=== PATIENT | female | born 1930 ===

== ENCOUNTER 2017-03-13 11:07 | Inpatient (IN) | payer MEDICARE, BC ==
[2017-03-13] MEDS ORDERED: Albuterol-Ipratrop 3 mg / 0.5 (3 ml) UD ONE (13:21)
[2017-03-13] MEDS ORDERED: Albuterol-Ipratrop 3 mg / 0.5 (3 ml) UD INH STA ×2 (13:24→21:50)
--- NOTE | 2017-03-13 13:26 | ED PDOC ---
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 Pt had previous admissions for COPD Asthma. Pt denied: dizziness, CP, v/n/d, abdominal pain, recent travel, sick contact. PMHx: HTN, High Cholesterol, Osteoporosis (NatiEmani Radha) Past Medical History - Medical History PMH: Asthma, COPD, HTN, Hypercholesterolemia, Osteoporosis Denies: Chronic Kidney Disease - Family History Family History: States: Unknown Family Hx - Immunization History Hx Tetanus Toxoid Vaccination: No Hx Influenza Vaccination: No Hx Pneumococcal Vaccination: No <Emani Damian - Last Filed: 03/13/17 16:53> <Sara Overton - Last Filed: 03/13/17 17:26> Vital Signs: Last Vital Signs Temp 98 F 03/13/17 11:31 Pulse 83 03/13/17 11:31 Resp 20 03/13/17 11:31 BP 128/65 03/13/17 11:31 Pulse Ox 98 03/13/17 16:58 - Home Medications Home Medications: Ambulatory Orders Medication Instructions Recorded Albuterol/Ipratropium [Duoneb 3 3 ml INH Q6H 09/28/16 mg/0.5 mg (3 ml) UD] Multivit-Min/FA/Lutein/Zeaxant 1 tab PO DAILY 09/28/16 [Icaps Mv Tablet] Simvastatin [Zocor] 20 mg PO HS 09/28/16 Vitamin E [Vitamin E 400 Units Cap] 1 cap PO DAILY 09/28/16 amLODIPine [Norvasc] 10 mg PO DAILY 09/28/16 Albuterol HFA [Ventolin HFA 90 2 puff IH Q4H PRN 03/13/17 mcg/actuation (8 g)] Calcium Carbonate [Calcium 1 tab PO DAILY 03/13/17 Carbonate] Cetirizine HCl [All Day Allergy 10 mg PO DAILY 03/13/17 Relief] Diclofenac Sodium/Misoprostol 1 tab PO DAILY PRN 03/13/17 [Arthrotec 50 mg-200 Mcg Tab] Fluticasone Nasal [Flonase] 1 spray YANCY BID PRN 03/13/17 Fluticasone/Vilanterol [Breo 1 puff IH DAILY 03/13/17 Ellipta 200-25 Mcg INH] Hydrocortisone [Proctosol-Hc] 1 appl MI HS 03/13/17 Montelukast [Singulair] 10 mg PO HS 03/13/17 predniSONE [predniSONE Tab] 15 mg PO Q12H 03/13/17 - Allergies Allergies/Adverse Reactions: Allergies Allergy/AdvReac Type Severity Reaction Status Date / Time No Known Allergies Allergy Verified 03/13/17 11:30 - Laboratory Results Result Diagrams: 03/13/17 13:35 03/13/17 13:35 - ECG O2 Sat by Pulse Oximetry: 98 <Emani Damian - Last Filed: 03/13/17 16:53> - Laboratory Results Result Diagrams: 03/13/17 13:35 03/13/17 13:35 <Sara Overton - Last Filed: 03/13/17 17:26> Medical Decision Making <Emani Damian - Last Filed: 03/13/17 16:53> <Sara Overton - Last Filed: 03/13/17 17:26> Medical Decision Making: IV access established and treatment initiated with Duo neb and Zithromax and Rocephin after CXR revealed B/L LL pneumonia's as read by PATuC EKG= Sinus rhythm with frequent premature ventricular complexes, L axis deviation, R bundle branch block., as read by ED MD Remains unchanged from previous admission CBC resulted with WBC 11.3 COMP with BUN mildly elevated at 19. Coags WNL Case discussed with Pt's PMD, Dr. Olsen., who agreed with admission at this time. (Emani Damian) Disposition - Patient ED Disposition Is Patient to be Admitted: Yes - Disposition Disposition Time: 16:53 - POA Present On Arrival: None <Emani Damian - Last Filed: 03/13/17 16:53> <Sara Overton - Last Filed: 03/13/17 17:26> - Clinical Impression Clinical Impression: Pneumonia - Disposition Condition: STABLE
[2017-03-13 13:46] LABS: BASO # 0.1 K/uL (0.0-0.2); BASO % 0.8 % (0.0-2.0); EOS # 0.2 K/uL (0.0-0.7); EOS % 1.6 % (0.0-4.0); HEMATOCRIT 40.9 % (34.0-47.0); LYMPH # 1.4 K/uL (1.0-4.3); LYMPH % 12.4 % (20.0-40.0); MEAN CELL VOLUME 97.6 fl (81.0-99.0); MEAN CORPUSCULAR HEMOGLOBIN 32.3 pg (27.0-31.0); MEAN CORPUSCULAR HGB CONC 33.1 g/dL (33.0-37.0); MEAN PLATELET VOLUME 8.7 fl (7.2-11.7); MONO # 0.8 K/uL (0.0-0.8); MONO % 7.4 % (0.0-10.0); NEUT # 8.8 K/uL (1.8-7.0); NEUT % 77.8 % (50.0-75.0); WHITE BLOOD COUNT 11.3 K/uL (4.8-10.8)
[2017-03-13 13:55] LABS: ALB/GLOB RATIO 1.2 (1.0-2.1); ALKALINE PHOSPHATASE 163 U/L (38-126); ALT/SGPT 46 U/L (9-52); AST/SGOT 31 U/L (14-36); BILIRUBIN,TOTAL 0.8 mg/dl (0.2-1.3); BLOOD UREA NITROGEN 19 mg/dl (7-17); CALCIUM 9.2 mg/dL (8.4-10.2); CARBON DIOXIDE 26 mmol/L (22-30); CHLORIDE 108 mmol/L (98-107); GFR AFRICAN-AMERICAN > 60; GLUCOSE,RANDOM 96 mg/dL (65-105); POTASSIUM 4.4 MMOL/L (3.6-5.0); SODIUM 143 mmol/l (132-148); TOTAL PROTEIN 7.3 G/DL (6.3-8.2)
[2017-03-13 14:02] LABS: PARTIAL THROMBOPLASTIN TIME 26.4 SECONDS (23.3-32.5)
--- NOTE | 2017-03-13 14:56 | RAD ---
PROCEDURE: CHEST RADIOGRAPH, 1 VIEW. Portable study 14:00. HISTORY: SOB COMPARISON: 10/03/2016. FINDINGS: LUNGS: Right lower lobe infiltrate, of questionable left lower lobe infiltrate. PLEURA: No pneumothorax or pleural fluid seen. CARDIOVASCULAR: No radiographic findings to suggest acute or significant cardiovascular disease. OSSEOUS STRUCTURES: Severe degenerative changes both shoulders. VISUALIZED UPPER ABDOMEN: Normal. OTHER FINDINGS: None. IMPRESSION: New right lower lobe infiltrate suspicious for pneumonia. Questionable left lower lobe infiltrate/atelectasis.
[2017-03-13] MEDS ORDERED: Azithromycin 500 MG in Sodium Chloride 0.9% 250 ML IVPB STA (16:25)
[2017-03-13] MEDS ORDERED: cefTRIAXone (Rocephin) 1 gm Inj ONE (16:40)
[2017-03-13] MEDS ORDERED: DiphenhydrAMINE 50 mg/ml Inj ONE (18:18)
[2017-03-13] MEDS ORDERED: DiphenhydrAMINE 50 mg/ml Inj IVP STA (18:20)
[2017-03-13] MEDS ORDERED: Anusol Suppository PR PRN (22:43)
[2017-03-13] MEDS: Promethazine/Cod 6.25mg-10mg/5ml Syr UD PO PRN (23:05)
[2017-03-13] MEDS: Albuterol-Ipratrop 3 mg / 0.5 (3 ml) UD INH SCH (23:34)
--- NOTE | 2017-03-14 02:02 | CARD ---
APPROVED REPORT EKG Measurement Heart [id number] <Conclusion> Sinus rhythm with occasional premature ventricular complexes Right bundle branch block Left anterior fascicular block Bifascicular block Cannot rule out Inferior infarct (masked by fascicular block?), age undetermined Abnormal ECG
[2017-03-14] MEDS: Albuterol-Ipratrop 3 mg / 0.5 (3 ml) UD INH SCH ×6 (04:35→23:04)
[2017-03-14] MEDS: Promethazine/Cod 6.25mg-10mg/5ml Syr UD PO PRN (07:58)
[2017-03-14] MEDS: methylPREDNISolone 30 MG in Sodium Chloride 0.9% 50 ML IVPB SCH ×2 (09:10→21:27)
[2017-03-14] MEDS: Pantoprazole 40 mg EC Tab PO SCH (09:10)
[2017-03-14] MEDS ORDERED: Chlorhexidine Gluconate 1 APPL/PKT TP ONE ×2 (09:11→16:54)
--- NOTE | 2017-03-14 10:45 | CT ---
PROCEDURE: CT Chest without contrast HISTORY: pneumonia COMPARISON: 08/16/2013 CT thorax. March 13, 2017. Single-view chest. TECHNIQUE: Contiguous axial images were obtained through the chest without intravenous contrast enhancement. Sagittal and coronal reconstructions were performed. Radiation dose (DLP): 405.07 mGy-cm. This CT exam was performed using one or more of the following dose reduction techniques: Automated exposure control, adjustment of the mA and/or kV according to patient size, and/or use of iterative reconstruction technique. FINDINGS: LUNGS: Improved aeration of the lungs compared to the prior chest radiograph. Hyperinflation, manifestations of COPD. No active pulmonary disease. MEDIASTINUM: Unremarkable thoracic aorta. No aneurysm. Normal sized heart. Main pulmonary artery unremarkable. No vascular congestion. No lymphadenopathy. PLEURA: No pleural fluid. No pneumothorax. BONES: No fracture. No destructive lesion. UPPER ABDOMEN: Cholelithiasis without CT evidence of acute cholecystitis. OTHER FINDINGS: None. IMPRESSION: Improved aeration of the lungs, decrease in infiltrates apparent on recent chest radiograph. Underlying manifestations of COPD primarily hyperinflation. Mild interstitial lung disease, parabronchial thickening and trace apical scarring remain unchanged.
[2017-03-14] MEDS: Enoxaparin 40 mg Syringe SC SCH (13:54)
[2017-03-14] MEDS: Azithromycin 500 MG in Sodium Chloride 0.9% 250 ML IVPB SCH (14:04)
--- NOTE | 2017-03-14 14:55 | CP.PCM.HP ---
History of Present Illness - History of Present Illness History of Present Illness: CC: Chest congestion. 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 Worsening symptom of productive cough with tick scanty yellowish phlegms, nasal congestion. Aggravated factor: Chest tightness with coughing, unable to sleep well. Pt denied: Bloody sputum, fever, chills, n/v/d, abdominal pain, urinary symptoms, CP, numbness, dizziness, syncope, LOC, sick contact, recent travel. PMHx: Several admissions for PNA, COPD, Asthma, HTN, High Cholesterol, Hx of falls, Chronic Shoulders pain, Osteoporosis, Hemorrhoids. EKG showed: Sinus rhythm with occasional PVC, RBB block, L anterior fascisular block, Bifascicular block. CXR: New RLL infiltrate, suspicious for PNA. Questionable LLL infiltrate/ atelectasis. Present on Admission - Present on Admission Any Indicators Present on Admission: No Review of Systems - Constitutional Constitutional: Other (negative) - EENT Eyes: Change in Vision, Other (negative) Ears: Decreased Hearing Nose/Mouth/Throat: Nasal Congestion - Cardiovascular Cardiovascular: Other (negative) - Respiratory Respiratory: Cough, Dyspnea, Dyspnea on Exertion, Chest Congestion, Excessive Mucous Production, Change in Mucous Color - Gastrointestinal Gastrointestinal: Other (negative) - Genitourinary Genitourinary: Other (negative) - Musculoskeletal Musculoskeletal: Other (chronic shoulders pain) - Integumentary Integumentary: Other (negative) - Neurological Neurological: Other (negative) - Psychiatric Psychiatric: Other (negative) - Endocrine Endocrine: Other (negative) - Hematologic/Lymphatic Hematologic: Other (negative) Past Patient History - Past Medical History & Family History Past Medical History?: Yes Pertinent Family History: Unknown - Past Social History Smoking Status: Never Smoked Alcohol: None Drugs: Denies Home Situation {Lives}: With Family - CARDIAC Hx Cardiac Disorders: Yes Hx Hypercholesterolemia: Yes Hx Hypertension: Yes - PULMONARY Hx Respiratory Disorders: Yes Hx Asthma: Yes Hx Chronic Obstructive Pulmonary Disease (COPD): Yes Hx Pneumonia: Yes - NEUROLOGICAL Hx Neurological Disorder: No - HEENT Hx HEENT Problems: No - RENAL Hx Chronic Kidney Disease: No - ENDOCRINE/METABOLIC Hx Endocrine Disorders: No - HEMATOLOGICAL/ONCOLOGICAL Hx Blood Disorders: No - INTEGUMENTARY Hx Dermatological Problems: No - MUSCULOSKELETAL/RHEUMATOLOGICAL Hx Musculoskeletal Disorders: Yes (B/L Shoulders pain) Hx Falls: Yes Hx Osteoporosis: Yes - GASTROINTESTINAL Hx Gastrointestinal Disorders: No - GENITOURINARY/GYNECOLOGICAL Hx Genitourinary Disorders: No - PSYCHIATRIC Hx Psychophysiologic Disorder: No Hx Substance Use: No - SURGICAL HISTORY Hx Surgeries: Yes Hx Herniorrhaphy: Yes Other/Comment: vaginal prolapse repair - ANESTHESIA Hx Anesthesia: Yes Hx Anesthesia Reactions: No Meds Allergies/Adverse Reactions: Allergies Allergy/AdvReac Type Severity Reaction Status Date / Time No Known Allergies Allergy Verified 03/13/17 11:30 Physical Exam - Constitutional Appears: No Acute Distress - Head Exam Head Exam: NORMAL INSPECTION - Eye Exam Eye Exam: PERRL - ENT Exam ENT Exam: Normal Oropharynx Additional comments: Hard of hearing - Neck Exam Neck exam: Positive for: Normal Inspection - Respiratory Exam Respiratory Exam: Decreased Breath Sounds (at bases), Rhonchi (b/l) - Cardiovascular Exam Cardiovascular Exam: REGULAR RHYTHM - GI/Abdominal Exam GI & Abdominal Exam: Normal Bowel Sounds, Soft - Extremities Exam Extremities exam: Positive for: normal inspection - Back Exam Back exam: NORMAL INSPECTION - Neurological Exam Neurological exam: Alert, Oriented x3 Additional comments: No motor sensory deficit - Psychiatric Exam Psychiatric exam: Normal Mood - Skin Skin Exam: Warm Results - Vital Signs Recent Vital Signs: Last Vital Signs Temp 98 F 03/14/17 08:39 Pulse 76 03/14/17 09:10 Resp 20 03/14/17 08:39 BP 106/56 L 03/14/17 09:10 Pulse Ox 96 03/14/17 08:39 reviewed J.P. - Labs Result Diagrams: 03/13/17 13:35 03/13/17 13:35 Labs: reviewed J.P. - EKG Data EKG comments: reviewed J.P. - Imaging and Cardiology Chest x-ray Status: Report reviewed by me (Elaina) Assessment & Plan (1) COPD exacerbation Status: Acute (2) Rhinitis Status: Acute Priority: High (3) HTN (hypertension) Status: Chronic Priority: Medium (4) Hemorrhoids Status: Acute - Assessment and Plan (Free Text) Plan: Zithromax, Ceftriaxone, Lovenox, Claritin, Phenergan with Co, PT eval, Surgery consult, f/u CT Chest. - Date & Time Date: 03/14/17 Time: 09:45
[2017-03-14] MEDS: Anusol Suppository PR SCH (17:02)
--- NOTE | 2017-03-14 18:50 | CP.PCM.CON ---
History of Present Illness - History of Present Illness History of Present Illness: 87 y.o. female comes to the hospital for congestion and cough. Patient states that occasionally she has being having some blood on the tissue when she wipes after defecation. Denies any pain to the jose-anal area, no fever or chills, no diarrhea or constipation, tolerating diet, passing flatus and having normal bowel movements. As per patient she never had a colonoscopy. Review of Systems - Constitutional Constitutional: As Per HPI - EENT Eyes: Other (unremarkable) Ears: Other (unremarkable) Nose/Mouth/Throat: Other (unremarkable) - Cardiovascular Cardiovascular: Other (unremarkable) - Respiratory Respiratory: As Per HPI - Gastrointestinal Gastrointestinal: As Per HPI - Genitourinary Genitourinary: Other (unremarkable) - Musculoskeletal Musculoskeletal: Other (unremarkable) - Integumentary Integumentary: Other (unremarkable) - Neurological Neurological: Other (unremarkable) - Psychiatric Psychiatric: Other (unremarkable) - Endocrine Endocrine: Other (unremarkable) - Hematologic/Lymphatic Hematologic: Other (unremarkable) Past Patient History - Past Medical History & Family History Past Medical History?: Yes - Past Social History Smoking Status: Never Smoked Alcohol: None Drugs: Denies Home Situation {Lives}: With Family - CARDIAC Hx Cardiac Disorders: Yes Hx Hypercholesterolemia: Yes Hx Hypertension: Yes - PULMONARY Hx Respiratory Disorders: Yes Hx Asthma: Yes Hx Chronic Obstructive Pulmonary Disease (COPD): Yes Hx Pneumonia: Yes - NEUROLOGICAL Hx Neurological Disorder: No - HEENT Hx HEENT Problems: No - RENAL Hx Chronic Kidney Disease: No - ENDOCRINE/METABOLIC Hx Endocrine Disorders: No - HEMATOLOGICAL/ONCOLOGICAL Hx Blood Disorders: No - INTEGUMENTARY Hx Dermatological Problems: No - MUSCULOSKELETAL/RHEUMATOLOGICAL Hx Musculoskeletal Disorders: Yes (B/L Shoulders pain) Hx Falls: Yes Hx Osteoporosis: Yes - GASTROINTESTINAL Hx Gastrointestinal Disorders: No - GENITOURINARY/GYNECOLOGICAL Hx Genitourinary Disorders: No - PSYCHIATRIC Hx Psychophysiologic Disorder: No Hx Substance Use: No - SURGICAL HISTORY Hx Surgeries: Yes Hx Herniorrhaphy: Yes Other/Comment: vaginal prolapse repair - ANESTHESIA Hx Anesthesia: Yes Hx Anesthesia Reactions: No Meds Allergies/Adverse Reactions: Allergies Allergy/AdvReac Type Severity Reaction Status Date / Time No Known Allergies Allergy Verified 03/13/17 11:30 - Medications Medications: Current Medications Albuterol/Ipratropium (Duoneb 3 Mg/0.5 Mg (3 Ml) Ud) 3 ml INH RQ4 [facility] Last Admin: 03/14/17 16:18 Dose: 3 ml Amlodipine Besylate (Norvasc) 10 mg PO DAILY [facility] Last Admin: 03/14/17 09:10 Dose: 10 mg Enoxaparin Sodium (Lovenox) 40 mg SC DAILY [facility] PRN Reason: Protocol Last Admin: 03/14/17 13:54 Dose: 40 mg Fluticasone Propionate (Flonase) 1 spr YANCY BID PRN PRN Reason: Allergy symptoms Home Med (Cetirizine Hcl [All Day Allergy Relief]) 10 mg PO DAILY [facility] Methylprednisolone 30 mg/ (Sodium Chloride) 50 mls @ 100 mls/hr IVPB Q12 [facility] Last Admin: 03/14/17 09:10 Dose: 100 mls/hr Ceftriaxone Sodium 1 gm/ (Sodium Chloride) 100 mls @ 100 mls/hr IVPB DAILY [facility] Last Admin: 03/14/17 14:04 Dose: 100 mls/hr Azithromycin 500 mg/ Sodium (Chloride) 250 mls @ 250 mls/hr IVPB DAILY [facility] Last Admin: 03/14/17 14:04 Dose: 250 mls/hr Loratadine (Claritin) 10 mg PO DAILY [facility] Last Admin: 03/14/17 09:09 Dose: 10 mg Montelukast Sodium (Singulair) 10 mg PO HS [facility] Last Admin: 03/14/17 00:36 Dose: 10 mg Pantoprazole Sodium (Protonix Ec Tab) 40 mg PO DAILY [facility] Last Admin: 03/14/17 09:10 Dose: 40 mg Promethazine HCl/Codeine (Phenergan/Codeine Oral Syrup) 5 ml PO Q4 PRN PRN Reason: Cough Last Admin: 03/14/17 07:58 Dose: 5 ml Physical Exam - Constitutional Appears: No Acute Distress - Head Exam Head Exam: ATRAUMATIC, NORMAL INSPECTION, NORMOCEPHALIC - Eye Exam Eye Exam: EOMI, Normal appearance, PERRL Pupil Exam: NORMAL ACCOMODATION, PERRL - ENT Exam ENT Exam: Mucous Membranes Moist, Normal Exam - Neck Exam Neck exam: Positive for: Full Rom, Normal Inspection - Respiratory Exam Respiratory Exam: NORMAL BREATHING PATTERN - Cardiovascular Exam Cardiovascular Exam: REGULAR RHYTHM, +S1, +S2 - GI/Abdominal Exam GI & Abdominal Exam: Normal Bowel Sounds, Soft Additional comments: NT, ND, no rebound, no guarding - Rectal Exam Additional comments: No external hemorrhoids, good sphincter tone, no palpable masses, no gross blood - Extremities Exam Extremities exam: Positive for: full ROM, normal inspection - Neurological Exam Neurological exam: Alert, Oriented x3 - Psychiatric Exam Psychiatric exam: Normal Affect, Normal Mood - Skin Skin Exam: Dry, Intact, Normal Color, Warm Results - Vital Signs Recent Vital Signs: Last Vital Signs Temp 98 F 03/14/17 16:23 Pulse 76 03/14/17 16:23 Resp 20 03/14/17 16:23 BP 147/67 03/14/17 16:23 Pulse Ox 97 03/14/17 16:23 - Labs Result Diagrams: 03/13/17 13:35 03/13/17 13:35 - Imaging and Cardiology CT scan - chest Status: Image reviewed by me, Report reviewed by me Assessment & Plan - Assessment and Plan (Free Text) Assessment: 87 y.o. female with some occasional blood on the tissue after defecation Plan: - No general surgery intervention at present time - Continue care as per medical team - I have explained to the patient that once her lung issue is resolved she can follow up with me in the office - Patient was d/w Dr. Olsen - General surgery will sign off - Please re-consult as needed
[2017-03-15] MEDS: Albuterol-Ipratrop 3 mg / 0.5 (3 ml) UD INH SCH ×6 (04:39→23:46)
[2017-03-15 07:10] LABS: HEMATOCRIT 38.2 % (34.0-47.0); MEAN CELL VOLUME 97.7 fl (81.0-99.0); MEAN CORPUSCULAR HEMOGLOBIN 32.1 pg (27.0-31.0); MEAN CORPUSCULAR HGB CONC 32.9 g/dL (33.0-37.0); RED CELL DISTRIBUTION WIDTH 13.8 % (11.5-14.5); WHITE BLOOD COUNT 5.9 K/uL (4.8-10.8)
[2017-03-15 07:32] LABS: BLOOD UREA NITROGEN 26 mg/dl (7-17); CALCIUM 9.1 mg/dL (8.4-10.2); CARBON DIOXIDE 23 mmol/L (22-30); CHLORIDE 108 mmol/L (98-107); GFR AFRICAN-AMERICAN > 60; GLUCOSE,RANDOM 175 mg/dL (65-105); POTASSIUM 4.1 MMOL/L (3.6-5.0); SODIUM 140 mmol/l (132-148)
--- NOTE | 2017-03-15 07:53 | PQF GENQUE ---
This form is a permanent part of the medical record 03/15/17 Dr. Olsen, ER has documented the following information with no mention of this diagnosis in your documentation. Please indicate in your next progress note and/or discharge summary your agreement with the ER or provide clarification that this diagnosis is not a current condition. Diagnosis: PNEUMONIA Documented by: ER MD Admitted with chest congestion, REARDON and productive cough. Afebrile, WBC 11.3 with a L shift. Rhonchi noted. CXR: New RLL infiltrate suspicious for pneumonia and questionable LLL infiltrate/atelectasis. CT Chest: Improved aeration and decrease in the infiltrates apparent on CXR. + COPD. Treatment includes: Rocephin, Zithromax, nebulizers and Solumedrol. Clarification of your documentation is requested to better reflect the severity of illness and intensity of treatment of your patient. PHYSICIAN'S RESPONSE [ ] Pneumonia ruled in and the type [ ] Pneumonia ruled out [ ] Unable to determine [ ] Other explanation: Based on your medical judgment of the clinical indicators outlined above please clarify the following: [] Practitioner response [] If unable to determine, please check the box, sign and date. Present On Admission (POA) Indicator: [] Present at the time of admission [] Not present at the time of admission [] Clinically Undetermined In responding to this query, please exercise your independent professional judgment. The fact that a question is asked does not imply that any particular answer is desired or expected. Thank you for your clarification on this documentation. If you have any questions please call:extension [phone] Medical Records * Thank you, Hyacinth Olivares RN CDMP MTDD
--- NOTE | 2017-03-15 08:01 | PQF GENQUE ---
This form is a permanent part of the medical record 03/15/17 Dr. Olsen, Please clarify the type of asthma if known. Patient with a history of COPD and Asthma presents with chest congestion, REARDON and productive cough. CXR with new RLL infiltrate and questionable left atelectasis/infiltrate. CT Chest: Improved aeration of lungs with decrease in infiltrates apparent on CXR. Treated with IVAB, Solumedrol, Flonase, Singulair . Clarification of your documentation is requested to better reflect the severity of illness and intensity of treatment of your patient. PHYSICIAN'S RESPONSE 1. Please clarify type of asthma: [] Childhood [] Cough variant [] Exercise induced [] Late onset [] Mild intermittent [] Mild persistent [] Moderate persistent [] Severe persistent [] With bronchitis(please clarify acuity of bronchitis) [] With chronic lung disease (please document specific chronic lung disease ) [] Other (please specify) [] Unable to determine [] Unknown 2. Please clarify acuity of asthma: [] Uncomplicated [] With exacerbation(acute) [] With status asthmaticus [] Other (please specify) [] Unable to determine [] Unknown Based on your medical judgment of the clinical indicators outlined above please clarify the following: [] Practitioner response [] If unable to determine, please check the box, sign and date. Present On Admission (POA) Indicator: [] Present at the time of admission [] Not present at the time of admission [] Clinically Undetermined In responding to this query, please exercise your independent professional judgment. The fact that a question is asked does not imply that any particular answer is desired or expected. Thank you for your clarification on this documentation. If you have any questions please call:extension [phone] Medical Records Dept * Thank you, Hyacinth Olivares RN CDMP MTDD
[2017-03-15] MEDS: Enoxaparin 40 mg Syringe SC SCH (08:26)
[2017-03-15] MEDS: Pantoprazole 40 mg EC Tab PO SCH (08:27)
[2017-03-15] MEDS: Anusol Suppository PR SCH ×2 (08:30→16:56)
[2017-03-15] MEDS: methylPREDNISolone 30 MG in Sodium Chloride 0.9% 50 ML IVPB SCH ×2 (08:32→21:07)
[2017-03-15] MEDS: Azithromycin 500 MG in Sodium Chloride 0.9% 250 ML IVPB SCH (08:33)
[2017-03-15 16:28] VITALS: BP 113/51; PULSE 78; RESP 18; TEMP 97.8; O2SAT 97
--- NOTE | 2017-03-15 16:52 | CP.PCM.PN ---
Subjective - Date & Time of Evaluation Date of Evaluation: 03/15/17 Time of Evaluation: 11:30 - Subjective Subjective: F/U COPD Exacerbation. Pt breathing better, having dry cough, attempting to bring up phlegms, chest congestion. Objective - Vital Signs/Intake and Output Vital Signs (last 24 hours): Temp Pulse Resp BP Pulse Ox 97.8 F 78 18 113/51 L 97 03/15/17 16:28 03/15/17 16:28 03/15/17 16:28 03/15/17 16:28 03/15/17 16:28 - Medications Medications: Current Medications Albuterol/Ipratropium (Duoneb 3 Mg/0.5 Mg (3 Ml) Ud) 3 ml INH RQ4 [facility] Last Admin: 03/15/17 15:23 Dose: 3 ml Amlodipine Besylate (Norvasc) 10 mg PO DAILY [facility] Last Admin: 03/15/17 08:26 Dose: 10 mg Enoxaparin Sodium (Lovenox) 40 mg SC DAILY [facility] PRN Reason: Protocol Last Admin: 03/15/17 08:26 Dose: 40 mg Fluticasone Propionate (Flonase) 1 spr YANCY BID PRN PRN Reason: Allergy symptoms Home Med (Cetirizine Hcl [All Day Allergy Relief]) 10 mg PO DAILY [facility] Methylprednisolone 30 mg/ (Sodium Chloride) 50 mls @ 100 mls/hr IVPB Q12 [facility] Last Admin: 03/15/17 08:32 Dose: 100 mls/hr Ceftriaxone Sodium 1 gm/ (Sodium Chloride) 100 mls @ 100 mls/hr IVPB DAILY [facility] Last Admin: 03/15/17 08:28 Dose: 100 mls/hr Azithromycin 500 mg/ Sodium (Chloride) 250 mls @ 250 mls/hr IVPB DAILY [facility] Last Admin: 03/15/17 08:33 Dose: 250 mls/hr Loratadine (Claritin) 10 mg PO DAILY [facility] Last Admin: 03/15/17 08:25 Dose: 10 mg Montelukast Sodium (Singulair) 10 mg PO HS [facility] Last Admin: 03/14/17 21:27 Dose: 10 mg Pantoprazole Sodium (Protonix Ec Tab) 40 mg PO DAILY [facility] Last Admin: 03/15/17 08:27 Dose: 40 mg Promethazine HCl/Codeine (Phenergan/Codeine Oral Syrup) 5 ml PO Q4 PRN PRN Reason: Cough Last Admin: 03/14/17 07:58 Dose: 5 ml - Labs Labs: 03/15/17 05:50 03/15/17 05:50 PT 10.8 SECONDS (9.6-11.2) 03/13/17 13:35 INR 1.04 (0.92-1.08) 03/13/17 13:35 APTT 26.4 SECONDS (23.3-32.5) 03/13/17 13:35 - Constitutional Appears: No Acute Distress - Head Exam Head Exam: NORMAL INSPECTION - Eye Exam Eye Exam: PERRL - ENT Exam Additional comments: Hard of hearing - Neck Exam Neck Exam: Normal Inspection - Respiratory Exam Respiratory Exam: Decreased Breath Sounds (at bases), Rhonchi (scattered), Wheezes (scattered) - Cardiovascular Exam Cardiovascular Exam: REGULAR RHYTHM - GI/Abdominal Exam GI & Abdominal Exam: Soft, Normal Bowel Sounds - Extremities Exam Extremities Exam: Normal Inspection - Back Exam Back Exam: NORMAL INSPECTION - Neurological Exam Neurological Exam: Alert, Oriented x3. absent: Motor Sensory Deficit - Psychiatric Exam Psychiatric exam: Normal Mood - Skin Skin Exam: Warm Assessment and Plan (1) COPD exacerbation Status: Acute (2) Rhinitis Status: Acute (3) HTN (hypertension) Status: Chronic (4) Hemorrhoids Status: Acute - Assessment and Plan (Free Text) Plan: Continue with Zithromax, Ceftriaxone, Duoneb, Solumedrol and rest of Tx.
--- NOTE | 2017-03-16 20:10 | CP.PCM.PN ---
Subjective - Date & Time of Evaluation Date of Evaluation: 03/16/17 Time of Evaluation: 09:00 - Subjective Subjective: F/U COPD Exacerbation. Occasional dry cough, no SOB, minimal chest congestion. Objective - Vital Signs/Intake and Output Vital Signs (last 24 hours): Temp Pulse Resp BP Pulse Ox 97.8 F 78 18 113/51 L 97 03/15/17 16:28 03/15/17 16:28 03/15/17 16:28 03/15/17 16:28 03/15/17 16:28 - Labs Labs: 03/15/17 05:50 03/15/17 05:50 PT 10.8 SECONDS (9.6-11.2) 03/13/17 13:35 INR 1.04 (0.92-1.08) 03/13/17 13:35 APTT 26.4 SECONDS (23.3-32.5) 03/13/17 13:35 - Constitutional Appears: No Acute Distress - Head Exam Head Exam: NORMAL INSPECTION - Eye Exam Eye Exam: PERRL - ENT Exam Additional comments: Hard of hearing - Neck Exam Neck Exam: Normal Inspection - Respiratory Exam Respiratory Exam: Decreased Breath Sounds (at bases), Rhonchi (few at bases) - Cardiovascular Exam Cardiovascular Exam: REGULAR RHYTHM - GI/Abdominal Exam GI & Abdominal Exam: Soft, Normal Bowel Sounds - Extremities Exam Extremities Exam: Normal Inspection - Back Exam Back Exam: NORMAL INSPECTION - Neurological Exam Neurological Exam: Alert, Oriented x3. absent: Motor Sensory Deficit - Psychiatric Exam Psychiatric exam: Normal Mood - Skin Skin Exam: Warm Assessment and Plan (1) COPD exacerbation Status: Acute (2) Rhinitis Status: Acute (3) HTN (hypertension) Status: Chronic (4) Hemorrhoids Status: Acute - Assessment and Plan (Free Text) Plan: Zithromax po, Prednisone tapered doses, Duoneb. Improved and stable to be discharged see instruction medication sheet f/u PMD, call my office for f/u in one week.
== END 2017-03-16 19:22 | disposition home or self-care (01) | DRG 190 ==
LOC: H.ER 11:07 → H.ERHOLD 16:52 → H.MEDSURG1 20:30
PROVIDERS: ADMIT Internal Medicine Pulmonary Disease; ATTEND Internal Medicine Pulmonary Disease
DX: J44.1 Chronic obstructive pulmonary disease with (acute) exacerbation (principal); J18.9 Pneumonia, unspecified organism; J44.0 Chronic obstructive pulmonary disease with (acute) lower respiratory infection; I10 Essential (primary) hypertension; J45.909 Unspecified asthma, uncomplicated; E78.00 Pure hypercholesterolemia, unspecified; K64.9 Unspecified hemorrhoids; J31.0 Chronic rhinitis; M81.0 Age-related osteoporosis without current pathological fracture; G89.29 Other chronic pain

== ENCOUNTER 2017-04-25 18:30 | Emergency (ER) | payer MEDICARE, BC ==
--- NOTE | 2017-04-25 19:11 | ED PDOC ---
HPI: General Adult Time Seen by Provider: 04/25/17 18:56 Chief Complaint (Nursing): Trauma Chief Complaint (Provider): FALL History Per: Patient (87 Y/O FEMALE H/O ASTHMA HERE FOR EVALUATION OF FALL AND WRIST INJURY/HIP INJURY. PATIENT UNCLEAR WHY SHE FELL. HAS FELT UNWELL X FEW DAYS WITH "SHOT" GIVEN IN PMD DR. ZAIDI'S OFFICE. NOTES RIGHT WRIST PAIN/ RIGHT BUTTOCK PAIN. UNSURE IF SHE STRUCK HEAD. FALL WAS UNWITNESSED.) Past Medical History Reviewed: Historical Data, Nursing Documentation, Vital Signs Vital Signs: Last Vital Signs Temp 98.0 F 04/25/17 18:33 Pulse 67 04/25/17 18:33 Resp 16 04/25/17 18:33 BP 131/44 L 04/25/17 18:33 Pulse Ox 100 04/25/17 21:00 - Medical History PMH: Asthma, COPD, HTN, Hypercholesterolemia, Osteoporosis, Pneumonia Denies: Chronic Kidney Disease - Family History Family History: States: Unknown Family Hx - Immunization History Hx Tetanus Toxoid Vaccination: No Hx Influenza Vaccination: No Hx Pneumococcal Vaccination: No - Home Medications Home Medications: Ambulatory Orders Medication Instructions Recorded Albuterol/Ipratropium [Duoneb 3 3 ml INH Q6H 09/28/16 mg/0.5 mg (3 ml) UD] Multivit-Min/FA/Lutein/Zeaxant 1 tab PO DAILY 09/28/16 [Icaps Mv Tablet] Simvastatin [Zocor] 20 mg PO HS 09/28/16 Vitamin E [Vitamin E 400 Units Cap] 1 cap PO DAILY 09/28/16 amLODIPine [Norvasc] 10 mg PO DAILY 09/28/16 Albuterol HFA [Ventolin HFA 90 2 puff IH Q4H PRN 03/13/17 mcg/actuation (8 g)] Calcium Carbonate [Calcium 1 tab PO DAILY 03/13/17 Carbonate] Cetirizine HCl [All Day Allergy 10 mg PO DAILY 03/13/17 Relief] Diclofenac Sodium/Misoprostol 1 tab PO DAILY PRN 03/13/17 [Arthrotec 50 mg-200 Mcg Tab] Fluticasone Nasal [Flonase] 1 spray YANCY BID PRN 03/13/17 Fluticasone/Vilanterol [Breo 1 puff IH DAILY 03/13/17 Ellipta 200-25 Mcg INH] Hydrocortisone [Proctosol-Hc] 1 appl [place] HS 03/13/17 Montelukast [Singulair] 10 mg PO HS 03/13/17 predniSONE [predniSONE Tab] 15 mg PO Q12H 03/13/17 Naproxen 500 mg PO BID #30 tab 04/25/17 - Allergies Allergies/Adverse Reactions: Allergies Allergy/AdvReac Type Severity Reaction Status Date / Time No Known Allergies Allergy Verified 04/25/17 18:33 Review of Systems ROS Statement: Except As Marked, All Systems Reviewed And Found Negative Musculoskeletal: Positive for: Leg Pain (HIP PAIN), Other (WRIST PAIN) Physical Exam - Reviewed Nursing Documentation Reviewed: Yes Vital Signs Reviewed: Yes - Physical Exam Appears: Positive for: Well, Non-toxic, No Acute Distress Head Exam: Positive for: ATRAUMATIC, NORMAL INSPECTION, NORMOCEPHALIC Skin: Positive for: Normal Color, Warm, DRY Eye Exam: Positive for: EOMI, Normal appearance, PERRL ENT: Positive for: Normal ENT Inspection Neck: Positive for: Normal, Painless ROM Cardiovascular/Chest: Positive for: Regular Rate, Rhythm Respiratory: Positive for: CNT, Normal Breath Sounds Gastrointestinal/Abdominal: Positive for: Normal Exam, Bowel Sounds, Soft Back: Positive for: Normal Inspection Extremity: Positive for: Normal ROM, Tenderness, Swelling (WRIST SWELLING NOTED / ECCHYMOSIS NOTED DISTAL FOREARM.), Other (RIGHT GLUTEAL REGION TENDERNESS; NO ECCHYMOSIS NOTED.) Neurologic/Psych: Positive for: Alert, Oriented - Laboratory Results Result Diagrams: 04/25/17 19:50 04/25/17 19:50 - ECG O2 Sat by Pulse Oximetry: 100 - Progress ED Course And Treament: EKG: nsr 65bpm; no ectopy; no acute changes cxr: pleural effusion left side xry of wrist: fx of distal radius noted. xry of hip: no acute fx d/w Dr. Johnson. Will f/u outpatient. d/w Dr. Lewis. Will send xry to [facility]. Pending bloodwork results/ cxr findings patient may be discharged for f/u with Dr. zaidi Disposition - Clinical Impression Clinical Impression: Wrist fracture - Patient ED Disposition Is Patient to be Admitted: Transfer of Care - Disposition Referrals: Estevan Johnson MD [Medical Doctor] - Disposition: Transfer of Care Disposition Time: 20:00 Condition: STABLE Prescriptions: Naproxen 500 mg PO BID #30 tab Instructions: Wrist Fracture in Adults (ED) Print Language: HUNGARIAN Patient Signed Over To: Lima Grigsby Handoff Comments: pending bloodwork/ct head/xry
[2017-04-25 19:35] LABS: URINE BILIRUBIN NEGATIVE (NEGATIVE); URINE BLOOD NEGATIVE (NEGATIVE); URINE CLARITY CLEAR (Clear); URINE COLOR YELLOW (YELLOW); URINE GLUCOSE (UA) NEG (Normal); URINE LEUKOCYTE ESTERASE NEG Leu/uL (Negative); URINE NITRATE NEGATIVE (NEGATIVE); URINE PROTEIN NEGATIVE (NEGATIVE); URINE UROBILINOGEN 0.2-1.0 mg/dL (0.2-1.0)
[2017-04-25 20:00] VITALS: BP 131/44; PULSE 67; RESP 16; TEMP 98; O2SAT 100
[2017-04-25 20:09] LABS: BASO # 0.1 K/uL (0.0-0.2); BASO % 0.6 % (0.0-2.0); EOS % 0.4 % (0.0-4.0); HEMOGLOBIN 13.3 g/dL (12.0-16.0); LYMPH # 1.7 K/uL (1.0-4.3); LYMPH % 15.1 % (20.0-40.0); MEAN CORPUSCULAR HEMOGLOBIN 32.3 pg (27.0-31.0); MEAN CORPUSCULAR HGB CONC 32.6 g/dL (33.0-37.0); MEAN PLATELET VOLUME 9.4 fl (7.2-11.7); MONO # 0.9 K/uL (0.0-0.8); MONO % 8.1 % (0.0-10.0); NEUT # 8.5 K/uL (1.8-7.0); NEUT % 75.8 % (50.0-75.0); RBC 4.11 Mil/uL (3.80-5.20); RED CELL DISTRIBUTION WIDTH 14.6 % (11.5-14.5); WHITE BLOOD COUNT 11.2 K/uL (4.8-10.8)
[2017-04-25 20:11] LABS: ALB/GLOB RATIO 1.3 (1.0-2.1); ALBUMIN 4.1 g/dL (3.5-5.0); ALT/SGPT 39 U/L (9-52); AST/SGOT 25 U/L (14-36); BLOOD UREA NITROGEN 27 mg/dl (7-17); CALCIUM 9.1 mg/dL (8.4-10.2); GFR AFRICAN-AMERICAN > 60; GFR NON-AFRICAN AMERICAN 59; MAGNESIUM 2.3 MG/DL (1.6-2.3)
--- NOTE | 2017-04-25 20:22 | CT ---
EXAM: CT Head Without Intravenous Contrast CLINICAL HISTORY: 87 years old, female; Injury or trauma; Fall; Initial encounter; Concussion / head injury; Consciousness not specified TECHNIQUE: Axial computed tomography images of the head/brain without intravenous contrast. This CT exam was performed using one or more of the following dose reduction techniques: automated exposure control, adjustment of the mA and/or kV according to patient size, and/or use of iterative reconstruction technique. Coronal and sagittal reformatted images were created and reviewed. EXAM DATE/TIME: 04/25/2017 6:56 PM COMPARISON: CT - HEAD W/O CONTRAST 12/28/2016 2:33:36 PM FINDINGS: Brain: There is prominence of sulci gyri and ventricles. There is no midline shift. There are no focal masses. There are no focal hemorrhages. Kang-white differentiation is visualized. Ventricles: See above. Bones: Cranial vault is intact. Soft tissues: unremarkable Sinuses: There is no acute sinusitis. Ears and mastoids: Middle ears and mastoids are unremarkable. Orbits: Orbital contents are unremarkable. IMPRESSION: Atrophy, no acute intracranial abnormality
--- NOTE | 2017-04-25 20:27 | RAD ---
EXAM: XR Chest, 1 View CLINICAL HISTORY: 87 years old, female; Injury or trauma; Fall; Initial encounter; Blunt trauma (contusions or hematomas) TECHNIQUE: Frontal view of the chest. EXAM DATE/TIME: 04/25/2017 6:56 PM COMPARISON: CR - CHEST ONE VIEW 03/13/2017 1:51:16 PM FINDINGS: Heart and mediastinum: Heart size is at the upper limits of normal. There are calcifications in the aortic wall. Mediastinal and hilar contours are unremarkable. Vascularity: Pulmonary vascularity is normal. Lungs: Upper lung zones are clear. There are linear opacities at both lung bases Pleural spaces: There may be small bilateral effusions. Bony structures: Bony structures are osteopenic. There are severe degenerative changes of both shoulders. IMPRESSION: Subsegmental atelectasis at the lung bases; osteopenia degenerative change
--- NOTE | 2017-04-25 20:58 | ED PDOC ---
- Laboratory Results Result Diagrams: 04/25/17 19:50 04/25/17 19:50 - ECG O2 Sat by Pulse Oximetry: 100 - Progress Re-evaluation Time: 20:56 Condition: Re-examined (well appearing) <Lima Grigsby - Last Filed: 04/25/17 20:55> - Laboratory Results Result Diagrams: 04/25/17 19:50 04/25/17 19:50 <Latonya Lewis Y - Last Filed: 04/26/17 06:28> - Progress ED Course And Treament: case signed out to brief writer pt with wrist fx, volar splint applied MD Alex consulted and pt will f/u as outpt. [place] [facility] to fever, [facility] PT pending labs and chest xray. , (Lima Grigsby) Disposition Discussed With Dr.: Estevan Johnson Doctor Will See Patient In The: Office Counseled Patient/Family Regarding: Studies Performed, Diagnosis, Need For Followup, Rx Given - POA Present On Arrival: None - Disposition Disposition: Routine/Home Disposition Time: 20:59 <Lima Grigsby - Last Filed: 04/25/17 20:55> <DebbieLatonya Y - Last Filed: 04/26/17 06:28> - Clinical Impression Clinical Impression: Wrist fracture - Disposition Referrals: Estevan Johnson MD [Medical Doctor] - Condition: STABLE Prescriptions: Naproxen 500 mg PO BID #30 tab Instructions: Wrist Fracture in Adults (ED) Print Language: TURKISH Progress Note - Review of Symptoms General: No: Chills, Night Sweats, Fatigue, Malaise, Appetite, Other HEENT: No: Head Aches, Visual Changes, Eye Pain, Ear Pain, Dysphasia, Sinus Congestion, Post Nasal Drip, Sore Throat, Other Pulmonary: No: Dyspnea, Cough, Pleuritic Chest Pain, Other Cardiovascular: No: Chest Pain, Palpitations, Orthopnea, Paroxysmal Noc. Dyspnea , Edema, Light Headedness, Other Gastrointestinal: No: Nausea, Vomiting, Abdominal Pain, Diarrhea, Constipation, Melena, Hematochezia, Other Genitourinary: No: Dysuria, Frequency, Incontinence, Hematuria, Retention, Other Musculoskeletal: No: Muscle Pain, Joint Pain, Other Neurological: No: Weakness, Numbness, Incoordination, Change in speech, Confusion, Seizures, Other <Lima Grigsby - Last Filed: 04/25/17 20:55>
--- NOTE | 2017-04-26 12:47 | RAD ---
PROCEDURE: Right hand radiographs Right wrist radiographs HISTORY: hand injury, wrist injury COMPARISON: None available. FINDINGS: BONES: Diffuse osseous demineralization limits evaluation for acute fracture lines. Comminuted impacted fracture deformity of the distal radius. Nondisplaced fracture of the ulna styloid. Faint lucency within the trapezium of unclear significance favored to reflect vascular groove rather than nondisplaced fracture. Correlate clinically. Remainder of the visualized osseous structures appear intact. JOINTS: No dislocation. SOFT TISSUES: Soft tissue swelling. No evidence of radiopaque foreign body. OTHER FINDINGS: None. IMPRESSION: Soft tissue swelling. Diffuse osseous demineralization limits evaluation for acute fracture lines. Acute comminuted and impacted fracture deformity of the distal radius. Nondisplaced fracture of the ulna styloid. Faint lucency within the trapezium of unclear significance favored to reflect vascular groove rather than nondisplaced fracture. Correlate with physical exam. Study has been marked for PA review.
--- NOTE | 2017-04-26 14:24 | RAD ---
PROCEDURE: Right Hip Radiographs. HISTORY: hip injury COMPARISON: None. FINDINGS: BONES: No acute fracture. Osteopenia identified. JOINTS: Symmetrical, mild degenerative change. SOFT TISSUES: Normal. OTHER FINDINGS: None. IMPRESSION: No acute findings related to/accounting for the clinical presentation.
--- NOTE | 2017-04-27 11:47 | CARD ---
APPROVED REPORT EKG Measurement Heart [id number] <Conclusion> Normal sinus rhythm Possible Left atrial enlargement Left axis deviation Incomplete right bundle branch block Left ventricular hypertrophy Inferior infarct, age undetermined Abnormal ECG
== END 2017-04-25 21:35 | disposition home or self-care (01) ==
LOC: H.ER 18:30
DX: S52.502A Unspecified fracture of the lower end of left radius, initial encounter for closed fracture (principal); S09.90XA Unspecified injury of head, initial encounter; M25.551 Pain in right hip; W19.XXXA Unspecified fall, initial encounter; Y92.89 Other specified places as the place of occurrence of the external cause; E78.00 Pure hypercholesterolemia, unspecified; I10 Essential (primary) hypertension; J44.9 Chronic obstructive pulmonary disease, unspecified; M81.0 Age-related osteoporosis without current pathological fracture

== ENCOUNTER 2017-05-12 14:46 | Emergency (ER) | payer MEDICARE, BC ==
[2017-05-12 14:54] VITALS: BP 138/59; PULSE 73; RESP 18; TEMP 97.1; O2SAT 100
--- NOTE | 2017-05-12 15:49 | RAD ---
PROCEDURE: Right Wrist Radiographs. HISTORY: r/o fx COMPARISON: 04/25/2017 FINDINGS: BONES: Cast obscures bony details. There is redemonstration of. Acute transverse mildly displaced fracture in the distal radius with 5 mm radial displacement without significant angulation. There is diffuse bone demineralization. JOINTS: Bone alignment is normal. SOFT TISSUES: There is mild periarticular soft tissue swelling. OTHER FINDINGS: None. IMPRESSION: Redemonstration of acute transverse mildly displaced fracture in the distal radius.
--- NOTE | 2017-05-12 16:06 | ED PDOC ---
Upper Extremity Pain/Injury Time Seen by Provider: 05/12/17 15:14 Chief Complaint (Nursing): Upper Extremity Problem/Injury Chief Complaint (Provider): Upper Extremity Problem/Injury History Per: Patient History/Exam Limitations: no limitations Onset/Duration Of Symptoms: Mins (prior to arrival) Additional Complaint(s): Kia Massey is a 87 year old female who presents to the emergency department for an evaluation of an existing right arm fracture associated with right thumb pain and swelling. Denies any fever or chills. She was told by her orthopedic, Dr. Estevan Johnson, to get an Xray of the arm. Of note, Patient currently has her right arm in a sling/soft cast. Past Medical History Reviewed: Historical Data, Nursing Documentation, Vital Signs Vital Signs: Last Vital Signs Temp 97.1 F L 05/12/17 14:49 Pulse 73 05/12/17 14:49 Resp 18 05/12/17 14:49 BP 138/59 L 05/12/17 14:49 Pulse Ox 100 05/12/17 14:49 - Medical History PMH: Asthma, COPD, HTN, Hypercholesterolemia, Osteoporosis, Pneumonia Denies: Chronic Kidney Disease - Family History Family History: States: Unknown Family Hx - Social History Current smoker - smoking cessation education provided: No Alcohol: None Drugs: Denies - Immunization History Hx Tetanus Toxoid Vaccination: No Hx Influenza Vaccination: No Hx Pneumococcal Vaccination: No - Home Medications Home Medications: Ambulatory Orders Medication Instructions Recorded Albuterol/Ipratropium [Duoneb 3 3 ml INH Q6H 09/28/16 mg/0.5 mg (3 ml) UD] Multivit-Min/FA/Lutein/Zeaxant 1 tab PO DAILY 09/28/16 [Icaps Mv Tablet] Simvastatin [Zocor] 20 mg PO HS 09/28/16 Vitamin E [Vitamin E 400 Units Cap] 1 cap PO DAILY 09/28/16 amLODIPine [Norvasc] 10 mg PO DAILY 09/28/16 Albuterol HFA [Ventolin HFA 90 2 puff IH Q4H PRN 03/13/17 mcg/actuation (8 g)] Calcium Carbonate [Calcium 1 tab PO DAILY 03/13/17 Carbonate] Cetirizine HCl [All Day Allergy 10 mg PO DAILY 03/13/17 Relief] Diclofenac Sodium/Misoprostol 1 tab PO DAILY PRN 03/13/17 [Arthrotec 50 mg-200 Mcg Tab] Fluticasone Nasal [Flonase] 1 spray YANCY BID PRN 03/13/17 Fluticasone/Vilanterol [Breo 1 puff IH DAILY 03/13/17 Ellipta 200-25 Mcg INH] Hydrocortisone [Proctosol-Hc] 1 appl [place] HS 03/13/17 Montelukast [Singulair] 10 mg PO HS 03/13/17 predniSONE [predniSONE Tab] 15 mg PO Q12H 03/13/17 Naproxen 500 mg PO BID #30 tab 04/25/17 - Allergies Allergies/Adverse Reactions: Allergies Allergy/AdvReac Type Severity Reaction Status Date / Time No Known Allergies Allergy Verified 04/25/17 18:33 Review of Systems ROS Statement: Except As Marked, All Systems Reviewed And Found Negative Constitutional: Negative for: Fever, Chills Musculoskeletal: Positive for: Arm Pain (right), Other (right thumb pain and swelling) Physical Exam - Reviewed Nursing Documentation Reviewed: Yes Vital Signs Reviewed: Yes - Physical Exam Appears: Positive for: Well, Non-toxic, No Acute Distress Head Exam: Positive for: ATRAUMATIC, NORMAL INSPECTION, NORMOCEPHALIC Extremity: Positive for: Capillary Refill (good), Other (right thumb tenderness and edema) Neurologic/Psych: 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 Did not understand her orthopedic's instruction of getting an Xray done in outpatient facility. Xray was performed and film was given to patient to follow up with Dr. Estevan Johnson in office. Scribe Attestation: Documented by Malathi Hansen, acting as a scribe for Lima Grigsby PA-C. Provider Scribe Attestation: All medical record entries made by the Scribe were at my direction and personally dictated by me. I have reviewed the chart and agree that the record accurately reflects my personal performance of the history, physical exam, medical decision making, and the department course for this patient. I have also personally directed, reviewed, and agree with the discharge instructions and disposition. Disposition - Clinical Impression Clinical Impression: Wrist fracture - Patient ED Disposition Is Patient to be Admitted: No - Disposition Referrals: Estevan Johnson MD [Medical Doctor] - Disposition: Routine/Home Disposition Time: 19:23 Condition: STABLE Instructions: Wrist Fracture in Adults (ED) Print Language: POLISH
== END 2017-05-12 15:56 | disposition home or self-care (01) ==
LOC: H.ER 14:46
DX: Z47.89 Encounter for other orthopedic aftercare (principal); E78.00 Pure hypercholesterolemia, unspecified; I10 Essential (primary) hypertension; J44.9 Chronic obstructive pulmonary disease, unspecified; M81.0 Age-related osteoporosis without current pathological fracture

== ENCOUNTER 2017-10-26 17:11 | Emergency (ER) | payer MEDICARE, BC ==
[2017-10-26 17:31] VITALS: BP 132/62; PULSE 95; RESP 16; TEMP 97.9; O2SAT 100
[2017-10-26] MEDS ORDERED: Albuterol-Ipratrop 3 mg / 0.5 (3 ml) UD IH STA (17:44)
--- NOTE | 2017-10-26 17:49 | ED PDOC ---
HPI: General Adult Time Seen by Provider: 10/26/17 17:32 Chief Complaint (Nursing): Cough, Cold, Congestion Chief Complaint (Provider): Productive Cough History Per: Patient History/Exam Limitations: no limitations Onset/Duration Of Symptoms: Days (3 days) Current Symptoms Are (Timing): Still Present Additional Complaint(s): 87 y/o female with a past medical history of asthma presents to the ED complaining of cough and cold, onset of 7 days. Patient states she is coughing up yellow sputum with mild shortness of breath, chest pain, and back pain when coughing, but denies any fever. Of note, patient exhibited no approvement with home inhalers or nebulizers. PCP: Richard Olsen Past Medical History Reviewed: Historical Data, Nursing Documentation, Vital Signs Vital Signs: Last Vital Signs Temp 97.9 F 10/26/17 17:29 Pulse 95 H 10/26/17 17:29 Resp 16 10/26/17 17:29 BP 132/62 10/26/17 17:29 Pulse Ox 100 10/26/17 17:56 - Medical History PMH: Asthma, COPD, HTN, Hypercholesterolemia, Osteoporosis, Pneumonia Denies: Chronic Kidney Disease - Family History Family History: States: Unknown Family Hx - Immunization History Hx Tetanus Toxoid Vaccination: No Hx Influenza Vaccination: No Hx Pneumococcal Vaccination: No - Home Medications Home Medications: Ambulatory Orders Medication Instructions Recorded Albuterol/Ipratropium [Duoneb 3 3 ml INH Q6H 09/28/16 mg/0.5 mg (3 ml) UD] Simvastatin [Zocor] 20 mg PO HS 09/28/16 amLODIPine [Norvasc] 10 mg PO DAILY 09/28/16 Albuterol HFA [Ventolin HFA 90 2 puff IH Q4H PRN 03/13/17 mcg/actuation (8 g)] Fluticasone/Vilanterol [Breo 1 puff IH DAILY 03/13/17 Ellipta 200-25 Mcg INH] Montelukast [Singulair] 10 mg PO HS 03/13/17 Albuterol HFA [Ventolin HFA 90 2 puff IH Q4H #1 puff 10/26/17 mcg/actuation (8 g)] Ascorbic Acid [Vitamin C 500 mg 1 tab PO DAILY 10/26/17 Tab] Azithromycin [Zithromax] 250 mg PO DAILY #6 tab 10/26/17 Cyclobenzaprine HCl 5 mg PO BID PRN 10/26/17 [Cyclobenzaprine HCl] Meloxicam [Mobic] 15 mg PO DAILY PRN 10/26/17 Pantoprazole Sodium [Protonix] 40 mg PO DAILY 10/26/17 Prednisone 50 mg PO DAILY #5 tab 10/26/17 - Allergies Allergies/Adverse Reactions: Allergies Allergy/AdvReac Type Severity Reaction Status Date / Time No Known Allergies Allergy Verified 04/25/17 18:33 Review of Systems ROS Statement: Except As Marked, All Systems Reviewed And Found Negative Constitutional: Negative for: Fever Cardiovascular: Positive for: Chest Pain Respiratory: Positive for: Cough (productive with yellow sputum), Shortness of Breath (mild) Musculoskeletal: Positive for: Back Pain Physical Exam - Reviewed Nursing Documentation Reviewed: Yes Vital Signs Reviewed: Yes - Physical Exam Appears: Positive for: Non-toxic, No Acute Distress Head Exam: Positive for: ATRAUMATIC Skin: Positive for: Normal Color, Warm Cardiovascular/Chest: Positive for: Regular Rate, Rhythm. Negative for: Murmur Respiratory: Positive for: Normal Breath Sounds, Rhonchi (scattered). Negative for: Wheezing, Respiratory Distress Gastrointestinal/Abdominal: Positive for: Normal Exam, Soft. Negative for: Tenderness Back: Positive for: Normal Inspection Extremity: Positive for: Normal ROM, Pedal Edema. Negative for: Deformity Neurologic/Psych: Positive for: Alert, Oriented. Negative for: Motor/Sensory Deficits - ECG O2 Sat by Pulse Oximetry: 100 (RA) Pulse Ox Interpretation: Normal Medical Decision Making Medical Decision Making: Time: --17:44 Impression: --87 y/o female with bronchitis Plan: --chest x-ray --Albuterol 3ml IH --Prednisone 20mg PO --Peak Flow Pre/Post TX Reassess -- Scribe Attestation: Documented by Frantz Pham acting as a scribe for Fabrizio Hunter MD. Disposition - Clinical Impression Clinical Impression: Bronchitis - Patient ED Disposition Is Patient to be Admitted: No Counseled Patient/Family Regarding: Studies Performed, Diagnosis, Need For Followup, Rx Given - Disposition Referrals: Richard Olsen MD [Family Provider] - Disposition: Routine/Home Disposition Time: 18:26 Condition: FAIR Prescriptions: Albuterol HFA [Ventolin HFA 90 mcg/actuation (8 g)] 2 puff IH Q4H #1 puff Azithromycin [Zithromax] 250 mg PO DAILY #6 tab Prednisone 50 mg PO DAILY #5 tab Instructions: Acute Bronchitis (ED) Forms: [facility] (Frisian) Print Language: [place] CITIZEN
[2017-10-26] MEDS ORDERED: Albuterol-Ipratrop 3 mg / 0.5 (3 ml) UD ONE (17:52)
--- NOTE | 2017-10-27 08:57 | RAD ---
HISTORY: cough COMPARISON: Frontal chest radiograph 04/25/2017. TECHNIQUE: Chest PA and lateral FINDINGS: LUNGS: No active pulmonary disease. Improved inspiratory volume is appreciated. PLEURA: No significant pleural effusion identified. No pneumothorax apparent. CARDIOVASCULAR: Normal. OSSEOUS STRUCTURES: No significant abnormalities. VISUALIZED UPPER ABDOMEN: Normal. OTHER FINDINGS: None. IMPRESSION: No interval acute cardiopulmonary disease appreciated. Improved inspiratory volume is appreciated.
--- NOTE | 2017-10-27 09:25 | CARD ---
APPROVED REPORT EKG Measurement Heart [id number] AR [id number] <Conclusion> Sinus rhythm with premature atrial complexes and premature ventricular complexes or fusion complexes Left axis deviation Incomplete right bundle branch block Inferior infarct, age undetermined Abnormal ECG
== END 2017-10-26 18:54 | disposition home or self-care (01) ==
LOC: H.ER 17:11
DX: J40 Bronchitis, not specified as acute or chronic (principal); E78.00 Pure hypercholesterolemia, unspecified; I10 Essential (primary) hypertension; I49.1 Atrial premature depolarization; I49.3 Ventricular premature depolarization; J44.9 Chronic obstructive pulmonary disease, unspecified

== ENCOUNTER 2018-01-25 13:48 | Inpatient (IN) | payer MEDICARE, BC ==
[2018-01-25] MEDS ORDERED: Sodium Chloride 0.9% 1,000 ML IV STA (14:07)
--- NOTE | 2018-01-25 14:17 | ED PDOC ---
HPI: Trauma/Fall - HPI Time Seen by Provider: 01/25/18 14:05 Chief Complaint (Nursing): Hip Pain Chief Complaint (Provider): Left hip, left elbow, left sided head and b/l wrist injuries History Per: Patient History/Exam Limitations: no limitations Onset/Duration Of Symptoms: Hrs (today) Location Of Injury: Right: Wrist, Left: Elbow, Head, Hip, Wrist Associated Symptoms: denies: Dizziness, LOC Additional Complaint(s): Kia Massey is an 88 year old female, with a past medical history of HTN, asthma, COPD and osteoporosis, who was brought to the emergency department via EMS for left hip, left elbow, left sided head and b/l wrist pain s/p fall onset today. Patient states she fell at home and landed on her left side. She reports an unsteady gait prior to falling. She denies any LOC, dizziness, chest pain, back pain or neck pain. No further medical complaints. PMD: Lu Carrillo E - Fall Fall:Prior To Injury: Other (unsteady gait) Past Medical History Reviewed: Historical Data, Nursing Documentation, Vital Signs Vital Signs: Last Vital Signs Temp 98.4 F 01/25/18 13:51 Pulse 79 01/25/18 13:51 Resp 16 01/25/18 13:51 BP 153/74 H 01/25/18 13:51 Pulse Ox 100 01/25/18 14:38 - Medical History PMH: Asthma, COPD, HTN, Hypercholesterolemia, Osteoporosis, Pneumonia Denies: Chronic Kidney Disease - Family History Family History: States: Unknown Family Hx - Immunization History Hx Tetanus Toxoid Vaccination: No Hx Influenza Vaccination: No Hx Pneumococcal Vaccination: No - Home Medications Home Medications: Ambulatory Orders Medication Instructions Recorded Albuterol/Ipratropium [Duoneb 3 3 ml INH Q6H 09/28/16 mg/0.5 mg (3 ml) UD] Simvastatin [Zocor] 20 mg PO HS 09/28/16 amLODIPine [Norvasc] 10 mg PO DAILY 09/28/16 Albuterol HFA [Ventolin HFA 90 2 puff IH Q4H PRN 03/13/17 mcg/actuation (8 g)] Fluticasone/Vilanterol [Breo 1 puff IH DAILY 03/13/17 Ellipta 200-25 Mcg INH] Montelukast [Singulair] 10 mg PO HS 03/13/17 Albuterol HFA [Ventolin HFA 90 2 puff IH Q4H #1 puff 10/26/17 mcg/actuation (8 g)] Ascorbic Acid [Vitamin C 500 mg 1 tab PO DAILY 10/26/17 Tab] Azithromycin [Zithromax] 250 mg PO DAILY #6 tab 10/26/17 Cyclobenzaprine HCl 5 mg PO BID PRN 10/26/17 [Cyclobenzaprine HCl] Meloxicam [Mobic] 15 mg PO DAILY PRN 10/26/17 Pantoprazole Sodium [Protonix] 40 mg PO DAILY 10/26/17 Prednisone 50 mg PO DAILY #5 tab 10/26/17 - Allergies Allergies/Adverse Reactions: Allergies Allergy/AdvReac Type Severity Reaction Status Date / Time No Known Allergies Allergy Verified 01/25/18 13:51 Review of Systems ROS Statement: Except As Marked, All Systems Reviewed And Found Negative Cardiovascular: Negative for: Chest Pain Musculoskeletal: Positive for: Arm Pain (left elbow. B/l wrist pain), Other ( left hip pain, left sided head injury). Negative for: Neck Pain, Back Pain Neurological: Negative for: Dizziness Physical Exam - Reviewed Nursing Documentation Reviewed: Yes Vital Signs Reviewed: Yes - Physical Exam Appears: Positive for: Non-toxic Head Exam: Positive for: NORMOCEPHALIC. Negative for: ATRAUMATIC (head soft tissue swelling to left denominational area. No palpable fracture.) Skin: Positive for: Normal Color, Warm, Dry Eye Exam: Positive for: Normal appearance, EOMI, PERRL Neck: Positive for: Painless ROM, Supple Cardiovascular/Chest: Positive for: Regular Rate, Rhythm. Negative for: Murmur Respiratory: Positive for: Normal Breath Sounds (clear bilaterally). Negative for: Respiratory Distress Gastrointestinal/Abdominal: Positive for: Normal Exam, Soft. Negative for: Tenderness Back: Negative for: Vertebral Tenderness (no deformity) Extremity: Positive for: Tenderness (left hip tenderness and deformity, shortened and external rotation, 2/4 distal pulses.), Deformity (Right wrist deformity possibly old in ulnar aspect. Left wrist also with old deformity. No palpable deformity to left elbow. ), Other (left elbow with abrasion, and superficial avulsion laceration.). Negative for: Normal ROM (Left elbow limited ROM secondary to pain. Full ROM to b/l wrist. ) Neurologic/Psych: Positive for: Alert, Oriented (x3). Negative for: Motor/ Sensory Deficits (no focal deficits.) - Laboratory Results Result Diagrams: 01/25/18 14:30 - ECG O2 Sat by Pulse Oximetry: 100 (RA) Pulse Ox Interpretation: Normal Medical Decision Making Medical Decision Making: Initial Plan: --Cervical spine w/o contrast [CT] --Head w/o contrast [CT] --EKG --CMP --Urine dipstick --CBC w/ differential --PT --Chest portable [RAD] --Wrist 3 views BI [RAD] --Toradol 30 mg IVP --Sodium Chloride 1,000 ml IV 100 mls/hr --Elbow left 3 views routine [RAD] --Hip Min 2V w/ Pelvis LT [RAD] --Reevaluation Scribe Attestation: Documented by Inder Gaston, acting as a scribe for Fabrizio Hunter MD Provider Scribe Attestation: All medical record entries made by the Scribe were at my direction and personally dictated by me. I have reviewed the chart and agree that the record accurately reflects my personal performance of the history, physical exam, medical decision making, and the department course for this patient. I have also personally directed, reviewed, and agree with the discharge instructions and disposition. Disposition - Clinical Impression Clinical Impression: Hip pain - Patient ED Disposition Is Patient to be Admitted: Transfer of Care - Disposition Disposition: Transfer of Care Disposition Time: 15:00 Condition: FAIR Forms: [facility] ([place]) Patient Signed Over To: Shekhar Villegas
[2018-01-25 14:43] LABS: BASO % 0.1 % (0.0-2.0); EOS % 0.1 % (0.0-4.0); HEMOGLOBIN 13.1 g/dL (12.0-16.0); LYMPH # 0.6 K/uL (1.0-4.3); LYMPH % 5.2 % (20.0-40.0); MEAN CELL VOLUME 100.6 fl (81.0-99.0); MEAN CORPUSCULAR HEMOGLOBIN 33.7 pg (27.0-31.0); MEAN CORPUSCULAR HGB CONC 33.4 g/dL (33.0-37.0); MEAN PLATELET VOLUME 8.6 fl (7.2-11.7); MONO # 0.4 K/uL (0.0-0.8); MONO % 3.3 % (0.0-10.0); NEUT # 10.7 K/uL (1.8-7.0); NEUT % 91.3 % (50.0-75.0); PLATELET COUNT 237 K/uL (130-400); RED CELL DISTRIBUTION WIDTH 14.1 % (11.5-14.5); WHITE BLOOD COUNT 11.8 K/uL (4.8-10.8)
[2018-01-25 14:46] LABS: INR 1.1 (0.9-1.2); PROTHROMBIN TIME 12.4 Seconds (9.8-13.1)
[2018-01-25 14:56] LABS: ALB/GLOB RATIO 1.2 (1.0-2.1); ALBUMIN 3.5 g/dL (3.5-5.0); ALT/SGPT 28 U/L (9-52); AST/SGOT 22 U/L (14-36); BLOOD UREA NITROGEN 21 mg/dl (7-17); CALCIUM 8.7 mg/dL (8.4-10.2); GFR AFRICAN-AMERICAN > 60; GFR NON-AFRICAN AMERICAN > 60
[2018-01-25] MEDS ORDERED: Morphine 4 MG/ML VIAL ONE (15:11)
--- NOTE | 2018-01-25 15:38 | ED PDOC ---
- Laboratory Results Result Diagrams: 01/25/18 14:30 01/25/18 14:30 Interpretation Of Abn Labs: 11.8 wbc - ECG O2 Sat by Pulse Oximetry: 100 (RA) Pulse Ox Interpretation: Normal - Progress ED Course And Treament: 1500: Took over care from Dr. Hunter. Pt. here with fall. Injuries to extremities and head. He spoke with Dr. Lewis who will admit. Dr. Mark Anthony Harrison aware and will consult. Wants ct of left hip and right wrist. X-rays: hip left b/l wrist ct hip left fx ct wrist right no acute ct head no acute ct neck no acute 1707: Dr. Mark Anthony Harrison aware of ct and findings of imaging. Pt. stable. AAOx3. Continue admission. Disposition - Clinical Impression Clinical Impression: Hip fracture, Head injury - POA Present On Arrival: Falls Or Trauma - Disposition Disposition: Admitted as In-Patient Disposition Time: 17:08 Condition: FAIR
[2018-01-25 15:53] LABS: LYMPHOCYTE 6 % (20-50); MONOCYTE 4 % (0-10); NEUTROPHIL 90 % (42-75); PLATELET ESTIMATE NORMAL (NORMAL); TOTAL CELLS COUNTED 100
--- NOTE | 2018-01-25 15:59 | RAD ---
HISTORY: Cough COMPARISON: 10/26/2017. FINDINGS: LUNGS: The lungs are clear. PLEURA: No significant pleural effusion identified, no pneumothorax apparent. CARDIOVASCULAR: Normal. 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 VISUALIZED UPPER ABDOMEN: Normal. OTHER FINDINGS: None. IMPRESSION: No active pulmonary disease.
--- NOTE | 2018-01-25 16:00 | RAD ---
PROCEDURE: Radiographs of the left elbow. HISTORY: Trauma COMPARISON: No prior. FINDINGS: BONES: There is diffuse bone demineralization. There is no acute displaced fracture or bone destruction. Bone alignment is normal. JOINTS: Normal. No osteoarthritis. SOFT TISSUES: Normal. JOINT EFFUSION: None. OTHER FINDINGS: None IMPRESSION: No acute fracture or dislocation.
--- NOTE | 2018-01-25 16:02 | RAD ---
PROCEDURE: Left Hip X-ray Radiographs. HISTORY: Trauma COMPARISON: None. FINDINGS: BONES: There is an acute comminuted impacted intertrochanteric fracture with superior lateral angulation in the left femur. Bone alignment is normal. JOINTS: Mild degenerative osteoarthrosis in the hip joints. SOFT TISSUES: Normal. OTHER FINDINGS: None. IMPRESSION: Acute comminuted impacted left intertrochanteric fracture with superolateral angulation.
--- NOTE | 2018-01-25 16:06 | RAD ---
PROCEDURE: Bilateral Wrists Radiographs. HISTORY: Trauma COMPARISON: None. FINDINGS: BONES: There is diffuse bone demineralization. Bone alignment is normal. Right Carpal Bones: Normal. No fracture or degenerative changes. Left Carpal Bones: Normal. No fracture or degenerative changes. Right Distal Radius and Ulna: There is an acute transverse impacted fracture in the distal radius. Left Distal Radius and Ulna: No fracture or degenerative changes. JOINT SPACES: Right Wrist: Normal. No degenerative changes. Left Wrist: Normal. No degenerative changes. SOFT TISSUES: Right Wrist: There is irregularity in the dorsal soft tissues likely related to laceration. Left Wrist: Normal. OTHER FINDINGS: None. IMPRESSION: 1. Acute transverse impacted fracture in the distal right radius. 2. No acute fracture or dislocation in the right wrist.
--- NOTE | 2018-01-25 16:10 | CT ---
PROCEDURE: CT HEAD WITHOUT CONTRAST. HISTORY: r/o bleed COMPARISON: 04/25/2017 TECHNIQUE: Axial computed tomography images were obtained through the head/brain without intravenous contrast. Radiation dose: Total exam DLP = 795.40 mGy-cm. This CT exam was performed using one or more of the following dose reduction techniques: Automated exposure control, adjustment of the mA and/or kV according to patient size, and/or use of iterative reconstruction technique. FINDINGS: HEMORRHAGE: No intracranial hemorrhage. BRAIN: No mass effect or edema. Mild to moderate diffuse age-appropriate cerebral atrophy. Mild periventricular white matter lucency consistent with chronic microvascular ischemic change. No evidence of acute infarct. VENTRICLES: Unremarkable. No hydrocephalus. CALVARIUM: No calvarial fracture. There is a left frontal scalp contusion noted without dianna hematoma. PARANASAL SINUSES: Unremarkable as visualized. No significant inflammatory changes. MASTOID AIR CELLS: Unremarkable as visualized. No inflammatory changes. OTHER FINDINGS: None. IMPRESSION: No intracranial hemorrhage. Age related atrophy and chronic microvascular ischemic change. Small left frontal scalp contusion.
--- NOTE | 2018-01-25 16:30 | CT ---
PROCEDURE: CT Cervical Spine without contrast HISTORY: <trauma> COMPARISON: None available. TECHNIQUE: Axial computed tomography images were obtained of the cervical spine without the use of intravenous contrast. Coronal and sagittal reformatted images were created and reviewed. Radiation dose: Total exam DLP = 344.72 mGy-cm. This CT exam was performed using one or more of the following dose reduction techniques: Automated exposure control, adjustment of the mA and/or kV according to patient size, and/or use of iterative reconstruction technique. FINDINGS: VERTEBRAE: The vertebral bodies are maintained in height. There is grade 1 anterolisthesis at C4-5. There is grade 1 retrolisthesis at C5-6. Normal alignment Is maintained elsewhere. There is severe degenerative disc disease at C5-6 and C6-7. The remaining intervertebral disc spaces are maintained in height except for the C2-3 disc space which appears developmentally narrowed in conjunction with probable partial ankylosis of the C2 and C3 vertebral bodies. The atlantoaxial articulation and odontoid process are intact. DISCS/SPINAL CANAL/NEURAL FORAMINA: Degenerative disc disease at C5-6 and C6-7 as noted above. No central spinal stenosis. Moderate bilateral neural foraminal stenosis at C6-7. Moderate right neural foraminal stenosis at C4-5. PARASPINAL SOFT TISSUES: Unremarkable. OTHER FINDINGS: There is a stellate opacity in the left lung apex which may represent postinflammatory scar of although possibility of neoplasm cannot be excluded. Followup is advised. There is right apical pleural thickening with some associated calcification, possibly granulomatous. IMPRESSION: No acute fracture. Severe degenerative disc disease C5-6 and C6-7. Grade 1 anterolisthesis at C four-5 and grade 1 retrolisthesis C5-6. 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 Stellate opacity in left lung apex, possibly postinflammatory scar. However, followup advised to exclude neoplasm.
--- NOTE | 2018-01-25 16:33 | CT ---
PROCEDURE: CT left hip HISTORY: left hip fracture COMPARISON: Not available TECHNIQUE: 2.5 mm contiguous axial sections were acquired through the left hip. Sagittal and coronal images were reformatted from the axial scan. FINDINGS: There is a severely comminuted fracture of the intertrochanteric portion of the left hip. This is a displaced fracture. There is impaction and varus angulation of the fracture. The femoral head is intact and there is no dislocation. The remainder of the visualized left hemipelvis is unremarkable. There is hemorrhage into the lateral/ abductor muscles of the proximal left thigh. Followup is advised to exclude developing hematoma. IMPRESSION: Comminuted displaced impacted intertrochanteric fracture of the left hip with varus angulation. Hemorrhage into the abductor muscles although proximal left thigh. Followup advised to exclude developing hematoma.
--- NOTE | 2018-01-25 16:53 | CT ---
PROCEDURE: CT right wrist HISTORY: trauam COMPARISON: Not available TECHNIQUE: 1.25 mm contiguous axial sections were acquired through the right wrist. Sagittal and coronal images were reformatted from the axial scan. Total exam DLP: 187.10 mGy-cm. This CT exam was performed using 1 or more of the following dose reduction techniques: Automated exposure control, adjustment of the mA and/or kV according to patient size, and/or use of iterative reconstruction technique. FINDINGS: This examination is technically limited due to image noise. There is a fracture of the distal radius of indeterminate age. This may represent a healing or healed old fracture as there is evidence of callus about this fracture. No other fracture clearly evident. Please note that given the limitation of this examination subtle nondisplaced fractures may not be detected. Normal carpal alignment is maintained. The scapholunate interval is normal. The radiocarpal relationship is maintained. There is some high attenuation material seen within the subcutaneous soft tissues of the ventral aspect of the wrist at the level of the distal radius. Please correlate with examination. Possible foreign bodies. IMPRESSION: Limited examination. No acute fracture. Healing/healed fracture of distal radius. Question of possible foreign bodies in subcutaneous soft tissues of the ventral aspect of the wrist as above.
--- NOTE | 2018-01-25 20:17 | CP.PCM.CON ---
History of Present Illness - History of Present Illness History of Present Illness: 88 yo Female w/ PMH= HTN, COPD, presented to the ER 01/25/18 at [facility] via EMS with L hip pain and inability to WB, B/L wrist pain since fall at home on same day. The patient is French speaking, states that she fell while at home, no LOC or dizziness, just lost her step, fell from standing onto L side/wrist/hip/head and R wrist. + head trauma. She was unable to get up from the floor or tolerate any L lower extremity ROM or WB LLE. She admits to history of R wrist trauma & known fracture of distal radius that was treated with conservative tx/casting, she did not want surgery then. R wrist trauma was about 2 years ago and she has returned to baseline R wrist use without pain since then, she does admit to limited R wrist ROM since the injury and pain with increased activity. After review of imaging and evaluation by ER staff, she was diagnosed with L hip displaced IT fracture and admitted to the medical service under Dr Lewis. Orthopedic consultation was placed and I evaluated the pt as an inpt at [facility] tele unit on 01/25/18. Review of Imaging: R wrist: + healed/chronic displaced fx of distal radius with resulting malunion and significant loss of radial tilt and height, questionable new fx, diffcult to asses in this setting of old injury and deformity on x-ray. L wrist: no fx / dx, normal xrays L hip: +++ displaced IT hip fracture with extension beyond level of lesser troch , femoral head is located in joint, + mild DJD. CT head: Left frontal scalp hematoma. No calvarial fracture or acute intracranial pathology/hemorrhage. She denies CP, SOB, N&V, fevers, chills, numbness or tingling, other MSK trauma besides B/L wrist and L hip, admits to head trauma, no LOC. Past Patient History - Past Medical History & Family History Past Medical History?: Yes - Past Social History Smoking Status: Never Smoked - CARDIAC Hx Cardiac Disorders: Yes Hx Angina: No Hx Atrial Fibrillation: No Hx Cardia Arrhythmia: No Hx Circulatory Problems: No Hx Congestive Heart Failure: No Hx Heart Attack: No Hx Heart Murmur: No Hx Heart Transplant: No Hx Hypercholesterolemia: Yes Hx Hypertension: Yes Hx Hypotension: No Hx Internal Defibrillator: No Hx Pacemaker: No Hx Peripheral Edema: No Hx Peripheral Vascular Disease: No - PULMONARY Hx Respiratory Disorders: Yes Hx Asthma: Yes Hx Bronchitis: No Hx Chronic Obstructive Pulmonary Disease (COPD): Yes Hx Emphysema: No Hx Lung Cancer: No Hx Pneumonia: Yes Hx Pulmonary Edema: No Hx Pulmonary Embolism: No Hx Respiratory Aspiration: No Hx Respiratory Tract Infection: No Hx Sleep Apnea: No Hx Tuberculosis: No - NEUROLOGICAL Hx Neurological Disorder: No Hx Alzheimer's Disease: No HX Cerebrovascular Accident: No Hx Dementia: No Hx Dizziness: No Hx Meningitis: No Hx Migraine: No Hx Multiple Sclerosis: No Hx Paralysis: No Hx Parkinson's Disease: No Hx Seizures: No Hx Syncope: No Hx Transient Ischemic Attacks (TIA): No Hx Vertigo: No - HEENT Hx HEENT Problems: No Hx Blind: No Hx Cataracts: Yes Hx Deafness: No Hx Difficulty Chewing: No Hx Epistaxis: No Hx Glaucoma: No Hx Macular Degeneration: No Hx Sinusitis: No - RENAL Hx Chronic Kidney Disease: No Hx Dialysis: No Hx Kidney Stones: No Hx Neurogenic Bladder: No Hx Pyelonephritis: No Hx Renal (Kidney) Cancer: No Hx Renal Failure: No - ENDOCRINE/METABOLIC Hx Endocrine Disorders: No Hx Adrenal Cancer: No Hx Diabetes Insipidus: No Hx Diabetes Mellitus Type 1: No Hx Diabetes Mellitus Type 2: No Hx Hyperthyroidism: No Hx Hypothyroidism: No Hx Systemic Lupus Erythematosus: No - HEMATOLOGICAL/ONCOLOGICAL Hx Blood Disorders: Yes Hx AIDS: No Hx Anemia: No Hx Blood Transfusions: No Hx Blood Transfusion Reaction: No Hx Bruising: Yes Hx Cancer: No Hx Chemotherapy: No Hx Cirrhosis: No Hx Gum Bleeding: No Hx Hemophilia: No Hx Hepatitis A: No Hx Hepatitis B: No Hx Hepatitis C: No Hx Human Immunodeficiency Virus (HIV): No Hx Leukemia: No Hx Metastesis: No Hx Shingles: No Hx Sickle Cell Disease: No Hx Unexplained Bleeding: No Hx von Willebrand's Disease: No - INTEGUMENTARY Hx Dermatological Problems: No Hx Basil Cell: No Hx Bentley: No Hx Cellulitis: No Hx Eczema: No Hx Melanoma: No Hx Psoriasis: No Hx Squamous Cell: No - MUSCULOSKELETAL/RHEUMATOLOGICAL Hx Musculoskeletal Disorders: Yes Hx Arthritis: No Hx Back Pain: Yes Hx Degenerative Joint Disease: No Hx Falls: Yes Hx Fractures: No Hx Gout: No Hx Herniated Disk: No Hx Myasthenia Gravis: No Hx Osteoarthritis: No Hx Osteomyelitis: No Hx Osteoporosis: No Hx Rhabdomyolysis: No Hx Rheumatoid Arthritis: No Hx Spinal Stenosis: No Hx Unsteady Gait: Yes - GASTROINTESTINAL Hx Gastrointestinal Disorders: No Hx Bowel Surgery: No Hx Clostridium Difficile: No Hx Colitis: No Hx Colostomy: No Hx Constipation: Yes Hx Crohn's Disease: No Hx Diarrhea: No Hx Diverticulitis: No Hx Esophageal Varices: No Hx Fatty Liver Disease: No Hx Gall Bladder Disease: No Hx Gastritis: No Hx Gastroesophageal Reflux: No Hx Hemorrhoids: No Hx Ileostomy: No Hx Irritable Bowel: No Hx Liver Failure: No Hx Nausea: No Hx Pancreatitis: No HX Swallowing Problems: No Hx Ulcer: No Hx Vomiting: No - GENITOURINARY/GYNECOLOGICAL Hx Genitourinary Disorders: No Hx Bladder Cancer: No Hx Bladder Stone: No Hx Cervical Cancer: No Hx Hematuria: No Hx Incontinence: Yes Hx Ovarian Cancer: No Hx Postmenopausal Bleeding: No Hx Reproductive Disorders: No Hx Sexually Transmitted Disorders: No Hx Uterine Cancer: No Hx Urinary Tract Infection: No - PSYCHIATRIC Hx Psychophysiologic Disorder: No Hx Anxiety: No Hx Bipolar Disorder: No Hx Depression: No Hx Emotional Abuse: No Hx Hallucinations: No Hx Panic Symptoms: No Hx Paranoia: No Hx Post Traumatic Stress Disorder: No Hx Psychosis: No Hx Physical Abuse: No Hx Schizophrenia: No Hx Sexual Abuse: No Hx Substance Use: No - SURGICAL HISTORY Hx Surgeries: Yes Hx Abdominal Aortic Aneurysm Repair: No Hx Amputation: No Hx Angiogram: No Hx Angioplasty: No Hx Appendectomy: No Hx Arteriovenous Shunt: No Hx Arthroscopy: No Hx Bile Duct Stent: No Hx Breast Biopsy: Yes Hx Cataract Extraction: No Hx Cardiac Catheterization: No Hx Carotid Endarterectomy: No Hx Section: No Hx Cholecystectomy: No Hx Coronary Artery Bypass Graft: No Hx Coronary Stent: No Hx Dilation and Curettage: No Hx Eye Surgery: Yes Hx Femoral-Popliteal Bypass Graft: No Hx Herniorrhaphy: Yes Hx Hysterectomy: No Hx Joint Replacement: No Hx Kidney Transplant: No Hx Liver Transplant: No Hx Mastectomy: No Hx Musculoskeletal Surgery: No Hx Open Heart Surgery: No Hx Open Reduction Internal Fixation: No Hx Orthopedic Surgery: No Hx Parathyroidectomy: No Hx Penile Implant: No Hx Pulmonary Surgery: No Hx Splenectomy: No Hx Thyroidectomy: No Hx Tubal Ligation: No Hx Valve Replacement: No Hx Vascular Surgery: No Hx Vascular Access Device: No Other/Comment: vaginal prolapse repair - ANESTHESIA Hx Anesthesia: Yes Hx Anesthesia Reactions: No Hx Malignant Hyperthermia: No Has any member of the family had a problem w/ anesthesia?: No Meds Home Medications: Home Medication List Medication Instructions Recorded Confirmed Type Acetaminophen [Tylenol 325mg tab] 650 mg PO Q6 PRN tab 02/01/18 Rx Docusate [Colace] 100 mg PO BID cap 02/01/18 Rx Enoxaparin [Lovenox] 40 mg SC DAILY syr 02/01/18 Rx ceFAZolin IV 2 gm in Dextrose 2 gm IVPB Q12 #14 bag 02/01/18 Rx [Ancef IV 2 gm DUPLEX] Allergies/Adverse Reactions: Allergies Allergy/AdvReac Type Severity Reaction Status Date / Time No Known Allergies Allergy Verified 01/25/18 13:51 - Medications Medications: Current Medications Dextrose/Lactated Ringer's (Dextrose 5%/Lactated Ringer's) 1,000 mls @ 80 mls/ hr IV .[id number] [facility] Stop: 01/26/18 19:57 Morphine Sulfate (Morphine) 2 mg IVP Q4 PRN PRN Reason: Pain, severe (8-10) Pantoprazole Sodium (Protonix Inj) 40 mg IVP DAILY REGINALD Physical Exam - Extremities Exam Additional comments: Right Upper Ext: ++ mild ttp at dorsal aspect of distal radius, otherwise no swelling/ecchymosis/ttp, ROM limited slightly with pronounced distal ulna and overall deformity from previous trauma that is not painful, - swelling/warmth/ redness limited ROM at wrist: 40/40 sup/pron, flex 90, ext 30, all other joints Full ROM w/o pain + 5/5 motor strength shoulder FF/Abd/ER/IR, elbow flex/ext, wrist flex/ext/sup/ pron, finger disability aide/ext/abd/add sensory intact UN/MN/RN/MscN/Axn, C5-T2 bcr all fingers, 2+ RA pulse Left Upper Ext: - ttp/swelling/warmth/redness all joints Full ROM w/o pain + 5/5 motor strength shoulder FF/Abd/ER/IR, elbow flex/ext, wrist flex/ext/sup/ pron, finger disability aide/ext/abd/add sensory intact UN/MN/RN/MscN/Axn, C5-T2 bcr all fingers, 2+ RA pulse Right Lower Extremity: - ttp/swelling/warmth/redness all joints Full ROM w/o pain +5/5 motor strength Hip flex/ext/abd, knee flex/ext, ankle df/pf, toes up & down sensory intact L2-S1, DPN/TN/SPN 2+ DP, BCR all toes Left Lower Extremity: +++ log roll, +++ ttp at groin and GT, +++ pain with any ROM at hip all other joint full ROM w/o pain +5/5 motor strength knee flex/ext, ankle df/pf, toes up & down sensory intact L2-S1, DPN/TN/SPN 2+ DP, BCR all toes Results - Vital Signs Recent Vital Signs: Last Vital Signs Temp 98 F 01/25/18 18:48 Pulse 76 01/25/18 18:48 Resp 18 01/25/18 18:48 BP 132/55 L 01/25/18 18:48 Pulse Ox 98 01/25/18 18:48 - Labs Result Diagrams: 02/01/18 05:30 02/01/18 05:30 Labs: Laboratory Results - last 24 hr 01/25/18 01/25/18 01/25/18 14:30 14:30 14:30 WBC 11.8 H RBC 3.90 Hgb 13.1 Hct 39.3 MCV 100.6 H MCH 33.7 H MCHC 33.4 RDW 14.1 Plt Count 237 MPV 8.6 Neut % (Auto) 91.3 H Lymph % (Auto) 5.2 L Banks % (Auto) 3.3 Eos % (Auto) 0.1 Baso % (Auto) 0.1 Neut # (Auto) 10.7 H Lymph # (Auto) 0.6 L Banks # (Auto) 0.4 Eos # (Auto) 0.0 Baso # (Auto) 0.0 Neutrophils % (Manual) 90 H Lymphocytes % (Manual) 6 L Monocytes % (Manual) 4 Platelet Estimate Normal RBC Morphology Normal PT 12.4 INR 1.1 Sodium 139 Potassium 4.3 Chloride 104 Carbon Dioxide 26 Anion Gap 13 BUN 21 H Creatinine 0.7 Est GFR ( Amer) > 60 Est GFR (Non-Af Amer) > 60 Random Glucose 143 H Calcium 8.7 Total Bilirubin 0.8 AST 22 ALT 28 Alkaline Phosphatase 107 Troponin I Total Protein 6.5 Albumin 3.5 Globulin 3.0 Albumin/Globulin Ratio 1.2 01/25/18 15:50 WBC RBC Hgb Hct MCV MCH MCHC RDW Plt Count MPV Neut % (Auto) Lymph % (Auto) Banks % (Auto) Eos % (Auto) Baso % (Auto) Neut # (Auto) Lymph # (Auto) Banks # (Auto) Eos # (Auto) Baso # (Auto) Neutrophils % (Manual) Lymphocytes % (Manual) Monocytes % (Manual) Platelet Estimate RBC Morphology PT INR Sodium Potassium Chloride Carbon Dioxide Anion Gap BUN Creatinine Est GFR ( Amer) Est GFR (Non-Af Amer) Random Glucose Calcium Total Bilirubin AST ALT Alkaline Phosphatase Troponin I < 0.0120 Total Protein Albumin Globulin Albumin/Globulin Ratio Assessment & Plan (1) Hip fracture Assessment and Plan: 88 yo female with multiple PMH s/p fall landing on Left hip/lower extremity, B/ L wrists, head Dx= L hip displaced / comminuted IT fracture R wrist #1 healed displaced distal radius fracture/ malunion #2 possible acute non-displaced/ occult fracture distal radius L wrist resolved sprain Scalp hematoma/contusion PLAN: L hip: -clinically, displaced IT hip fracture, confirmed on imaging, no evidence of pathologic fracture -indicated for closed vs open reduction and internal fixation tomorrow with intra-medullary hip nail -will d/w pt the risks, benefits, and alternatives at length -placed on OR schedule for noon tomorrow -NPO after Midnight -HOLD DVT PROPH till post-op day #1 -medical clearance needed, communicated with Dr Lewis -preop labs, EKG, chest x-ray -IVFH -strict NWB LLE -overhead trapeze -bucks traction, 5lbs -de la paz cath for urination -pain control, minimize narcotic usage, consider standing 1000mg Tylenol Q8hr R wrist: -x-rays and CT show that this is an old displaced distal radius fracture that healed with possible acute occult/non displaced fx as well -possible acute component to the injury in the form of sprain or stress fracture -will re-evaluate in the AM, if truly symptomatic, will splint and recommend MRI to better evaluate for acute injury L wrist: -x-rays (-) -no pain -if pain returns then consider MRI f/o stress fx/sprain ligaments -in the interim, NWB RUE/ elevation above level of heart -please contact me with any questions, updates, concerns at [phone] thank you for allowing me to contribute to the care of your patient. Tsering Fuentes MD Orthopedic Surgery Status: Acute (2) Wrist fracture Status: Acute
[2018-01-25] MEDS: Morphine 4 MG/ML VIAL IVP PRN (22:02)
[2018-01-25] MEDS: Dextrose 5%/Lactated Ringer's 1,000 ML IV SCH (22:10)
[2018-01-26] MEDS: Dextrose 5%/Lactated Ringer's 1,000 ML IV SCH (08:29)
--- NOTE | 2018-01-26 10:51 | CARD ---
APPROVED REPORT EXAM: Two-dimensional and M-mode echocardiogram with Doppler and color Doppler. Other Information Quality : AverageRhythm : NSR INDICATION Pre-Op 2D DIMENSIONS IVSd0.95 (0.7-1.1cm)LVDd4.09 (3.9-5.9cm) LVOT Diameter2.29 (1.8-2.4cm)PWd0.86 (0.7-1.1cm) IVSs1.07 (0.8-1.2cm)LVDs2.37 (2.5-4.0cm) FS (%) 42.0 %PWs1.08 (0.8-1.2cm) LVEF (%)55.0 (>50%) M-Mode DIMENSIONS Left Atrium (MM)3.25 (2.5-4.0cm)Aortic Root2.78 (2.2-3.7cm) Aortic Cusp Exc.1.34 (1.5-2.0cm) Mitral Valve MV E Gfvjcjkt43.7cm/sMV DECEL [id number] A Qkdwftun02.6cm/s MV SUM357syB/A ratio0.7MVA (PHT)1.48cm2 TDI E/Lateral E'0.0E/Medial E'0.0 Pulmonary Valve PV Peak Tmjelzqi400.9cm/s Tricuspid Valve TR Peak Sdankfyw147mn/sRAP [id number] Peak Gr.22mmHg [id number] LEFT VENTRICLE The left ventricle is normal size. There is normal left ventricular wall thickness. The left ventricular function is normal. The left ventricular ejection fraction is within the normal range. There is normal LV segmental wall motion. Transmitral Doppler flow pattern is Grade I-abnormal relaxation pattern. RIGHT VENTRICLE The right ventricle is mildly dilated. There is normal right ventricular wall thickness. The right ventricular systolic function is normal. ATRIA The left atrium size is normal. The right atrium size is normal. AORTIC VALVE The aortic valve is not well visualized. No aortic regurgitation is present. There is no aortic valvular stenosis. MITRAL VALVE The mitral valve is normal in structure. There is no mitral valve stenosis. There is no mitral valve regurgitation noted. TRICUSPID VALVE The tricuspid valve is normal in structure. There is no tricuspid valve regurgitation noted. PULMONIC VALVE The pulmonary valve is normal in structure. There is no pulmonic valvular regurgitation. GREAT VESSELS The aortic root is normal in size. The IVC is normal in size and collapses >50% with inspiration. PERICARDIAL EFFUSION There is a small loculated anterior pericardial effusion. <Conclusion> The left ventricle is normal size. There is normal left ventricular wall thickness. The left ventricular function is normal. The left ventricular ejection fraction is within the normal range. There is normal LV segmental wall motion. Transmitral Doppler flow pattern is Grade I-abnormal relaxation pattern.
[2018-01-26 11:55] LABS: SQUAMOUS EPITHIAL 2 /hpf (0-5); URINE BACTERIA MANY (<OCC); URINE BILIRUBIN NEGATIVE (NEGATIVE); URINE BLOOD SMALL (NEGATIVE); URINE CLARITY CLOUDY (Clear); URINE COLOR YELLOW (YELLOW); URINE GLUCOSE (UA) NEG (Normal); URINE HYALINE CAST >20 /hpf (0-2); URINE LEUKOCYTE ESTERASE NEG Leu/uL (Negative); URINE PROTEIN NEGATIVE (NEGATIVE); URINE UROBILINOGEN 0.2-1.0 mg/dL (0.2-1.0)
[2018-01-26] MEDS ORDERED: METHYLPREDNISOLONE IV ONE (12:08)
[2018-01-26] MEDS ORDERED: SODIUM CHLORIDE 0.9% IV ONE (12:08)
--- NOTE | 2018-01-26 12:12 | CP.PCM.HP ---
<Teto Aguirre - Last Filed: 01/26/18 12:13> History of Present Illness - History of Present Illness History of Present Illness: 88 year old female, with a past medical history of HTN, COPD and osteoporosis, who was brought to the emergency department via EMS for left hip, left elbow, left sided head and b/l wrist pain s/p fall onset today. Patient states she fell at home and landed on her left side. She reports an unsteady gait prior to falling. She denies any LOC, dizziness, chest pain, back pain or neck pain. No further medical complaints. Patient was admitted to floor and Ortho was consulted. Present on Admission - Present on Admission Any Indicators Present on Admission: No Past Patient History - Past Medical History & Family History Past Medical History?: Yes - Past Social History Smoking Status: Never Smoked - CARDIAC Hx Cardiac Disorders: Yes Hx Angina: No Hx Atrial Fibrillation: No Hx Cardia Arrhythmia: No Hx Circulatory Problems: No Hx Congestive Heart Failure: No Hx Heart Attack: No Hx Heart Murmur: No Hx Heart Transplant: No Hx Hypercholesterolemia: Yes Hx Hypertension: Yes Hx Hypotension: No Hx Internal Defibrillator: No Hx Pacemaker: No Hx Peripheral Edema: No Hx Peripheral Vascular Disease: No - PULMONARY Hx Respiratory Disorders: Yes Hx Asthma: Yes Hx Bronchitis: No Hx Chronic Obstructive Pulmonary Disease (COPD): Yes Hx Emphysema: No Hx Lung Cancer: No Hx Pneumonia: Yes Hx Pulmonary Edema: No Hx Pulmonary Embolism: No Hx Respiratory Aspiration: No Hx Respiratory Tract Infection: No Hx Sleep Apnea: No Hx Tuberculosis: No - NEUROLOGICAL Hx Neurological Disorder: No Hx Alzheimer's Disease: No HX Cerebrovascular Accident: No Hx Dementia: No Hx Dizziness: No Hx Meningitis: No Hx Migraine: No Hx Multiple Sclerosis: No Hx Paralysis: No Hx Parkinson's Disease: No Hx Seizures: No Hx Syncope: No Hx Transient Ischemic Attacks (TIA): No Hx Vertigo: No - HEENT Hx HEENT Problems: No Hx Blind: No Hx Cataracts: Yes Hx Deafness: No Hx Difficulty Chewing: No Hx Epistaxis: No Hx Glaucoma: No Hx Macular Degeneration: No Hx Sinusitis: No - RENAL Hx Chronic Kidney Disease: No Hx Dialysis: No Hx Kidney Stones: No Hx Neurogenic Bladder: No Hx Pyelonephritis: No Hx Renal (Kidney) Cancer: No Hx Renal Failure: No - ENDOCRINE/METABOLIC Hx Endocrine Disorders: No Hx Adrenal Cancer: No Hx Diabetes Insipidus: No Hx Diabetes Mellitus Type 1: No Hx Diabetes Mellitus Type 2: No Hx Hyperthyroidism: No Hx Hypothyroidism: No Hx Systemic Lupus Erythematosus: No - HEMATOLOGICAL/ONCOLOGICAL Hx Blood Disorders: Yes Hx AIDS: No Hx Anemia: No Hx Blood Transfusions: No Hx Blood Transfusion Reaction: No Hx Bruising: Yes Hx Cancer: No Hx Chemotherapy: No Hx Cirrhosis: No Hx Gum Bleeding: No Hx Hemophilia: No Hx Hepatitis A: No Hx Hepatitis B: No Hx Hepatitis C: No Hx Human Immunodeficiency Virus (HIV): No Hx Leukemia: No Hx Metastesis: No Hx Shingles: No Hx Sickle Cell Disease: No Hx Unexplained Bleeding: No Hx von Willebrand's Disease: No - INTEGUMENTARY Hx Dermatological Problems: No Hx Basil Cell: No Hx Bentley: No Hx Cellulitis: No Hx Eczema: No Hx Melanoma: No Hx Psoriasis: No Hx Squamous Cell: No - MUSCULOSKELETAL/RHEUMATOLOGICAL Hx Musculoskeletal Disorders: Yes Hx Arthritis: No Hx Back Pain: Yes Hx Degenerative Joint Disease: No Hx Falls: Yes Hx Fractures: No Hx Gout: No Hx Herniated Disk: No Hx Myasthenia Gravis: No Hx Osteoarthritis: No Hx Osteomyelitis: No Hx Osteoporosis: No Hx Rhabdomyolysis: No Hx Rheumatoid Arthritis: No Hx Spinal Stenosis: No Hx Unsteady Gait: Yes - GASTROINTESTINAL Hx Gastrointestinal Disorders: No Hx Bowel Surgery: No Hx Clostridium Difficile: No Hx Colitis: No Hx Colostomy: No Hx Constipation: Yes Hx Crohn's Disease: No Hx Diarrhea: No Hx Diverticulitis: No Hx Esophageal Varices: No Hx Fatty Liver Disease: No Hx Gall Bladder Disease: No Hx Gastritis: No Hx Gastroesophageal Reflux: No Hx Hemorrhoids: No Hx Ileostomy: No Hx Irritable Bowel: No Hx Liver Failure: No Hx Nausea: No Hx Pancreatitis: No HX Swallowing Problems: No Hx Ulcer: No Hx Vomiting: No - GENITOURINARY/GYNECOLOGICAL Hx Genitourinary Disorders: No Hx Bladder Cancer: No Hx Bladder Stone: No Hx Cervical Cancer: No Hx Hematuria: No Hx Incontinence: Yes Hx Ovarian Cancer: No Hx Postmenopausal Bleeding: No Hx Reproductive Disorders: No Hx Sexually Transmitted Disorders: No Hx Uterine Cancer: No Hx Urinary Tract Infection: No - PSYCHIATRIC Hx Psychophysiologic Disorder: No Hx Anxiety: No Hx Bipolar Disorder: No Hx Depression: No Hx Emotional Abuse: No Hx Hallucinations: No Hx Panic Symptoms: No Hx Paranoia: No Hx Post Traumatic Stress Disorder: No Hx Psychosis: No Hx Physical Abuse: No Hx Schizophrenia: No Hx Sexual Abuse: No Hx Substance Use: No - SURGICAL HISTORY Hx Surgeries: Yes Hx Abdominal Aortic Aneurysm Repair: No Hx Amputation: No Hx Angiogram: No Hx Angioplasty: No Hx Appendectomy: No Hx Arteriovenous Shunt: No Hx Arthroscopy: No Hx Bile Duct Stent: No Hx Breast Biopsy: Yes Hx Cataract Extraction: No Hx Cardiac Catheterization: No Hx Carotid Endarterectomy: No Hx Section: No Hx Cholecystectomy: No Hx Coronary Artery Bypass Graft: No Hx Coronary Stent: No Hx Dilation and Curettage: No Hx Eye Surgery: Yes Hx Femoral-Popliteal Bypass Graft: No Hx Herniorrhaphy: Yes Hx Hysterectomy: No Hx Joint Replacement: No Hx Kidney Transplant: No Hx Liver Transplant: No Hx Mastectomy: No Hx Musculoskeletal Surgery: No Hx Open Heart Surgery: No Hx Open Reduction Internal Fixation: No Hx Orthopedic Surgery: No Hx Parathyroidectomy: No Hx Penile Implant: No Hx Pulmonary Surgery: No Hx Splenectomy: No Hx Thyroidectomy: No Hx Tubal Ligation: No Hx Valve Replacement: No Hx Vascular Surgery: No Hx Vascular Access Device: No Other/Comment: vaginal prolapse repair - ANESTHESIA Hx Anesthesia: Yes Hx Anesthesia Reactions: No Hx Malignant Hyperthermia: No Has any member of the family had a problem w/ anesthesia?: No Meds Allergies/Adverse Reactions: Allergies Allergy/AdvReac Type Severity Reaction Status Date / Time No Known Allergies Allergy Verified 01/25/18 13:51 Physical Exam - Constitutional Appears: Non-toxic - Head Exam Head Exam: absent: ATRAUMATIC (Ecchymosis) - Eye Exam Eye Exam: EOMI, Periorbital swelling, PERRL - ENT Exam ENT Exam: Mucous Membranes Moist - Respiratory Exam Respiratory Exam: Clear to Auscultation Bilateral, NORMAL BREATHING PATTERN. absent: Decreased Breath Sounds, Rales, Rhonchi, Wheezes - Cardiovascular Exam Cardiovascular Exam: REGULAR RHYTHM, +S1, +S2. absent: Gallop - GI/Abdominal Exam GI & Abdominal Exam: Normal Bowel Sounds, Soft. absent: Distended, Firm, Guarding, Rebound, Rigid, Tenderness - Extremities Exam Extremities exam: Positive for: tenderness (LLE). Negative for: pedal edema - Neurological Exam Neurological exam: Alert, Oriented x3 - Psychiatric Exam Psychiatric exam: Normal Affect, Normal Mood - Skin Skin Exam: Abrasion (Ecchymosis, facial abrasion small), Warm Results - Vital Signs Recent Vital Signs: Last Vital Signs Temp 98.3 F 01/26/18 08:00 Pulse 71 01/26/18 08:00 Resp 20 01/26/18 08:00 BP 106/42 L 01/26/18 08:00 Pulse Ox 100 01/26/18 08:00 - Labs Result Diagrams: 01/25/18 14:30 01/25/18 14:30 Labs: Laboratory Results - last 24 hr 01/25/18 01/25/18 01/25/18 14:30 14:30 14:30 WBC 11.8 H RBC 3.90 Hgb 13.1 Hct 39.3 MCV 100.6 H MCH 33.7 H MCHC 33.4 RDW 14.1 Plt Count 237 MPV 8.6 Neut % (Auto) 91.3 H Lymph % (Auto) 5.2 L [place] % (Auto) 3.3 Eos % (Auto) 0.1 Baso % (Auto) 0.1 Neut # (Auto) 10.7 H Lymph # (Auto) 0.6 L [place] # (Auto) 0.4 Eos # (Auto) 0.0 Baso # (Auto) 0.0 Neutrophils % (Manual) 90 H Lymphocytes % (Manual) 6 L Monocytes % (Manual) 4 Platelet Estimate Normal RBC Morphology Normal PT 12.4 INR 1.1 Sodium 139 Potassium 4.3 Chloride 104 Carbon Dioxide 26 Anion Gap 13 BUN 21 H Creatinine 0.7 Est GFR ( Amer) > 60 Est GFR (Non-Af Amer) > 60 Random Glucose 143 H Calcium 8.7 Total Bilirubin 0.8 AST 22 ALT 28 Alkaline Phosphatase 107 Troponin I Total Protein 6.5 Albumin 3.5 Globulin 3.0 Albumin/Globulin Ratio 1.2 Urine Color Urine Clarity Urine pH Ur Specific [place] Urine Protein Urine Glucose (UA) Urine Ketones Urine Blood Urine Nitrate Urine Bilirubin Urine Urobilinogen Ur Leukocyte Esterase Urine RBC (Auto) Urine Microscopic WBC Ur Squamous Epith Cells Urine Bacteria Hyaline Casts Blood Type Antibody Screen Crossmatch BBK History Checked 01/25/18 01/25/18 01/26/18 15:50 21:30 11:39 WBC RBC Hgb Hct MCV MCH MCHC RDW Plt Count MPV Neut % (Auto) Lymph % (Auto) [place] % (Auto) Eos % (Auto) Baso % (Auto) Neut # (Auto) Lymph # (Auto) [place] # (Auto) Eos # (Auto) Baso # (Auto) Neutrophils % (Manual) Lymphocytes % (Manual) Monocytes % (Manual) Platelet Estimate RBC Morphology PT INR Sodium Potassium Chloride Carbon Dioxide Anion Gap BUN Creatinine Est GFR ( Amer) Est GFR (Non-Af Amer) Random Glucose Calcium Total Bilirubin AST ALT Alkaline Phosphatase Troponin I < 0.0120 Total Protein Albumin Globulin Albumin/Globulin Ratio Urine Color Yellow Urine Clarity Cloudy Urine pH 5.0 Ur Specific [place] 1.020 Urine Protein Negative Urine Glucose (UA) Neg Urine Ketones Negative Urine Blood Small Urine Nitrate Negative Urine Bilirubin Negative Urine Urobilinogen 0.2-1.0 Ur Leukocyte Esterase Neg Urine RBC (Auto) 1 Urine Microscopic WBC 4 Ur Squamous Epith Cells 2 Urine Bacteria Many H Hyaline Casts >20 H Blood Type O NEGATIVE Antibody Screen Negative Crossmatch See Detail BBK History Checked Patient has bt Assessment & Plan - Assessment and Plan (Free Text) Assessment: L/hip fracture COPD HTN EKG: RBBB and anterior fascicular block VS stable Alert and oriented Restart home meds monitor VS Ortho consult Cardio consult for op clearance F/U Echo <Elvis Lewis L - Last Filed: 01/26/18 13:51> Results - Vital Signs Recent Vital Signs: Last Vital Signs Temp 98.3 F 01/26/18 08:00 Pulse 69 01/26/18 09:00 Resp 20 01/26/18 08:00 BP 106/42 L 01/26/18 08:00 Pulse Ox 100 01/26/18 08:00 - Labs Result Diagrams: 01/25/18 14:30 01/25/18 14:30 Labs: Laboratory Results - last 24 hr 01/25/18 01/25/18 01/25/18 14:30 14:30 14:30 WBC 11.8 H RBC 3.90 Hgb 13.1 Hct 39.3 MCV 100.6 H MCH 33.7 H MCHC 33.4 RDW 14.1 Plt Count 237 MPV 8.6 Neut % (Auto) 91.3 H Lymph % (Auto) 5.2 L [place] % (Auto) 3.3 Eos % (Auto) 0.1 Baso % (Auto) 0.1 Neut # (Auto) 10.7 H Lymph # (Auto) 0.6 L [place] # (Auto) 0.4 Eos # (Auto) 0.0 Baso # (Auto) 0.0 Neutrophils % (Manual) 90 H Lymphocytes % (Manual) 6 L Monocytes % (Manual) 4 Platelet Estimate Normal RBC Morphology Normal PT 12.4 INR 1.1 Sodium 139 Potassium 4.3 Chloride 104 Carbon Dioxide 26 Anion Gap 13 BUN 21 H Creatinine 0.7 Est GFR ( Amer) > 60 Est GFR (Non-Af Amer) > 60 Random Glucose 143 H Calcium 8.7 Total Bilirubin 0.8 AST 22 ALT 28 Alkaline Phosphatase 107 Troponin I Total Protein 6.5 Albumin 3.5 Globulin 3.0 Albumin/Globulin Ratio 1.2 Urine Color Urine Clarity Urine pH Ur Specific [place] Urine Protein Urine Glucose (UA) Urine Ketones Urine Blood Urine Nitrate Urine Bilirubin Urine Urobilinogen Ur Leukocyte Esterase Urine RBC (Auto) Urine Microscopic WBC Ur Squamous Epith Cells Urine Bacteria Hyaline Casts Blood Type Antibody Screen Crossmatch BBK History Checked 01/25/18 01/25/18 01/26/18 15:50 21:30 11:39 WBC RBC Hgb Hct MCV MCH MCHC RDW Plt Count MPV Neut % (Auto) Lymph % (Auto) [place] % (Auto) Eos % (Auto) Baso % (Auto) Neut # (Auto) Lymph # (Auto) [place] # (Auto) Eos # (Auto) Baso # (Auto) Neutrophils % (Manual) Lymphocytes % (Manual) Monocytes % (Manual) Platelet Estimate RBC Morphology PT INR Sodium Potassium Chloride Carbon Dioxide Anion Gap BUN Creatinine Est GFR ( Amer) Est GFR (Non-Af Amer) Random Glucose Calcium Total Bilirubin AST ALT Alkaline Phosphatase Troponin I < 0.0120 Total Protein Albumin Globulin Albumin/Globulin Ratio Urine Color Yellow Urine Clarity Cloudy Urine pH 5.0 Ur Specific [place] 1.020 Urine Protein Negative Urine Glucose (UA) Neg Urine Ketones Negative Urine Blood Small Urine Nitrate Negative Urine Bilirubin Negative Urine Urobilinogen 0.2-1.0 Ur Leukocyte Esterase Neg Urine RBC (Auto) 1 Urine Microscopic WBC 4 Ur Squamous Epith Cells 2 Urine Bacteria Many H Hyaline Casts >20 H Blood Type O NEGATIVE Antibody Screen Negative Crossmatch See Detail BBK History Checked Patient has bt Assessment & Plan - Assessment and Plan (Free Text) Plan: I was present during evaluation and discusssed with Dr Aguirre re plans of care and mgt. patient is fairly stable for surgery pending cardiac clearance Discussed with Dr rodgers re cardiac clearance he will follow up with Dr Mark Anthony rosario.
[2018-01-26] MEDS ORDERED: Albuterol HFA 90 mcg/actuation (8 g) IH PRN (12:18)
[2018-01-26] MEDS ORDERED: Albuterol-Ipratrop 3 mg / 0.5 (3 ml) UD INH SCH (12:30)
[2018-01-26] MEDS ORDERED: Lidocaine 2% Inj (20ml) ONE (12:40)
[2018-01-26] MEDS ORDERED: EPINEPHrine 1 mg/ml (1:1000) Inj ONE (12:40)
[2018-01-26] MEDS ORDERED: Bupivacaine 0.5% Inj(30mL) ONE (12:41)
[2018-01-26] MEDS ORDERED: Bacitracin Ointment 30 GM TUBE ONE (12:41)
[2018-01-26] MEDS ORDERED: ceFAZolin IV 1 gm in Dextrose 2 GM/100 ML BAG IVPB ONE (12:41)
--- NOTE | 2018-01-26 13:07 | CON ---
DATE: CARDIOLOGY CONSULTATION REASON FOR CONSULTATION: Preoperative evaluation. HISTORY OF PRESENT ILLNESS: The patient is an 88-year-old female who has a history of chronic obstructive lung disease who sustained a fall yesterday and was admitted with diagnosis of acute comminuted impacted left intertrochanteric fracture with superolateral angulation. The patient did sustain left frontal and eyebrow bruising and the patient attributed her fall to standing up from the chair and then collapsing immediately after probably she tripped. The patient denies any dizziness or syncope. Denies loss of consciousness after her fall. The patient denies any chest pain and is unaware of any prior cardiac history. SOCIAL HISTORY: The patient is a nonsmoker. MEDICATIONS: Lactated Ringers at 80 mL an hour, morphine sulfate 2 mg intravenously every 4 hours, and Protonix 40 mg intravenously daily. REVIEW OF SYSTEMS: No chest pain. No shortness of breath. No reported . No reported ventricular arrhythmia. PHYSICAL EXAMINATION: GENERAL: The patient is an elderly female, who does not appear to be in any acute distress. VITAL SIGNS: Blood pressure 119/52, heart rate 74, temperature 97.9, and respirations 18. HEENT: Left frontal and left periorbital ecchymosis. NECK: No JVD. CHEST: Clear. HEART: S1 and S2 regular and distant. ABDOMEN: Soft. EXTREMITIES: No edema. EKG revealed sinus rhythm, incomplete right bundle-branch block, left anterior fascicular block. LABORATORY DATA: Hemoglobin and hematocrit are 13.1 and 39.3, white count 11.8, and platelet count . PT and INR are within normal limits. SMA-7 is within normal limits except for glucose of 143 and BUN of 21. One set of troponin is negative. Head CT scan without contrast. No intracranial hemorrhage, age-related atrophy, and chronic microvascular ischemic changes, small left frontal scalp contusion. Cervical spine x-ray, no acute fracture. Severe degenerative disc disease C5-6 and C6-7. Grade 1 anterolisthesis at C4-5. Elbow x-ray, no acute fracture or dislocation. Bilateral wrist x-ray, acute transverse impacted fracture in the distal right radius. No acute fracture or dislocation in the right wrist. ASSESSMENT: 1. Left intertrochanteric fracture and acute transverse impacted fracture in distal radius. 2. Chronic obstructive lung disease. 3. 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 RECOMMENDATIONS: I did review the echo, which revealed normal left ventricular systolic function and unremarkable valvular structured and functions. The patient can undergo open reduction internal fixation of left intertrochanteric fracture, from the cardiac point of view, was postoperative ICU monitoring. Richard Edwards MD
[2018-01-26] MEDS ORDERED: Succinylcholine 200 mg/10 ml Inj IV ONE (13:40)
[2018-01-26] MEDS ORDERED: ePHEDrine 50 mg/ml Inj ONE (13:40)
[2018-01-26] MEDS ORDERED: Propofol 10 mg/ml Inj (20 ML) ONE (13:40)
[2018-01-26] MEDS ORDERED: Rocuronium 10 mg/ml (5 ml) ONE (13:40)
[2018-01-26] MEDS ORDERED: Etomidate 20 mg/10ml Inj IV ONE (13:41)
--- NOTE | 2018-01-26 13:46 | CP.PCM.CON ---
History of Present Illness - History of Present Illness History of Present Illness: Pulmonary consult/ clearance for OR. 88 y/o F, Hx of COPD, Hx of Falls, brought by EMS to [facility] on 01/25/18 for evaluation of fall/trauma, Pt trip and fall while at home in her L side, c/ o of multiple sites pain, no LOC, no dizziness. In ED, Pt was c/o of intense pain in L hip/ R wrist, constant, severe intensity 10:10 with no relief. Pt sustained hematoma/bruising to forehead, No c/o of headache, no SOB/CP. Worsening symptoms: CT L hip showing: Acute commuted displaced impacted intertrochanteric x L Hip. Wrist R Ray: Acute trabsverse impacted Fx in the distal R radius, no Fx/dislocation L wrist. Aggravated factor: Movements. Pt denied: Headache, LOC, dizziness, SOB, cough, CP, palpitations, fever, chills, n/v/d, abdominal pain, sick contact, recent travel out of [facility]. PMHx: COPD, HTN, High-Cholesterol, Osteoporosis, Hx falls, Hx. PNA. CXR: No active pulmonary disease. EKG: Sinus rhythm, incomplete R BBB, left. (Seen by safety and health consultant) Review of Systems - Constitutional Constitutional: Frequent Falls - EENT Eyes: Other (negative) Ears: Decreased Hearing Nose/Mouth/Throat: Other (negative) - Cardiovascular Cardiovascular: Other (negative) - Respiratory Respiratory: Other (negative) - Gastrointestinal Gastrointestinal: Other (negative) - Genitourinary Genitourinary: Urinary Incontinence - Musculoskeletal Musculoskeletal: Arthralgias, Other (L hip, wrist b/l, head L side, L elbow.) - Integumentary Integumentary: Other (Hematoma/bruising to forehead. Skin tear L arm.) - Neurological Neurological: Other (negative) - Psychiatric Psychiatric: Other (negative) - Endocrine Endocrine: Other (negative) - Hematologic/Lymphatic Hematologic: Other (negative) Past Patient History - Past Medical History & Family History Past Medical History?: Yes - Past Social History Smoking Status: Never Smoked Alcohol: None Drugs: Denies Home Situation {Lives}: With Family - CARDIAC Hx Cardiac Disorders: Yes Hx Angina: No Hx Atrial Fibrillation: No Hx Cardia Arrhythmia: No Hx Circulatory Problems: No Hx Congestive Heart Failure: No Hx Heart Attack: No Hx Heart Murmur: No Hx Heart Transplant: No Hx Hypercholesterolemia: Yes Hx Hypertension: Yes Hx Hypotension: No Hx Internal Defibrillator: No Hx Pacemaker: No Hx Peripheral Edema: No Hx Peripheral Vascular Disease: No - PULMONARY Hx Respiratory Disorders: Yes Hx Asthma: Yes Hx Bronchitis: No Hx Chronic Obstructive Pulmonary Disease (COPD): Yes Hx Emphysema: No Hx Lung Cancer: No Hx Pneumonia: Yes Hx Pulmonary Edema: No Hx Pulmonary Embolism: No Hx Respiratory Aspiration: No Hx Respiratory Tract Infection: No Hx Sleep Apnea: No Hx Tuberculosis: No - NEUROLOGICAL Hx Neurological Disorder: No Hx Alzheimer's Disease: No HX Cerebrovascular Accident: No Hx Dementia: No Hx Dizziness: No Hx Meningitis: No Hx Migraine: No Hx Multiple Sclerosis: No Hx Paralysis: No Hx Parkinson's Disease: No Hx Seizures: No Hx Syncope: No Hx Transient Ischemic Attacks (TIA): No Hx Vertigo: No - HEENT Hx HEENT Problems: Yes Hx Blind: No Hx Cataracts: Yes Hx Deafness: No Hx Difficulty Chewing: No Hx Epistaxis: No Hx Glaucoma: No Hx Macular Degeneration: No Hx Sinusitis: No - RENAL Hx Chronic Kidney Disease: No Hx Dialysis: No Hx Kidney Stones: No Hx Neurogenic Bladder: No Hx Pyelonephritis: No Hx Renal (Kidney) Cancer: No Hx Renal Failure: No - ENDOCRINE/METABOLIC Hx Endocrine Disorders: No Hx Adrenal Cancer: No Hx Diabetes Insipidus: No Hx Diabetes Mellitus Type 1: No Hx Diabetes Mellitus Type 2: No Hx Hyperthyroidism: No Hx Hypothyroidism: No Hx Systemic Lupus Erythematosus: No - HEMATOLOGICAL/ONCOLOGICAL Hx Blood Disorders: Yes Hx AIDS: No Hx Anemia: No Hx Blood Transfusions: No Hx Blood Transfusion Reaction: No Hx Bruising: Yes Hx Cancer: No Hx Chemotherapy: No Hx Cirrhosis: No Hx Gum Bleeding: No Hx Hemophilia: No Hx Hepatitis A: No Hx Hepatitis B: No Hx Hepatitis C: No Hx Human Immunodeficiency Virus (HIV): No Hx Leukemia: No Hx Metastesis: No Hx Shingles: No Hx Sickle Cell Disease: No Hx Unexplained Bleeding: No Hx von Willebrand's Disease: No - INTEGUMENTARY Hx Dermatological Problems: No Hx Basil Cell: No Hx Bentley: No Hx Cellulitis: No Hx Eczema: No Hx Melanoma: No Hx Psoriasis: No Hx Squamous Cell: No - MUSCULOSKELETAL/RHEUMATOLOGICAL Hx Musculoskeletal Disorders: Yes Hx Arthritis: No Hx Back Pain: Yes Hx Degenerative Joint Disease: No Hx Falls: Yes Hx Fractures: No Hx Gout: No Hx Herniated Disk: No Hx Myasthenia Gravis: No Hx Osteoarthritis: No Hx Osteomyelitis: No Hx Osteoporosis: No Hx Rhabdomyolysis: No Hx Rheumatoid Arthritis: No Hx Spinal Stenosis: No Hx Unsteady Gait: Yes - GASTROINTESTINAL Hx Gastrointestinal Disorders: No Hx Bowel Surgery: No Hx Clostridium Difficile: No Hx Colitis: No Hx Colostomy: No Hx Constipation: Yes Hx Crohn's Disease: No Hx Diarrhea: No Hx Diverticulitis: No Hx Esophageal Varices: No Hx Fatty Liver Disease: No Hx Gall Bladder Disease: No Hx Gastritis: No Hx Gastroesophageal Reflux: No Hx Hemorrhoids: No Hx Ileostomy: No Hx Irritable Bowel: No Hx Liver Failure: No Hx Nausea: No Hx Pancreatitis: No HX Swallowing Problems: No Hx Ulcer: No Hx Vomiting: No - GENITOURINARY/GYNECOLOGICAL Hx Genitourinary Disorders: Yes Hx Bladder Cancer: No Hx Bladder Stone: No Hx Cervical Cancer: No Hx Hematuria: No Hx Incontinence: Yes Hx Ovarian Cancer: No Hx Postmenopausal Bleeding: No Hx Reproductive Disorders: No Hx Sexually Transmitted Disorders: No Hx Uterine Cancer: No Hx Urinary Tract Infection: No - PSYCHIATRIC Hx Psychophysiologic Disorder: No Hx Anxiety: No Hx Bipolar Disorder: No Hx Depression: No Hx Emotional Abuse: No Hx Hallucinations: No Hx Panic Symptoms: No Hx Paranoia: No Hx Post Traumatic Stress Disorder: No Hx Psychosis: No Hx Physical Abuse: No Hx Schizophrenia: No Hx Sexual Abuse: No Hx Substance Use: No - SURGICAL HISTORY Hx Surgeries: Yes Hx Abdominal Aortic Aneurysm Repair: No Hx Amputation: No Hx Angiogram: No Hx Angioplasty: No Hx Appendectomy: No Hx Arteriovenous Shunt: No Hx Arthroscopy: No Hx Bile Duct Stent: No Hx Breast Biopsy: Yes Hx Cataract Extraction: No Hx Cardiac Catheterization: No Hx Carotid Endarterectomy: No Hx Section: No Hx Cholecystectomy: No Hx Coronary Artery Bypass Graft: No Hx Coronary Stent: No Hx Dilation and Curettage: No Hx Eye Surgery: Yes Hx Femoral-Popliteal Bypass Graft: No Hx Herniorrhaphy: Yes Hx Hysterectomy: No Hx Joint Replacement: No Hx Kidney Transplant: No Hx Liver Transplant: No Hx Mastectomy: No Hx Musculoskeletal Surgery: No Hx Open Heart Surgery: No Hx Open Reduction Internal Fixation: No Hx Orthopedic Surgery: No Hx Parathyroidectomy: No Hx Penile Implant: No Hx Pulmonary Surgery: No Hx Splenectomy: No Hx Thyroidectomy: No Hx Tubal Ligation: No Hx Valve Replacement: No Hx Vascular Surgery: No Hx Vascular Access Device: No Other/Comment: vaginal prolapse repair - ANESTHESIA Hx Anesthesia: Yes Hx Anesthesia Reactions: No Hx Malignant Hyperthermia: No Has any member of the family had a problem w/ anesthesia?: No Meds Allergies/Adverse Reactions: Allergies Allergy/AdvReac Type Severity Reaction Status Date / Time No Known Allergies Allergy Verified 01/25/18 13:51 - Medications Medications: Current Medications Albuterol (Ventolin Hfa 90 Mcg/Actuation (8 G)) 2 puff IH Q4H PRN PRN Reason: Shortness of Breath Albuterol/Ipratropium (Duoneb 3 Mg/0.5 Mg (3 Ml) Ud) 3 ml INH RQ6 [facility] Albuterol/Ipratropium (Duoneb 3 Mg/0.5 Mg (3 Ml) Ud) 3 ml INH RQ6 [facility] Amlodipine Besylate (Norvasc) 10 mg PO DAILY [facility] Dextrose/Lactated Ringer's (Dextrose 5%/Lactated Ringer's) 1,000 mls @ 80 mls/ hr IV .[id number] [facility] Stop: 01/26/18 19:57 Last Admin: 01/26/18 08:29 Dose: 80 mls/hr Methylprednisolone (Solu-Medrol) 50 mg IV ONCE ONE Stop: 01/26/18 13:46 Montelukast Sodium (Singulair) 10 mg PO HS [facility] Morphine Sulfate (Morphine) 2 mg IVP Q4 PRN PRN Reason: Pain, severe (8-10) Last Admin: 01/25/18 22:02 Dose: 2 mg Pantoprazole Sodium (Protonix Inj) 40 mg IVP DAILY [facility] Last Admin: 01/26/18 08:30 Dose: 40 mg Physical Exam - Head Exam Additional comments: Ecchymosis - Eye Exam Eye Exam: PERRL - ENT Exam ENT Exam: Mucous Membranes Moist Additional comments: Hard of hearing - Neck Exam Neck exam: Positive for: Normal Inspection - Respiratory Exam Respiratory Exam: Clear to Auscultation Bilateral, NORMAL BREATHING PATTERN - Cardiovascular Exam Cardiovascular Exam: REGULAR RHYTHM - GI/Abdominal Exam GI & Abdominal Exam: Normal Bowel Sounds, Soft - Extremities Exam Extremities exam: Positive for: tenderness (LLE) - Neurological Exam Neurological exam: Alert, Oriented x3 - Psychiatric Exam Psychiatric exam: Normal Mood - Skin Skin Exam: Abrasion (ecchymosis, small facial abrasion ), Warm Results - Vital Signs Recent Vital Signs: Last Vital Signs Temp 98.3 F 01/26/18 08:00 Pulse 69 01/26/18 09:00 Resp 20 01/26/18 08:00 BP 106/42 L 01/26/18 08:00 Pulse Ox 100 01/26/18 08:00 reviewed Elaina - Labs Result Diagrams: 01/26/18 17:15 01/27/18 06:41 Labs: Laboratory Results - last 24 hr 01/25/18 01/25/18 01/25/18 14:30 14:30 14:30 WBC 11.8 H RBC 3.90 Hgb 13.1 Hct 39.3 MCV 100.6 H MCH 33.7 H MCHC 33.4 RDW 14.1 Plt Count 237 MPV 8.6 Neut % (Auto) 91.3 H Lymph % (Auto) 5.2 L [place] % (Auto) 3.3 Eos % (Auto) 0.1 Baso % (Auto) 0.1 Neut # (Auto) 10.7 H Lymph # (Auto) 0.6 L [place] # (Auto) 0.4 Eos # (Auto) 0.0 Baso # (Auto) 0.0 Neutrophils % (Manual) 90 H Lymphocytes % (Manual) 6 L Monocytes % (Manual) 4 Platelet Estimate Normal RBC Morphology Normal PT 12.4 INR 1.1 Sodium 139 Potassium 4.3 Chloride 104 Carbon Dioxide 26 Anion Gap 13 BUN 21 H Creatinine 0.7 Est GFR ( Amer) > 60 Est GFR (Non-Af Amer) > 60 Random Glucose 143 H Calcium 8.7 Total Bilirubin 0.8 AST 22 ALT 28 Alkaline Phosphatase 107 Troponin I Total Protein 6.5 Albumin 3.5 Globulin 3.0 Albumin/Globulin Ratio 1.2 Urine Color Urine Clarity Urine pH Ur Specific [place] Urine Protein Urine Glucose (UA) Urine Ketones Urine Blood Urine Nitrate Urine Bilirubin Urine Urobilinogen Ur Leukocyte Esterase Urine RBC (Auto) Urine Microscopic WBC Ur Squamous Epith Cells Urine Bacteria Hyaline Casts Blood Type Antibody Screen Crossmatch BBK History Checked 01/25/18 01/25/18 01/26/18 15:50 21:30 11:39 WBC RBC Hgb Hct MCV MCH MCHC RDW Plt Count MPV Neut % (Auto) Lymph % (Auto) [place] % (Auto) Eos % (Auto) Baso % (Auto) Neut # (Auto) Lymph # (Auto) [place] # (Auto) Eos # (Auto) Baso # (Auto) Neutrophils % (Manual) Lymphocytes % (Manual) Monocytes % (Manual) Platelet Estimate RBC Morphology PT INR Sodium Potassium Chloride Carbon Dioxide Anion Gap BUN Creatinine Est GFR ( Amer) Est GFR (Non-Af Amer) Random Glucose Calcium Total Bilirubin AST ALT Alkaline Phosphatase Troponin I < 0.0120 Total Protein Albumin Globulin Albumin/Globulin Ratio Urine Color Yellow Urine Clarity Cloudy Urine pH 5.0 Ur Specific [place] 1.020 Urine Protein Negative Urine Glucose (UA) Neg Urine Ketones Negative Urine Blood Small Urine Nitrate Negative Urine Bilirubin Negative Urine Urobilinogen 0.2-1.0 Ur Leukocyte Esterase Neg Urine RBC (Auto) 1 Urine Microscopic WBC 4 Ur Squamous Epith Cells 2 Urine Bacteria Many H Hyaline Casts >20 H Blood Type O NEGATIVE Antibody Screen Negative Crossmatch See Detail BBK History Checked Patient has bt reviewed J.P. - EKG Data EKG comments: reviewed J.P. - Imaging and Cardiology Chest x-ray Status: Report reviewed by me (Elaina) CT scan - head Status: Report reviewed by me (Elaina) Additional comment: Echo, CT upper extremities, Hip CT, L Elbow X-Ray, Hip/pelv X-Ray, Wrist X Ray: All reviewed J.P. Assessment & Plan (1) COPD (chronic obstructive pulmonary disease) Status: Chronic Priority: Medium - Assessment and Plan (Free Text) Plan: Pulmonary clear for OR. - Date & Time Date: 01/26/18 Time: 12:30
[2018-01-26] MEDS ORDERED: Lactated Ringer's 1,000 ML IV ONE (14:00)
[2018-01-26] MEDS ORDERED: Sodium Chloride 0.9% 500 ML IV ONE (14:05)
[2018-01-26] MEDS ORDERED: Sodium Chloride 0.9% 1,000 ML IV ONE (16:00)
[2018-01-26] MEDS ORDERED: Neostigmine 1:1000 (1 mg/ml) Inj ONE (16:15)
--- NOTE | 2018-01-26 17:07 | PCM.SURG1 ---
Surgeon's Initial Post Op Note - Surgeon's Notes Surgeon: Nadir Fuentes MD Senior Design Engineering Specialist: Stan Dumont PA-C Type of Anesthesia: General Endo Anesthesia Administered By: Dr Otto Pre-Operative Diagnosis: Left intertrochanteric femur fracture Operative Findings: same Post-Operative Diagnosis: same Operation Performed: closed reduction and cephalomedullary nailing left femur ( long nail) Specimen/Specimens Removed: none Estimated Blood Loss: EBL {In ML}: 150 Blood Products Given: N/A Drains Used: No Drains Post-Op Condition: Fair Date of Surgery/Procedure: 01/26/18 Time of Surgery/Procedure: 17:06
[2018-01-26] MEDS ORDERED: Morphine 4 MG/ML VIAL IVP PRN (17:08)
[2018-01-26] MEDS ORDERED: Sodium Chloride 0.9% 1,000 ML IV SCH (17:15)
[2018-01-26 17:31] LABS: MEAN CORPUSCULAR HEMOGLOBIN 33.7 pg (27.0-31.0); MEAN CORPUSCULAR HGB CONC 32.5 g/dL (33.0-37.0); RBC 2.7 Mil/uL (3.80-5.20); RED CELL DISTRIBUTION WIDTH 14.4 % (11.5-14.5)
[2018-01-26 17:54] LABS: HEMOGLOBIN 9.1 g/dL (12.0-16.0); MEAN CELL VOLUME 103.8 fl (81.0-99.0); WHITE BLOOD COUNT 21.2 K/uL (4.8-10.8)
[2018-01-26] MEDS ORDERED: Sodium Chloride 0.9% 250 ML IV ONE (18:00)
[2018-01-26] MEDS ORDERED: Morphine 4 MG/ML VIAL IV ONE (18:15)
[2018-01-26] MEDS ORDERED: Morphine 4 MG/ML VIAL ONE (18:24)
[2018-01-26] MEDS: Albuterol-Ipratrop 3 mg / 0.5 (3 ml) UD INH SCH (19:12)
[2018-01-26] MEDS: Morphine 4 MG/ML VIAL IVP PRN (20:03)
--- NOTE | 2018-01-26 20:41 | CARD ---
APPROVED REPORT EKG Measurement Heart [id number] <Conclusion> Sinus rhythm with fusion complexes Incomplete right bundle branch block Left anterior fascicular block Abnormal ECG
[2018-01-26] MEDS: ceFAZolin 2 GM in Sodium Chloride 0.9% 100 ML IVPB SCH (23:19)
[2018-01-27 00:04] LABS: ABG ALLEN TEST YES; ARTERIAL BLOOD GAS HEMOGLOBIN 11.1 g/dL (11.7-17.4); ARTERIAL BLOOD GAS O2 CAPACITY 15.3 mL/dL (16-24); ARTERIAL BLOOD GAS O2 CONTENT 15.2 ML/dL (15-23); ARTERIAL BLOOD GAS O2 SAT 99.6 % (95-98); ARTERIAL BLOOD GAS PCO2 29 mm/Hg (35-45); ARTERIAL BLOOD GAS PO2 86 mm/Hg (80-100); ARTERIAL BLOOD GAS TCO2 23.5 mmol/L (22-28)
[2018-01-27] MEDS: Albuterol-Ipratrop 3 mg / 0.5 (3 ml) UD INH SCH ×4 (01:00→20:01)
[2018-01-27] MEDS: Morphine 4 MG/ML VIAL IVP PRN ×2 (02:08→15:18)
[2018-01-27] MEDS: ceFAZolin 2 GM in Sodium Chloride 0.9% 100 ML IVPB SCH ×3 (06:36→20:39)
[2018-01-27 08:16] LABS: CALCIUM 7.9 mg/dL (8.4-10.2)
[2018-01-27] MEDS ORDERED: ceFAZolin 2 GM in Sodium Chloride 0.9% 100 ML IVPB ONE (09:16)
[2018-01-27] MEDS: Lactated Ringer's 1,000 ML IV SCH (10:23)
[2018-01-27 11:12] LABS: MEAN CORPUSCULAR HEMOGLOBIN 31.6 pg (27.0-31.0); MEAN CORPUSCULAR HGB CONC 32.4 g/dL (33.0-37.0); RBC 3.49 Mil/uL (3.80-5.20); RED CELL DISTRIBUTION WIDTH 19.4 % (11.5-14.5); WHITE BLOOD COUNT 18.8 K/uL (4.8-10.8)
[2018-01-27 11:16] LABS: MEAN CELL VOLUME 97.4 fl (81.0-99.0)
[2018-01-27] MEDS ORDERED: methylPREDNISolone 50 MG in Sodium Chloride 0.9% 50 ML IVPB ONE (13:24)
--- NOTE | 2018-01-27 14:38 | CP.PCM.PN ---
Subjective - Date & Time of Evaluation Date of Evaluation: 01/27/18 Time of Evaluation: 12:20 - Subjective Subjective: F/U COPD. Pt with post surgical pain in L hip, no SOB. Objective - Vital Signs/Intake and Output Vital Signs (last 24 hours): Temp Pulse Resp BP Pulse Ox 97.6 F 66 20 99/55 L 100 01/27/18 12:00 01/27/18 12:00 01/27/18 12:00 01/27/18 12:00 01/27/18 12:00 - Medications Medications: Current Medications Acetaminophen (Tylenol 325mg Tab) 325 mg PO Q6 PRN PRN Reason: Pain, moderate (4-7) Last Admin: 01/27/18 11:05 Dose: 325 mg Albuterol (Ventolin Hfa 90 Mcg/Actuation (8 G)) 2 puff IH Q4H PRN PRN Reason: Shortness of Breath Albuterol/Ipratropium (Duoneb 3 Mg/0.5 Mg (3 Ml) Ud) 3 ml INH RQ6 [facility] Last Admin: 01/27/18 14:18 Dose: 3 ml Albuterol/Ipratropium (Duoneb 3 Mg/0.5 Mg (3 Ml) Ud) 3 ml INH RQ6 [facility] Docusate Sodium (Colace) 100 mg PO BID [facility] Last Admin: 01/27/18 10:01 Dose: 100 mg Enoxaparin Sodium (Lovenox) 40 mg SC Q24H [facility] PRN Reason: Protocol Lactated Ringer's (Lactated Ringer's) 1,000 mls @ 70 mls/hr IV .[id number] [facility] Sodium Chloride (Sodium Chloride 0.9%) 1,000 mls @ 50 mls/hr IV .Q20H [facility] Stop: 01/28/18 09:14 Cefazolin Sodium 2 gm/ Sodium (Chloride) 100 mls @ 100 mls/hr IVPB Q12 [facility] PRN Reason: Protocol Stop: 01/29/18 23:59 Last Admin: 01/27/18 10:00 Dose: 100 mls/hr Montelukast Sodium (Singulair) 10 mg PO HS [facility] Last Admin: 01/26/18 23:19 Dose: 10 mg Morphine Sulfate (Morphine) 2 mg IVP Q4 PRN PRN Reason: Pain, severe (8-10) Last Admin: 01/27/18 02:08 Dose: 2 mg Morphine Sulfate (Morphine) 2 mg IVP Q4 PRN PRN Reason: Pain, severe (8-10) Ondansetron HCl (Zofran Inj) 4 mg IVP Q6 PRN PRN Reason: Nausea/Vomiting Last Admin: 01/27/18 11:01 Dose: 4 mg Pantoprazole Sodium (Protonix Ec Tab) 40 mg PO DAILY [facility] - Labs Labs: 01/27/18 06:41 01/27/18 06:41 PT 12.4 Seconds (9.8-13.1) 01/25/18 14:30 INR 1.1 (0.9-1.2) 01/25/18 14:30 - Constitutional Appears: No Acute Distress - Head Exam Additional comments: L face ecchymosis. - Eye Exam Eye Exam: PERRL - ENT Exam Additional comments: Hard of hearing - Respiratory Exam Respiratory Exam: Decreased Breath Sounds (at bases) - Cardiovascular Exam Cardiovascular Exam: REGULAR RHYTHM - GI/Abdominal Exam GI & Abdominal Exam: Soft, Normal Bowel Sounds - Extremities Exam Additional comments: Lsurgical incision mid tenderness, neuromuscular distal good. - Neurological Exam Neurological Exam: Alert, Oriented x3 - Psychiatric Exam Psychiatric exam: Normal Mood - Skin Skin Exam: Warm Assessment and Plan (1) COPD (chronic obstructive pulmonary disease) Status: Chronic (2) Trochanteric fracture of femur Assessment & Plan: Left , s/p nailing Status: Acute - Assessment and Plan (Free Text) Plan: Continue Duoneb, Singulair and rest of treatment
[2018-01-27] MEDS: Enoxaparin 40 mg Syringe SC SCH (15:19)
--- NOTE | 2018-01-27 15:22 | PN ---
DATE: SUBJECTIVE: The patient underwent trochanteric femoral nailing for her left hip fracture. The patient was noted to be in sinus tachycardia yesterday. She denies any chest pain or dizziness at this time. PHYSICAL EXAMINATION VITAL SIGNS: Blood pressure of 99/65, heart rate of 66, temperature of 97.6, and respirations of 20. HEENT: Left frontal and periorbital ecchymosis. NECK: No JVD. CHEST: Minimal rhonchi. HEART: S1 and S2 regular. EXTREMITIES: No edema. LABORATORY DATA: Today's BUN and creatinine are 27 and 1.5, carbon dioxide is 19, and glucose is 134. The patient today's SMA-7 is within normal limits. Today's hemoglobin and hematocrit after packed RBCs infusion last night is 11 and 34 respectively, white count 18.8, and platelet count 125,000. DIAGNOSTIC DATA: EKG was done yesterday and was reported to be sinus tachycardia, however, it is not available either on the paper chart or [employer] database. ASSESSMENT: 1. Status post left trochanteric femoral nailing. 2. Dehydration, prerenal azotemia. 3. Sinus tachycardia. 4. Mild thrombocytopenia. 5. Mild hypocalcemia. RECOMMENDATIONS: Continue current IV cefazolin and continue Lactated Ringer's 70 cc an hour, and subcutaneous Lovenox is 40 mg daily. Discontinue Norvasc. I will obtain 12-lead EKG. Case was discussed with the patient's family at the bedside including the patient's and the daughter. Richard Edwards MD
[2018-01-28] MEDS: Albuterol-Ipratrop 3 mg / 0.5 (3 ml) UD INH SCH ×4 (01:00→19:33)
[2018-01-28] MEDS: Morphine 4 MG/ML VIAL IVP PRN (05:53)
[2018-01-28] MEDS: ceFAZolin 2 GM in Sodium Chloride 0.9% 100 ML IVPB SCH (09:31)
[2018-01-28] MEDS: Pantoprazole 40 mg EC Tab PO SCH (10:23)
--- NOTE | 2018-01-28 11:23 | CT ---
PROCEDURE: CT HEAD WITHOUT CONTRAST. HISTORY: Fall COMPARISON: CT head dated 01/25/2018. TECHNIQUE: Axial computed tomography images were obtained through the head/brain without intravenous contrast. Radiation dose: Total exam DLP = 632.2 mGy-cm. This CT exam was performed using one or more of the following dose reduction techniques: Automated exposure control, adjustment of the mA and/or kV according to patient size, and/or use of iterative reconstruction technique. FINDINGS: HEMORRHAGE: No intracranial hemorrhage. BRAIN: No mass effect or edema. Atrophy. Mild chronic microvascular ischemic changes. VENTRICLES: Unremarkable. No hydrocephalus. CALVARIUM: Unremarkable. PARANASAL SINUSES: Unremarkable as visualized. No significant inflammatory changes. MASTOID AIR CELLS: Unremarkable as visualized. No inflammatory changes. OTHER FINDINGS: Large left frontal scalp hematoma. IMPRESSION: Left frontal scalp hematoma. No calvarial fracture or acute intracranial pathology/hemorrhage.
[2018-01-28] MEDS ORDERED: ceFAZolin 2 GM in Sodium Chloride 0.9% 100 ML IM SCH (14:10)
--- NOTE | 2018-01-28 14:28 | CP.PCM.PN ---
Subjective - Date & Time of Evaluation Date of Evaluation: 01/28/18 Time of Evaluation: 10:30 - Subjective Subjective: F/U COPD no SOB , no Cough , no chest congestion , post-op pain L hip Objective - Vital Signs/Intake and Output Vital Signs (last 24 hours): Temp Pulse Resp BP Pulse Ox 98.2 F 94 H 18 130/74 99 01/28/18 12:00 01/28/18 12:00 01/28/18 12:00 01/28/18 12:00 01/28/18 12:00 Intake and Output: 01/28/18 01/28/18 06:59 18:59 Intake Total 1100 Output Total 350 Balance 750 - Medications Medications: Current Medications Acetaminophen (Tylenol 325mg Tab) 650 mg PO Q6 PRN PRN Reason: Pain, Mild (1-3) Last Admin: 01/28/18 10:28 Dose: 650 mg Albuterol (Ventolin Hfa 90 Mcg/Actuation (8 G)) 2 puff IH Q4H PRN PRN Reason: Shortness of Breath Albuterol/Ipratropium (Duoneb 3 Mg/0.5 Mg (3 Ml) Ud) 3 ml INH RQ6 [facility] Last Admin: 01/28/18 13:30 Dose: 3 ml Albuterol/Ipratropium (Duoneb 3 Mg/0.5 Mg (3 Ml) Ud) 3 ml INH RQ6 [facility] Cefazolin Sodium (Ancef) 2 gm IM Q12 [facility] Docusate Sodium (Colace) 100 mg PO BID [facility] Last Admin: 01/28/18 10:23 Dose: 100 mg Enoxaparin Sodium (Lovenox) 40 mg SC Q24H [facility] PRN Reason: Protocol Last Admin: 01/27/18 15:19 Dose: 40 mg Lactated Ringer's (Lactated Ringer's) 1,000 mls @ 70 mls/hr IV .[id number] [facility] Last Admin: 01/27/18 10:23 Dose: 70 mls/hr Montelukast Sodium (Singulair) 10 mg PO HS [facility] Last Admin: 01/27/18 21:39 Dose: 10 mg Morphine Sulfate (Morphine) 2 mg IVP Q4 PRN PRN Reason: Pain, severe (8-10) Last Admin: 01/28/18 05:53 Dose: 2 mg Morphine Sulfate (Morphine) 2 mg IVP Q4 PRN PRN Reason: Pain, severe (8-10) Ondansetron HCl (Zofran Inj) 4 mg IVP Q6 PRN PRN Reason: Nausea/Vomiting Last Admin: 01/27/18 11:01 Dose: 4 mg Pantoprazole Sodium (Protonix Ec Tab) 40 mg PO DAILY [facility] Last Admin: 01/28/18 10:23 Dose: 40 mg Tramadol HCl (Ultram) 50 mg PO Q6 PRN PRN Reason: Pain, moderate (4-7) - Labs Labs: 01/27/18 06:41 01/27/18 06:41 PT 12.4 Seconds (9.8-13.1) 01/25/18 14:30 INR 1.1 (0.9-1.2) 01/25/18 14:30 - Constitutional Appears: Chronically Ill - Head Exam Additional comments: Ecchymosis L face - Eye Exam Eye Exam: PERRL - ENT Exam Additional comments: Hard of hearing - Neck Exam Neck Exam: Normal Inspection - Respiratory Exam Respiratory Exam: Decreased Breath Sounds (at bases) - Cardiovascular Exam Cardiovascular Exam: REGULAR RHYTHM - GI/Abdominal Exam GI & Abdominal Exam: Soft, Normal Bowel Sounds - Extremities Exam Extremities Exam: Tenderness (LLE, Hip incision mild tenderness, dressing in place , neuromuscular status distal good.) - Back Exam Back Exam: NORMAL INSPECTION - Neurological Exam Neurological Exam: Alert, Oriented x3 Additional comments: no focal motor/sensory deficit - Psychiatric Exam Psychiatric exam: Normal Mood - Skin Skin Exam: Abrasion (ecchymosis, small facial abrasion.), Warm Assessment and Plan (1) COPD (chronic obstructive pulmonary disease) Status: Chronic (2) Trochanteric fracture of femur Assessment & Plan: s/p nailing Status: Acute - Assessment and Plan (Free Text) Plan: continue Duoneb , Singulair , and rest of meds
[2018-01-28] MEDS: Lactated Ringer's 1,000 ML IV SCH (15:30)
[2018-01-28] MEDS: Enoxaparin 40 mg Syringe SC SCH (15:32)
--- NOTE | 2018-01-28 15:47 | PN ---
DATE: SUBJECTIVE: The patient denies any chest pain or shortness of breath. She is oriented to place. She has poor appetite and she is awaiting food from home to eat. PHYSICAL EXAMINATION: VITAL SIGNS: Blood pressure of 103/74, heart rate of 94, temperature of 98.2, and respirations of 18. HEENT: Left frontal and periorbital bruising. CHEST: Diminished breath sounds on the bases. HEART: S1 and S2 regular. EXTREMITIES: No edema. DIAGNOSTIC DATA: Head CT scan without contrast performed today and revealed left frontal scalp hematoma. No clavicle fracture or acute intracranial pathology. ASSESSMENT: 1. Status post fall with left intertrochanteric fracture, underwent left trochanteric femoral nailing. 2. Dehydration, prerenal azotemia. 3. Mild thrombocytopenia. 4. Mild hypocalcemia. RECOMMENDATIONS: Continue current albuterol inhaler. Continue subcutaneous Lovenox 40 mg daily. Continue Lactated Ringer's. Obtain BMP and CBC in a.m. Richard Edwards MD
--- NOTE | 2018-01-28 23:27 | CP.PCM.PN ---
Subjective - Date & Time of Evaluation Date of Evaluation: 01/27/18 Time of Evaluation: 12:40 - Subjective Subjective: Patient remains stable Still with elevated WBC Noted hematoma on the left frontal area. Denies any headaches No chest pain or SOB. Objective - Vital Signs/Intake and Output Vital Signs (last 24 hours): Temp Pulse Resp BP Pulse Ox 98.4 F 96 H 16 119/56 L 100 01/28/18 20:02 01/28/18 20:02 01/28/18 20:02 01/28/18 20:02 01/28/18 20:02 Intake and Output: 01/28/18 01/29/18 18:59 06:59 Intake Total 450 Output Total 350 Balance 100 - Medications Medications: Current Medications Acetaminophen (Tylenol 325mg Tab) 650 mg PO Q6 PRN PRN Reason: Pain, Mild (1-3) Last Admin: 01/28/18 10:28 Dose: 650 mg Albuterol (Ventolin Hfa 90 Mcg/Actuation (8 G)) 2 puff IH Q4H PRN PRN Reason: Shortness of Breath Albuterol/Ipratropium (Duoneb 3 Mg/0.5 Mg (3 Ml) Ud) 3 ml INH RQ6 [facility] Last Admin: 01/28/18 19:33 Dose: 3 ml Cefazolin Sodium (Ancef) 2 gm IM Q12 [facility] Last Admin: 01/28/18 21:33 Dose: 2 gm Docusate Sodium (Colace) 100 mg PO BID [facility] Last Admin: 01/28/18 19:06 Dose: 100 mg Enoxaparin Sodium (Lovenox) 40 mg SC Q24H [facility] PRN Reason: Protocol Last Admin: 01/28/18 15:32 Dose: 40 mg Lactated Ringer's (Lactated Ringer's) 1,000 mls @ 70 mls/hr IV .[id number] [facility] Last Admin: 01/28/18 15:30 Dose: Not Given Montelukast Sodium (Singulair) 10 mg PO HS [facility] Last Admin: 01/28/18 21:35 Dose: 10 mg Morphine Sulfate (Morphine) 2 mg IVP Q4 PRN PRN Reason: Pain, severe (8-10) Last Admin: 01/28/18 05:53 Dose: 2 mg Morphine Sulfate (Morphine) 2 mg IVP Q4 PRN PRN Reason: Pain, severe (8-10) Mupirocin (Bactroban Ointment) 1 applic TOP DAILY [facility] Ondansetron HCl (Zofran Inj) 4 mg IVP Q6 PRN PRN Reason: Nausea/Vomiting Last Admin: 01/27/18 11:01 Dose: 4 mg Pantoprazole Sodium (Protonix Ec Tab) 40 mg PO DAILY [facility] Last Admin: 01/28/18 10:23 Dose: 40 mg Tramadol HCl (Ultram) 50 mg PO Q6 PRN PRN Reason: Pain, moderate (4-7) Last Admin: 01/28/18 15:29 Dose: 50 mg - Labs Labs: 01/27/18 06:41 01/27/18 06:41 PT 12.4 Seconds (9.8-13.1) 01/25/18 14:30 INR 1.1 (0.9-1.2) 01/25/18 14:30 - Head Exam Additional comments: resolving hematoma left frontal - ENT Exam ENT Exam: Mucous Membranes Moist - Respiratory Exam Respiratory Exam: Clear to Ausculation Bilateral - Cardiovascular Exam Cardiovascular Exam: REGULAR RHYTHM - Neurological Exam Neurological Exam: Awake, Oriented x3 Assessment and Plan (1) Anemia Status: Acute (2) Closed intertrochanteric fracture of left hip Status: Acute (3) Head injury Status: Acute (4) COPD (chronic obstructive pulmonary disease) Status: Chronic - Assessment and Plan (Free Text) Plan: Cont meds Cont tx check labs pain meds start Phys therapy
--- NOTE | 2018-01-28 23:29 | CP.PCM.PN ---
Subjective - Date & Time of Evaluation Date of Evaluation: 01/28/18 Time of Evaluation: 13:00 - Subjective Subjective: Patient is doing a lot better. Has no headaches Has minimal pain on op site Has good urine output. Noted some pallor. CT scan of the head showed scalp hematoma and no SDH. Objective - Vital Signs/Intake and Output Vital Signs (last 24 hours): Temp Pulse Resp BP Pulse Ox 98.4 F 96 H 16 119/56 L 100 01/28/18 20:02 01/28/18 20:02 01/28/18 20:02 01/28/18 20:02 01/28/18 20:02 Intake and Output: 01/28/18 01/29/18 18:59 06:59 Intake Total 450 Output Total 350 Balance 100 - Medications Medications: Current Medications Acetaminophen (Tylenol 325mg Tab) 650 mg PO Q6 PRN PRN Reason: Pain, Mild (1-3) Last Admin: 01/28/18 10:28 Dose: 650 mg Albuterol (Ventolin Hfa 90 Mcg/Actuation (8 G)) 2 puff IH Q4H PRN PRN Reason: Shortness of Breath Albuterol/Ipratropium (Duoneb 3 Mg/0.5 Mg (3 Ml) Ud) 3 ml INH RQ6 [facility] Last Admin: 01/28/18 19:33 Dose: 3 ml Cefazolin Sodium (Ancef) 2 gm IM Q12 [facility] Last Admin: 01/28/18 21:33 Dose: 2 gm Docusate Sodium (Colace) 100 mg PO BID [facility] Last Admin: 01/28/18 19:06 Dose: 100 mg Enoxaparin Sodium (Lovenox) 40 mg SC Q24H [facility] PRN Reason: Protocol Last Admin: 01/28/18 15:32 Dose: 40 mg Lactated Ringer's (Lactated Ringer's) 1,000 mls @ 70 mls/hr IV .[id number] [facility] Last Admin: 01/28/18 15:30 Dose: Not Given Montelukast Sodium (Singulair) 10 mg PO HS [facility] Last Admin: 01/28/18 21:35 Dose: 10 mg Morphine Sulfate (Morphine) 2 mg IVP Q4 PRN PRN Reason: Pain, severe (8-10) Last Admin: 01/28/18 05:53 Dose: 2 mg Morphine Sulfate (Morphine) 2 mg IVP Q4 PRN PRN Reason: Pain, severe (8-10) Mupirocin (Bactroban Ointment) 1 applic TOP DAILY [facility] Ondansetron HCl (Zofran Inj) 4 mg IVP Q6 PRN PRN Reason: Nausea/Vomiting Last Admin: 01/27/18 11:01 Dose: 4 mg Pantoprazole Sodium (Protonix Ec Tab) 40 mg PO DAILY [facility] Last Admin: 01/28/18 10:23 Dose: 40 mg Tramadol HCl (Ultram) 50 mg PO Q6 PRN PRN Reason: Pain, moderate (4-7) Last Admin: 01/28/18 15:29 Dose: 50 mg - Labs Labs: 01/27/18 06:41 01/27/18 06:41 PT 12.4 Seconds (9.8-13.1) 01/25/18 14:30 INR 1.1 (0.9-1.2) 01/25/18 14:30 - Head Exam Head Exam: NORMAL INSPECTION - Eye Exam Eye Exam: Normal appearance - ENT Exam ENT Exam: Mucous Membranes Moist - Respiratory Exam Respiratory Exam: Clear to Ausculation Bilateral - Cardiovascular Exam Cardiovascular Exam: REGULAR RHYTHM - GI/Abdominal Exam GI & Abdominal Exam: Normal Bowel Sounds - Neurological Exam Neurological Exam: Awake, Oriented x3 Assessment and Plan (1) Anemia Status: Acute (2) Closed intertrochanteric fracture of left hip Status: Acute (3) Head injury Status: Acute (4) COPD (chronic obstructive pulmonary disease) Status: Chronic (5) HTN (hypertension) Status: Chronic - Assessment and Plan (Free Text) Plan: Con tmeds check cbc cont pt pain meds.discussed results of Ct scan
[2018-01-29] MEDS: Albuterol-Ipratrop 3 mg / 0.5 (3 ml) UD INH SCH ×4 (01:15→19:09)
[2018-01-29] MEDS: Lactated Ringer's 1,000 ML IV SCH ×2 (03:00→17:59)
[2018-01-29 05:59] LABS: HEMOGLOBIN 8.4 g/dL (12.0-16.0); MEAN CELL VOLUME 95.7 fl (81.0-99.0); MEAN CORPUSCULAR HEMOGLOBIN 31.8 pg (27.0-31.0); MEAN CORPUSCULAR HGB CONC 33.3 g/dL (33.0-37.0); RBC 2.65 Mil/uL (3.80-5.20); RED CELL DISTRIBUTION WIDTH 17.6 % (11.5-14.5); WHITE BLOOD COUNT 15.6 K/uL (4.8-10.8)
[2018-01-29 06:21] LABS: BLOOD UREA NITROGEN 22 mg/dl (7-17); CALCIUM 8.1 mg/dL (8.4-10.2); GFR AFRICAN-AMERICAN > 60; GFR NON-AFRICAN AMERICAN > 60
--- NOTE | 2018-01-29 09:05 | RAD ---
HISTORY: Hypoxia COMPARISON: Chest radiograph dated 01/25/2018 FINDINGS: LUNGS: Bibasilar atelectasis. PLEURA: Small bilateral pleural effusions. No pneumothorax apparent. CARDIOVASCULAR: Atherosclerotic aortic calcifications. Cardiomediastinal silhouette within normal limits. OSSEOUS STRUCTURES: Unchanged. VISUALIZED UPPER ABDOMEN: Normal. OTHER FINDINGS: None. IMPRESSION: Small bilateral pleural effusions, grossly unchanged.
--- NOTE | 2018-01-29 09:37 | CP.PCM.PN ---
Subjective - Date & Time of Evaluation Date of Evaluation: 01/29/18 Time of Evaluation: 09:34 - Subjective Subjective: Patient says the pain in her left leg is improving. Denies CP/SOB/dizziness. Denies headache/CP/SOB. Denies pain in right wrist. Objective - Vital Signs/Intake and Output Vital Signs (last 24 hours): Temp Pulse Resp BP Pulse Ox 98.0 F 78 16 138/63 100 01/29/18 08:56 01/29/18 08:56 01/29/18 08:56 01/29/18 08:56 01/29/18 08:56 Intake and Output: 01/29/18 01/29/18 06:59 18:59 Intake Total 850 Output Total 1125 Balance -275 - Medications Medications: Current Medications Acetaminophen (Tylenol 325mg Tab) 650 mg PO Q6 PRN PRN Reason: Pain, Mild (1-3) Last Admin: 01/28/18 10:28 Dose: 650 mg Albuterol (Ventolin Hfa 90 Mcg/Actuation (8 G)) 2 puff IH Q4H PRN PRN Reason: Shortness of Breath Albuterol/Ipratropium (Duoneb 3 Mg/0.5 Mg (3 Ml) Ud) 3 ml INH RQ6 [facility] Last Admin: 01/29/18 07:12 Dose: 3 ml Cefazolin Sodium (Ancef) 2 gm IM Q12 [facility] Last Admin: 01/28/18 21:33 Dose: 2 gm Docusate Sodium (Colace) 100 mg PO BID [facility] Last Admin: 01/28/18 19:06 Dose: 100 mg Enoxaparin Sodium (Lovenox) 40 mg SC Q24H [facility] PRN Reason: Protocol Last Admin: 01/28/18 15:32 Dose: 40 mg Lactated Ringer's (Lactated Ringer's) 1,000 mls @ 70 mls/hr IV .[id number] [facility] Last Admin: 01/29/18 03:00 Dose: Not Given Montelukast Sodium (Singulair) 10 mg PO HS [facility] Last Admin: 01/28/18 21:35 Dose: 10 mg Morphine Sulfate (Morphine) 2 mg IVP Q4 PRN PRN Reason: Pain, severe (8-10) Last Admin: 01/28/18 05:53 Dose: 2 mg Morphine Sulfate (Morphine) 2 mg IVP Q4 PRN PRN Reason: Pain, severe (8-10) Mupirocin (Bactroban Ointment) 1 applic TOP DAILY [facility] Ondansetron HCl (Zofran Inj) 4 mg IVP Q6 PRN PRN Reason: Nausea/Vomiting Last Admin: 01/27/18 11:01 Dose: 4 mg Pantoprazole Sodium (Protonix Ec Tab) 40 mg PO DAILY [facility] Last Admin: 01/28/18 10:23 Dose: 40 mg Tramadol HCl (Ultram) 50 mg PO Q6 PRN PRN Reason: Pain, moderate (4-7) Last Admin: 01/29/18 02:41 Dose: 50 mg - Labs Labs: 01/29/18 04:50 01/29/18 04:50 PT 12.4 Seconds (9.8-13.1) 01/25/18 14:30 INR 1.1 (0.9-1.2) 01/25/18 14:30 - Extremities Exam Additional comments: Left hip dressing change: moderate amount serosang drainage. noted skin abrasions from tension blisters to lateral thigh. Significant ecchymosis. Swelling as expected. +ROM ankle/toes, sensation intact calves soft NT neg homans Right wrist: non tender, no swelling/discoloration. +ROM fingers, sensation intact Assessment and Plan (1) Closed intertrochanteric fracture of left hip Assessment & Plan: POD#3 s/p left hip CR/IM nailing PT/OT, ok for platform walker laci Dr Fuentes, TTWB only LLE imaging of wrist reviewed by Dr. Fuentes, fracture is old/chronic. will continue splint during PT. No intervention indicated. Clinically consistent with old fracture d/c planning bactroban to tape abrasions for PICC line d/w Dr. Fuentes, agrees with above Status: Acute
[2018-01-29] MEDS ORDERED: Lidocaine Hydrochloride 1% 10 ML ONE (09:40)
--- NOTE | 2018-01-29 10:07 | PQF GENQUE ---
Dr. Lewis, Please specify type of COPD: i.e. >Stable >With acute exacerbation OR Other COPD (please specify) OR Clinically unable to determine OR Unknown 01/26 and 01/27 Solumedrol IV once, Duoneb INH RQ6, Ventolin Q4H PRN This form is a permanent part of the medical record Clarification of your documentation is requested to better reflect the severity of illness and intensity of treatment of your patient. Indicators present [] Specify: [] [] Specify: [] [] Specify: [] [] Specify: [] Location in the medical record that reflects the above clinical findings: [] Treatment Provided: [] PHYSICIAN'S RESPONSE Based on your medical judgment of the clinical indicators outlined above please clarify the following: [] Practitioner response [] If unable to determine, please check the box, sign and date. Present On Admission (POA) Indicator: [] Present at the time of admission [] Not present at the time of admission [] Clinically Undetermined In responding to this query, please exercise your independent professional judgment. The fact that a question is asked does not imply that any particular answer is desired or expected. Thank you for your clarification on this documentation. If you have any questions please call. * Thank you, Michela Arellano RN ext. #[phone] MTDD
--- NOTE | 2018-01-29 10:45 | PCM.SURG1 ---
Surgeon's Initial Post Op Note - Surgeon's Notes Surgeon: Serge Bear MD Team Manager: None Type of Anesthesia: Local Pre-Operative Diagnosis: infection Operative Findings: patent right basilic vein. catheter length: 32 cm. catheter tip: cavoatrial junction Post-Operative Diagnosis: same Operation Performed: RUE PICC Insertion Specimen/Specimens Removed: n/a Estimated Blood Loss: EBL {In ML}: 0 Date of Surgery/Procedure: 01/29/18 Time of Surgery/Procedure: 10:30
--- NOTE | 2018-01-29 11:54 | RAD ---
PROCEDURE: Intraoperative Fluoroscopy. HISTORY: FLUORO FINDINGS: Fluoroscopic assistance was provided for open reduction internal fixation.. Please refer to the operative report from CM Guardado DR, MD. Total fluoroscopic time (continuous mode) utilized during the procedure: 667.0 seconds
[2018-01-29] MEDS: Pantoprazole 40 mg EC Tab PO SCH (11:59)
--- NOTE | 2018-01-29 12:06 | PN ---
DATE: SUBJECTIVE: The patient denies chest pain. Her appetite improved. No reported ventricular arrhythmia. PHYSICAL EXAMINATION: VITAL SIGNS: Blood pressure of 129/53, heart rate of 81, temperature of 98.9 and respirations of 18. HEENT: Left frontal and periorbital ecchymosis. CHEST: Clear. HEART: S1 and S2 regular. EXTREMITIES: No edema. LABORATORY DATA: Today's hemoglobin and hematocrit are 8.4 and 25.4. White count 15.6, platelet count 98,000. Today's SMA-7 is within normal limits except for glucose of 129 and BUN of 22. ASSESSMENT: 1. Status post fall and left trochanteric fracture, underwent left trochanteric femoral nailing. 2. Thrombocytopenia and anemia. 3. Small bilateral pleural effusion. RECOMMENDATIONS: Continue current albuterol, Singulair, oral Protonix and IV Ancef. If thrombocytopenia worsens, then Lovenox may have to be discontinued and workup for heparin-induced platelet antibodies should be considered. Richard Edwards MD
--- NOTE | 2018-01-29 14:03 | VASCULAR ---
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 COMPARISON: None. PROCEDURE: 1. Focused ultrasound of the right upper extremity vasculature. 2. Ultrasound-guided access. 3. Insertion of peripherally inserted central venous catheter. 4. Fluoroscopic localization of catheter tip. PRE-PROCEDURE FINDINGS: 1. Patent right basilic vein. POST-PROCEDURE FINDINGS: 1. Placement of 4 Macedonian single-lumen PICC. 2. Catheter length: 32 cm. 3. Catheter tip at cavoatrial junction. INTERVENTIONAL RADIOLOGIST: Serge Bear M.D. (the attending was present for the entire procedure) ANESTHESIA: None. MEDICATION: Lidocaine 1% for local subcutaneous analgesia. COMPLICATIONS: None. RADIATION DOSE: Fluoroscopy Time: 17.6 seconds Cumulative Dose: 1.75 mGy PROCEDURE DESCRIPTION AND FINDINGS: The risks, benefits, alternatives and possible complications of the procedure were fully discussed; all questions were answered and informed consent was obtained. The patient was brought into the interventional suite and a pre-procedure 'time-out' was performed. The patient was placed on the fluoroscopy table in the supine position. The right upper extremity was prepped and draped in the usual sterile fashion. Maximum sterile barrier precautions were maintained throughout the entire procedure. Preliminary ultrasound images of the right upper extremity vasculature demonstrate patency of the right basilic vein. Following subcutaneous infiltration of 1% lidocaine for local analgesia, under ultrasound guidance, a 21-gauge needle was advanced into the right basilic vein with real-time visualization of needle entry. The ultrasound images were permanently recorded and submitted to the PACS. A 0.018 guidewire was advanced centrally to the cavoatrial junction. A 4.5 Macedonian peel-away sheath was advanced over the guidewire. After obtaining length measurement, a 4 Macedonian single-lumen PICC was placed with the tip of the catheter at the cavoatrial junction. The total length of the catheter is 32 cm. The hub of the PICC was secured to the skin using a sterile adhesive bandage. The patient tolerated the procedure well without immediate post-procedure complications and was transferred back to the floor in stable condition. IMPRESSION: SUCCESSFUL INSERTION OF RIGHT UPPER EXTREMITY PICC. PICC OK TO USE.
--- NOTE | 2018-01-29 14:28 | CP.PCM.PN ---
Subjective - Date & Time of Evaluation Date of Evaluation: 01/29/18 Time of Evaluation: 14:26 - Subjective Subjective: patient is doing well Noted drop in Hgb to 8 and also noted decrease in platelet. Has no sx of bleed Doing well with PT Has minimal pain on the op site. Objective - Vital Signs/Intake and Output Vital Signs (last 24 hours): Temp Pulse Resp BP Pulse Ox 98.8 F 86 17 137/61 94 L 01/29/18 12:19 01/29/18 12:19 01/29/18 12:19 01/29/18 12:19 01/29/18 12:19 Intake and Output: 01/29/18 01/29/18 06:59 18:59 Intake Total 850 Output Total 1125 Balance -275 - Medications Medications: Current Medications Acetaminophen (Tylenol 325mg Tab) 650 mg PO Q6 PRN PRN Reason: Pain, Mild (1-3) Last Admin: 01/29/18 12:26 Dose: 650 mg Albuterol (Ventolin Hfa 90 Mcg/Actuation (8 G)) 2 puff IH Q4H PRN PRN Reason: Shortness of Breath Albuterol/Ipratropium (Duoneb 3 Mg/0.5 Mg (3 Ml) Ud) 3 ml INH RQ6 [facility] Last Admin: 01/29/18 13:38 Dose: 3 ml Cefazolin Sodium (Ancef) 2 gm IM Q12 [facility] Last Admin: 01/29/18 11:01 Dose: 2 gm Docusate Sodium (Colace) 100 mg PO BID [facility] Last Admin: 01/29/18 09:59 Dose: 100 mg Enoxaparin Sodium (Lovenox) 40 mg SC Q24H [facility] PRN Reason: Protocol Last Admin: 01/28/18 15:32 Dose: 40 mg Lactated Ringer's (Lactated Ringer's) 1,000 mls @ 70 mls/hr IV .[id number] [facility] Last Admin: 01/29/18 03:00 Dose: Not Given Montelukast Sodium (Singulair) 10 mg PO HS [facility] Last Admin: 01/28/18 21:35 Dose: 10 mg Morphine Sulfate (Morphine) 2 mg IVP Q4 PRN PRN Reason: Pain, severe (8-10) Mupirocin (Bactroban Ointment) 1 applic TOP DAILY [facility] Last Admin: 01/29/18 11:58 Dose: 1 applic Ondansetron HCl (Zofran Inj) 4 mg IVP Q6 PRN PRN Reason: Nausea/Vomiting Last Admin: 01/27/18 11:01 Dose: 4 mg Pantoprazole Sodium (Protonix Ec Tab) 40 mg PO DAILY [facility] Last Admin: 01/29/18 11:59 Dose: 40 mg Tramadol HCl (Ultram) 50 mg PO Q6 PRN PRN Reason: Pain, moderate (4-7) Last Admin: 01/29/18 02:41 Dose: 50 mg - Labs Labs: 01/29/18 04:50 01/29/18 04:50 PT 12.4 Seconds (9.8-13.1) 01/25/18 14:30 INR 1.1 (0.9-1.2) 01/25/18 14:30 - Head Exam Head Exam: NORMAL INSPECTION - Eye Exam Eye Exam: Normal appearance - ENT Exam ENT Exam: Mucous Membranes Moist - Respiratory Exam Respiratory Exam: Clear to Ausculation Bilateral - Cardiovascular Exam Cardiovascular Exam: REGULAR RHYTHM - GI/Abdominal Exam GI & Abdominal Exam: Normal Bowel Sounds - Neurological Exam Neurological Exam: Awake, Oriented x3 Assessment and Plan (1) Anemia Status: Acute (2) Closed intertrochanteric fracture of left hip Status: Acute (3) Head injury Status: Acute (4) COPD (chronic obstructive pulmonary disease) Status: Chronic (5) HTN (hypertension) Status: Chronic - Assessment and Plan (Free Text) Plan: Cont PT Pain meds Transfusion cbc cmp in am.
[2018-01-29] MEDS: Enoxaparin 40 mg Syringe SC SCH (16:00)
--- NOTE | 2018-01-29 16:49 | CP.PCM.PN ---
Subjective - Date & Time of Evaluation Date of Evaluation: 01/29/18 Time of Evaluation: 10:20 - Subjective Subjective: F/U COPD no cough , no SOB , pain L hip Objective - Vital Signs/Intake and Output Vital Signs (last 24 hours): Temp Pulse Resp BP Pulse Ox 98.3 F 88 18 129/61 98 01/29/18 16:17 01/29/18 16:17 01/29/18 16:17 01/29/18 16:17 01/29/18 16:17 Intake and Output: 01/29/18 01/29/18 06:59 18:59 Intake Total 850 Output Total 1125 Balance -275 - Medications Medications: Current Medications Acetaminophen (Tylenol 325mg Tab) 650 mg PO Q6 PRN PRN Reason: Pain, Mild (1-3) Last Admin: 01/29/18 12:26 Dose: 650 mg Albuterol (Ventolin Hfa 90 Mcg/Actuation (8 G)) 2 puff IH Q4H PRN PRN Reason: Shortness of Breath Albuterol/Ipratropium (Duoneb 3 Mg/0.5 Mg (3 Ml) Ud) 3 ml INH RQ6 [facility] Last Admin: 01/29/18 13:38 Dose: 3 ml Cefazolin Sodium (Ancef) 2 gm IM Q12 [facility] Last Admin: 01/29/18 11:01 Dose: 2 gm Docusate Sodium (Colace) 100 mg PO BID [facility] Last Admin: 01/29/18 09:59 Dose: 100 mg Enoxaparin Sodium (Lovenox) 40 mg SC Q24H [facility] PRN Reason: Protocol Last Admin: 01/28/18 15:32 Dose: 40 mg Lactated Ringer's (Lactated Ringer's) 1,000 mls @ 70 mls/hr IV .[id number] [facility] Last Admin: 01/29/18 03:00 Dose: Not Given Montelukast Sodium (Singulair) 10 mg PO HS [facility] Last Admin: 01/28/18 21:35 Dose: 10 mg Morphine Sulfate (Morphine) 2 mg IVP Q4 PRN PRN Reason: Pain, severe (8-10) Mupirocin (Bactroban Ointment) 1 applic TOP DAILY [facility] Last Admin: 01/29/18 11:58 Dose: 1 applic Ondansetron HCl (Zofran Inj) 4 mg IVP Q6 PRN PRN Reason: Nausea/Vomiting Last Admin: 01/27/18 11:01 Dose: 4 mg Pantoprazole Sodium (Protonix Ec Tab) 40 mg PO DAILY [facility] Last Admin: 01/29/18 11:59 Dose: 40 mg Tramadol HCl (Ultram) 50 mg PO Q6 PRN PRN Reason: Pain, moderate (4-7) Last Admin: 01/29/18 02:41 Dose: 50 mg - Labs Labs: 01/29/18 04:50 01/29/18 04:50 PT 12.4 Seconds (9.8-13.1) 01/25/18 14:30 INR 1.1 (0.9-1.2) 01/25/18 14:30 - Constitutional Appears: No Acute Distress - Head Exam Additional comments: L face ecchymosis - Eye Exam Eye Exam: PERRL - ENT Exam Additional comments: Hard of hearing - Neck Exam Neck Exam: Normal Inspection - Respiratory Exam Respiratory Exam: Decreased Breath Sounds (at bases) - Cardiovascular Exam Cardiovascular Exam: REGULAR RHYTHM - GI/Abdominal Exam GI & Abdominal Exam: Soft, Normal Bowel Sounds - Extremities Exam Extremities Exam: Tenderness (L Hip, dressing in place , neuromuscular distal good.) - Neurological Exam Neurological Exam: Alert, Oriented x3 - Psychiatric Exam Psychiatric exam: Normal Mood - Skin Skin Exam: Abrasion (ecchymosis.), Warm Assessment and Plan (1) COPD (chronic obstructive pulmonary disease) Status: Chronic (2) Trochanteric fracture of femur Assessment & Plan: s/p nailing Status: Acute - Assessment and Plan (Free Text) Plan: continue Incentive Spirometry , Duoneb , Singulair, anemia post -op , Patient to have blood transfusion
[2018-01-29] MEDS ORDERED: Simethicone 40 mg/0.6 ml Liquid (30 ml) PO ONE (19:00)
[2018-01-30] MEDS: Albuterol-Ipratrop 3 mg / 0.5 (3 ml) UD INH SCH ×5 (01:00→19:24)
[2018-01-30] MEDS: ceFAZolin 2 GM in Sodium Chloride 0.9% 100 ML IVPB SCH ×2 (03:00→16:59)
[2018-01-30 06:13] LABS: MEAN CORPUSCULAR HEMOGLOBIN 31.8 pg (27.0-31.0); MEAN CORPUSCULAR HGB CONC 33.8 g/dL (33.0-37.0); RBC 2.82 Mil/uL (3.80-5.20); RED CELL DISTRIBUTION WIDTH 18.3 % (11.5-14.5); WHITE BLOOD COUNT 10.3 K/uL (4.8-10.8)
[2018-01-30 06:39] LABS: BLOOD UREA NITROGEN 17 mg/dl (7-17); CALCIUM 7.8 mg/dL (8.4-10.2); GFR AFRICAN-AMERICAN > 60; GFR NON-AFRICAN AMERICAN > 60
[2018-01-30] MEDS: Pantoprazole 40 mg EC Tab PO SCH (08:37)
--- NOTE | 2018-01-30 10:49 | PQF GENQUE ---
Dr. Lewis, Please clarify the type of anemia:if known i.e. Blood loss anemia, acute Blood loss anemia, chronic Chronic anemia Deficiency anemia (please specify type) Due to/in/with antineoplastic chemotherapy Due to/in/with chronic kidney disease Due to/in/with kidney failure Due to/in/with neoplastic disease Iron deficiency anemia Macrocytic anemia Microcytic anemia Normocytic anemia Pernicious anemia Other anemia (please specify) Clinically unable to determine Unknown H/H:13.1/39.3->8.4/25.4 01/26: Surgical Post-Op note; Operation Performed: closed reduction and cephalomedullary nailing left femur (long nail) ; EBL 150 ccs Blood Products Given: N/A Attending progress note: Anemia Acute 01/29: Pulmonary progress note: anemia post-op; patient to have blood transfusion transfused 2 units leuk-reduced RBC This form is a permanent part of the medical record Clarification of your documentation is requested to better reflect the severity of illness and intensity of treatment of your patient. Indicators present [] Specify: [] [] Specify: [] [] Specify: [] [] Specify: [] Location in the medical record that reflects the above clinical findings: [] Treatment Provided: [] PHYSICIAN'S RESPONSE Based on your medical judgment of the clinical indicators outlined above please clarify the following: [] Practitioner response [] If unable to determine, please check the box, sign and date. Present On Admission (POA) Indicator: [] Present at the time of admission [] Not present at the time of admission [] Clinically Undetermined In responding to this query, please exercise your independent professional judgment. The fact that a question is asked does not imply that any particular answer is desired or expected. Thank you for your clarification on this documentation. If you have any questions please call * Thank you Michela Arellano RN ext. #[phone] MTDD
--- NOTE | 2018-01-30 13:34 | CP.PCM.PN ---
Subjective - Date & Time of Evaluation Date of Evaluation: 01/30/18 Time of Evaluation: 08:00 - Subjective Subjective: Patient seen and examined at bedside comfortable. Pain is well controlled. Sonal diet. +void. Neg BM. No acute events overnight. Objective - Vital Signs/Intake and Output Vital Signs (last 24 hours): Temp Pulse Resp BP Pulse Ox 97.3 F L 98 H 20 117/69 97 01/30/18 12:00 01/30/18 12:00 01/30/18 12:00 01/30/18 12:00 01/30/18 12:00 Intake and Output: 01/30/18 01/30/18 06:59 18:59 Intake Total 1560 Balance 1560 - Medications Medications: Current Medications Acetaminophen (Tylenol 325mg Tab) 650 mg PO Q6 PRN PRN Reason: Pain, Mild (1-3) Last Admin: 01/30/18 11:24 Dose: 650 mg Albuterol (Ventolin Hfa 90 Mcg/Actuation (8 G)) 2 puff IH Q4H PRN PRN Reason: Shortness of Breath Albuterol/Ipratropium (Duoneb 3 Mg/0.5 Mg (3 Ml) Ud) 3 ml INH RQ6 [facility] Last Admin: 01/30/18 13:05 Dose: 3 ml Docusate Sodium (Colace) 100 mg PO BID [facility] Last Admin: 01/30/18 08:36 Dose: 100 mg Enoxaparin Sodium (Lovenox) 40 mg SC Q24H [facility] PRN Reason: Protocol Last Admin: 01/29/18 16:00 Dose: Not Given Lactated Ringer's (Lactated Ringer's) 1,000 mls @ 70 mls/hr IV .[id number] [facility] Last Admin: 01/29/18 17:59 Dose: 70 mls/hr Cefazolin Sodium 2 gm/ Sodium (Chloride) 100 mls @ 100 mls/hr IVPB Q12H [facility] PRN Reason: Protocol Last Admin: 01/30/18 03:00 Dose: 100 mls/hr Montelukast Sodium (Singulair) 10 mg PO HS [facility] Last Admin: 01/29/18 21:49 Dose: 10 mg Morphine Sulfate (Morphine) 2 mg IVP Q4 PRN PRN Reason: Pain, severe (8-10) Mupirocin (Bactroban Ointment) 1 applic TOP DAILY [facility] Last Admin: 01/30/18 08:36 Dose: 1 applic Ondansetron HCl (Zofran Inj) 4 mg IVP Q6 PRN PRN Reason: Nausea/Vomiting Last Admin: 01/27/18 11:01 Dose: 4 mg Pantoprazole Sodium (Protonix Ec Tab) 40 mg PO DAILY [facility] Last Admin: 01/30/18 08:37 Dose: 40 mg Tramadol HCl (Ultram) 50 mg PO Q6 PRN PRN Reason: Pain, moderate (4-7) Last Admin: 01/29/18 02:41 Dose: 50 mg - Labs Labs: 01/30/18 04:20 01/30/18 04:20 PT 12.4 Seconds (9.8-13.1) 01/25/18 14:30 INR 1.1 (0.9-1.2) 01/25/18 14:30 - Extremities Exam Additional comments: R wirst: no tenderness, mild swelling sensation and motor intact MN/UN/RN radial pulse intact L hip: dressings with moderate serosang drainage proximally, dressings removed revealing tape abrasions about the proximal wounds, surgical wounds intact with destiny, proximal wound with mild expressible drainage sensation intact SP/DP/TN motor intact EHL/FHL/TA/G pedal pulses intact compartment soft/NT b/l Assessment and Plan (1) Closed intertrochanteric fracture of left hip Assessment & Plan: POD#4 s/p L hip IM nailing doing well -PT/OT, encourage OOB, TTWB LLE -DVT ppx -dressings changed, xeroform applied -awaiting results of R wrist MRI -d/c planning -above d/w Dr. Fuentes Status: Acute
--- NOTE | 2018-01-30 15:08 | CP.PCM.PN ---
Subjective - Date & Time of Evaluation Date of Evaluation: 01/30/18 Time of Evaluation: 11:00 - Subjective Subjective: F/U COPD no SOB , complains of RUE edema Objective - Vital Signs/Intake and Output Vital Signs (last 24 hours): Temp Pulse Resp BP Pulse Ox 97.3 F L 98 H 20 117/69 97 01/30/18 12:00 01/30/18 12:00 01/30/18 12:00 01/30/18 12:00 01/30/18 12:00 Intake and Output: 01/30/18 01/30/18 06:59 18:59 Intake Total 1560 Balance 1560 - Medications Medications: Current Medications Acetaminophen (Tylenol 325mg Tab) 650 mg PO Q6 PRN PRN Reason: Pain, Mild (1-3) Last Admin: 01/30/18 11:24 Dose: 650 mg Albuterol (Ventolin Hfa 90 Mcg/Actuation (8 G)) 2 puff IH Q4H PRN PRN Reason: Shortness of Breath Albuterol/Ipratropium (Duoneb 3 Mg/0.5 Mg (3 Ml) Ud) 3 ml INH RQ6 [facility] Last Admin: 01/30/18 13:05 Dose: 3 ml Docusate Sodium (Colace) 100 mg PO BID [facility] Last Admin: 01/30/18 08:36 Dose: 100 mg Enoxaparin Sodium (Lovenox) 40 mg SC Q24H [facility] PRN Reason: Protocol Last Admin: 01/29/18 16:00 Dose: Not Given Lactated Ringer's (Lactated Ringer's) 1,000 mls @ 70 mls/hr IV .[id number] [facility] Last Admin: 01/29/18 17:59 Dose: 70 mls/hr Cefazolin Sodium 2 gm/ Sodium (Chloride) 100 mls @ 100 mls/hr IVPB Q12H [facility] PRN Reason: Protocol Last Admin: 01/30/18 03:00 Dose: 100 mls/hr Montelukast Sodium (Singulair) 10 mg PO HS [facility] Last Admin: 01/29/18 21:49 Dose: 10 mg Morphine Sulfate (Morphine) 2 mg IVP Q4 PRN PRN Reason: Pain, severe (8-10) Mupirocin (Bactroban Ointment) 1 applic TOP DAILY [facility] Last Admin: 01/30/18 08:36 Dose: 1 applic Ondansetron HCl (Zofran Inj) 4 mg IVP Q6 PRN PRN Reason: Nausea/Vomiting Last Admin: 01/27/18 11:01 Dose: 4 mg Pantoprazole Sodium (Protonix Ec Tab) 40 mg PO DAILY [facility] Last Admin: 01/30/18 08:37 Dose: 40 mg Tramadol HCl (Ultram) 50 mg PO Q6 PRN PRN Reason: Pain, moderate (4-7) Last Admin: 01/29/18 02:41 Dose: 50 mg - Labs Labs: 01/30/18 04:20 01/30/18 04:20 PT 12.4 Seconds (9.8-13.1) 01/25/18 14:30 INR 1.1 (0.9-1.2) 01/25/18 14:30 - Constitutional Appears: No Acute Distress - Head Exam Additional comments: L face ecchymosis - Eye Exam Eye Exam: PERRL - ENT Exam Additional comments: Hard of hearing - Neck Exam Neck Exam: Normal Inspection - Respiratory Exam Respiratory Exam: Decreased Breath Sounds (at bases) - Cardiovascular Exam Cardiovascular Exam: REGULAR RHYTHM - GI/Abdominal Exam GI & Abdominal Exam: Soft, Normal Bowel Sounds - Extremities Exam Extremities Exam: Tenderness (L hip, dressing in place, neuromuscular distal good.) Additional comments: Edema RUE , RUE PICC line - Neurological Exam Neurological Exam: Alert, Oriented x3 - Psychiatric Exam Psychiatric exam: Normal Mood - Skin Skin Exam: Warm Assessment and Plan (1) COPD (chronic obstructive pulmonary disease) Status: Chronic (2) Trochanteric fracture of femur Status: Acute - Assessment and Plan (Free Text) Plan: continue DuoNeb , f/u Dopler , CT RUE , Hgb 9 , Plat 80
[2018-01-30 15:48] LABS: IRON 84 ug/dL (37-170)
[2018-01-30 15:57] LABS: % IRON SATURATION 37 % (20-55); TOTAL IRON BINDING CAPACITY 230 ug/dL (250-450)
--- NOTE | 2018-01-30 16:20 | CP.PCM.PN ---
<Danny Warner - Last Filed: 01/30/18 16:17> Subjective - Date & Time of Evaluation Date of Evaluation: 01/30/18 Time of Evaluation: 10:15 - Subjective Subjective: Patient seen and examined bedside this morning. There are no acute event overnight, NAD. Patient is recovering well and reports minimal pain. Bruising is improved as well. Patient seen by physical therapy this morning. Objective - Vital Signs/Intake and Output Vital Signs (last 24 hours): Temp Pulse Resp BP Pulse Ox 97.7 F 88 18 111/56 L 97 01/30/18 16:16 01/30/18 16:16 01/30/18 16:16 01/30/18 16:16 01/30/18 16:16 Intake and Output: 01/30/18 01/30/18 06:59 18:59 Intake Total 1560 Balance 1560 - Medications Medications: Current Medications Acetaminophen (Tylenol 325mg Tab) 650 mg PO Q6 PRN PRN Reason: Pain, Mild (1-3) Last Admin: 01/30/18 11:24 Dose: 650 mg Albuterol (Ventolin Hfa 90 Mcg/Actuation (8 G)) 2 puff IH Q4H PRN PRN Reason: Shortness of Breath Albuterol/Ipratropium (Duoneb 3 Mg/0.5 Mg (3 Ml) Ud) 3 ml INH RQ6 [facility] Last Admin: 01/30/18 13:05 Dose: 3 ml Docusate Sodium (Colace) 100 mg PO BID [facility] Last Admin: 01/30/18 08:36 Dose: 100 mg Lactated Ringer's (Lactated Ringer's) 1,000 mls @ 70 mls/hr IV .[id number] [facility] Last Admin: 01/29/18 17:59 Dose: 70 mls/hr Cefazolin Sodium 2 gm/ Sodium (Chloride) 100 mls @ 100 mls/hr IVPB Q12H [facility] PRN Reason: Protocol Last Admin: 01/30/18 03:00 Dose: 100 mls/hr Montelukast Sodium (Singulair) 10 mg PO HS [facility] Last Admin: 01/29/18 21:49 Dose: 10 mg Morphine Sulfate (Morphine) 2 mg IVP Q4 PRN PRN Reason: Pain, severe (8-10) Mupirocin (Bactroban Ointment) 1 applic TOP DAILY [facility] Last Admin: 01/30/18 08:36 Dose: 1 applic Ondansetron HCl (Zofran Inj) 4 mg IVP Q6 PRN PRN Reason: Nausea/Vomiting Last Admin: 01/27/18 11:01 Dose: 4 mg Pantoprazole Sodium (Protonix Ec Tab) 40 mg PO DAILY [facility] Last Admin: 01/30/18 08:37 Dose: 40 mg Tramadol HCl (Ultram) 50 mg PO Q6 PRN PRN Reason: Pain, moderate (4-7) Last Admin: 01/29/18 02:41 Dose: 50 mg - Labs Labs: 01/30/18 04:20 01/30/18 04:20 PT 12.4 Seconds (9.8-13.1) 01/25/18 14:30 INR 1.1 (0.9-1.2) 01/25/18 14:30 - Constitutional Appears: Non-toxic, No Acute Distress - Head Exam Head Exam: absent: ATRAUMATIC (ecchymosis left side) - Eye Exam Eye Exam: EOMI, Normal appearance - ENT Exam ENT Exam: Mucous Membranes Moist - Neck Exam Neck Exam: Full ROM. absent: Tenderness - Respiratory Exam Respiratory Exam: Clear to Ausculation Bilateral. absent: Accessory Muscle Use , Decreased Breath Sounds, Rales, Rhonchi, Wheezes, Respiratory Distress - Cardiovascular Exam Cardiovascular Exam: REGULAR RHYTHM. absent: Tachycardia - GI/Abdominal Exam GI & Abdominal Exam: Soft, Normal Bowel Sounds. absent: Distended, Tenderness - Extremities Exam Additional comments: s/p left hip ORIF, recovering appropriately, dressed c/d/i - Neurological Exam Neurological Exam: Alert, Awake - Skin Skin Exam: Dry, Intact, Normal Color, Warm Assessment and Plan (1) Head injury Status: Acute (2) Trochanteric fracture of femur Status: Acute (3) COPD (chronic obstructive pulmonary disease) Status: Chronic - Assessment and Plan (Free Text) Plan: c/w present management pain management: morphine 2 mg IV Q4h prn transfer to [facility] [place] c/w PT/OT <Elvis Lewis - Last Filed: 02/01/18 21:54> Objective - Vital Signs/Intake and Output Vital Signs (last 24 hours): Temp Pulse Resp BP Pulse Ox 97.9 F 100 H 18 118/66 97 02/01/18 08:54 02/01/18 08:54 02/01/18 08:54 02/01/18 08:54 02/01/18 08:54 - Labs Labs: 02/01/18 05:30 02/01/18 05:30 PT 12.4 Seconds (9.8-13.1) 01/25/18 14:30 INR 1.1 (0.9-1.2) 01/25/18 14:30 Assessment and Plan (1) Anemia Status: Acute (2) Closed intertrochanteric fracture of left hip Status: Acute (3) Head injury Status: Acute (4) COPD (chronic obstructive pulmonary disease) Status: Chronic (5) HTN (hypertension) Status: Chronic - Assessment and Plan (Free Text) Plan: I was present during evaluation and discussed with Dr Alana ortiz plans of care and tx elvis Lewis M.D.
[2018-01-30] MEDS: Enoxaparin 40 mg Syringe SC SCH (17:00)
--- NOTE | 2018-01-30 18:06 | CT ---
PROCEDURE: CT right upper extremity HISTORY: r/o acute/stress fracture distal radius COMPARISON: CT right wrist 01/25/2018 TECHNIQUE: 2.5 mm contiguous axial sections were acquired through the right upper extremity, including the is wrist and elbow. Sagittal and coronal images were reformatted from the axial scan. FINDINGS: Once again, there is deformity noted involving the distal right radius. Most clearly notable on the sagittal reformatted images, series 601, there is a step-off in the distal radius along the ventral aspect of the radius, best demonstrated on series 601, images 30 through 33. This raises suspicion of an acute impaction fracture. Although there is question of callus over the dorsal aspect of the distal radius, this may in fact be artifact resulting from an impaction fracture. The ulnar styloid process is intact. There is no other fracture identified. The elbow is unremarkable. There is soft tissue edema noted most prominently about the elbow. There is no evidence of hemarthrosis at the elbow. . IMPRESSION: Suspect acute/subacute impaction fracture of the distal radius. Questionable old healed fracture of the distal radius as well. This may be artifactual due to impacted bone simulating callus over the dorsal aspect of the distal radius. Soft tissue swelling noted most prominently about the elbow, of uncertain significance.
--- NOTE | 2018-01-30 19:40 | PN ---
DATE: SUBJECTIVE: The patient denies any chest pain. She was sitting on a chair today. No reported ventricular tachycardia. PHYSICAL EXAMINATION: VITAL SIGNS: Blood pressure 117/69, heart rate 98, temperature 97.3, and respirations 20. HEENT: Left facial ecchymosis. NECK: No JVD. CHEST: Clear. HEART: S1 and S2 regular. EXTREMITIES: No edema. LABORATORY DATA: Today's hemoglobin and hematocrit are 9 and 26.5, platelet count is 80, and white count is 10.3. Today's SMA-7 is within normal limits except for creatinine of 0.6. ASSESSMENT: 1. Status post fall and left intertrochanteric fracture. 2. Status post left trochanteric femoral nailing. 3. Worsening thrombocytopenia. 4. Bilateral pleural effusion. RECOMMENDATIONS: Continue current IV cefazolin. Continue Ultram, albuterol, and Zofran. Lovenox is on hold. Obtain heparin-induced platelet antibody assay. Richard Edwards MD
[2018-01-31] MEDS: Albuterol-Ipratrop 3 mg / 0.5 (3 ml) UD INH SCH ×4 (01:00→19:16)
[2018-01-31] MEDS: ceFAZolin 2 GM in Sodium Chloride 0.9% 100 ML IVPB SCH ×2 (03:07→15:49)
[2018-01-31 07:05] LABS: HEMOGLOBIN 9.1 g/dL (12.0-16.0); MEAN CELL VOLUME 94.2 fl (81.0-99.0); MEAN CORPUSCULAR HEMOGLOBIN 31.7 pg (27.0-31.0); MEAN CORPUSCULAR HGB CONC 33.7 g/dL (33.0-37.0); RBC 2.85 Mil/uL (3.80-5.20); RED CELL DISTRIBUTION WIDTH 17.9 % (11.5-14.5)
[2018-01-31] MEDS: Enoxaparin 40 mg Syringe SC SCH (08:35)
[2018-01-31] MEDS: Pantoprazole 40 mg EC Tab PO SCH (08:35)
--- NOTE | 2018-01-31 10:25 | US ---
PROCEDURE: Right Upper Extremity Venous Doppler HISTORY: R/O DVT COMPARISON: None available. TECHNIQUE: Right extremity deep veins, including the lower internal jugular, subclavian, axillary and brachial veins, were evaluated flow, compressibility and respiratory phasicity. The cephalic vein is not visualized. FINDINGS: Normal flow, compressibility and respiratory phasicity was observed in the right upper extremity deep veins. A PICC line remains in place in the right subclavian and axillary veins. There is soft tissue edema in the right antecubital fossa and forearm. IMPRESSION: No evidence of deep venous thrombosis. A preliminary report was provided by [employer] services.
[2018-01-31] MEDS: POLYETHYLENE GLYCOL 3350 17 GM/Dose PACKET PO SCH (12:35)
[2018-01-31 12:54] LABS: FOLATE 7.4 ng/mL
--- NOTE | 2018-01-31 14:20 | CP.PCM.PN ---
<Danny Warner - Last Filed: 01/31/18 14:17> Subjective - Date & Time of Evaluation Date of Evaluation: 01/31/18 Time of Evaluation: 11:00 - Subjective Subjective: Patient seen and examined bedside this morning. There are no acute event overnight, NAD. Patient is recovering well and reports minimal pain. Bruising is improved as well. Left hip dressing changed. Right arm swelling reduced. Patient displaying full ROM Objective - Vital Signs/Intake and Output Vital Signs (last 24 hours): Temp Pulse Resp BP Pulse Ox 98.1 F 95 H 20 135/74 100 01/31/18 08:27 01/31/18 08:27 01/31/18 08:27 01/31/18 08:27 01/31/18 08:27 Intake and Output: 01/31/18 01/31/18 06:59 18:59 Intake Total 400 Balance 400 - Medications Medications: Current Medications Acetaminophen (Tylenol 325mg Tab) 650 mg PO Q6 PRN PRN Reason: Pain, Mild (1-3) Last Admin: 01/31/18 05:49 Dose: 650 mg Albuterol (Ventolin Hfa 90 Mcg/Actuation (8 G)) 2 puff IH Q4H PRN PRN Reason: Shortness of Breath Albuterol/Ipratropium (Duoneb 3 Mg/0.5 Mg (3 Ml) Ud) 3 ml INH RQ6 [facility] Last Admin: 01/31/18 13:33 Dose: 3 ml Docusate Sodium (Colace) 100 mg PO BID [facility] Last Admin: 01/31/18 08:35 Dose: 100 mg Enoxaparin Sodium (Lovenox) 40 mg SC DAILY [facility] PRN Reason: Protocol Last Admin: 01/31/18 08:35 Dose: 40 mg Lactated Ringer's (Lactated Ringer's) 1,000 mls @ 70 mls/hr IV .[id number] [facility] Last Admin: 01/29/18 17:59 Dose: 70 mls/hr Cefazolin Sodium 2 gm/ Sodium (Chloride) 100 mls @ 100 mls/hr IVPB Q12H [facility] PRN Reason: Protocol Last Admin: 01/31/18 03:07 Dose: 100 mls/hr Montelukast Sodium (Singulair) 10 mg PO HS [facility] Last Admin: 01/30/18 22:22 Dose: 10 mg Morphine Sulfate (Morphine) 2 mg IVP Q4 PRN PRN Reason: Pain, severe (8-10) Mupirocin (Bactroban Ointment) 1 applic TOP DAILY [facility] Last Admin: 01/31/18 08:34 Dose: 1 applic Ondansetron HCl (Zofran Inj) 4 mg IVP Q6 PRN PRN Reason: Nausea/Vomiting Last Admin: 01/27/18 11:01 Dose: 4 mg Pantoprazole Sodium (Protonix Ec Tab) 40 mg PO DAILY [facility] Last Admin: 01/31/18 08:35 Dose: 40 mg Polyethylene Glycol (Miralax) 17 gm PO DAILY [facility] Last Admin: 01/31/18 12:35 Dose: 17 gm - Labs Labs: 01/31/18 05:30 01/30/18 04:20 PT 12.4 Seconds (9.8-13.1) 01/25/18 14:30 INR 1.1 (0.9-1.2) 01/25/18 14:30 - Constitutional Appears: Non-toxic, No Acute Distress - Head Exam Head Exam: absent: ATRAUMATIC ((ecchymosis left side)) - Eye Exam Eye Exam: Normal appearance - ENT Exam ENT Exam: Mucous Membranes Moist - Neck Exam Neck Exam: Full ROM. absent: Tenderness - Respiratory Exam Respiratory Exam: Clear to Ausculation Bilateral. absent: Accessory Muscle Use , Decreased Breath Sounds, Prolonged Expiratory Phase, Rales, Rhonchi, Wheezes - Cardiovascular Exam Cardiovascular Exam: REGULAR RHYTHM, RRR. absent: Tachycardia - GI/Abdominal Exam GI & Abdominal Exam: Soft, Normal Bowel Sounds. absent: Distended, Tenderness - Extremities Exam Extremities Exam: absent: Calf Tenderness, Pedal Edema, Tenderness Additional comments: s/p left hip ORIF, recovering appropriately, dressed c/d/i - Neurological Exam Neurological Exam: Alert, Awake - Skin Skin Exam: Dry, Intact, Normal Color, Warm Assessment and Plan (1) Head injury Status: Acute (2) Trochanteric fracture of femur Status: Acute (3) COPD (chronic obstructive pulmonary disease) Status: Chronic (4) Right radial fracture Status: Acute - Assessment and Plan (Free Text) Plan: c/w present management CT upper extremity 01/30/2018: shows acute/subacute impaction fracture of distal radius, also old healed fracture of distal radius pain management: morphine 2 mg IV Q4h prn Ancef 2 gm IV Q12h day 2 c/w PT/OT <Elvis Stallings - Last Filed: 02/01/18 21:55> Subjective - Subjective Subjective: I was present during evaluation and discussed with Dr Alana ortiz plans of care and tx Elvis stallings M.D. Objective - Vital Signs/Intake and Output Vital Signs (last 24 hours): Temp Pulse Resp BP Pulse Ox 97.9 F 100 H 18 118/66 97 02/01/18 08:54 02/01/18 08:54 02/01/18 08:54 02/01/18 08:54 02/01/18 08:54 - Labs Labs: 02/01/18 05:30 02/01/18 05:30 PT 12.4 Seconds (9.8-13.1) 01/25/18 14:30 INR 1.1 (0.9-1.2) 01/25/18 14:30 Assessment and Plan (1) Anemia Status: Acute (2) Closed intertrochanteric fracture of left hip Status: Acute (3) Head injury Status: Acute (4) COPD (chronic obstructive pulmonary disease) Status: Chronic (5) HTN (hypertension) Status: Chronic
--- NOTE | 2018-01-31 15:08 | CP.PCM.PN ---
Subjective - Date & Time of Evaluation Date of Evaluation: 01/31/18 Time of Evaluation: 15:05 - Subjective Subjective: Patient states she has no pain in wrist, and leg pain is improving. Denies CP/ SOB/dizziness Objective - Vital Signs/Intake and Output Vital Signs (last 24 hours): Temp Pulse Resp BP Pulse Ox 98.1 F 95 H 20 135/74 100 01/31/18 08:27 01/31/18 08:27 01/31/18 08:27 01/31/18 08:27 01/31/18 08:27 Intake and Output: 01/31/18 01/31/18 06:59 18:59 Intake Total 400 Balance 400 - Medications Medications: Current Medications Acetaminophen (Tylenol 325mg Tab) 650 mg PO Q6 PRN PRN Reason: Pain, Mild (1-3) Last Admin: 01/31/18 05:49 Dose: 650 mg Albuterol (Ventolin Hfa 90 Mcg/Actuation (8 G)) 2 puff IH Q4H PRN PRN Reason: Shortness of Breath Albuterol/Ipratropium (Duoneb 3 Mg/0.5 Mg (3 Ml) Ud) 3 ml INH RQ6 [facility] Last Admin: 01/31/18 13:33 Dose: 3 ml Docusate Sodium (Colace) 100 mg PO BID [facility] Last Admin: 01/31/18 08:35 Dose: 100 mg Enoxaparin Sodium (Lovenox) 40 mg SC DAILY [facility] PRN Reason: Protocol Last Admin: 01/31/18 08:35 Dose: 40 mg Lactated Ringer's (Lactated Ringer's) 1,000 mls @ 70 mls/hr IV .[id number] [facility] Last Admin: 01/29/18 17:59 Dose: 70 mls/hr Cefazolin Sodium 2 gm/ Sodium (Chloride) 100 mls @ 100 mls/hr IVPB Q12H [facility] PRN Reason: Protocol Last Admin: 01/31/18 03:07 Dose: 100 mls/hr Montelukast Sodium (Singulair) 10 mg PO HS [facility] Last Admin: 01/30/18 22:22 Dose: 10 mg Morphine Sulfate (Morphine) 2 mg IVP Q4 PRN PRN Reason: Pain, severe (8-10) Mupirocin (Bactroban Ointment) 1 applic TOP DAILY [facility] Last Admin: 01/31/18 08:34 Dose: 1 applic Ondansetron HCl (Zofran Inj) 4 mg IVP Q6 PRN PRN Reason: Nausea/Vomiting Last Admin: 01/27/18 11:01 Dose: 4 mg Pantoprazole Sodium (Protonix Ec Tab) 40 mg PO DAILY [facility] Last Admin: 01/31/18 08:35 Dose: 40 mg Polyethylene Glycol (Miralax) 17 gm PO DAILY [facility] Last Admin: 01/31/18 12:35 Dose: 17 gm - Labs Labs: 01/31/18 05:30 01/30/18 04:20 PT 12.4 Seconds (9.8-13.1) 01/25/18 14:30 INR 1.1 (0.9-1.2) 01/25/18 14:30 - Extremities Exam Additional comments: Dressing changed. Moderate serous drainage from left hip. Tape blisters healing well. Incisions intact, moderate swelling and ecchymosis +DP/PT pules calves soft NT neg homans +DP/PT pulses. Assessment and Plan (1) Closed intertrochanteric fracture of left hip Assessment & Plan: dressing change daily with dry dressings pressure dressing applied to prox wound PT/OT VTE proph d/w DR. Fuentes, agrees with above Status: Acute (2) Fracture of right distal radius Assessment & Plan: CT report states acute on chronic likely per Dr. Fuentes, SAC applied cont PT/OT Status: Acute Procedures Attestation:: I certify that I have explained the specified Operation(s) or Procedure(s), risks, benefits and reasonable alternatives to the Patient and/or other person responsible. 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 Sagittal and coronal images were reformatted from the axial scan. FINDINGS: Once again, there is deformity noted involving the distal right radius. Most clearly notable on the sagittal reformatted images, series 601, there is a step- off in the distal radius along the ventral aspect of the radius, best demonstrated on series 601, images 30 through 33. This raises suspicion of an acute impaction fracture. Although there is question of callus over the dorsal aspect of the distal radius, this may in fact be artifact resulting from an impaction fracture. The ulnar styloid process is intact. There is no other fracture identified. The elbow is unremarkable. There is soft tissue edema noted most prominently about the elbow. There is no evidence of hemarthrosis at the elbow. . IMPRESSION: Suspect acute/subacute impaction fracture of the distal radius. Questionable old healed fracture of the distal radius as well. This may be artifactual due to impacted bone simulating callus over the dorsal aspect of the distal radius. Soft tissue swelling noted most prominently about the elbow, of uncertain significance.
--- NOTE | 2018-01-31 20:27 | PN ---
DATE: SUBJECTIVE: The patient is having right forearm cast, the most recent upper extremity CT scan done yesterday, suggested acute fracture of the distal right radius. Right upper extremity venous Doppler, no evidence of DVT. The patient denies any chest pain or shortness of breath. She is complaining of constipation. PHYSICAL EXAMINATION: VITAL SIGNS: Blood pressure of 135/74, heart rate of 95, temperature of 98.1, and respirations of 20. HEENT: Left facial ecchymosis. CHEST: Clear. HEART: S1 and S2 regular. EXTREMITIES: No edema. LABORATORY DATA: Today's hemoglobin and hematocrit are 9.1 and 26.9, white count 12, and platelet count 88,000. ASSESSMENT: 1. Status post left trochanteric nailing for intertrochanteric fracture. 2. Distal right radius fracture. 3. 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 4. Diastolic left ventricular dysfunction. 5. Anemia and thrombocytopenia. RECOMMENDATIONS: Continue current IV cefazolin. Continue subcutaneous Lovenox. Continue oral Protonix and start lactulose orally daily. Richard Edwards MD
[2018-02-01] MEDS: Albuterol-Ipratrop 3 mg / 0.5 (3 ml) UD INH SCH ×3 (02:00→13:20)
[2018-02-01] MEDS: ceFAZolin 2 GM in Sodium Chloride 0.9% 100 ML IVPB SCH (03:16)
[2018-02-01] MEDS: Lactated Ringer's 1,000 ML IV SCH (04:20)
[2018-02-01 07:44] LABS: HEMOGLOBIN 8.8 g/dL (12.0-16.0); MEAN CELL VOLUME 95.9 fl (81.0-99.0); MEAN CORPUSCULAR HEMOGLOBIN 31.9 pg (27.0-31.0); MEAN CORPUSCULAR HGB CONC 33.3 g/dL (33.0-37.0); RBC 2.76 Mil/uL (3.80-5.20); RED CELL DISTRIBUTION WIDTH 17.9 % (11.5-14.5); WHITE BLOOD COUNT 10.5 K/uL (4.8-10.8)
[2018-02-01 07:49] LABS: ALB/GLOB RATIO 0.8 (1.0-2.1); ALT/SGPT 33 U/L (9-52); AST/SGOT 43 U/L (14-36); BLOOD UREA NITROGEN 17 mg/dl (7-17); CALCIUM 7.6 mg/dL (8.4-10.2); GFR AFRICAN-AMERICAN > 60; GFR NON-AFRICAN AMERICAN > 60
[2018-02-01 08:55] VITALS: BP 118/66; PULSE 100; RESP 18; TEMP 97.9; O2SAT 97
--- NOTE | 2018-02-01 09:27 | CP.PCM.PN ---
Subjective - Date & Time of Evaluation Date of Evaluation: 02/01/18 Time of Evaluation: 08:05 - Subjective Subjective: Patient seen and examined bedside this morning. There are no acute event overnight, NAD. Patient is recovering well and reports minimal pain. Patient has short arm cast on left arm. Patient has no complaints. Objective - Vital Signs/Intake and Output Vital Signs (last 24 hours): Temp Pulse Resp BP Pulse Ox 97.9 F 100 H 18 118/66 97 02/01/18 08:54 02/01/18 08:54 02/01/18 08:54 02/01/18 08:54 02/01/18 08:54 - Medications Medications: Current Medications Acetaminophen (Tylenol 325mg Tab) 650 mg PO Q6 PRN PRN Reason: Pain, Mild (1-3) Last Admin: 01/31/18 05:49 Dose: 650 mg Albuterol (Ventolin Hfa 90 Mcg/Actuation (8 G)) 2 puff IH Q4H PRN PRN Reason: Shortness of Breath Albuterol/Ipratropium (Duoneb 3 Mg/0.5 Mg (3 Ml) Ud) 3 ml INH RQ6 [facility] Last Admin: 02/01/18 07:02 Dose: 3 ml Docusate Sodium (Colace) 100 mg PO BID [facility] Last Admin: 01/31/18 16:15 Dose: 100 mg Enoxaparin Sodium (Lovenox) 40 mg SC DAILY [facility] PRN Reason: Protocol Last Admin: 01/31/18 08:35 Dose: 40 mg Lactated Ringer's (Lactated Ringer's) 1,000 mls @ 70 mls/hr IV .[id number] [facility] Last Admin: 02/01/18 04:20 Dose: 70 mls/hr Cefazolin Sodium 2 gm/ Sodium (Chloride) 100 mls @ 100 mls/hr IVPB Q12H [facility] PRN Reason: Protocol Last Admin: 02/01/18 03:16 Dose: 100 mls/hr Lactulose (Enulose) 20 gm PO BID PRN PRN Reason: Constipation Montelukast Sodium (Singulair) 10 mg PO HS [facility] Last Admin: 01/31/18 21:56 Dose: 10 mg Morphine Sulfate (Morphine) 2 mg IVP Q4 PRN PRN Reason: Pain, severe (8-10) Mupirocin (Bactroban Ointment) 1 applic TOP DAILY [facility] Last Admin: 01/31/18 08:34 Dose: 1 applic Ondansetron HCl (Zofran Inj) 4 mg IVP Q6 PRN PRN Reason: Nausea/Vomiting Last Admin: 01/27/18 11:01 Dose: 4 mg Pantoprazole Sodium (Protonix Ec Tab) 40 mg PO DAILY [facility] Last Admin: 01/31/18 08:35 Dose: 40 mg Polyethylene Glycol (Miralax) 17 gm PO DAILY [facility] Last Admin: 01/31/18 12:35 Dose: 17 gm - Labs Labs: 02/01/18 05:30 02/01/18 05:30 PT 12.4 Seconds (9.8-13.1) 01/25/18 14:30 INR 1.1 (0.9-1.2) 01/25/18 14:30 - Constitutional Appears: Non-toxic, No Acute Distress - Head Exam Head Exam: absent: ATRAUMATIC (ecchymosis left side) - Eye Exam Eye Exam: Normal appearance - ENT Exam ENT Exam: Mucous Membranes Moist - Neck Exam Neck Exam: Full ROM. absent: Tenderness - Respiratory Exam Respiratory Exam: Clear to Ausculation Bilateral. absent: Accessory Muscle Use , Decreased Breath Sounds, Rales, Rhonchi, Wheezes, Respiratory Distress - Cardiovascular Exam Cardiovascular Exam: REGULAR RHYTHM. absent: Tachycardia - GI/Abdominal Exam GI & Abdominal Exam: Soft, Normal Bowel Sounds. absent: Distended, Tenderness - Extremities Exam Extremities Exam: absent: Calf Tenderness, Pedal Edema, Tenderness Additional comments: s/p left hip ORIF, recovering appropriately, dressed c/d/i - Neurological Exam Neurological Exam: Alert, Awake - Skin Skin Exam: Dry, Intact, Normal Color, Warm Assessment and Plan (1) Head injury Status: Acute (2) Trochanteric fracture of femur Status: Acute (3) COPD (chronic obstructive pulmonary disease) Status: Chronic (4) Right radial fracture Status: Acute - Assessment and Plan (Free Text) Plan: c/w present management short arm cast placed on left arm pain management: morphine 2 mg IV Q4h prn Ancef 2 gm IV Q12h day 3 c/w PT/OT
[2018-02-01] MEDS: Enoxaparin 40 mg Syringe SC SCH (09:33)
[2018-02-01] MEDS: POLYETHYLENE GLYCOL 3350 17 GM/Dose PACKET PO SCH (09:33)
[2018-02-01] MEDS: Pantoprazole 40 mg EC Tab PO SCH (09:34)
--- NOTE | 2018-02-01 14:08 | PN ---
DATE: SUBJECTIVE: The patient denies chest pain. She had frequent bowel movement. I did ask the nurse to discontinue Lactulose. PHYSICAL EXAMINATION: VITAL SIGNS: Blood pressure of 118/66, heart rate of 100, temperature of 97.9, and respirations of 18. HEENT: [place] conjunctiva. Left facial ecchymosis. CHEST: Clear. HEART: S1 and S2 regular. EXTREMITIES: No edema. LABORATORY DATA: Hemoglobin and hematocrit are 8.8 and 26.5, and platelet count of 104,000. Today's SMA-7 is within normal limits except for creatinine of 0.5, and calcium of 7.6. ASSESSMENT: 1. Status post open reduction internal fixation of left intertrochanteric fracture. 2. Status post cast for distal right radius fracture. 3. Anemia and thrombocytopenia. RECOMMENDATIONS: Continue cefazolin 2 grams every 12 hours, Lovenox 40 mg subcutaneously daily, and Zofran 4 mg intravenously every 6 hours p.r.n. The plan is transfer the patient to Rehab today. Richard Edwards MD MTDD
--- NOTE | 2018-02-01 14:49 | CP.PCM.DIS ---
<Danny Nelson - Last Filed: 02/01/18 14:40> Provider - Provider Date of Admission: 01/25/18 15:13 Attending physician: Elvis Stallings MD Time Spent in preparation of Discharge (in minutes): 30 Diagnosis - Discharge Diagnosis (1) Head injury Status: Acute (2) Trochanteric fracture of femur Status: Acute (3) COPD (chronic obstructive pulmonary disease) Status: Chronic Priority: Medium (4) Right radial fracture Status: Acute (5) Anemia Status: Acute Hospital Course - Lab Results Lab Results: Most Recent Lab Values WBC 10.5 K/uL (4.8-10.8) 02/01/18 05:30 RBC 2.76 Mil/uL (3.80-5.20) L 02/01/18 05:30 Hgb 8.8 g/dL (12.0-16.0) L 02/01/18 05:30 Hct 26.5 % (34.0-47.0) L 02/01/18 05:30 MCV 95.9 fl (81.0-99.0) 02/01/18 05:30 MCH 31.9 pg (27.0-31.0) H 02/01/18 05:30 MCHC 33.3 g/dL (33.0-37.0) 02/01/18 05:30 RDW 17.9 % (11.5-14.5) H 02/01/18 05:30 Plt Count 104 K/uL (130-400) L 02/01/18 05:30 MPV 8.6 fl (7.2-11.7) 01/25/18 14:30 Neut % (Auto) 91.3 % (50.0-75.0) H 01/25/18 14:30 Lymph % (Auto) 5.2 % (20.0-40.0) L 01/25/18 14:30 [place] % (Auto) 3.3 % (0.0-10.0) 01/25/18 14:30 Eos % (Auto) 0.1 % (0.0-4.0) 01/25/18 14:30 Baso % (Auto) 0.1 % (0.0-2.0) 01/25/18 14:30 Neut # (Auto) 10.7 K/uL (1.8-7.0) H 01/25/18 14:30 Lymph # (Auto) 0.6 K/uL (1.0-4.3) L 01/25/18 14:30 [place] # (Auto) 0.4 K/uL (0.0-0.8) 01/25/18 14:30 Eos # (Auto) 0.0 K/uL (0.0-0.7) 01/25/18 14:30 Baso # (Auto) 0.0 K/uL (0.0-0.2) 01/25/18 14:30 Neutrophils % (Manual) 90 % (42-75) H 01/25/18 14:30 Lymphocytes % (Manual) 6 % (20-50) L 01/25/18 14:30 Monocytes % (Manual) 4 % (0-10) 01/25/18 14:30 Platelet Estimate Normal (NORMAL) 01/25/18 14:30 RBC Morphology Normal (NORMAL) 01/25/18 14:30 PT 12.4 Seconds (9.8-13.1) 01/25/18 14:30 INR 1.1 (0.9-1.2) 01/25/18 14:30 pCO2 29 mm/Hg (35-45) L 01/26/18 23:48 pO2 86 mm/Hg (80-100) 01/26/18 23:48 HCO3 25.0 mmol/L (21-28) 01/26/18 23:48 ABG pH 7.50 (7.35-7.45) H 01/26/18 23:48 ABG Total CO2 23.5 mmol/L (22-28) 01/26/18 23:48 ABG O2 Saturation 99.6 % (95-98) H 01/26/18 23:48 ABG O2 Content 15.2 ML/dL (15-23) 01/26/18 23:48 ABG Base Excess 0.1 mmol/L (-2.0-3.0) 01/26/18 23:48 ABG Hemoglobin 11.1 g/dL (11.7-17.4) L 01/26/18 23:48 ABG Carboxyhemoglobin 2.2 % (0.5-1.5) H 01/26/18 23:48 POC ABG HHb (Measured) 0.4 % (0.0-5.0) 01/26/18 23:48 ABG Methemoglobin 0.9 % (0.0-3.0) 01/26/18 23:48 ABG O2 Capacity 15.3 mL/dL (16-24) L 01/26/18 23:48 Braydon Test Yes 01/26/18 23:48 A-a O2 Difference 134.0 mm/Hg 01/26/18 23:48 Hgb O2 Saturation 96.5 % (95.0-98.0) 01/26/18 23:48 Vent Mode N/c 01/26/18 23:48 FiO2 36.0 % 01/26/18 23:48 Sodium 138 mmol/l (132-148) 02/01/18 05:30 Potassium 4.0 MMOL/L (3.6-5.0) 02/01/18 05:30 Chloride 105 mmol/L (98-107) 02/01/18 05:30 Carbon Dioxide 27 mmol/L (22-30) 02/01/18 05:30 Anion Gap 10 (10-20) 02/01/18 05:30 BUN 17 mg/dl (7-17) 02/01/18 05:30 Creatinine 0.5 mg/dl (0.7-1.2) L 02/01/18 05:30 Est GFR ( Amer) > 60 02/01/18 05:30 Est GFR (Non-Af Amer) > 60 02/01/18 05:30 POC Glucose (mg/dL) 183 mg/dL (65-110) H 01/26/18 17:53 Random Glucose 80 mg/dL (65-105) 02/01/18 05:30 Calcium 7.6 mg/dL (8.4-10.2) L 02/01/18 05:30 Iron 84 ug/dL (37-170) 01/30/18 15:38 TIBC 230 ug/dL (250-450) L 01/30/18 15:38 % Saturation 37 % (20-55) 01/30/18 15:38 Ferritin 333.0 ng/Ml (11.1-264.0) H 01/30/18 15:38 Total Bilirubin 0.7 mg/dl (0.2-1.3) 02/01/18 05:30 AST 43 U/L (14-36) H D 02/01/18 05:30 ALT 33 U/L (9-52) 02/01/18 05:30 Alkaline Phosphatase 173 U/L (38-126) H D 02/01/18 05:30 Troponin I < 0.0120 ng/mL (0.00-0.120) 01/25/18 15:50 Total Protein 4.6 G/DL (6.3-8.2) L 02/01/18 05:30 Albumin 2.0 g/dL (3.5-5.0) L D 02/01/18 05:30 Globulin 2.6 gm/dL (2.2-3.9) 02/01/18 05:30 Albumin/Globulin Ratio 0.8 (1.0-2.1) L 02/01/18 05:30 Vitamin B12 875 pg/mL (239-931) 01/30/18 15:38 Folate 7.4 ng/mL 01/30/18 15:38 Urine Color Yellow (YELLOW) 01/26/18 11:39 Urine Clarity Cloudy (Clear) 01/26/18 11:39 Urine pH 5.0 (5.0-8.0) 01/26/18 11:39 Ur Specific Sod 1.020 (1.003-1.030) 01/26/18 11:39 Urine Protein Negative mg/dL (NEGATIVE) 01/26/18 11:39 Urine Glucose (UA) Neg mg/dL (Normal) 01/26/18 11:39 Urine Ketones Negative mg/dL (NEGATIVE) 01/26/18 11:39 Urine Blood Small (NEGATIVE) 01/26/18 11:39 Urine Nitrate Negative (NEGATIVE) 01/26/18 11:39 Urine Bilirubin Negative (NEGATIVE) 01/26/18 11:39 Urine Urobilinogen 0.2-1.0 mg/dL (0.2-1.0) 01/26/18 11:39 Ur Leukocyte Esterase Neg Ra/uL (Negative) 01/26/18 11:39 Urine RBC (Auto) 1 /hpf (0-3) 01/26/18 11:39 Urine Microscopic WBC 4 /hpf (0-5) 01/26/18 11:39 Ur Squamous Epith Cells 2 /hpf (0-5) 01/26/18 11:39 Urine Bacteria Many (<OCC) H 01/26/18 11:39 Hyaline Casts >20 /hpf (0-2) H 01/26/18 11:39 Blood Type O NEGATIVE 01/29/18 15:15 Antibody Screen Negative 01/29/18 15:15 Crossmatch See Detail 01/29/18 15:15 BBK History Checked Patient has bt 01/29/18 15:15 - Hospital Course Hospital Course: 88 y/o woman w/ pmh of HTN, COPD and osteoporosis, who was brought to ED via EMS for left hip, left elbow, left sided head and b/l wrist pain s/p fall. Patient states she fell at home and landed on her left side. She reports an unsteady gait prior to falling. She denies any LOC, dizziness, chest pain, back pain or neck pain. Patient assessed and treated in ED. Patient cleared by cardio to have closed reduction w/ surgical nail placed in left hip 01/26/2018. Patient also found to have acute on chronic right distal radial fracture which addressed w/ short arm cast. Patient has ecchymosis of left head which is healing appropriately, CT showed no subdural hematoma or other hemorrhage. Patient's pain controlled w/ medication. The patient feels better. The patient has been seen, examined, and deemed medically fit for discharge to subacute rehab for further physical therapy and completion of IV antibiotics. The patient will be discharged w/ ancef 2 gm IV Q12h for 7 days, colace PO, and lovenox 40 mg SC daily. Discharge Exam - Head Exam Head Exam: absent: ATRAUMATIC (ecchymosis left side) - Eye Exam Eye Exam: Normal appearance - ENT Exam ENT Exam: Mucous Membranes Moist - Neck Exam Neck exam: Full Rom - Respiratory Exam Respiratory Exam: Clear to PA & Lateral. absent: Accessory Muscle Use, Decreased Breath Sounds, Rales, Rhonchi, Wheezes, Respiratory Distress - Cardiovascular Exam Cardiovascular Exam: REGULAR RHYTHM. absent: Tachycardia - GI/Abdominal Exam GI & Abdominal Exam: Normal Bowel Sounds, Soft. absent: Distended, Tenderness - Extremities Exam Additional comments: s/p left hip CRIF, recovering appropriately, dressed c/d/i - Neurological Exam Neurological exam: Alert - Skin Skin Exam: Dry, Intact, Normal Color, Warm Discharge Plan - Discharge Medications Prescriptions: ceFAZolin IV 2 gm in Dextrose [Ancef IV 2 gm DUPLEX] 2 gm IVPB Q12 #14 bag - Follow Up Plan Condition: FAIR Disposition: REHAB FACILITY/REHAB UNIT Instructions: Hip Fracture (DC), Femur Fracture (DC) Additional Instructions: I was present during evaluation and discussed with Dr nelson re discharge plans Elvis stallings M.D. <Elvis Stallings - Last Filed: 02/01/18 21:56> Provider - Provider Date of Admission: 01/25/18 15:13 Attending physician: Elvis Stallings MD Diagnosis - Discharge Diagnosis (1) Anemia Status: Acute (2) Closed intertrochanteric fracture of left hip Status: Acute (3) Head injury Status: Acute (4) COPD (chronic obstructive pulmonary disease) Status: Chronic Priority: Medium (5) HTN (hypertension) Status: Chronic Priority: Medium Hospital Course - Lab Results Lab Results: Most Recent Lab Values WBC 10.5 K/uL (4.8-10.8) 02/01/18 05:30 RBC 2.76 Mil/uL (3.80-5.20) L 02/01/18 05:30 Hgb 8.8 g/dL (12.0-16.0) L 02/01/18 05:30 Hct 26.5 % (34.0-47.0) L 02/01/18 05:30 MCV 95.9 fl (81.0-99.0) 02/01/18 05:30 MCH 31.9 pg (27.0-31.0) H 02/01/18 05:30 MCHC 33.3 g/dL (33.0-37.0) 02/01/18 05:30 RDW 17.9 % (11.5-14.5) H 02/01/18 05:30 Plt Count 104 K/uL (130-400) L 02/01/18 05:30 MPV 8.6 fl (7.2-11.7) 01/25/18 14:30 Neut % (Auto) 91.3 % (50.0-75.0) H 01/25/18 14:30 Lymph % (Auto) 5.2 % (20.0-40.0) L 01/25/18 14:30 [place] % (Auto) 3.3 % (0.0-10.0) 01/25/18 14:30 Eos % (Auto) 0.1 % (0.0-4.0) 01/25/18 14:30 Baso % (Auto) 0.1 % (0.0-2.0) 01/25/18 14:30 Neut # (Auto) 10.7 K/uL (1.8-7.0) H 01/25/18 14:30 Lymph # (Auto) 0.6 K/uL (1.0-4.3) L 01/25/18 14:30 [place] # (Auto) 0.4 K/uL (0.0-0.8) 01/25/18 14:30 Eos # (Auto) 0.0 K/uL (0.0-0.7) 01/25/18 14:30 Baso # (Auto) 0.0 K/uL (0.0-0.2) 01/25/18 14:30 Neutrophils % (Manual) 90 % (42-75) H 01/25/18 14:30 Lymphocytes % (Manual) 6 % (20-50) L 01/25/18 14:30 Monocytes % (Manual) 4 % (0-10) 01/25/18 14:30 Platelet Estimate Normal (NORMAL) 01/25/18 14:30 RBC Morphology Normal (NORMAL) 01/25/18 14:30 PT 12.4 Seconds (9.8-13.1) 01/25/18 14:30 INR 1.1 (0.9-1.2) 01/25/18 14:30 pCO2 29 mm/Hg (35-45) L 01/26/18 23:48 pO2 86 mm/Hg (80-100) 01/26/18 23:48 HCO3 25.0 mmol/L (21-28) 01/26/18 23:48 ABG pH 7.50 (7.35-7.45) H 01/26/18 23:48 ABG Total CO2 23.5 mmol/L (22-28) 01/26/18 23:48 ABG O2 Saturation 99.6 % (95-98) H 01/26/18 23:48 ABG O2 Content 15.2 ML/dL (15-23) 01/26/18 23:48 ABG Base Excess 0.1 mmol/L (-2.0-3.0) 01/26/18 23:48 ABG Hemoglobin 11.1 g/dL (11.7-17.4) L 01/26/18 23:48 ABG Carboxyhemoglobin 2.2 % (0.5-1.5) H 01/26/18 23:48 POC ABG HHb (Measured) 0.4 % (0.0-5.0) 01/26/18 23:48 ABG Methemoglobin 0.9 % (0.0-3.0) 01/26/18 23:48 ABG O2 Capacity 15.3 mL/dL (16-24) L 01/26/18 23:48 Braydon Test Yes 01/26/18 23:48 A-a O2 Difference 134.0 mm/Hg 01/26/18 23:48 Hgb O2 Saturation 96.5 % (95.0-98.0) 01/26/18 23:48 Vent Mode N/c 01/26/18 23:48 FiO2 36.0 % 01/26/18 23:48 Sodium 138 mmol/l (132-148) 02/01/18 05:30 Potassium 4.0 MMOL/L (3.6-5.0) 02/01/18 05:30 Chloride 105 mmol/L (98-107) 02/01/18 05:30 Carbon Dioxide 27 mmol/L (22-30) 02/01/18 05:30 Anion Gap 10 (10-20) 02/01/18 05:30 BUN 17 mg/dl (7-17) 02/01/18 05:30 Creatinine 0.5 mg/dl (0.7-1.2) L 02/01/18 05:30 Est GFR ( Amer) > 60 02/01/18 05:30 Est GFR (Non-Af Amer) > 60 02/01/18 05:30 POC Glucose (mg/dL) 183 mg/dL (65-110) H 01/26/18 17:53 Random Glucose 80 mg/dL (65-105) 02/01/18 05:30 Calcium 7.6 mg/dL (8.4-10.2) L 02/01/18 05:30 Iron 84 ug/dL (37-170) 01/30/18 15:38 TIBC 230 ug/dL (250-450) L 01/30/18 15:38 % Saturation 37 % (20-55) 01/30/18 15:38 Ferritin 333.0 ng/Ml (11.1-264.0) H 01/30/18 15:38 Total Bilirubin 0.7 mg/dl (0.2-1.3) 02/01/18 05:30 AST 43 U/L (14-36) H D 02/01/18 05:30 ALT 33 U/L (9-52) 02/01/18 05:30 Alkaline Phosphatase 173 U/L (38-126) H D 02/01/18 05:30 Troponin I < 0.0120 ng/mL (0.00-0.120) 01/25/18 15:50 Total Protein 4.6 G/DL (6.3-8.2) L 02/01/18 05:30 Albumin 2.0 g/dL (3.5-5.0) L D 02/01/18 05:30 Globulin 2.6 gm/dL (2.2-3.9) 02/01/18 05:30 Albumin/Globulin Ratio 0.8 (1.0-2.1) L 02/01/18 05:30 Vitamin B12 875 pg/mL (239-931) 01/30/18 15:38 25-OH Vitamin D Total < 12.8 NG/ML (30.0-100.0) L 02/01/18 05:30 Folate 7.4 ng/mL 01/30/18 15:38 Urine Color Yellow (YELLOW) 01/26/18 11:39 Urine Clarity Cloudy (Clear) 01/26/18 11:39 Urine pH 5.0 (5.0-8.0) 01/26/18 11:39 Ur Specific Sod 1.020 (1.003-1.030) 01/26/18 11:39 Urine Protein Negative mg/dL (NEGATIVE) 01/26/18 11:39 Urine Glucose (UA) Neg mg/dL (Normal) 01/26/18 11:39 Urine Ketones Negative mg/dL (NEGATIVE) 01/26/18 11:39 Urine Blood Small (NEGATIVE) 01/26/18 11:39 Urine Nitrate Negative (NEGATIVE) 01/26/18 11:39 Urine Bilirubin Negative (NEGATIVE) 01/26/18 11:39 Urine Urobilinogen 0.2-1.0 mg/dL (0.2-1.0) 01/26/18 11:39 Ur Leukocyte Esterase Neg Ra/uL (Negative) 01/26/18 11:39 Urine RBC (Auto) 1 /hpf (0-3) 01/26/18 11:39 Urine Microscopic WBC 4 /hpf (0-5) 01/26/18 11:39 Ur Squamous Epith Cells 2 /hpf (0-5) 01/26/18 11:39 Urine Bacteria Many (<OCC) H 01/26/18 11:39 Hyaline Casts >20 /hpf (0-2) H 01/26/18 11:39 Heparin-induced Plt Ab Negative (Negative) 01/30/18 16:37 Blood Type O NEGATIVE 01/29/18 15:15 Antibody Screen Negative 01/29/18 15:15 Crossmatch See Detail 01/29/18 15:15 BBK History Checked Patient has bt 01/29/18 15:15
--- NOTE | 2018-02-05 08:56 | OP ---
PROCEDURE DATE: 01/26/18 PREOPERATIVE DIAGNOSIS: Left hip displaced intertrochanteric fracture with extension beyond lesser trochanter. POSTOPERATIVE DIAGNOSIS: Left hip displaced intertrochanteric fracture with extension beyond lesser trochanter. PROCEDURE: Left hip intertrochanteric fracture, close reduction and internal fixation with cephalomedullary nail/long TFN. SURGEON: Tsering Fuentes MD CUPROUS CHLORIDE OPERATOR: Barbara Dumont PA-C. Barbara Dumont is a certified physician assistant chief of police and a skilled surgical service was an absolute necessity for successful completion of the procedure, supervised skilled surgical garment inspector with positioning of the patient, positioning extremity, managing the surgical field, retraction of the neurovascular structures, securing and positioning the patient on fracture table as well as padding and placing of traction, retraction of the neurovascular structures, preparation of proximal femur and femoral canal as well as placement of nail and helical blade and distal interlocking screws using perfect tolowa dee-ni' technique. Wound closer. was present for the entire case and was an absolute necessity for successful completion of the procedure. TYPE OF ANESTHESIA: General endotracheal anesthesia. COMPLICATIONS: None. SPECIMENS: None. ESTIMATED BLOOD LOSS: 150 mL. DISPOSITION: The patient was extubated and transferred to PACU in stable condition and tolerated the procedure well. DRAINS: None. IMPLANTS: Synthes long TFN, 10 mm diameter nail, helical blade measuring 90 mm, 2 distal interlocking screws measuring 42 mm length and 44 mm length. INDICATIONS FOR SURGERY: The patient is an 88-year-old female with a past medical history significant for hypertension and COPD, who presented to the Emergency Room at [facility] on 01/25/2018 by EMS with left hip pain and inability to weight bear or tolerate any range of motion to the left hip. She denied dizziness or syncopal episode and state me that she just walked her step. When she landed, she landed on her left hip, the left aspect of her head, and bilateral wrists. This injury occurred from standing while at home. She was evaluated by ER staffs and after reviewing imaging, she was diagnosed with a left hip displaced intertrochanteric fracture. She was admitted to the medical service under Dr. Lewis and an Orthopedic Criminal Defense Attorney was placed. I evaluate the patient as an inpatient on 01/25/2018 and after reviewing imaging and discussing her history with her and treatment option, she was indicated for left hip close reduction versus open reduction of intertrochanteric hip fracture and placement of a long cephalomedullary nail as internal fixation. The decision to a place a long nail was based on the fact that the fracture extend beyond the level of the lesser trochanter would provide whether stability has a fixation construct. The risks, benefits, and alternatives of procedure were discussed at length with the patient with use of official Japanese speaking journeyman patternmaker with a risk including, but not limited to infection, neurovascular damage, need for further surgery, inability to return to preinjury level of activity, failure of implants, malunion, nonunion, development of blood clots including DVT and PE, development of chronic pain and disability, anesthesia reactions including , and perioperative cardiopulmonary compromise. After answering all of her questions, the patient stated that she understood the risks and wished to proceed with surgery. She said that she understood her injury as well as the procedure to be done. Of note, the right wrist had an old deformity/healed distal radius fracture malunion from an injury 2 years ago that was not causing significant pain and she had returned to pretty much baseline activity with the wrist. She did have limited range of motion due to the resulting malunion deformity and loss of radial height and tilt. Initial imaging in ER showed that it was a healed malunion with questionable acute component to the fracture whether occult or a nondisplaced fracture. CAT scan that was done also revealed there is possible acute component and the patient did have some mild tenderness to palpation at the dorsal aspect of the distal radius. She will replace in a short arm cast after she recovers from the procedure and all ambulation will be made with a platform walker due to this. There is no surgical intervention for the right wrist. For the left hip surgery, medical optimization was obtained and she was cleared by the Primary Team and the procedure was scheduled for the next morning at [facility] on 01/26/2018. The patient was identified in the preoperative holding area, and the left hip was marked for surgery. Once again as described above, with the use of a Japanese speaking journeyman patternmaker the risks, benefits, and alternatives of the procedure was discussed at length with the patient and informed consent was obtained. After brief discussion with anesthesia staff perioperative IV antibiotic in the form of 2 g Ancef was administered and the patient was taken to the operating room. While the patient was in her hospital stretcher, she was placed under general anesthesia without any complications. She was then transferred to the fracture top table carefully. All bony prominences and superficial neurovascular structures well padded. Perineal post was placed and she was brought down on to the post with well padded perineum. The nonoperative leg being the right lower extremity was placed in a well padded leg mendoza in flexion and abduction at the hip. The left lower extremity being the operative side, was well padded at the foot and ankle and placed in the traction boot for a future traction placement for closed reduction manipulation of the fracture. The right upper extremity was placed on a regular arm broad. The left upper extremity was well padded and secured across her chest. Final timeout was done with the surgeon, anesthesia staff, and OR staff, all are in agreement with the patient, procedure being done, and extremity being operated on. With the use of biplanar fluoroscopic images and some dynamic imaging, a closed reduction maneuver was carried out for the fracture. An acceptable anatomic or near anatomic reduction was achieved. Left hip and femur and thigh were then prepped and draped in a standard sterile fashion. Procedure was started with optimal entry point for the cephalomedullary nail. Guidewire was used to identify optimal entry point. This was very difficult task due to the fact that this fracture pattern was very difficult with a coronal split through the greater trochanter and basically no landmarks to decide where the entry point should be. After a couple of attempts and confirmation with biplanar fluoroscopic imaging, with the position that we had the guidewire where the tip of the greater trochanter would normally be. Proximal reamer was passed over the guidewire and a ball tip guidewire was then passed down to the level of the superior pole of the patella. Measurement was taken for length of the nail which is 360 mm length for a 10 mm with nail. Flexible reamer was then advanced starting at 8 mm until was achieved and then we went up by 0.5 mm increments until we got the 12 mm to ensure that there was easy passage of the nail through the shaft of the femur. Once we are down with sequential flexible reaming, the nail was passed over the ball tip guidewire successfully into a good position. Biplanar fluoroscopic imaging was taken to ensure that we are able to maintain a fracture reduction. The fracture was extremely unstable and multiple re-reduction maneuvers were made throughout the procedure as we did continuously loose our reduction due to the nature of this unstable fracture pattern. The bone was a very poor quality and as stated before the greater trochanter was pulverized. Once the nail was in position, attention was then turned to of the helical blade. With a triple sleeve guide in position and incision was made to skin down, subcutaneous tissue down to the iliotibial band and down to the lateral cortex of the proximal femur, the triple sleeve was advanced until it was snug on the proximal femur lateral cortex. Guidewire was then advanced and it was very difficult to obtain an optimal position for placement of the helical blade due to the fracture position. Once we were happy with position of the guidewire and confirmed with dynamic fluoroscopic imaging and biplanar fluoroscopic imaging measurement was taken for a 90 mm helical blade which was pre-drilled and the blade was impacted in to position and confirmed to be in a good position. The top locking screw for the blade was then advanced and unlocked slightly to allow for compression of the fracture at the intertrochanteric region. This was done successfully. Attention was then turned towards the distal interlocking screws. With the use of perfect tolowa dee-ni' technique, 2 distal interlocking screws were placed through stab incisions on the lateral skin of the distal femur. Care was taken to ensure that both screws were definitely through the nail and multiple dynamic and biplanar fluoroscopic imaging confirmed good screw length and placement of the hardware. Once the screws were in position, all wounds are copiously irrigated and wounds are reapproximated with #1 Vicryl suture for deep tissue and iliotibial band followed by 2-0 Vicryl suture for subcutaneous tissue followed by destiny for skin. Sterile dressings were applied, and then the patient was carefully removed from the fracture top table and all the attachments and brought to her hospital bed where she was extubated successfully from anesthesia and transferred to PACU in stable condition and tolerated the procedure well. DISPOSITION: The patient will remain as an inpatient until she is cleared by the Primary Medical Team for discharge to rehab or facility. She will be weightbearing as tolerated to left lower extremity with no restrictions. She worked with Physical Therapy, Case Management, and social worker masters to determine optimal placement. She will receive adequate pain control with a minimum narcotic usage. She will be started on DVT prophylaxis in the form of 40 mg once daily starting postop day #1. I will monitor her progress daily as an inpatient and after she is discharged, she can follow up in my office within 1 week for radiographic and clinical follow up. Tsering Fuentes MD [facility] # [id number]
== END 2018-02-01 16:14 | DRG 481 ==
LOC: H.ER 13:48 → H.ERHOLD 15:13 → H.TEL 17:52 → H.MEDSURG1 01-30 21:25
PROVIDERS: ADMIT Family Medicine; ATTEND Family Medicine
PROC: 30233N1 Transfusion of Nonautologous Red Blood Cells into Peripheral Vein, Percutaneous Approach (ICD-10-PCS; 2018-01-26)
PROC: 0QS736Z Reposition Left Upper Femur with Intramedullary Internal Fixation Device, Percutaneous Approach (ICD-10-PCS; principal; 2018-01-26 14:30)
PROC: 02HV33Z Insertion of Infusion Device into Superior Vena Cava, Percutaneous Approach (ICD-10-PCS; 2018-01-29)
PROC: B548ZZA Ultrasonography of Superior Vena Cava, Guidance (ICD-10-PCS; 2018-01-29)
DX: S72.142A Displaced intertrochanteric fracture of left femur, initial encounter for closed fracture (principal); S52.591A Other fractures of lower end of right radius, initial encounter for closed fracture; D62 Acute posthemorrhagic anemia; I45.2 Bifascicular block; J90 Pleural effusion, not elsewhere classified; S00.03XA Contusion of scalp, initial encounter; D69.6 Thrombocytopenia, unspecified; E86.0 Dehydration; E83.51 Hypocalcemia; J44.9 Chronic obstructive pulmonary disease, unspecified; I10 Essential (primary) hypertension; M81.0 Age-related osteoporosis without current pathological fracture; E78.00 Pure hypercholesterolemia, unspecified; R00.0 Tachycardia, unspecified; W01.0XXA Fall on same level from slipping, tripping and stumbling without subsequent striking against object, initial encounter; Z79.1 Long term (current) use of non-steroidal anti-inflammatories (NSAID); Z87.01 Personal history of pneumonia (recurrent); Z91.81 History of falling; Y92.009 Unspecified place in unspecified non-institutional (private) residence as the place of occurrence of the external cause

== ENCOUNTER 2018-10-06 15:40 | Emergency (ER) | payer MEDICARE, BC ==
[2018-10-06 15:52] VITALS: O2SAT 98
--- NOTE | 2018-10-06 17:06 | ED PDOC ---
HPI: General Adult Time Seen by Provider: 10/06/18 15:59 Chief Complaint (Nursing): GI Problem Chief Complaint (Provider): Diarrhea and chills History Per: Patient History/Exam Limitations: no limitations Onset/Duration Of Symptoms: Days (x 2) Current Symptoms Are (Timing): Still Present Additional Complaint(s): 88 year old female with a history of high cholesterol and asthma presents to the ED with chills and diarrhea starting yesterday. She had non bloody diarrhea last night. Patient ambulates well. Denies vomiting, fever and pain of any kind. PMD: Dr. Richard Olsen Past Medical History Reviewed: Historical Data, Nursing Documentation, Vital Signs Vital Signs: Last Vital Signs Temp 98.8 F 10/06/18 15:50 Pulse 71 10/06/18 15:50 Resp 18 10/06/18 15:50 BP 122/58 L 10/06/18 15:50 Pulse Ox 98 10/06/18 15:50 - Medical History PMH: Arthritis, Asthma, COPD, Fractures (left hip), HTN, Hypercholesterolemia, Pneumonia Denies: Alzheimer's Disease, Anemia, Anxiety, Atrial Fibrillation, Bipolar Disorder, Bronchitis, CAD, Cardia Arrhythmia, CHF, Crohn's Disease, Dementia, Depression, Diverticulitis, Emphysema, Gastritis, Gall Bladder Disease, HIV, Hyperthyroidism, Hypothyroidism, Kidney Stones, Migraine, Multiple Sclerosis, Osteoporosis, Pancreatitis, Paranoia, Parkinson's Disease, Peripheral Edema, Post Traumatic Stress Disorder, Pulmonary Embolism, Chronic Kidney Disease, Rheumatoid Arthritis, Schizophrenia, Seizures, Sickle Cell Disease, Sexually Transmitted Disease, Sleep Apnea, TIA - Surgical History Surgical History: Denies: Appendectomy, CABG, Carotid Endarterectomy, Cholecystectomy, Coronary Stent, Pacemaker - Family History Family History: States: Unknown Family Hx - Immunization History Hx Tetanus Toxoid Vaccination: No Hx Influenza Vaccination: No Hx Pneumococcal Vaccination: No - Home Medications Home Medications: Ambulatory Orders Medication Instructions Recorded Albuterol HFA [Ventolin HFA 90 2 puff IH Q6 PRN #1 inhaler 09/08/18 mcg/actuation (8 g)] Albuterol/Ipratropium [Duoneb 3 3 ml INH Q6 PRN #100 neb 09/08/18 mg/0.5 mg (3 ml) UD] Donepezil [Aricept] 5 mg PO DAILY #30 tab 09/08/18 Meloxicam [Mobic] 15 mg PO DAILY #30 tab 09/08/18 Montelukast [Singulair] 10 mg PO HS #30 tab 09/08/18 Simvastatin [Zocor] 20 mg PO HS #30 tablet 09/08/18 amLODIPine [Norvasc] 10 mg PO HS #30 tab 09/08/18 predniSONE [predniSONE Tab] 5 mg PO DAILY #7 tab 09/08/18 Nitrofurantoin Macrocrystals 100 mg PO BID #14 cap 10/06/18 [Macrobid] - Allergies Allergies/Adverse Reactions: Allergies Allergy/AdvReac Type Severity Reaction Status Date / Time No Known Allergies Allergy Verified 09/07/18 13:49 Review of Systems ROS Statement: Except As Marked, All Systems Reviewed And Found Negative Constitutional: Positive for: Chills. Negative for: Fever Gastrointestinal: Positive for: Diarrhea. Negative for: Nausea, Vomiting, Abdominal Pain Physical Exam - Reviewed Nursing Documentation Reviewed: Yes Vital Signs Reviewed: Yes - Physical Exam Appears: Positive for: Non-toxic, No Acute Distress Head Exam: Positive for: ATRAUMATIC, NORMAL INSPECTION, NORMOCEPHALIC Skin: Positive for: Normal Color, Warm, Dry Eye Exam: Positive for: EOMI, Normal appearance, PERRL Neck: Positive for: Normal, Painless ROM, Supple Cardiovascular/Chest: Positive for: Regular Rate, Rhythm Respiratory: Positive for: Normal Breath Sounds. Negative for: Respiratory Distress Gastrointestinal/Abdominal: Positive for: Normal Exam, Soft. Negative for: Tenderness Extremity: Positive for: Normal ROM (upper and lower extremities). Negative for: Deformity Neurologic/Psych: Positive for: Alert, Oriented. Negative for: Motor/Sensory Deficits - Laboratory Results Result Diagrams: 10/06/18 17:15 10/06/18 17:15 - ECG O2 Sat by Pulse Oximetry: 98 (RA) Pulse Ox Interpretation: Normal Medical Decision Making Medical Decision Makin:06 Initial Plan: --BMP --CBC --urine dip --Influenza AB Scribe Attestation: Documented by Kylah Weeks acting as a scribe for Aditya Mesa MD Provider Scribe Attestation: All medical record entries made by the Scribe were at my direction and personally dictated by me. I have reviewed the chart and agree that the record a ccurately reflects my personal performance of the history, physical exam, medical decision making, and the department course for this patient. I have also personally directed, reviewed, and agree with the discharge instructions and disposition. Disposition - Clinical Impression Clinical Impression: Diarrhea, UTI (urinary tract infection) - Patient ED Disposition Is Patient to be Admitted: No Doctor Will See Patient In The: Office Counseled Patient/Family Regarding: Studies Performed, Diagnosis, Need For Followup - Disposition Referrals: [facility] [Outside] Disposition: Routine/Home Disposition Time: 18:25 Condition: GOOD Additional Instructions: STEVE SCHWARTZ, thank you for letting us take care of you today. Your provider was Aditya Mesa MD and you were treated for DIARRHEA,FLU LIKE SYMPTOMS. The emergency medical care you received today was directed at your acute symptoms. If you were prescribed any medication, please fill it and take as directed. It may take several days for your symptoms to resolve. Return to the Emergency Department if your symptoms worsen, do not improve, or if you have any other problems. Please contact your doctor or call one of the physicians/clinics you have been referred to that are listed on the Patient Visit Information form that is included in your discharge packet. Bring any paperwork you were given at discharge with you along with any medications you are taking to your follow up visit. Our treatment cannot replace ongoing medical care by a primary care provider outside of the emergency department. Thank you for allowing the [facility] team to be part of your care today. If you had an X-Ray or CT scan: A Radiologist will review the ED reading if any change in treatment is needed we will contact you. If you had a blood, urine, or wound culture: It will take several days for the results, if any change in treatment is needed we will contact you. If you had an STI test: It will take 48 hours for the results. Please call after 1 week if you have not heard back. Prescriptions: Nitrofurantoin Macrocrystals [Macrobid] 100 mg PO BID #14 cap Instructions: Urinary Tract Infections in Adults, Diarrhea in Adolescents and Adults
[2018-10-06 17:25] LABS: BASO % 0.9 % (0.0-2.0); EOS # 0.1 K/uL (0.0-0.7); EOS % 1.5 % (0.0-4.0); HEMOGLOBIN 11.6 g/dL (12.0-16.0); LYMPH # 1.5 K/uL (1.0-4.3); LYMPH % 33.7 % (20.0-40.0); MEAN CELL VOLUME 100.2 fl (81.0-99.0); MEAN CORPUSCULAR HEMOGLOBIN 33.6 pg (27.0-31.0); MEAN CORPUSCULAR HGB CONC 33.5 g/dL (33.0-37.0); MEAN PLATELET VOLUME 8.8 fl (7.2-11.7); MONO # 0.5 K/uL (0.0-0.8); MONO % 11.8 % (0.0-10.0); NEUT # 2.3 K/uL (1.8-7.0); NEUT % 52.1 % (50.0-75.0); NRBC % 0.1 % (0.0-0.0); RBC 3.45 Mil/uL (3.80-5.20); WHITE BLOOD COUNT 4.4 K/uL (4.8-10.8)
[2018-10-06 17:35] LABS: BLOOD UREA NITROGEN 14 mg/dl (7-17); CALCIUM 9.1 mg/dL (8.4-10.2); GFR NON-AFRICAN AMERICAN > 60
[2018-10-06 19:00] VITALS: BP 120/78; PULSE 78; RESP 19; TEMP 97.6
== END 2018-10-06 19:00 | disposition home or self-care (01) ==
LOC: H.ER 15:40
DX: R19.7 Diarrhea, unspecified (principal); N39.0 Urinary tract infection, site not specified; I10 Essential (primary) hypertension; J44.9 Chronic obstructive pulmonary disease, unspecified; E78.00 Pure hypercholesterolemia, unspecified

== ENCOUNTER 2018-10-08 11:08 | Inpatient (IN) | payer MEDICARE, BC ==
[2018-10-08] MEDS ORDERED: Sodium Chloride 0.9% 1,000 ML IV STA (11:25)
--- NOTE | 2018-10-08 11:30 | ED PDOC ---
HPI: General Adult Time Seen by Provider: 10/08/18 11:16 History Per: Patient Onset/Duration Of Symptoms: Days (4) Current Symptoms Are (Timing): Still Present Severity: Moderate Additional Complaint(s): Persistent subjective fever and bodyaches x 4 days. Seen in ED 10/07 and found to have UTI, Started on Macrobid but no improvement. Denies dysuria, denies abd pain vomiting or diarrhea. Occasinal nonproductive cough. Past Medical History Vital Signs: Last Vital Signs Temp 99 F 10/08/18 11:13 Pulse 95 H 10/08/18 11:13 Resp BP 116/51 L 10/08/18 11:13 Pulse Ox 96 10/08/18 11:13 - Medical History PMH: Arthritis, Asthma, COPD, Fractures (left hip), HTN, Hypercholesterolemia, Pneumonia Denies: Alzheimer's Disease, Anemia, Anxiety, Atrial Fibrillation, Bipolar Disorder, Bronchitis, CAD, Cardia Arrhythmia, CHF, Crohn's Disease, Dementia, Depression, Diverticulitis, Emphysema, Gastritis, Gall Bladder Disease, HIV, Hyperthyroidism, Hypothyroidism, Kidney Stones, Migraine, Multiple Sclerosis, Osteoporosis, Pancreatitis, Paranoia, Parkinson's Disease, Peripheral Edema, Post Traumatic Stress Disorder, Pulmonary Embolism, Chronic Kidney Disease, Rheumatoid Arthritis, Schizophrenia, Seizures, Sickle Cell Disease, Sexually Transmitted Disease, Sleep Apnea, TIA - Surgical History Surgical History: Denies: Appendectomy, CABG, Carotid Endarterectomy, Cholecystectomy, Coronary Stent, Pacemaker - Family History Family History: States: Unknown Family Hx - Immunization History Hx Tetanus Toxoid Vaccination: No Hx Influenza Vaccination: No Hx Pneumococcal Vaccination: No - Home Medications Home Medications: Ambulatory Orders Medication Instructions Recorded Albuterol HFA [Ventolin HFA 90 2 puff IH Q6 PRN #1 inhaler 09/08/18 mcg/actuation (8 g)] Albuterol/Ipratropium [Duoneb 3 3 ml INH Q6 PRN #100 neb 09/08/18 mg/0.5 mg (3 ml) UD] Donepezil [Aricept] 5 mg PO DAILY #30 tab 09/08/18 Meloxicam [Mobic] 15 mg PO DAILY #30 tab 09/08/18 Montelukast [Singulair] 10 mg PO HS #30 tab 09/08/18 amLODIPine [Norvasc] 10 mg PO HS #30 tab 09/08/18 Nitrofurantoin Macrocrystals 100 mg PO BID #14 cap 10/06/18 [Macrobid] - Allergies Allergies/Adverse Reactions: Allergies Allergy/AdvReac Type Severity Reaction Status Date / Time No Known Allergies Allergy Verified 09/07/18 13:49 Review of Systems ROS Statement: Except As Marked, All Systems Reviewed And Found Negative Constitutional: Positive for: Fever Respiratory: Positive for: Cough Physical Exam - Reviewed Nursing Documentation Reviewed: Yes Vital Signs Reviewed: Yes - Physical Exam Appears: Positive for: Non-toxic, No Acute Distress Head Exam: Positive for: ATRAUMATIC, NORMAL INSPECTION, NORMOCEPHALIC Skin: Positive for: Normal Color, Warm, DRY Eye Exam: Positive for: EOMI, Normal appearance, PERRL ENT: Positive for: Normal ENT Inspection Neck: Positive for: Normal, Painless ROM Cardiovascular/Chest: Positive for: Regular Rate, Rhythm Respiratory: Positive for: Rhonchi. Negative for: Wheezing, Respiratory Distress Gastrointestinal/Abdominal: Positive for: Soft. Negative for: Tenderness Back: Negative for: L CVA Tenderness, R CVA Tenderness Extremity: Positive for: Normal ROM Neurologic/Psych: Positive for: Alert, Oriented - Laboratory Results Result Diagrams: 10/08/18 12:17 10/08/18 12:17 - ECG O2 Sat by Pulse Oximetry: 96 Disposition - Clinical Impression Clinical Impression: Pneumonia - Patient ED Disposition Is Patient to be Admitted: Yes - Disposition Disposition Time: 13:24 Condition: FAIR - Pt Status Changed To: Hospital Disposition Of: Inpatient - Admit Certification Admit to Inpatient:: After my assessment, the patient will require hospitalization for at least two midnights. This is because of the severity of symptoms shown, intensity of services needed, and/or the medical risk in this patient being treated as an outpatient. - POA Present On Arrival: None
[2018-10-08 12:22] LABS: BASO % 0.4 % (0.0-2.0); EOS % 0.1 % (0.0-4.0); HEMOGLOBIN 11.4 g/dL (12.0-16.0); LYMPH # 0.6 K/uL (1.0-4.3); LYMPH % 6.6 % (20.0-40.0); MEAN CELL VOLUME 102.1 fl (81.0-99.0); MEAN CORPUSCULAR HEMOGLOBIN 33.8 pg (27.0-31.0); MEAN CORPUSCULAR HGB CONC 33.1 g/dL (33.0-37.0); MEAN PLATELET VOLUME 8.4 fl (7.2-11.7); MONO # 0.6 K/uL (0.0-0.8); MONO % 6.4 % (0.0-10.0); NEUT # 7.5 K/uL (1.8-7.0); NEUT % 86.5 % (50.0-75.0); PLATELET COUNT 201 K/uL (130-400); RBC 3.36 Mil/uL (3.80-5.20); RED CELL DISTRIBUTION WIDTH 13.6 % (11.5-14.5); WHITE BLOOD COUNT 8.7 K/uL (4.8-10.8)
[2018-10-08 12:31] LABS: VENOUS BLOOD GAS BASE EXCESS -0.1 mmol/L (0.0-2.0); VENOUS BLOOD GAS PCO2 36 mmHg (40-60); VENOUS BLOOD GAS PO2 45 mm/Hg (30-55); VENOUS BLOOD PH 7.43 (7.32-7.43)
[2018-10-08 12:41] LABS: ALB/GLOB RATIO 1.2 (1.0-2.1); ALBUMIN 3.2 g/dL (3.5-5.0); ALT/SGPT 32 U/L (9-52); AST/SGOT 21 U/L (14-36); BLOOD UREA NITROGEN 14 mg/dl (7-17); CALCIUM 8.9 mg/dL (8.4-10.2); GFR NON-AFRICAN AMERICAN > 60
[2018-10-08] MEDS ORDERED: Azithromycin 500 MG in Sodium Chloride 0.9% 250 ML IVPB STA (12:51)
[2018-10-08 13:18] LABS: BANDS 1 % (0-2); EOSINOPHIL 1 % (0-7); LYMPHOCYTE 7 % (20-50); MONOCYTE 7 % (0-10); NEUTROPHIL 84 % (42-75); TOTAL CELLS COUNTED 100
[2018-10-08 13:20] LABS: PLATELET ESTIMATE NORMAL (NORMAL)
[2018-10-08 13:21] LABS: HYPOCHROMIC SLIGHT
[2018-10-08] MEDS ORDERED: cefTRIAXone (Rocephin) 1 gm Inj ONE (13:37)
--- NOTE | 2018-10-08 13:46 | RAD ---
Date of service: 10/08/2018 HISTORY: cough COMPARISON: 09/07/2018. FINDINGS: LUNGS: Right lower lobe infiltrate a new finding compared to the prior study. PLEURA: No significant pleural effusion identified, no pneumothorax apparent. CARDIOVASCULAR: Atherosclerotic calcification and mural plaque present. Findings are seen throughout the aorta No radiographic findings to suggest acute or significant cardiovascular disease. OSSEOUS STRUCTURES: No significant abnormalities. VISUALIZED UPPER ABDOMEN: Normal. OTHER FINDINGS: None. IMPRESSION: New right lower lobe infiltrate.
[2018-10-08] MEDS ORDERED: Iohexol 300 100 ML IJ ONE (14:30)
[2018-10-08] MEDS ORDERED: Sodium Chloride 0.9% 50 ML IV ONE (14:31)
[2018-10-08 14:54] LABS: SQUAMOUS EPITHIAL 6 /hpf (0-5); URINE BACTERIA MOD (<OCC); URINE BILIRUBIN NEGATIVE (NEGATIVE); URINE BLOOD MODERATE (NEGATIVE); URINE CLARITY CLEAR (Clear); URINE COLOR YELLOW (YELLOW); URINE GLUCOSE (UA) NEG (NEGATIVE); URINE LEUKOCYTE ESTERASE TRACE Leu/uL (Negative); URINE PROTEIN NEGATIVE (NEGATIVE); URINE UROBILINOGEN 0.2-1.0 mg/dL (0.2-1.0)
[2018-10-08] MEDS ORDERED: Azithromycin 500 MG IV IVPB ONE (15:01)
[2018-10-08] MEDS ORDERED: Enoxaparin 60 mg Syringe SC STA (15:54)
--- NOTE | 2018-10-08 15:58 | CT ---
Date of service: 10/08/2018 PROCEDURE: CT Chest with contrast HISTORY: RLL infiltrate COMPARISON: 03/14/2017 CT thorax. October 08, 2018Single-view chest TECHNIQUE: Contiguous axial images were obtained through the chest with intravenous contrast enhancement. Sagittal and coronal reconstructions were performed. IV contrast: 95 cc Omnipaque 300. Radiation dose: Total exam DLP = 201.42 mGy-cm. This CT exam was performed using one or more of the following dose reduction techniques: Automated exposure control, adjustment of the mA and/or kV according to patient size, and/or use of iterative reconstruction technique. FINDINGS: LUNGS: Peripheral infiltrate right lower lobe which corresponds findings on recent chest radiograph. Faint infiltrate in the posterior segment of the right upper lobe. Atelectasis/ scarring left lower lobe. Finding seen on prior CT of the thorax. MEDIASTINUM: Atherosclerotic calcification and mural plaque present. Findings are seen throughout the aorta Normal sized heart. Main pulmonary artery unremarkable. No vascular congestion. No lymphadenopathy. No aortic atherosclerotic calcification or mural plaque present. PLEURA: No pleural fluid. No pneumothorax. BONES: No fracture. No destructive lesion. UPPER ABDOMEN: Grossly unremarkable. OTHER FINDINGS: Although the study is not designed to assess for pulmonary embolism, I suspect there is clot identified in right lower lobe she segmental bronchi seen of axial series 2/image 60 and sagittal series 602/image 60. The finding is marked on the study for review. IMPRESSION: Infiltrate right lower lobe. Alternatively, this could represent a focus of pulmonary infarction given findings on the current study reflective of filling defects in the right lower lobe pulmonary artery. Additional faint infiltrate in the right upper lobe Scarring/atelectasis left base. Communication of results: I discussed these findings in detail with the referring physician emergency department Dr. Hunter in recommended follow-up to confirm the suspected pulmonary embolism.
--- NOTE | 2018-10-08 17:29 | US ---
Date of service: 10/08/2018 PROCEDURE: Bilateral lower extremity venous duplex Doppler. HISTORY: PE on CXR COMPARISON: None available. TECHNIQUE: Bilateral common femoral, superficial femoral, popliteal and posterior tibial veins were evaluated. Flow was assessed with color Doppler, compressibility, assessment of phasic flow and augmentation response. FINDINGS: COMMON FEMORAL VEIN: Right CFV: Unremarkable. Left CFV: Unremarkable. SUPERFICIAL FEMORAL VEIN: Right SFV: Unremarkable. Left SFV: Unremarkable. POPLITEAL VEIN: Right Popliteal: Unremarkable. Left Popliteal: Apparent nonocclusive thrombus proximal aspect left popliteal vein with a small amount of thread-like blood flow extending through the thrombus POSTERIOR TIBIAL VEIN: Right PTV: Unremarkable. Left PTV: Unremarkable. OTHER FINDINGS: None. IMPRESSION: Apparent nonocclusive thrombus proximal aspect left popliteal vein with a small amount of thread-like blood flow extending through the thrombus. No evidence of right-sided DVT..
--- NOTE | 2018-10-08 18:29 | ED PDOC ---
ED Additional Note - Date & Time of Evaluation Date of Evaluation: 10/08/18 Time of Evaluation: 18:30 - Physician Additional Note Physician Additional Note: PA performing lab f/u. Pt's urine C&S returned with Klebsiella Pneumonia from 08/06/18. Pt was discharged home on Nitrofurantoin but C&S states ?inconclusive sensitivity to Nitrofurantoin. Pt back in ER today and being admitted for ? PE and found to be Influenza +. Urinalysis repeated today shows LE trace and Nitrite negative. Repeat urine culture ordered.
[2018-10-08] MEDS: Sodium Chloride 0.9% 1,000 ML IV SCH (23:20)
[2018-10-08] MEDS: Albuterol-Ipratrop 3 mg / 0.5 (3 ml) UD INH SCH (23:29)
[2018-10-09 05:32] LABS: HEMOGLOBIN 10.4 g/dL (12.0-16.0); MEAN CELL VOLUME 99.3 fl (81.0-99.0); MEAN CORPUSCULAR HEMOGLOBIN 33.4 pg (27.0-31.0); MEAN CORPUSCULAR HGB CONC 33.6 g/dL (33.0-37.0); RBC 3.12 Mil/uL (3.80-5.20); RED CELL DISTRIBUTION WIDTH 13.7 % (11.5-14.5); WHITE BLOOD COUNT 4.7 K/uL (4.8-10.8)
[2018-10-09 05:45] LABS: ALBUMIN 2.8 g/dL (3.5-5.0); ALT/SGPT 27 U/L (9-52); AST/SGOT 30 U/L (14-36); BLOOD UREA NITROGEN 9 mg/dl (7-17); CALCIUM 8.1 mg/dL (8.4-10.2); GFR NON-AFRICAN AMERICAN > 60; HDL CHOLESTEROL 36 MG/DL (30-70)
[2018-10-09 05:55] LABS: LDL CHOLESTEROL 90 mg/dL (0-129)
[2018-10-09] MEDS: Albuterol-Ipratrop 3 mg / 0.5 (3 ml) UD INH SCH ×3 (07:13→23:29)
[2018-10-09] MEDS: Azithromycin 500 MG in Sodium Chloride 0.9% 250 ML IVPB SCH (08:31)
[2018-10-09] MEDS: Naproxen 500 MG TAB PO SCH ×2 (08:33→22:51)
[2018-10-09] MEDS: Enoxaparin 60 mg Syringe SC SCH ×2 (08:34→22:51)
[2018-10-09] MEDS ORDERED: Enoxaparin 60 mg Syringe SC SCH (09:00)
[2018-10-09] MEDS ORDERED: Sodium Chloride 3% for Inhalation 4 ML VIAL.NEB IH PRN (09:09)
[2018-10-09] MEDS ORDERED: Lactulose 10 gm/15 ml Syrup PO PRN (10:44)
[2018-10-09 10:59] LABS: IRON 30 ug/dL (37-170)
[2018-10-09 11:08] LABS: % IRON SATURATION 14 % (20-55); TOTAL IRON BINDING CAPACITY 211 ug/dL (250-450)
[2018-10-09] MEDS: Sodium Chloride 0.9% 1,000 ML IV SCH (12:57)
--- NOTE | 2018-10-09 14:15 | CP.PCM.HP ---
History of Present Illness - History of Present Illness History of Present Illness: CC: Fever. 88 y/o F, with multiple chronic medical condition, including COPD/Asthma, PNA, HTN, Chest pain,High Cholesterol, Fall/Trauma. Pt was brought to ER [facility], [place] on 10/08/18 for evaluation of subjective Fever, onset 4 days [place] associated to occasional cough, non productive, non bloody . Pt using Duoneb, hand inhalers at home with no relief. Worsening symptoms: Found with PE, DVT L/E, also, Pt was seen in the ED [facility] on 10/06/18, Dx with UTI, Diarrhea, discharged on Microbid 100 mg x 7 days, but no improvement. Today TMAx 101.3. Found + for Influenza A. Aggravated factor: coughing. Pt denied: Abdominal pain, n/v/d, painful urination, CP, palpitations, SOB, dizziness, syncope, sick contact, recent travel out of [facility]. CT Chest: Peripheral infiltrate RLL, alternatively, this could represent a form of pulmonary infarction, faint infiltrate RUL, suspected cloth identified in RLL. CXR: New RLL infiltrate. Ext U-S: Thrombus proximal aspect left popliteal vein with small amount of thread like blood extending thought the thrombus. Present on Admission - Present on Admission Any Indicators Present on Admission: No Review of Systems - Constitutional Constitutional: Fever - EENT Eyes: Other (negative) Ears: Decreased Hearing Nose/Mouth/Throat: Other (negative) - Cardiovascular Cardiovascular: Other (negative) - Respiratory Respiratory: Cough, Other (chest dysconfort when coughing) - Gastrointestinal Gastrointestinal: Constipation - Genitourinary Genitourinary: Hematuria, Freq UTI - Musculoskeletal Musculoskeletal: Arthralgias, Back Pain, Muscle Weakness (lower extremities) - Integumentary Integumentary: Other (negative) - Neurological Neurological: Other (negative) - Psychiatric Psychiatric: Other (negative) - Endocrine Endocrine: Other (negative) - Hematologic/Lymphatic Hematologic: Other (negative) Past Patient History - Past Medical History & Family History Past Medical History?: Yes Pertinent Family History: Unknown - Past Social History Smoking Status: Never Smoked Alcohol: None Drugs: Denies Home Situation {Lives}: With Family - CARDIAC Hx Cardiac Disorders: Yes Hx Atrial Fibrillation: No Hx Cardia Arrhythmia: No Hx Congestive Heart Failure: No Hx Hypercholesterolemia: Yes Hx Hypertension: Yes Hx Pacemaker: No Hx Peripheral Edema: No - PULMONARY Hx Respiratory Disorders: Yes Hx Asthma: Yes Hx Chronic Obstructive Pulmonary Disease (COPD): Yes Hx Pneumonia: Yes - NEUROLOGICAL Hx Neurological Disorder: No Hx Alzheimer's Disease: No Hx Dementia: No Hx Migraine: No Hx Multiple Sclerosis: No Hx Parkinson's Disease: No Hx Seizures: No Hx Transient Ischemic Attacks (TIA): No - HEENT Hx HEENT Problems: Yes Hx Cataracts: Yes - RENAL Hx Chronic Kidney Disease: No - ENDOCRINE/METABOLIC Hx Endocrine Disorders: No Hx Hyperthyroidism: No Hx Hypothyroidism: No - HEMATOLOGICAL/ONCOLOGICAL Hx Blood Disorders: No Hx Anemia: No Hx Human Immunodeficiency Virus (HIV): No Hx Sickle Cell Disease: No - INTEGUMENTARY Hx Dermatological Problems: No Hx Basil Cell: No Hx Bentley: No Hx Cellulitis: No Hx Eczema: No Hx Melanoma: No Hx Psoriasis: No Hx Squamous Cell: No - MUSCULOSKELETAL/RHEUMATOLOGICAL Hx Musculoskeletal Disorders: Yes Hx Arthritis: Yes Hx Falls: No - GASTROINTESTINAL Hx Gastrointestinal Disorders: No Hx Crohn's Disease: No Hx Diverticulitis: No Hx Gall Bladder Disease: No Hx Gastritis: No Hx Pancreatitis: No - GENITOURINARY/GYNECOLOGICAL Hx Genitourinary Disorders: No Hx Sexually Transmitted Disorders: No - PSYCHIATRIC Hx Anxiety: No Hx Bipolar Disorder: No Hx Depression: No Hx Paranoia: No Hx Post Traumatic Stress Disorder: No Hx Schizophrenia: No Hx Substance Use: No - SURGICAL HISTORY Hx Surgeries: Yes Hx Appendectomy: No Hx Carotid Endarterectomy: No Hx Cholecystectomy: No Hx Coronary Artery Bypass Graft: No Hx Coronary Stent: No Hx Herniorrhaphy: Yes (x2) - ANESTHESIA Hx Anesthesia: Yes Hx Anesthesia Reactions: No Hx Malignant Hyperthermia: No Meds Allergies/Adverse Reactions: Allergies Allergy/AdvReac Type Severity Reaction Status Date / Time No Known Allergies Allergy Verified 09/07/18 13:49 Physical Exam - Constitutional Appears: No Acute Distress - Head Exam Head Exam: NORMAL INSPECTION - Eye Exam Eye Exam: PERRL - ENT Exam ENT Exam: Normal Exam - Neck Exam Neck exam: Positive for: Normal Inspection - Respiratory Exam Respiratory Exam: Decreased Breath Sounds (at bases), Rales (crackles at bases) - Cardiovascular Exam Cardiovascular Exam: REGULAR RHYTHM - GI/Abdominal Exam GI & Abdominal Exam: Soft. absent: Distended, Tenderness - Extremities Exam Extremities exam: Positive for: normal inspection - Back Exam Back exam: NORMAL INSPECTION - Neurological Exam Neurological exam: Alert, Oriented x3 Additional comments: No focal motor/sensory deficit. Generalized weakness - Psychiatric Exam Psychiatric exam: Normal Affect, Normal Mood - Skin Skin Exam: Warm Results - Vital Signs Recent Vital Signs: Last Vital Signs Temp 98.1 F 10/09/18 09:00 Pulse 73 10/09/18 09:00 Resp 20 10/09/18 09:00 BP 130/54 L 10/09/18 09:00 Pulse Ox 98 10/09/18 09:00 sisi Delaney - Labs Result Diagrams: 10/10/18 04:45 10/10/18 04:45 Labs: Laboratory Results - last 24 hr 10/08/18 10/08/18 10/09/18 14:20 14:20 04:35 WBC 4.7 L RBC 3.12 L Hgb 10.4 L Hct 31.0 L MCV 99.3 H D MCH 33.4 H MCHC 33.6 RDW 13.7 Plt Count 170 Sodium Potassium Chloride Carbon Dioxide Anion Gap BUN Creatinine Est GFR ( Amer) Est GFR (Non-Af Amer) Random Glucose Calcium Iron TIBC % Saturation Ferritin Total Bilirubin AST ALT Alkaline Phosphatase Total Protein Albumin Globulin Albumin/Globulin Ratio Triglycerides Cholesterol LDL Cholesterol Direct HDL Cholesterol Vitamin B12 Thyroxine (T4) TSH 3rd Generation Urine Color Yellow Urine Clarity Clear Urine pH 7.0 Ur Specific [place] 1.012 Urine Protein Negative Urine Glucose (UA) Neg Urine Ketones Negative Urine Blood Moderate Urine Nitrate Negative Urine Bilirubin Negative Urine Urobilinogen 0.2-1.0 Ur Leukocyte Esterase Trace Urine RBC (Auto) 4 H Urine Microscopic WBC 6 H Ur Squamous Epith Cells 6 H Urine Bacteria Mod H Influenza Typ A,B (EIA) Pos for influenza a H 10/09/18 10/09/18 10/09/18 04:35 10:32 10:32 WBC RBC Hgb Hct MCV MCH MCHC RDW Plt Count Sodium 140 Potassium 4.1 Chloride 113 H Carbon Dioxide 22 Anion Gap 9 L BUN 9 Creatinine 0.5 L Est GFR ( Amer) > 60 Est GFR (Non-Af Amer) > 60 Random Glucose 80 Calcium 8.1 L Iron 30 L TIBC 211 L % Saturation 14 L Ferritin 153.0 Total Bilirubin 0.4 AST 30 ALT 27 Alkaline Phosphatase 89 Total Protein 5.6 L Albumin 2.8 L Globulin 2.7 Albumin/Globulin Ratio 1.0 Triglycerides 72 Cholesterol 128 LDL Cholesterol Direct 90 HDL Cholesterol 36 Vitamin B12 393 Thyroxine (T4) 5.60 TSH 3rd Generation 1.25 Urine Color Urine Clarity Urine pH Ur Specific [place] Urine Protein Urine Glucose (UA) Urine Ketones Urine Blood Urine Nitrate Urine Bilirubin Urine Urobilinogen Ur Leukocyte Esterase Urine RBC (Auto) Urine Microscopic WBC Ur Squamous Epith Cells Urine Bacteria Influenza Typ A,B (EIA) reviewed J.P. - Imaging and Cardiology Chest x-ray Status: Report reviewed by me (Elaina) CT scan - chest Status: Report reviewed by me (Elaina) Venous US Status: Report reviewed by me (Elaina) Assessment & Plan (1) Pneumonia Status: Acute Priority: High (2) Pulmonary embolus, right Status: Acute Priority: High (3) Left leg DVT Status: Acute Priority: High (4) UTI (urinary tract infection) Status: Acute Priority: High (5) Influenza A Status: Acute Priority: High (6) COPD (chronic obstructive pulmonary disease) Status: Chronic Priority: Medium (7) HTN (hypertension) Status: Chronic Priority: Medium (8) Constipation Status: Acute Priority: Medium - Assessment and Plan (Free Text) Plan: F/U PICC line insertion, Sputum C-S, U C-S, Occult blood stool, continue with Zithromax IV, Rocephin IV, Duoneb, Lovenox and rst of Tx, to have CTA Chest - Date & Time Date: 10/09/18 Time: 12:05
[2018-10-10 05:48] LABS: MEAN CELL VOLUME 99.7 fl (81.0-99.0); MEAN CORPUSCULAR HEMOGLOBIN 33.6 pg (27.0-31.0); MEAN CORPUSCULAR HGB CONC 33.7 g/dL (33.0-37.0); RBC 2.98 Mil/uL (3.80-5.20); RED CELL DISTRIBUTION WIDTH 13.7 % (11.5-14.5); WHITE BLOOD COUNT 3.8 K/uL (4.8-10.8)
[2018-10-10 06:06] LABS: BLOOD UREA NITROGEN 7 mg/dl (7-17); GFR NON-AFRICAN AMERICAN > 60
[2018-10-10] MEDS: Albuterol-Ipratrop 3 mg / 0.5 (3 ml) UD INH SCH ×2 (07:44→15:19)
[2018-10-10] MEDS: Enoxaparin 60 mg Syringe SC SCH ×2 (09:01→20:52)
[2018-10-10] MEDS: Naproxen 500 MG TAB PO SCH ×2 (09:02→20:51)
[2018-10-10] MEDS: Azithromycin 500 MG in Sodium Chloride 0.9% 250 ML IVPB SCH (10:03)
[2018-10-10] MEDS ORDERED: Lidocaine 2% GEL TOP ONE (12:30)
[2018-10-10] MEDS ORDERED: Lidocaine 1% Inj (20ml) ONE (12:59)
[2018-10-10] MEDS ORDERED: Anusol Suppository PR PRN (13:00)
--- NOTE | 2018-10-10 13:07 | PCM.SURG1 ---
Surgeon's Initial Post Op Note - Surgeon's Notes Surgeon: Burke Mccoy MD Pathology Supervisor: NONE Type of Anesthesia: Local Pre-Operative Diagnosis: Poor venous access Operative Findings: US showed patent right basilic vein Post-Operative Diagnosis: Poor venous access Operation Performed: Single lumen picc right arm, 35 cm. Specimen/Specimens Removed: None Estimated Blood Loss: EBL {In ML}: 2 Blood Products Given: N/A Drains Used: No Drains Post-Op Condition: Fair Date of Surgery/Procedure: 10/10/18 Time of Surgery/Procedure: 13:05
[2018-10-10] MEDS ORDERED: Sodium Chloride 0.9% 50 ML IV ONE (13:24)
[2018-10-10] MEDS ORDERED: Iodixanol 320 MG/ML 100 ML BOTTLE IV ONE (13:24)
[2018-10-10] MEDS: Lubricant Eye Drops UD OU PRN (14:22)
--- NOTE | 2018-10-10 14:40 | CT ---
Date of service: 10/10/2018 PROCEDURE: CT Chest with contrast (Pulmonary Angiogram) HISTORY: SUSPECT P.E IN CT CHEST COMPARISON: None available. TECHNIQUE: Axial computed tomography images were obtained of the chest in the pulmonary arterial phase of enhancement. Coronal and sagittal reformatted images were created and reviewed. Intravenous contrast dose: Radiation dose: Total exam DLP = 299.08 mGy-cm. This CT exam was performed using one or more of the following dose reduction techniques: Automated exposure control, adjustment of the mA and/or kV according to patient size, and/or use of iterative reconstruction technique. FINDINGS: PULMONARY ARTERIES: Unremarkable. No pulmonary embolism. AORTA: No acute findings. No thoracic aortic aneurysm. No aortic atherosclerotic calcification or mural plaque present. LUNGS: Minimal peribronchial infiltrate in the lingula. PLEURAL SPACES: Small bilateral pleural effusions. HEART: Unremarkable. No cardiomegaly. No significant pericardial effusion. LYMPH NODES: No lymphadenopathy. BONES, CHEST WALL: Unremarkable. No fracture or destructive lesion OTHER FINDINGS: Unremarkable. IMPRESSION: Small bilateral pleural effusions. Minimal peribronchial infiltrate in the lingula. No pulmonary embolism.
--- NOTE | 2018-10-10 16:21 | CP.PCM.PN ---
Subjective - Date & Time of Evaluation Date of Evaluation: 10/10/18 Time of Evaluation: 10:30 - Subjective Subjective: F/U PNA, DVT, PE s/p PICC line, no AD Objective - Vital Signs/Intake and Output Vital Signs (last 24 hours): Temp Pulse Resp BP Pulse Ox 98.2 F 80 20 103/50 L 97 10/10/18 15:33 10/10/18 15:33 10/10/18 15:33 10/10/18 15:33 10/10/18 15:33 - Medications Medications: Current Medications Albuterol/Ipratropium (Duoneb 3 Mg/0.5 Mg (3 Ml) Ud) 3 ml INH RQ8 REGINALD Last Admin: 10/10/18 15:19 Dose: 3 ml Amlodipine Besylate (Norvasc) 10 mg PO HS REGINALD Last Admin: 10/09/18 22:52 Dose: 10 mg Artificial Tears (Refresh Opth Soln) 0.3 ml OU Q4 PRN PRN Reason: Dry eyes Last Admin: 10/10/18 14:22 Dose: 1 applic Docusate Sodium (Colace) 200 mg PO DAILY REGINALD Last Admin: 10/10/18 09:01 Dose: 200 mg Donepezil HCl (Aricept) 5 mg PO DAILY REGINALD Last Admin: 10/10/18 09:06 Dose: 5 mg Enoxaparin Sodium (Lovenox) 60 mg SC Q12 REGINALD; Protocol Last Admin: 10/10/18 09:01 Dose: 60 mg Ceftriaxone Sodium 1 gm/ (Sodium Chloride) 100 mls @ 100 mls/hr IVPB DAILY REGINALD; Protocol Last Admin: 10/10/18 10:03 Dose: 100 mls/hr Azithromycin 500 mg/ Sodium (Chloride) 250 mls @ 250 mls/hr IVPB DAILY REGINALD; Protocol Last Admin: 10/10/18 10:03 Dose: 250 mls/hr Lactulose (Enulose) 10 gm PO DAILY PRN PRN Reason: Constipation Lactulose (Enulose) 20 gm PO DAILY PRN PRN Reason: Constipation Last Admin: 10/09/18 18:07 Dose: 20 gm Montelukast Sodium (Singulair) 10 mg PO HS REGINALD Last Admin: 10/09/18 22:53 Dose: 10 mg Naproxen (Naproxen) 500 mg PO Q12 REGINALD Last Admin: 10/10/18 09:02 Dose: 500 mg Oseltamivir Phosphate (Tamiflu Cap) 75 mg PO DAILY [facility]; Protocol Last Admin: 10/10/18 10:04 Dose: 75 mg - Labs Labs: 10/10/18 04:45 10/10/18 04:45 - Constitutional Appears: No Acute Distress - Head Exam Head Exam: NORMAL INSPECTION - Eye Exam Eye Exam: PERRL - ENT Exam ENT Exam: Normal Exam - Neck Exam Neck Exam: Normal Inspection - Respiratory Exam Respiratory Exam: Decreased Breath Sounds (at bases), Rales (at bases) - Cardiovascular Exam Cardiovascular Exam: REGULAR RHYTHM - GI/Abdominal Exam GI & Abdominal Exam: Soft. absent: Distended, Tenderness - Extremities Exam Additional comments: PICC line - Back Exam Back Exam: NORMAL INSPECTION - Neurological Exam Neurological Exam: Alert, Oriented x3 Additional comments: No focal motor/sensory deficit. generalizd weakness. - Psychiatric Exam Psychiatric exam: Normal Affect, Normal Mood - Skin Skin Exam: Warm Assessment and Plan (1) Pneumonia Status: Acute (2) Pulmonary embolus, right Status: Acute (3) Left leg DVT Status: Acute (4) UTI (urinary tract infection) Status: Acute (5) Influenza A Status: Acute (6) COPD (chronic obstructive pulmonary disease) Status: Chronic (7) HTN (hypertension) Status: Chronic (8) Constipation Status: Acute - Assessment and Plan (Free Text) Plan: continue Zithromax, Rocephin, Tamiflu and rest of Tx
[2018-10-11] MEDS: Albuterol-Ipratrop 3 mg / 0.5 (3 ml) UD INH SCH ×3 (00:07→15:13)
[2018-10-11] MEDS ORDERED: Artificial Tears Opht Soln OU PRN (02:22)
[2018-10-11] MEDS: Lubricant Eye Drops UD OU PRN (02:31)
[2018-10-11] MEDS: Azithromycin 500 MG in Sodium Chloride 0.9% 250 ML IVPB SCH (09:25)
[2018-10-11] MEDS: Enoxaparin 60 mg Syringe SC SCH (09:26)
[2018-10-11] MEDS: Naproxen 500 MG TAB PO SCH ×2 (09:27→21:20)
--- NOTE | 2018-10-11 13:36 | CP.PCM.PCO ---
Assessment & Plan - Assessment and Plan (Free Text) Assessment: patient will require 1 week of iv Abx: Rocephin 1gm iv daily , Zithromax 500 mg iv daily x 7 days f/u chest xray cont. Tamiflu - last dose in am, d/c droplet isolation in am
--- NOTE | 2018-10-11 14:15 | CP.PCM.PN ---
Subjective - Date & Time of Evaluation Date of Evaluation: 10/11/18 Time of Evaluation: 10:30 - Subjective Subjective: F/U PNA, DVT, PE Pt awake, no A/D, no pain. Objective - Vital Signs/Intake and Output Vital Signs (last 24 hours): Temp Pulse Resp BP Pulse Ox 98.9 F 72 18 123/46 L 97 10/11/18 08:28 10/11/18 08:28 10/11/18 08:28 10/11/18 08:28 10/11/18 08:28 - Medications Medications: Current Medications Albuterol/Ipratropium (Duoneb 3 Mg/0.5 Mg (3 Ml) Ud) 3 ml INH RQ8 REGINALD Last Admin: 10/11/18 08:05 Dose: 3 ml Amlodipine Besylate (Norvasc) 10 mg PO HS REGINALD Last Admin: 10/10/18 21:04 Dose: 10 mg Artificial Tears (Refresh Opth Soln) 0.3 ml OU Q4 PRN PRN Reason: Dry eyes Last Admin: 10/11/18 02:31 Dose: 1 applic Artificial Tears (Artificial Tears) 2 drop OU Q6 PRN PRN Reason: Dry eyes Docusate Sodium (Colace) 200 mg PO DAILY REGINALD Last Admin: 10/11/18 09:27 Dose: 200 mg Donepezil HCl (Aricept) 5 mg PO DAILY REGINALD Last Admin: 10/11/18 09:28 Dose: 5 mg Ceftriaxone Sodium 1 gm/ (Sodium Chloride) 100 mls @ 100 mls/hr IVPB DAILY REGINALD; Protocol Last Admin: 10/11/18 09:25 Dose: 100 mls/hr Azithromycin 500 mg/ Sodium (Chloride) 250 mls @ 250 mls/hr IVPB DAILY REGINALD; Protocol Last Admin: 10/11/18 09:25 Dose: 250 mls/hr Lactulose (Enulose) 10 gm PO DAILY PRN PRN Reason: Constipation Last Admin: 10/11/18 12:37 Dose: 10 gm Lactulose (Enulose) 20 gm PO DAILY PRN PRN Reason: Constipation Last Admin: 10/09/18 18:07 Dose: 20 gm Montelukast Sodium (Singulair) 10 mg PO HS REGINALD Last Admin: 10/10/18 21:04 Dose: 10 mg Naproxen (Naproxen) 500 mg PO Q12 REGINALD Last Admin: 10/11/18 09:27 Dose: 500 mg Oseltamivir Phosphate (Tamiflu Cap) 75 mg PO DAILY [facility]; Protocol Last Admin: 10/11/18 09:26 Dose: 75 mg Rivaroxaban (Xarelto) 10 mg PO QD5 [facility]; Protocol - Labs Labs: 10/10/18 04:45 10/10/18 04:45 - Constitutional Appears: No Acute Distress - Head Exam Head Exam: NORMAL INSPECTION - Eye Exam Eye Exam: PERRL - ENT Exam ENT Exam: Normal Exam - Neck Exam Neck Exam: Normal Inspection - Respiratory Exam Respiratory Exam: Decreased Breath Sounds (at bases) Additional comments: Crackles at bases - Cardiovascular Exam Cardiovascular Exam: REGULAR RHYTHM - GI/Abdominal Exam GI & Abdominal Exam: Soft. absent: Distended, Tenderness - Extremities Exam Extremities Exam: Normal Inspection - Back Exam Back Exam: NORMAL INSPECTION - Neurological Exam Neurological Exam: Alert, Oriented x3 Additional comments: No focal motor/sensory deficit. Generalized weakness. - Psychiatric Exam Psychiatric exam: Normal Affect, Normal Mood - Skin Skin Exam: Warm Assessment and Plan (1) Pneumonia Status: Acute (2) Pulmonary embolus, right Status: Acute (3) Left leg DVT Status: Acute (4) UTI (urinary tract infection) Status: Acute (5) Influenza A Status: Acute (6) COPD (chronic obstructive pulmonary disease) Status: Chronic (7) HTN (hypertension) Status: Chronic (8) Constipation Status: Acute - Assessment and Plan (Free Text) Plan: Continue Rocephin, Zithromax, Duoneb and rest of Tx.
[2018-10-12] MEDS: Albuterol-Ipratrop 3 mg / 0.5 (3 ml) UD INH SCH ×3 (00:13→15:13)
--- NOTE | 2018-10-12 10:46 | VASCULAR ---
PROCEDURE: Date of procedure: Procedure: 1. Placement of a right arm PICC with ultrasound and fluoroscopic guidance, CPT 24879 2. PICC tip confirmation with spot radiograph and is in the superior vena cava Medications: 1 percent lidocaine Total Fluoro time: 1.6 Seconds Radiation: 0.1 MGy EBL: 2 cc HISTORY: Infection requiring long-term IV antibiotics TECHNIQUE: Following informed consent and procedure time-out, the patient was placed supine on the interventional table and the right arm prepped and draped in the usual sterile fashion. Ultrasound showed a patent and compressible right basilic vein. After the skin was anesthetized with lidocaine, the basilic vein was accessed with micro micropuncture technique using ultrasound guidance. A guidewire was then advanced under fluoroscopic guidance into the superior vena cava. An image documenting ultrasound guidance for vascular access was permanently saved. The length of the single-lumen 4 [place]iqu[place] PICC was trimmed to 35 centimeters and advanced through a peel-away sheath. The PICC was position with tip of PICC confirm a spot radiograph the superior vena cava. The PICC was secured to the patient's skin. The PICC was flushed. A biopatch and sterile dressing was applied. IMPRESSION: Placement of a single-lumen 4 Martiniquais PICC trimmed to 35 centimeters via right basilic vein. The tip of the PICC is confirmed with spot radiograph and is in the superior vena cava.
[2018-10-12] MEDS: Azithromycin 500 MG in Sodium Chloride 0.9% 250 ML IVPB SCH (11:41)
[2018-10-12 13:27] LABS: HEMOGLOBIN 11.2 g/dL (12.0-16.0); MEAN CELL VOLUME 98.8 fl (81.0-99.0); MEAN CORPUSCULAR HEMOGLOBIN 33.1 pg (27.0-31.0); MEAN CORPUSCULAR HGB CONC 33.5 g/dL (33.0-37.0); RBC 3.38 Mil/uL (3.80-5.20); RED CELL DISTRIBUTION WIDTH 13.7 % (11.5-14.5); WHITE BLOOD COUNT 3.6 K/uL (4.8-10.8)
--- NOTE | 2018-10-12 13:51 | PQF ---
PROVIDER RESPONSE TEXT: Unable to determine the type of PNA REVIEWER QUERY TEXT: Pneumonia Specificity Pneumonia is documented in the Medical Record. Please specify the type of pneumonia and the causative organism (includes probable or suspected) if known after the work up is completed Such as: Type: -- Aspiration pneumonia (please also specify the aspirate) - Please indicate if the aspiration is postprocedure -- Bacterial (please document suspected or probable organism) -- Bronchopneumonia (please document suspected or probable organism) -- Interstitial pneumonia -- Organizing pneumonia / BOOP -- Pneumonia with influenza, shellie flu, or H1N1 flu -- RSV -- Viral -- Other, please specify 10/[address]; Impression: Infiltrate right lower lobe. Alternatively, this could represent a focus of pulmonary infarction given findings on the current study reflective of filling defects in th e right lower lobe pulmonary artery. Additional faint infiltrate in the right upper lobe Scarring/at electasis left base. H and P includes: Respiratory: Exam: Decreased Breath Sounds (at bases), Rales Assessment includes: Pneumonia Status: Acute Influenza Acute and COPD Chronic Assessment: includes, Sputum C-S, continue with Zithromax IV, Rocephin IV, Duoneb, and rest of Tx. -sputum culture pending The patient's Clinical Indicators include: -- Query created by: Michela Arellano on 10/10/2018 9:54 AM Electronically signed by: Richard Olsen MD 10/12/2018 1:48 PM
[2018-10-12 13:53] LABS: BLOOD UREA NITROGEN 4 mg/dl (7-17); GFR NON-AFRICAN AMERICAN > 60
[2018-10-12 14:24] VITALS: RESP 20; O2SAT 98
--- NOTE | 2018-10-12 14:28 | CP.PCM.DIS ---
Provider - Provider Date of Admission: 10/08/18 12:53 Attending physician: Richard Olsen MD Diagnosis - Discharge Diagnosis (1) Pneumonia Status: Acute Priority: High (2) Pulmonary embolus, right Status: Acute Priority: High (3) Left leg DVT Status: Acute Priority: High (4) UTI (urinary tract infection) Status: Acute Priority: High (5) Influenza A Status: Acute Priority: High (6) COPD (chronic obstructive pulmonary disease) Status: Chronic Priority: Medium (7) HTN (hypertension) Status: Chronic Priority: Medium (8) Constipation Status: Acute Priority: Medium Hospital Course - Lab Results Lab Results: Micro Results 10/08/18 13:10 Blood Blood Culture - Preliminary NO GROWTH AFTER 4 DAYS 10/08/18 12:00 Blood-Venous Blood Culture - Preliminary NO GROWTH AFTER 4 DAYS 10/08/18 14:20 Urine,Clean Catch Urine Culture - Final Klebsiella Pneumoniae Ssp Pneu Most Recent Lab Values WBC 3.6 K/uL (4.8-10.8) L 10/12/18 13:20 RBC 3.38 Mil/uL (3.80-5.20) L 10/12/18 13:20 Hgb 11.2 g/dL (12.0-16.0) L 10/12/18 13:20 Hct 33.4 % (34.0-47.0) L 10/12/18 13:20 MCV 98.8 fl (81.0-99.0) 10/12/18 13:20 MCH 33.1 pg (27.0-31.0) H 10/12/18 13:20 MCHC 33.5 g/dL (33.0-37.0) 10/12/18 13:20 RDW 13.7 % (11.5-14.5) 10/12/18 13:20 Plt Count 198 K/uL (130-400) 10/12/18 13:20 MPV 8.4 fl (7.2-11.7) 10/08/18 12:17 Neut % (Auto) 86.5 % (50.0-75.0) H 10/08/18 12:17 Lymph % (Auto) 6.6 % (20.0-40.0) L 10/08/18 12:17 [place] % (Auto) 6.4 % (0.0-10.0) 10/08/18 12:17 Eos % (Auto) 0.1 % (0.0-4.0) 10/08/18 12:17 Baso % (Auto) 0.4 % (0.0-2.0) 10/08/18 12:17 Neut # (Auto) 7.5 K/uL (1.8-7.0) H 10/08/18 12:17 Lymph # (Auto) 0.6 K/uL (1.0-4.3) L 10/08/18 12:17 [place] # (Auto) 0.6 K/uL (0.0-0.8) 10/08/18 12:17 Eos # (Auto) 0.0 K/uL (0.0-0.7) 10/08/18 12:17 Baso # (Auto) 0.0 K/uL (0.0-0.2) 10/08/18 12:17 Neutrophils % (Manual) 84 % (42-75) H 10/08/18 12:17 Band Neutrophils % 1 % (0-2) 10/08/18 12:17 Lymphocytes % (Manual) 7 % (20-50) L 10/08/18 12:17 Monocytes % (Manual) 7 % (0-10) 10/08/18 12:17 Eosinophils % (Manual) 1 % (0-7) 10/08/18 12:17 Platelet Estimate Normal (NORMAL) 10/08/18 12:17 Hypochromasia (manual) Slight 10/08/18 12:17 pO2 45 mm/Hg (30-55) 10/08/18 11:24 VBG pH 7.43 (7.32-7.43) 10/08/18 11:24 VBG pCO2 36 mmHg (40-60) L 10/08/18 11:24 VBG HCO3 24.5 mmol/L 10/08/18 11:24 VBG Total CO2 25.0 mmol/L (22-28) 10/08/18 11:24 VBG O2 Sat (Calc) 88.3 % (40-65) H 10/08/18 11:24 VBG Base Excess -0.1 mmol/L (0.0-2.0) L 10/08/18 11:24 VBG Potassium 3.6 mmol/L (3.6-5.2) 10/08/18 11:24 Sodium 137.0 mmol/L (132-148) 10/08/18 11:24 Chloride 105.0 mmol/L (98-107) 10/08/18 11:24 Glucose 98 mg/dL (65-105) 10/08/18 11:24 Lactate 1.2 mmol/L (0.7-2.1) 10/08/18 11:24 FiO2 21.0 % 10/08/18 11:24 Sodium 143 mmol/l (132-148) 10/12/18 13:20 Potassium 3.9 MMOL/L (3.6-5.0) 10/12/18 13:20 Chloride 113 mmol/L (98-107) H 10/12/18 13:20 Carbon Dioxide 24 mmol/L (22-30) 10/12/18 13:20 Anion Gap 10 (10-20) 10/12/18 13:20 BUN 4 mg/dl (7-17) L 10/12/18 13:20 Creatinine 0.5 mg/dl (0.7-1.2) L 10/12/18 13:20 Est GFR ( Amer) > 60 10/12/18 13:20 Est GFR (Non-Af Amer) > 60 10/12/18 13:20 Random Glucose 78 mg/dL (65-105) 10/12/18 13:20 Calcium 9.0 mg/dL (8.4-10.2) 10/12/18 13:20 Iron 30 ug/dL (37-170) L 10/09/18 10:32 TIBC 211 ug/dL (250-450) L 10/09/18 10:32 % Saturation 14 % (20-55) L 10/09/18 10:32 Ferritin 153.0 ng/Ml (11.1-264.0) 10/09/18 10:32 Total Bilirubin 0.4 mg/dl (0.2-1.3) 10/09/18 04:35 AST 30 U/L (14-36) 10/09/18 04:35 ALT 27 U/L (9-52) 10/09/18 04:35 Alkaline Phosphatase 89 U/L (38-126) 10/09/18 04:35 Total Protein 5.6 G/DL (6.3-8.2) L 10/09/18 04:35 Albumin 2.8 g/dL (3.5-5.0) L 10/09/18 04:35 Globulin 2.7 gm/dL (2.2-3.9) 10/09/18 04:35 Albumin/Globulin Ratio 1.0 (1.0-2.1) 10/09/18 04:35 Triglycerides 72 mg/DL (0-149) 10/09/18 04:35 Cholesterol 128 mg/dL (0-199) 10/09/18 04:35 LDL Cholesterol Direct 90 mg/dL (0-129) 10/09/18 04:35 HDL Cholesterol 36 MG/DL (30-70) 10/09/18 04:35 Vitamin B12 393 pg/mL (239-931) 10/09/18 10:32 RBC Folate 658 ng/mL RBC (>280) 10/09/18 10:32 Thyroxine (T4) 5.60 ug/dl (5.5-11.0) 10/09/18 04:35 TSH 3rd Generation 1.25 mIU/ML (0.46-4.68) 10/09/18 04:35 Venous Blood Potassium 3.6 mmol/L (3.6-5.2) 10/08/18 11:24 Urine Color Yellow (YELLOW) 10/08/18 14:20 Urine Clarity Clear (Clear) 10/08/18 14:20 Urine pH 7.0 (5.0-8.0) 10/08/18 14:20 Ur Specific [place] 1.012 (1.003-1.030) 10/08/18 14:20 Urine Protein Negative mg/dL (NEGATIVE) 10/08/18 14:20 Urine Glucose (UA) Neg mg/dL (NEGATIVE) 10/08/18 14:20 Urine Ketones Negative mg/dL (NEGATIVE) 10/08/18 14:20 Urine Blood Moderate (NEGATIVE) 10/08/18 14:20 Urine Nitrate Negative (NEGATIVE) 10/08/18 14:20 Urine Bilirubin Negative (NEGATIVE) 10/08/18 14:20 Urine Urobilinogen 0.2-1.0 mg/dL (0.2-1.0) 10/08/18 14:20 Ur Leukocyte Esterase Trace Ra/uL (Negative) 10/08/18 14:20 Urine RBC (Auto) 4 /hpf (0-3) H 10/08/18 14:20 Urine Microscopic WBC 6 /hpf (0-5) H 10/08/18 14:20 Ur Squamous Epith Cells 6 /hpf (0-5) H 10/08/18 14:20 Urine Bacteria Mod (<OCC) H 10/08/18 14:20 Stool Occult Blood Negative (NEGATIVE) 10/11/18 05:15 Influenza Typ A,B (EIA) Pos for influenza a (NEGATIVE) H 10/08/18 14:20 Discharge Exam - Head Exam Head Exam: NORMAL INSPECTION Discharge Plan - Discharge Medications Prescriptions: Rivaroxaban [Xarelto] 10 mg PO QD5 #30 tab Azithromycin [Zithromax Tri-Adams] 500 mg PO DAILY #3 tablet - Follow Up Plan Condition: FAIR Disposition: HOME/ ROUTINE Instructions: Flu, Adult (DC), Pneumonia, Adult (DC), Pulmonary Embolism (Blood Clot in the Lungs) (DC) Additional Instructions: please follow up with on monday10/15/18 at 3:30pm Referrals: Richard Olsen MD [Family Provider] -
[2018-10-12 15:19] VITALS: BP 139/62; PULSE 69; TEMP 97.8
== END 2018-10-12 17:00 | disposition home or self-care (01) | DRG 175 ==
LOC: H.ER 11:08 → H.ERHOLD 12:53 → H.TEL 21:52
PROVIDERS: ADMIT Internal Medicine Pulmonary Disease; ATTEND Internal Medicine Pulmonary Disease
PROC: 02HV33Z Insertion of Infusion Device into Superior Vena Cava, Percutaneous Approach (ICD-10-PCS; principal; 2018-10-09)
PROC: B518ZZA Fluoroscopy of Superior Vena Cava, Guidance (ICD-10-PCS; 2018-10-09)
PROC: B548ZZA Ultrasonography of Superior Vena Cava, Guidance (ICD-10-PCS; 2018-10-09)
PROC: 3E0F7GC Introduction of Other Therapeutic Substance into Respiratory Tract, Via Natural or Artificial Opening (ICD-10-PCS; 2018-10-09)
DX: I26.99 Other pulmonary embolism without acute cor pulmonale (principal); J10.00 Influenza due to other identified influenza virus with unspecified type of pneumonia; I82.432 Acute embolism and thrombosis of left popliteal vein; N39.0 Urinary tract infection, site not specified; J44.0 Chronic obstructive pulmonary disease with (acute) lower respiratory infection; E78.00 Pure hypercholesterolemia, unspecified; I10 Essential (primary) hypertension; K59.00 Constipation, unspecified; Z79.1 Long term (current) use of non-steroidal anti-inflammatories (NSAID); Z87.01 Personal history of pneumonia (recurrent); H26.9 Unspecified cataract; M19.90 Unspecified osteoarthritis, unspecified site; Z79.899 Other long term (current) drug therapy; R19.7 Diarrhea, unspecified

== ENCOUNTER 2018-10-15 01:07 | Emergency (ER) | payer MEDICARE, BC ==
[2018-10-15 01:19] VITALS: TEMP 98.3
[2018-10-15] MEDS ORDERED: Sodium Chloride 0.9% 1,000 ML IV STA (01:54)
--- NOTE | 2018-10-15 02:18 | ED PDOC ---
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 Patient states she thought she had a fever and that her mouth is very dry. Denies any chest pain, shortness of breath, nausea, vomiting, or diarrhea. PMD: Richard Mendez Past Medical History Reviewed: Historical Data, Nursing Documentation, Vital Signs Vital Signs: Last Vital Signs Temp 98.3 F 10/15/18 01:16 Pulse 103 H 10/15/18 01:16 Resp 18 10/15/18 01:16 BP 124/55 L 10/15/18 01:26 Pulse Ox 97 10/15/18 01:16 - Medical History PMH: Arthritis, Asthma, COPD, Fractures (left hip), HTN, Hypercholesterolemia, Pneumonia Denies: Alzheimer's Disease, Anemia, Anxiety, Atrial Fibrillation, Bipolar Disorder, Bronchitis, CAD, Cardia Arrhythmia, CHF, Crohn's Disease, Dementia, Depression, Diverticulitis, Emphysema, Gastritis, Gall Bladder Disease, HIV, Hyperthyroidism, Hypothyroidism, Kidney Stones, Migraine, Multiple Sclerosis, Osteoporosis, Pancreatitis, Paranoia, Parkinson's Disease, Peripheral Edema, Post Traumatic Stress Disorder, Pulmonary Embolism, Chronic Kidney Disease, Rheumatoid Arthritis, Schizophrenia, Seizures, Sickle Cell Disease, Sexually Transmitted Disease, Sleep Apnea, TIA - Surgical History Surgical History: Denies: Appendectomy, CABG, Carotid Endarterectomy, Cholecystectomy, Coronary Stent, Pacemaker - Family History Family History: States: Unknown Family Hx - Immunization History Hx Tetanus Toxoid Vaccination: No Hx Influenza Vaccination: No Hx Pneumococcal Vaccination: No - Home Medications Home Medications: Ambulatory Orders Medication Instructions Recorded Albuterol/Ipratropium [Duoneb 3 3 ml INH Q6 PRN #100 neb 09/08/18 mg/0.5 mg (3 ml) UD] Donepezil [Aricept] 5 mg PO DAILY #30 tab 09/08/18 Montelukast [Singulair] 10 mg PO HS #30 tab 09/08/18 amLODIPine [Norvasc] 10 mg PO HS #30 tab 11/10/18 Hard Fat/Phenylephrine [place] 1 sup FL DAILY PRN sup 10/11/18 [Anusol Suppository] Polyethylene Glycol/Polyvinyl 2 drop OU Q6 PRN bottle 10/11/18 [Artificial Tears] Azithromycin [Zithromax Tri-Adams] 500 mg PO DAILY #3 tablet 10/12/18 Rivaroxaban [Xarelto] 10 mg PO QD5 #30 tab 10/12/18 Ibuprofen [Motrin Tab] 600 mg PO Q6 #30 tab 10/15/18 Nitrofurantoin Macrocrystals 100 mg PO BID 5 Days cap 10/15/18 [Macrobid] - Allergies Allergies/Adverse Reactions: Allergies Allergy/AdvReac Type Severity Reaction Status Date / Time No Known Allergies Allergy Verified 10/15/18 01:16 Review of Systems ROS Statement: Except As Marked, All Systems Reviewed And Found Negative Constitutional: Positive for: Fever, Other (Feeling warm) Cardiovascular: Negative for: Chest Pain Respiratory: Negative for: Shortness of Breath Gastrointestinal: Negative for: Nausea, Vomiting, Diarrhea Physical Exam - Reviewed Nursing Documentation Reviewed: Yes Vital Signs Reviewed: Yes - Physical Exam Appears: Positive for: Non-toxic, No Acute Distress Head Exam: Positive for: ATRAUMATIC, NORMOCEPHALIC Skin: Positive for: Normal Color, Warm, Dry Eye Exam: Positive for: Normal appearance ENT: Positive for: Other (dry mucous membranes) Neck: Positive for: Normal, Painless ROM Cardiovascular/Chest: Positive for: Regular Rate, Rhythm Respiratory: Positive for: Normal Breath Sounds. Negative for: Wheezing, Respiratory Distress Extremity: Positive for: Normal ROM Neurologic/Psych: Positive for: Alert, Oriented. Negative for: Motor/Sensory Deficits - Laboratory Results Result Diagrams: 10/15/18 02:32 10/15/18 02:32 - ECG O2 Sat by Pulse Oximetry: 97 (RA) Pulse Ox Interpretation: Normal Medical Decision Making Medical Decision Making: A/P: Well appearing 88 y/o female with feeling of warmth and dry mouth. Patient is otherwise well appearing. Do not suspect anticholinergic syndrome at this time. Initial Plan: --ECG --BMP --CBC --Chest X-ray --Sodium chloride 1000mL IV --Blood culture --Urine culture --Urinalysis Patient is afebrile orally. Will check temperature rectally. Will order basic blood work and hydrate patient orally. 500 Patient remains well appearing Has small UTI, no white count Spoke with Dr. Olsen who recommends outpatient followup Will give macrobid and have patient followup as outpatient ------ Scribe Attestation: Documented by Yair Germain acting as a scribe for Deep Del Castillo MD. Provider Scribe Attestation: All medical record entries made by the Scribe were at my direction and personally dictated by me. I have reviewed the chart and agree that the record accurately reflects my personal performance of the history, physical exam, medical decision making, and the department course for this patient. I have also personally directed, reviewed, and agree with the discharge instructions and disposition. Disposition - Clinical Impression Clinical Impression: UTI (urinary tract infection) Counseled Patient/Family Regarding: Studies Performed, Diagnosis, Need For Followup, Rx Given - Disposition Referrals: Richard Olsen MD [Staff Provider] - Disposition: Routine/Home Disposition Time: 05:54 Condition: IMPROVED Prescriptions: Ibuprofen [Motrin Tab] 600 mg PO Q6 #30 tab Nitrofurantoin Macrocrystals [Macrobid] 100 mg PO BID 5 Days cap Instructions: Urinary Tract Infections in Adults, When to Worry About a Fever Forms: [employer] (O[place]i) Print Language: MACANESE
[2018-10-15 02:55] LABS: BLOOD UREA NITROGEN 18 mg/dl (7-17); GFR NON-AFRICAN AMERICAN > 60
[2018-10-15 02:58] LABS: BASO % 0.4 % (0.0-2.0); EOS # 0.1 K/uL (0.0-0.7); EOS % 0.8 % (0.0-4.0); HEMOGLOBIN 11.3 g/dL (12.0-16.0); LYMPH # 0.4 K/uL (1.0-4.3); LYMPH % 4.7 % (20.0-40.0); MEAN CELL VOLUME 102.2 fl (81.0-99.0); MEAN CORPUSCULAR HEMOGLOBIN 33.2 pg (27.0-31.0); MEAN CORPUSCULAR HGB CONC 32.5 g/dL (33.0-37.0); MEAN PLATELET VOLUME 8.5 fl (7.2-11.7); MONO # 0.2 K/uL (0.0-0.8); MONO % 2.7 % (0.0-10.0); NEUT % 91.4 % (50.0-75.0); PLATELET COUNT 224 K/uL (130-400); RBC 3.39 Mil/uL (3.80-5.20); RED CELL DISTRIBUTION WIDTH 13.8 % (11.5-14.5); WHITE BLOOD COUNT 7.6 K/uL (4.8-10.8)
[2018-10-15 04:50] LABS: ANISOCYTOSIS SLIGHT; BANDS 2 % (0-2); HYPOCHROMIC SLIGHT; LYMPHOCYTE 10 % (20-50); MONOCYTE 5 % (0-10); NEUTROPHIL 83 % (42-75); PLATELET ESTIMATE NORMAL (NORMAL); TOTAL CELLS COUNTED 100
[2018-10-15 04:51] LABS: SCHISTOCYTES SLIGHT
[2018-10-15 05:02] LABS: SQUAMOUS EPITHIAL 3 /hpf (0-5); URINE BILIRUBIN NEGATIVE (NEGATIVE); URINE BLOOD SMALL (NEGATIVE); URINE CLARITY SLIGHTY-CLOUDY (Clear); URINE COLOR YELLOW (YELLOW); URINE GLUCOSE (UA) NEG (NEGATIVE); URINE HYALINE CAST 0-2 /hpf (0-2); URINE LEUKOCYTE ESTERASE SMALL Leu/uL (Negative); URINE PROTEIN NEGATIVE (NEGATIVE); URINE UROBILINOGEN 0.2-1.0 mg/dL (0.2-1.0)
[2018-10-15 07:11] VITALS: BP 137/72; PULSE 78; RESP 16; O2SAT 98
--- NOTE | 2018-10-15 10:42 | RAD ---
Date of service: 10/15/2018 HISTORY: fever COMPARISON: 10/08/2018. FINDINGS: LUNGS: The lungs are well inflated and clear. There is mild pulmonary venous congestion. PLEURA: No pneumothorax. Small effusions. CARDIOVASCULAR: The heart is normal in size. Atherosclerotic aortic arch calcifications are present. 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 VISUALIZED UPPER ABDOMEN: Normal. OTHER FINDINGS: None. IMPRESSION: Mild pulmonary venous congestion and small effusions. No lobar pneumonia.
--- NOTE | 2018-10-15 14:43 | CARD ---
APPROVED REPORT Date of service: 10/15/2018 EKG Measurement Heart [id number] <Conclusion> Sinus tachycardia with premature atrial complexes Left axis deviation Right bundle branch block Inferior infarct, age undetermined Abnormal ECG
== END 2018-10-15 06:15 | disposition home or self-care (01) ==
LOC: H.ER 01:07
DX: N39.0 Urinary tract infection, site not specified (principal); I10 Essential (primary) hypertension; J44.9 Chronic obstructive pulmonary disease, unspecified
CPT/HCPCS: 71045; 80048; 81003; 85025; 87040; 87086; 93005; 99282; J7030

== ENCOUNTER 2018-10-27 23:01 | Observation (INO) | payer MEDICARE, BC ==
[2018-10-27 23:03] VITALS: BMI 23.4
[2018-10-27] MEDS ORDERED: DiphenhydrAMINE 50 mg/ml Inj IVP STA (23:41)
[2018-10-27] MEDS ORDERED: DiphenhydrAMINE 50 mg/ml Inj ONE (23:43)
--- NOTE | 2018-10-27 23:46 | ED PDOC ---
HPI: General Adult Time Seen by Provider: 10/27/18 23:12 Chief Complaint (Nursing): Weakness/Neurological Deficit Chief Complaint (Provider): Chills History Per: Patient, EMS History/Exam Limitations: no limitations Additional History Per: Patient Additional Complaint(s): 88yo female, with history of hypertension, COPD, pneumonia, brought to ER by EMS for evaluation due to complaints of chills. Report mostly obtained from EMS as patient is a poor historian. Per report from EMS, patient had sudden onset chills 30 minutes prior to arrival. Patient states she has bodyaches and is unable to "stop shaking." She also reports a mild cough, and asthma exacerbation. Patient denies vomiting, chest pain and offers no additional complaints. PMD: Dr. Olsen Past Medical History Reviewed: Historical Data, Nursing Documentation, Vital Signs Vital Signs: Last Vital Signs Temp 100.3 F H 10/27/18 23:24 Pulse 122 H 10/27/18 23:09 Resp 20 10/27/18 23:09 BP 137/92 H 10/27/18 23:09 Pulse Ox 100 10/27/18 23:09 - Medical History PMH: Arthritis, Asthma, COPD, Fractures (left hip), HTN, Hypercholesterolemia, Pneumonia Denies: Alzheimer's Disease, Anemia, Anxiety, Atrial Fibrillation, Bipolar Disorder, Bronchitis, CAD, Cardia Arrhythmia, CHF, Crohn's Disease, Dementia, Depression, Diverticulitis, Emphysema, Gastritis, Gall Bladder Disease, HIV, Hyperthyroidism, Hypothyroidism, Kidney Stones, Migraine, Multiple Sclerosis, Osteoporosis, Pancreatitis, Paranoia, Parkinson's Disease, Peripheral Edema, Post Traumatic Stress Disorder, Pulmonary Embolism, Chronic Kidney Disease, Rheumatoid Arthritis, Schizophrenia, Seizures, Sickle Cell Disease, Sexually Transmitted Disease, Sleep Apnea, TIA - Surgical History Surgical History: Denies: Appendectomy, CABG, Carotid Endarterectomy, Cholecystectomy, Coronary Stent, Pacemaker - Family History Family History: States: No Known Family Hx, Unknown Family Hx - Immunization History Hx Tetanus Toxoid Vaccination: No Hx Influenza Vaccination: No Hx Pneumococcal Vaccination: No - Home Medications Home Medications: Ambulatory Orders Medication Instructions Recorded RX: Albuterol/Ipratropium [Duoneb 3 ml INH Q6 PRN #100 neb 09/08/18 3 mg/0.5 mg (3 ml) UD] Moxifloxacin [Avelox] 400 mg PO DAILY #8 tab 10/18/18 RX: Donepezil [Aricept] 5 mg PO DAILY #30 tab 10/18/18 RX: Montelukast [Singulair] 10 mg PO HS #30 tab 10/18/18 RX: Rivaroxaban [Xarelto] 10 mg PO QD5 #30 tab 10/18/18 RX: amLODIPine [Norvasc] 10 mg PO HS #30 tab 10/18/18 - Allergies Allergies/Adverse Reactions: Allergies Allergy/AdvReac Type Severity Reaction Status Date / Time No Known Allergies Allergy Verified 10/27/18 23:09 Review of Systems ROS Statement: Except As Marked, All Systems Reviewed And Found Negative (as per HPI) Constitutional: Positive for: Fever, Chills Cardiovascular: Negative for: Chest Pain Respiratory: Positive for: Cough. Negative for: Shortness of Breath Gastrointestinal: Negative for: Vomiting Physical Exam - Reviewed Nursing Documentation Reviewed: Yes Vital Signs Reviewed: Yes - Physical Exam Appears: Positive for: Non-toxic, No Acute Distress (controlable tremors) Head Exam: Positive for: ATRAUMATIC, NORMAL INSPECTION, NORMOCEPHALIC Skin: Positive for: Normal Color Eye Exam: Positive for: Normal appearance ENT: Positive for: Other (dry mucus membranes) Neck: Positive for: Supple Cardiovascular/Chest: Positive for: Tachycardia (regular rhythm) Respiratory: Positive for: Wheezing (scattered and expiratory wheeze). Negative for: Accessory Muscle Use, Respiratory Distress Gastrointestinal/Abdominal: Positive for: Normal Exam, Soft Extremity: Positive for: Normal ROM. Negative for: Pedal Edema Neurologic/Psych: Positive for: Alert, Oriented - Laboratory Results Result Diagrams: 10/28/18 05:30 10/28/18 05:30 - ECG O2 Sat by Pulse Oximetry: 100 Medical Decision Making Medical Decision Making: Impression: Chills, febrile illness Differential: Recurrent pneumonia, flu, viral syndrome, sepsis, UTI Plan: -- Labs -- EKG -- Urinalysis -- Chest x-ray -- Rapid flu -- Rapid strep -- Tamiflu 75mg PO -- Tylenol 975mg PO -- Benadryl 25mg IVP [address] Hudson pending ER workup, reassessment and disposition. Scribe Attestation: Documented by Josiane Chandler, acting as a scribe for Emani Main MD. Provider Scribe Attestation: All medical record entries made by the Scribe were at my direction and personally dictated by me. I have reviewed the chart and agree that the record accurately reflects my personal performance of the history, physical exam, medical decision making, and the department course for this patient. I have also personally directed, reviewed, and agree with the discharge instructions and disposition. Disposition - Clinical Impression Clinical Impression: Febrile illness - Patient ED Disposition Is Patient to be Admitted: Transfer of Care - Disposition Disposition: Transfer of Care Disposition Time: 23:50 Condition: FAIR Patient Signed Over To: Ntiza Hudson
--- NOTE | 2018-10-27 23:56 | ED PDOC ---
- Laboratory Results Result Diagrams: 10/27/18 23:33 10/27/18 23:33 - ECG O2 Sat by Pulse Oximetry: 100 (RA) Pulse Ox Interpretation: Normal Medical Decision Making Medical Decision Makin Patient endorsed to me by Dr. Main pending ER workup, reassessment and disposition. 0100 Rapid strep negative Patient's lactic acid noted to be 6.8; patient with elevated WBC's at 13.5. Code sepsis initiated, meeting 3 hr bundle. Patient received 1L fluids and starting 2nd liter now. Patient given Cefepime, Vancomycin and Azithromycin, meeting HCAP. Case discussed with Dr. Venegas, hospitalist production technologist, and patient admitted under him. 0114 Rapid flu negative 0153 Urinalysis reviewed, patient with UTI. Scribe Attestation: Documented by Josiane Chandler, acting as a scribe for Nitza Hudson MD. Provider Scribe Attestation: All medical record entries made by the Scribe were at my direction and personally dictated by me. I have reviewed the chart and agree that the record accurately reflects my personal performance of the history, physical exam, medical decision making, and the department course for this patient. I have also personally directed, reviewed, and agree with the discharge instructions and disposition. Disposition - Disposition Condition: STABLE
[2018-10-27] MEDS ORDERED: Povidone Iodine Oint 10% Foilpak UD ONE (23:59)
[2018-10-28 00:44] LABS: BASO % 0.1 % (0.0-2.0); EOS % 0.3 % (0.0-4.0); HEMOGLOBIN 11.8 g/dL (12.0-16.0); LYMPH # 0.9 K/uL (1.0-4.3); LYMPH % 6.5 % (20.0-40.0); MEAN CELL VOLUME 101.9 fl (81.0-99.0); MEAN CORPUSCULAR HGB CONC 32.4 g/dL (33.0-37.0); MEAN PLATELET VOLUME 8.6 fl (7.2-11.7); MONO # 0.1 K/uL (0.0-0.8); NEUT # 12.4 K/uL (1.8-7.0); NEUT % 92.1 % (50.0-75.0); NRBC % 0.1 % (0.0-0.0); PLATELET COUNT 404 K/uL (130-400); RBC 3.56 Mil/uL (3.80-5.20); RED CELL DISTRIBUTION WIDTH 14.4 % (11.5-14.5); WHITE BLOOD COUNT 13.5 K/uL (4.8-10.8)
[2018-10-28 00:49] LABS: SQUAMOUS EPITHIAL 7 /hpf (0-5); URINE BACTERIA RARE (<OCC); URINE HYALINE CAST >20 /hpf (0-2)
[2018-10-28 00:59] LABS: ALBUMIN 3.6 g/dL (3.5-5.0); ALT/SGPT 10 U/L (9-52); AST/SGOT 31 U/L (14-36); BLOOD UREA NITROGEN 16 mg/dl (7-17); CALCIUM 9.1 mg/dL (8.4-10.2); GFR NON-AFRICAN AMERICAN > 60
[2018-10-28] MEDS ORDERED: Sodium Chloride 0.9% 1,000 ML IV STA ×2 (01:02→01:03)
[2018-10-28] MEDS ORDERED: Azithromycin 500 MG in Sodium Chloride 0.9% 250 ML IVPB STA (01:07)
[2018-10-28] MEDS ORDERED: Cefepime 2 GM in Sodium Chloride 0.9% 100 ML IVPB STA (01:12)
[2018-10-28] MEDS ORDERED: Vancomycin 1 g Inj ONE (01:13)
[2018-10-28] MEDS ORDERED: Azithromycin 500 MG IV IVPB ONE (01:13)
[2018-10-28 01:39] LABS: URINE BILIRUBIN SMALL (NEGATIVE); URINE BLOOD LARGE (NEGATIVE); URINE CLARITY SLIGHT-CLOUDY (Clear); URINE COLOR YELLOW (YELLOW); URINE GLUCOSE (UA) NEGATIVE (NEGATIVE); URINE PROTEIN 300 mg/dL (NEGATIVE); URINE UROBILINOGEN 0.2 mg/dL (0.2-1.0)
[2018-10-28 01:40] LABS: URINE LEUKOCYTE ESTERASE SMALL Leu/uL (Negative)
--- NOTE | 2018-10-28 01:55 | CP.PCM.HP ---
History of Present Illness - History of Present Illness History of Present Illness: 88 yo F with history of COPD/asthma, HTN, LLE DVT of left popliteal vein (nonocclusive) who presented to ED with original complaint of chills. Originally in ED states she felt chills about 30 min prior to arrival, but upon my questioning states she feels "hot." Pt states she has body aches but denies specific pains like chest pain, abdominal pain. Denies having trouble breathing, but admits to having cough. Denies vomiting, nausea, issues urinating or stooling. She was recently admitted at [facility] with similar symptoms, and was treated with avelox 400 mg daily. Additional info as per chart review: PMH: HTN, COPD, asthma, Left DVT PSH: bilateral cataract surgery, left hip fracture reduction Home meds: Norvasc 10mg, Xarelto 10mg, Singulair 10mg, Aricept, Duonebs; pt is questionable historian, unclear if compliant w/ medication or if she filled scripts from recent discharge; pharmacy: [facility]. Allergies: NKDA Social hx: Lives at home with , denies history of smoking, alcohol or drug use. PMD: Dr. Olsen In ED: Vitals: temp 98.4 on presentation (100.3 rectal), pulse 122, BP 137/92, RR 20 O2 sat 100% on room air Labs: CBC: WBC 13.5k, Hgb 11.8, Hct 36.3, PLT 404 BUN/Cr 16/0.8 Lactate 6.8 Urine w/ hyaline casts, small LE Neg for flu Neg for strep CXR - appears to have L sided infiltrate Met sepsis criteria due to white count, lactate, tachycardia, resp rate...suspected source pneumonia (bacterial, possibly HAP) Urine, blood, throat cultures collected Received: 2L NS bolus 2 g cefepime 1g vancomycin 500 mg azithromycin Tamiflu 75 mg Tylenol 975 mg Present on Admission - Present on Admission Any Indicators Present on Admission: Yes History of DVT/PE: Yes Review of Systems - Review of Systems Review of Systems: as mentioned in hpi Past Patient History - Past Medical History & Family History Past Medical History?: Yes - Past Social History Smoking Status: Unknown If Ever Smoked - CARDIAC Hx Atrial Fibrillation: No Hx Cardia Arrhythmia: No Hx Congestive Heart Failure: No Hx Hypercholesterolemia: Yes Hx Hypertension: Yes Hx Pacemaker: No Hx Peripheral Edema: No - PULMONARY Hx Asthma: Yes Hx Bronchitis: No Hx Chronic Obstructive Pulmonary Disease (COPD): Yes Hx Emphysema: No Hx Pneumonia: Yes Hx Pulmonary Embolism: No Hx Sleep Apnea: No - NEUROLOGICAL Hx Alzheimer's Disease: No Hx Dementia: No Hx Migraine: No Hx Multiple Sclerosis: No Hx Parkinson's Disease: No Hx Seizures: No Hx Transient Ischemic Attacks (TIA): No - HEENT Hx HEENT Problems: Yes Hx Cataracts: Yes - RENAL Hx Chronic Kidney Disease: No Hx Kidney Stones: No - ENDOCRINE/METABOLIC Hx Hyperthyroidism: No Hx Hypothyroidism: No - HEMATOLOGICAL/ONCOLOGICAL Hx Anemia: No Hx Human Immunodeficiency Virus (HIV): No Hx Sickle Cell Disease: No - INTEGUMENTARY Hx Dermatological Problems: Yes Other/Comment: Sacral decubitus (healed) - MUSCULOSKELETAL/RHEUMATOLOGICAL Hx Arthritis: Yes Hx Fractures: Yes (left hip) Hx Osteoporosis: No Hx Rheumatoid Arthritis: No - GASTROINTESTINAL Hx Crohn's Disease: No Hx Diverticulitis: No Hx Gall Bladder Disease: No Hx Gastritis: No Hx Pancreatitis: No - GENITOURINARY/GYNECOLOGICAL Hx Sexually Transmitted Disorders: No - PSYCHIATRIC Hx Anxiety: No Hx Bipolar Disorder: No Hx Depression: No Hx Paranoia: No Hx Post Traumatic Stress Disorder: No Hx Schizophrenia: No - SURGICAL HISTORY Hx Appendectomy: No Hx Carotid Endarterectomy: No Hx Cholecystectomy: No Hx Coronary Artery Bypass Graft: No Hx Coronary Stent: No - ANESTHESIA Hx Anesthesia: Yes Hx Anesthesia Reactions: No Hx Malignant Hyperthermia: No Meds Allergies/Adverse Reactions: Allergies Allergy/AdvReac Type Severity Reaction Status Date / Time No Known Allergies Allergy Verified 10/27/18 23:09 Physical Exam - Constitutional Appears: No Acute Distress - Head Exam Head Exam: NORMAL INSPECTION - Eye Exam Eye Exam: Normal appearance - ENT Exam ENT Exam: Mucous Membranes Dry - Respiratory Exam Respiratory Exam: NORMAL BREATHING PATTERN. absent: Respiratory Distress Additional comments: coarse sounds left posterior chest - Cardiovascular Exam Cardiovascular Exam: REGULAR RHYTHM, +S1, +S2 - GI/Abdominal Exam GI & Abdominal Exam: Normal Bowel Sounds, Soft. absent: Tenderness - Extremities Exam Extremities exam: Positive for: normal inspection. Negative for: calf tenderness, pedal edema - Neurological Exam Neurological exam: Alert - Skin Skin Exam: Warm Results - Vital Signs Recent Vital Signs: Last Vital Signs Temp 100.0 F H 10/28/18 01:29 Pulse 93 H 10/28/18 01:29 Resp 19 10/28/18 01:29 BP 127/61 10/28/18 01:29 Pulse Ox 100 10/28/18 01:54 - Labs Result Diagrams: 10/27/18 23:33 10/27/18 23:33 Labs: Laboratory Results - last 24 hr 10/27/18 10/27/18 10/27/18 23:33 23:33 23:33 WBC 13.5 H D RBC 3.56 L Hgb 11.8 L Hct 36.3 MCV 101.9 H MCH 33.0 H MCHC 32.4 L RDW 14.4 Plt Count 404 H D MPV 8.6 Neut % (Auto) 92.1 H Lymph % (Auto) 6.5 L [place] % (Auto) 1.0 Eos % (Auto) 0.3 Baso % (Auto) 0.1 Neut # (Auto) 12.4 H Lymph # (Auto) 0.9 L [place] # (Auto) 0.1 Eos # (Auto) 0.0 Baso # (Auto) 0.0 Sodium 141 Potassium 4.5 Chloride 108 H Carbon Dioxide 20 L Anion Gap 18 BUN 16 Creatinine 0.8 Est GFR ( Amer) > 60 Est GFR (Non-Af Amer) > 60 POC Glucose (mg/dL) Random Glucose 108 H Lactic Acid 6.8 H* Calcium 9.1 Phosphorus 3.7 Magnesium 1.7 Total Bilirubin 0.5 AST 31 ALT 10 Alkaline Phosphatase 165 H D Total Protein 7.0 Albumin 3.6 Globulin 3.4 Albumin/Globulin Ratio 1.0 Urine Color Urine Clarity Urine pH Ur Specific [place] Urine Protein Urine Glucose (UA) Urine Ketones Urine Blood Urine Nitrate Urine Bilirubin Urine Urobilinogen Ur Leukocyte Esterase Urine RBC (Auto) Urine Microscopic WBC Ur Squamous Epith Cells Ur Transition Epith Cell Urine Bacteria Hyaline Casts Influenza Typ A,B (EIA) Grp A Beta Strep Ag 10/27/18 10/28/18 10/28/18 23:45 00:05 00:12 WBC RBC Hgb Hct MCV MCH MCHC RDW Plt Count MPV Neut % (Auto) Lymph % (Auto) [place] % (Auto) Eos % (Auto) Baso % (Auto) Neut # (Auto) Lymph # (Auto) [place] # (Auto) Eos # (Auto) Baso # (Auto) Sodium Potassium Chloride Carbon Dioxide Anion Gap BUN Creatinine Est GFR ( Amer) Est GFR (Non-Af Amer) POC Glucose (mg/dL) 119 H Random Glucose Lactic Acid Calcium Phosphorus Magnesium Total Bilirubin AST ALT Alkaline Phosphatase Total Protein Albumin Globulin Albumin/Globulin Ratio Urine Color Yellow Urine Clarity Slight-cloudy Urine pH 6.0 Ur Specific [place] 1.025 Urine Protein 300 Urine Glucose (UA) Negative Urine Ketones 80 Urine Blood Large Urine Nitrate Negative Urine Bilirubin Small Urine Urobilinogen 0.2 Ur Leukocyte Esterase Small Urine RBC (Auto) 127 H Urine Microscopic WBC 56 H Ur Squamous Epith Cells 7 H Ur Transition Epith Cell 1 Urine Bacteria Rare Hyaline Casts >20 H Influenza Typ A,B (EIA) Negative for flu a/b Grp A Beta Strep Ag 10/28/18 00:12 WBC RBC Hgb Hct MCV MCH MCHC RDW Plt Count MPV Neut % (Auto) Lymph % (Auto) [place] % (Auto) Eos % (Auto) Baso % (Auto) Neut # (Auto) Lymph # (Auto) [place] # (Auto) Eos # (Auto) Baso # (Auto) Sodium Potassium Chloride Carbon Dioxide Anion Gap BUN Creatinine Est GFR ( Amer) Est GFR (Non-Af Amer) POC Glucose (mg/dL) Random Glucose Lactic Acid Calcium Phosphorus Magnesium Total Bilirubin AST ALT Alkaline Phosphatase Total Protein Albumin Globulin Albumin/Globulin Ratio Urine Color Urine Clarity Urine pH Ur Specific [place] Urine Protein Urine Glucose (UA) Urine Ketones Urine Blood Urine Nitrate Urine Bilirubin Urine Urobilinogen Ur Leukocyte Esterase Urine RBC (Auto) Urine Microscopic WBC Ur Squamous Epith Cells Ur Transition Epith Cell Urine Bacteria Hyaline Casts Influenza Typ A,B (EIA) Grp A Beta Strep Ag Negative Assessment & Plan - Assessment and Plan (Free Text) Assessment: 88 yo F with history of COPD/asthma, HTN, LLE DVT of left popliteal vein (nonocclusive) who presented to ED with complaint of chills; found to meet sepsis criteria. Admitted for likely bacterial HAP. Plan: Sepsis, likely secondary to pneumonia - S/p fluid resuscitation; continue with IV hydration; now NS @ 100 ml/hr - Continue with antibiotics - cefepime 2 mg Q8h, vancomycin 1 mg Q12h, azithromycin 500mg daily - F/u blood, urine, throat cultures - Repeat lactic acid in am - F/u morning CBC - Mycoplasma IgG/IgM and legionella urine Ag ordered - F/u official CXR read - Monitor I&O - Telemetry monitoring - Duonebs Q4H PRN - Resume home med singulair - 2L O2 via NC as needed to maintain O2 sat above 92% Hypertension - Home med norvasc 10 mg - Hold for now due to normotensive state History of Left Lower Ext DVT - Home med xarelto 10 mg; was receiving this dose during [facility] admission 10/16-10/18 ( verify w/ [facility] if pt picked up meds after d/c?) Diet - Heart Healthy diet Pt seen in ED/discussed w/ Dr. Venegas.
[2018-10-28 02:09] LABS: BANDS 4 % (0-2); LYMPHOCYTE 9 % (20-50); MONOCYTE 1 % (0-10); NEUTROPHIL 86 % (42-75); PLATELET ESTIMATE SLIGHTLY INCREASED (NORMAL); TOTAL CELLS COUNTED 100
[2018-10-28 02:13] LABS: LARGE PLATELETS PRESENT; OVALOCYTES SLIGHT; PLATELET CLUMPS PRESENT
[2018-10-28] MEDS ORDERED: Albuterol-Ipratrop 3 mg / 0.5 (3 ml) UD INH PRN (03:51)
[2018-10-28] MEDS: Sodium Chloride 0.9% 1,000 ML IV SCH ×2 (04:59→17:34)
[2018-10-28] MEDS: Artificial Tears Opht Soln OU PRN ×2 (05:38→17:36)
[2018-10-28 06:38] LABS: BASO # 0.1 K/uL (0.0-0.2); BASO % 0.4 % (0.0-2.0); EOS % 0.1 % (0.0-4.0); HEMOGLOBIN 9.6 g/dL (12.0-16.0); LYMPH # 0.6 K/uL (1.0-4.3); LYMPH % 3.9 % (20.0-40.0); MEAN CELL VOLUME 100.1 fl (81.0-99.0); MEAN CORPUSCULAR HEMOGLOBIN 32.7 pg (27.0-31.0); MEAN CORPUSCULAR HGB CONC 32.7 g/dL (33.0-37.0); MEAN PLATELET VOLUME 8.5 fl (7.2-11.7); MONO # 0.6 K/uL (0.0-0.8); MONO % 3.7 % (0.0-10.0); NEUT # 14.8 K/uL (1.8-7.0); NEUT % 91.9 % (50.0-75.0); PLATELET COUNT 228 K/uL (130-400); RBC 2.93 Mil/uL (3.80-5.20); RED CELL DISTRIBUTION WIDTH 14.1 % (11.5-14.5)
[2018-10-28 06:55] LABS: ALB/GLOB RATIO 0.8 (1.0-2.1); ALBUMIN 2.4 g/dL (3.5-5.0); ALT/SGPT 30 U/L (9-52); AST/SGOT 47 U/L (14-36); BLOOD UREA NITROGEN 16 mg/dl (7-17); GFR NON-AFRICAN AMERICAN > 60
[2018-10-28 09:00] LABS: ANISOCYTOSIS SLIGHT; BANDS 3 % (0-2); BASOPHIL 1 % (0-2); HYPOCHROMIC SLIGHT; LARGE PLATELETS PRESENT; LYMPHOCYTE 5 % (20-50); MONOCYTE 3 % (0-10); NEUTROPHIL 88 % (42-75); OVALOCYTES SLIGHT; PLATELET ESTIMATE NORMAL (NORMAL); TOTAL CELLS COUNTED 100
[2018-10-28] MEDS ORDERED: Cefepime 2 GM in Sodium Chloride 0.9% 100 ML IVPB SCH (09:00)
[2018-10-28] MEDS: Azithromycin 500 MG in Sodium Chloride 0.9% 250 ML IVPB SCH (10:12)
[2018-10-28] MEDS: Albuterol-Ipratrop 3 mg / 0.5 (3 ml) UD INH SCH ×3 (11:14→19:45)
--- NOTE | 2018-10-28 14:30 | RAD ---
Date of service: 10/27/2018 HISTORY: chills COMPARISON: Comparison chest 10/15/2018. Comparison also made with CTA chest 10/10/2018. FINDINGS: LUNGS: Persistent mild pulmonary venous congestive changes with apparent alveolar-type infiltrates in the mid to lower lung merritt.. Small bilateral effusions are also felt be present PLEURA: As above. No pneumothorax apparent. CARDIOVASCULAR: Mild aortic atherosclerotic calcification present. Normal cardiac size. No pulmonary vascular congestion. OSSEOUS STRUCTURES: No significant abnormalities. VISUALIZED UPPER ABDOMEN: Normal. OTHER FINDINGS: None. IMPRESSION: Persistent mild pulmonary venous congestive changes with apparent alveolar-type infiltrates in the mid to lower lung merritt.. Small bilateral effusions are also felt be present
--- NOTE | 2018-10-28 16:33 | US ---
Date of service: 10/28/2018 PROCEDURE: Ultrasound of the Kidneys HISTORY: Hematuria COMPARISON: None available. TECHNIQUE: Sonogram of the kidneys. FINDINGS: RIGHT KIDNEY: Measures: 9.3 x 4.0 x 4.6 cm. Normal in size, contour and echogenicity. No stone, solid mass lesion or hydronephrosis visualized. LEFT KIDNEY: Measures: 10.7 x 4.6 x 4.9 cm. Normal in size, contour and echogenicity. No stone, solid mass lesion or hydronephrosis visualized. OTHER FINDINGS: Prevoid bladder volume calculated at 240 cc and postvoid at approximately 31 cc. No significant urinary bladder wall thickening. No evidence of intraluminal urinary bladder masses. Right ureteral jet visible however the left ureteral jet was not visualized on this exam Incidental note made of cholelithiasis. IMPRESSION: Unremarkable renal ultrasound. Cholelithiasis.
--- NOTE | 2018-10-28 20:49 | CARD ---
APPROVED REPORT Date of service: 10/28/2018 EKG Measurement Heart [id number] <Conclusion> Normal sinus rhythm Left axis deviation Incomplete right bundle branch block Possible Lateral infarct, age undetermined Inferior infarct, age undetermined Abnormal ECG
[2018-10-28] MEDS: Cefepime 2 GM in Sodium Chloride 0.9% 100 ML IVPB SCH (21:07)
[2018-10-29] MEDS: Sodium Chloride 0.9% 1,000 ML IV SCH (01:35)
[2018-10-29] MEDS: Albuterol-Ipratrop 3 mg / 0.5 (3 ml) UD INH SCH ×4 (02:46→19:39)
[2018-10-29] MEDS: Cefepime 2 GM in Sodium Chloride 0.9% 100 ML IVPB SCH ×3 (04:02→20:10)
[2018-10-29 05:27] LABS: BASO % 0.5 % (0.0-2.0); EOS # 0.3 K/uL (0.0-0.7); EOS % 3.3 % (0.0-4.0); HEMOGLOBIN 9.7 g/dL (12.0-16.0); LYMPH % 10.6 % (20.0-40.0); MEAN CELL VOLUME 99.1 fl (81.0-99.0); MEAN CORPUSCULAR HEMOGLOBIN 32.7 pg (27.0-31.0); MEAN PLATELET VOLUME 8.9 fl (7.2-11.7); MONO # 0.3 K/uL (0.0-0.8); MONO % 3.7 % (0.0-10.0); NEUT # 7.4 K/uL (1.8-7.0); NEUT % 81.9 % (50.0-75.0); RBC 2.98 Mil/uL (3.80-5.20); RED CELL DISTRIBUTION WIDTH 14.1 % (11.5-14.5)
[2018-10-29 05:47] LABS: BLOOD UREA NITROGEN 9 mg/dl (7-17); CALCIUM 8.2 mg/dL (8.4-10.2); GFR NON-AFRICAN AMERICAN > 60
[2018-10-29] MEDS ORDERED: Potassium Chloride 20 mEq ER Tab PO ONE (07:30)
[2018-10-29] MEDS: Azithromycin 500 MG in Sodium Chloride 0.9% 250 ML IVPB SCH (09:19)
[2018-10-29] MEDS: Artificial Tears Opht Soln OU PRN (09:21)
[2018-10-29] MEDS: Potassium Chloride 20 mEq ER Tab PO ONE ×2 (09:27→16:15)
--- NOTE | 2018-10-29 10:19 | CP.PCM.PN ---
<Teto Aguirre - Last Filed: 10/29/18 10:24> Subjective - Date & Time of Evaluation Date of Evaluation: 10/29/18 Time of Evaluation: 09:20 - Subjective Subjective: Seen at bedside lying in bed. no acute distress. States feeling improved. Afebrile overnight. Tolerating PO but has lack of appetite that is chronic as per patient. Denies vomiting, nausea, diarrhea. Objective - Vital Signs/Intake and Output Vital Signs (last 24 hours): Temp Pulse Resp BP Pulse Ox 97.8 F 74 18 121/52 L 100 10/29/18 07:49 10/29/18 07:49 10/29/18 07:49 10/29/18 07:49 10/29/18 07:49 - Medications Medications: Current Medications Acetaminophen (Tylenol 325mg Tab) 650 mg PO Q6 PRN PRN Reason: Pain, Mild (1-3) Last Admin: 10/28/18 17:32 Dose: 650 mg Albuterol/Ipratropium (Duoneb 3 Mg/0.5 Mg (3 Ml) Ud) 3 ml INH RQ6 REGINALD Last Admin: 10/29/18 07:38 Dose: 3 ml Artificial Tears (Artificial Tears) 2 drop OU Q6 PRN PRN Reason: Dry eyes Last Admin: 10/29/18 09:21 Dose: 2 drop Donepezil HCl (Aricept) 5 mg PO DAILY REGINALD Last Admin: 10/29/18 09:21 Dose: 5 mg Azithromycin 500 mg/ Sodium (Chloride) 250 mls @ 250 mls/hr IVPB DAILY REGINALD; Protocol Last Admin: 10/29/18 09:19 Dose: 250 mls/hr Vancomycin HCl 1 gm/ Sodium (Chloride) 250 mls @ 166.667 mls/hr IVPB DAILY REGINALD; Protocol Last Admin: 10/29/18 09:20 Dose: 166.667 mls/hr Cefepime HCl 2 gm/ Sodium (Chloride) 100 mls @ 100 mls/hr IVPB Q8@0400,1 200,2000 REGINALD; Protocol Last Admin: 10/29/18 04:02 Dose: 100 mls/hr Montelukast Sodium (Singulair) 10 mg PO HS REGINALD Last Admin: 10/28/18 21:07 Dose: 10 mg Potassium Chloride (K-Dur 20 Meq Er Tab) 20 meq PO ONCE ONE Stop: 10/29/18 12:01 Last Admin: 10/29/18 09:27 Dose: 20 meq Rivaroxaban (Xarelto) 10 mg PO QD5 REGINALD; Protocol Last Admin: 10/28/18 17:36 Dose: 10 mg - Labs Labs: 10/29/18 04:25 10/29/18 04:25 - Constitutional Appears: Non-toxic, Chronically Ill - Eye Exam Eye Exam: PERRL - ENT Exam ENT Exam: Mucous Membranes Moist - Respiratory Exam Respiratory Exam: Decreased Breath Sounds, Rales (LLL), NORMAL BREATHING PAT TERN. absent: Wheezes, Respiratory Distress - Cardiovascular Exam Cardiovascular Exam: +S1, +S2. absent: Gallop - GI/Abdominal Exam GI & Abdominal Exam: Soft, Normal Bowel Sounds. absent: Tenderness - Extremities Exam Extremities Exam: absent: Calf Tenderness, Pedal Edema - Back Exam Back Exam: absent: CVA tenderness (L), CVA tenderness (R) - Neurological Exam Neurological Exam: Alert, Awake, Oriented x3. absent: Motor Sensory Deficit - Psychiatric Exam Psychiatric exam: Normal Affect, Normal Mood - Skin Skin Exam: Normal Color, Warm Assessment and Plan - Assessment and Plan (Free Text) Assessment: 88 yo F with history of COPD/asthma, HTN, LLE DVT of left popliteal vein (nonocclusive) who presented to ED with complaint of chills; found to meet s epsis criteria. Admitted for likely bacterial HAP. Sepsis, likely secondary to pneumonia - Resolved. Afebrile. No white count. VS stable. Lactic acid normalized - S/p fluid resuscitation; continue with IV hydration; now NS @ 100 ml/hr - Continue with antibiotics - cefepime 2 mg Q8h, vancomycin 1 mg Q12h, azithromycin 500mg daily - UCx <1000 colonies. - CXR possible alveolar infiltrates + chronic changes. Please see full report - Mycoplasma IgG/IgM and legionella urine Ag ordered - Duonebs Q4H PRN - Doing well - Can prob be transferred to TCU to c/w IV abx. HAP Suspected - VS stable - Afebrile last night - CXR possible alveolar infiltrates. DC from [facility] earlier this month and didnt finish outpatient treatment with Abx - C/w Cefepime, Vanco and Zithromax for now Hypertension - Stable - Hold Norvasc for now due to normotensive state History of Left Lower Ext DVT - c/w med xarelto 10 mg Diet - Heart Healthy diet - Diet supplements ordered today <Delia Martinez - Last Filed: 10/29/18 15:08> Objective - Vital Signs/Intake and Output Vital Signs (last 24 hours): Temp Pulse Resp BP Pulse Ox 98.8 F 69 18 105/54 L 98 10/29/18 11:56 10/29/18 11:56 10/29/18 11:56 10/29/18 11:56 10/29/18 11:56 - Medications Medications: Current Medications Acetaminophen (Tylenol 325mg Tab) 650 mg PO Q6 PRN PRN Reason: Pain, Mild (1-3) Last Admin: 10/29/18 11:37 Dose: 650 mg Albuterol/Ipratropium (Duoneb 3 Mg/0.5 Mg (3 Ml) Ud) 3 ml INH RQ6 REGINALD Last Admin: 10/29/18 13:37 Dose: 3 ml Artificial Tears (Artificial Tears) 2 drop OU Q6 PRN PRN Reason: Dry eyes Last Admin: 10/29/18 09:21 Dose: 2 drop Donepezil HCl (Aricept) 5 mg PO DAILY REGINALD Last Admin: 10/29/18 09:21 Dose: 5 mg Azithromycin 500 mg/ Sodium (Chloride) 250 mls @ 250 mls/hr IVPB DAILY REGINALD; Protocol Last Admin: 10/29/18 09:19 Dose: 250 mls/hr Vancomycin HCl 1 gm/ Sodium (Chloride) 250 mls @ 166.667 mls/hr IVPB DAILY REGINALD; Protocol Last Admin: 10/29/18 09:20 Dose: 166.667 mls/hr Cefepime HCl 2 gm/ Sodium (Chloride) 100 mls @ 100 mls/hr IVPB Q8@0400,1200,2000 REGINALD; Protocol Last Admin: 10/29/18 11:35 Dose: 100 mls/hr Montelukast Sodium (Singulair) 10 mg PO HS REGINALD Last Admin: 10/28/18 21:07 Dose: 10 mg Rivaroxaban (Xarelto) 10 mg PO QD5 REGINALD; Protocol Last Admin: 10/28/18 17:36 Dose: 10 mg - Labs Labs: 10/29/18 04:25 10/29/18 04:25 Attending/Attestation - Attestation I have personally seen and examined this patient.: Yes I have fully participated in the care of the patient.: Yes I have reviewed all pertinent clinical information, including history, physical exam and plan: Yes Notes (Text): Sepsis sec to Bacterial Pneumonia ( HCAP) UTI Hypokalemia -cont IV Cefepime , Vanco and Azithro - afebrile, lactic acid normalized, WBC trended down - will await cultures , SW to arrange TCU/KATTY placement for IV Abx to complete 2 wks tx
--- NOTE | 2018-10-29 15:32 | PQF ---
PROVIDER RESPONSE TEXT: Sepsis due to Bacterial Pneumonia UTI REVIEWER QUERY TEXT: Conflicting Documentation Clarification UTI appears in the record and then the dx. is dropped in the 10/29 progress note. Please document if the condition is: -- Confirmed and current -- Confirmed, treated and resolved -- Ruled out -- Other, please specify 10/27: Urine, catheterized culture: no growth 10/28 U/A: slightly cloudy: microscopic WBC 56: Bacteria rare ER note includes: [id number] Urinalysis reviewed, patient with UTI. H and P second addendum includes: Most likely source of sepsis UTI ? 10/29 Resident progress note includes: Sepsis, likely secondary to pneumonia - Resolved.- Continue wi th antibiotics - cefepime 2 mg Q8h, vancomycin 1 mg Q12h, azithromycin 500mg daily - UCx <1000 colonies. The patient's Clinical Indicators include: -- Query created by: Michela Arellano on 10/29/2018 3:08 PM Electronically signed by: Delia Martinez MD 10/29/2018 3:29 PM
--- NOTE | 2018-10-29 15:39 | CP.PCM.DIS ---
<Teto Aguirre - Last Filed: 10/29/18 15:36> Provider - Provider Date of Admission: 10/28/18 01:09 Attending physician: Lucio Venegas MD Consults: 10/28/18 03:24 Pastoral Care Referral Routine Comment: Physician Instructions: Reason For Exam: new admission 10/28/18 07:15 Wound Care [Nursing Referral for Wound Care] Routine Comment: Physician Instructions: Reason For Exam: sacral redness Time Spent in preparation of Discharge (in minutes): 35 Diagnosis - Discharge Diagnosis (1) Sepsis Status: Resolved Comment: Resolved. (2) Pneumonia Status: Acute Priority: High Comment: Suspected. Needs IV abx (3) UTI (urinary tract infection) Status: Suspected Priority: Medium Comment: UA abnormal. Neg UCx (4) Anemia Status: Chronic Hospital Course - Lab Results Lab Results: Micro Results 10/28/18 00:12 Throat Group A Strep Throat Culture - Final NO BETA STREP GROUP A ISOLATED. 10/27/18 07:50 Urine,Catheterized Urine Culture - Final No Growth (<1,000 CFU/ML) 10/27/18 07:50 Blood-Venous Blood Culture - Preliminary NO GROWTH AFTER 24 HOURS 10/27/18 07:50 Blood-Venous Blood Culture - Preliminary NO GROWTH AFTER 24 HOURS Most Recent Lab Values WBC 9.0 K/uL (4.8-10.8) 10/29/18 04:25 RBC 2.98 Mil/uL (3.80-5.20) L 10/29/18 04:25 Hgb 9.7 g/dL (12.0-16.0) L 10/29/18 04:25 Hct 29.5 % (34.0-47.0) L 10/29/18 04:25 MCV 99.1 fl (81.0-99.0) H 10/29/18 04:25 MCH 32.7 pg (27.0-31.0) H 10/29/18 04:25 MCHC 33.0 g/dL (33.0-37.0) 10/29/18 04:25 RDW 14.1 % (11.5-14.5) 10/29/18 04:25 Plt Count 211 K/uL (130-400) 10/29/18 04:25 MPV 8.9 fl (7.2-11.7) 10/29/18 04:25 Neut % (Auto) 81.9 % (50.0-75.0) H 10/29/18 04:25 Lymph % (Auto) 10.6 % (20.0-40.0) L 10/29/18 04:25 Irwin % (Auto) 3.7 % (0.0-10.0) 10/29/18 04:25 Eos % (Auto) 3.3 % (0.0-4.0) 10/29/18 04:25 Baso % (Auto) 0.5 % (0.0-2.0) 10/29/18 04:25 Neut # (Auto) 7.4 K/uL (1.8-7.0) H 10/29/18 04:25 Lymph # (Auto) 1.0 K/uL (1.0-4.3) 10/29/18 04:25 Irwin # (Auto) 0.3 K/uL (0.0-0.8) 10/29/18 04:25 Eos # (Auto) 0.3 K/uL (0.0-0.7) 10/29/18 04:25 Baso # (Auto) 0.0 K/uL (0.0-0.2) 10/29/18 04:25 Neutrophils % (Manual) 88 % (42-75) H 10/28/18 05:30 Band Neutrophils % 3 % (0-2) H 10/28/18 05:30 Lymphocytes % (Manual) 5 % (20-50) L 10/28/18 05:30 Monocytes % (Manual) 3 % (0-10) 10/28/18 05:30 Basophils % (Manual) 1 % (0-2) 10/28/18 05:30 Platelet Estimate Normal (NORMAL) 10/28/18 05:30 Plt Clumps, EDTA Present 10/27/18 23:33 Large Platelets Present 10/28/18 05:30 Hypochromasia (manual) Slight 10/28/18 05:30 Anisocytosis (manual) Slight 10/28/18 05:30 Macrocytosis (manual) Slight 10/28/18 05:30 Ovalocytes Slight 10/28/18 05:30 Sodium 140 mmol/l (132-148) 10/29/18 04:25 Potassium 3.0 MMOL/L (3.6-5.0) L 10/29/18 04:25 Chloride 112 mmol/L (98-107) H 10/29/18 04:25 Carbon Dioxide 23 mmol/L (22-30) 10/29/18 04:25 Anion Gap 8 (10-20) L 10/29/18 04:25 BUN 9 mg/dl (7-17) 10/29/18 04:25 Creatinine 0.5 mg/dl (0.7-1.2) L 10/29/18 04:25 Est GFR ( Amer) > 60 10/29/18 04:25 Est GFR (Non-Af Amer) > 60 10/29/18 04:25 POC Glucose (mg/dL) 119 mg/dL (65-110) H 10/27/18 23:45 Random Glucose 93 mg/dL (65-105) 10/29/18 04:25 Lactic Acid 1.1 MMOL/L (0.7-2.1) 10/28/18 05:30 Calcium 8.2 mg/dL (8.4-10.2) L 10/29/18 04:25 Phosphorus 3.7 mg/dl (2.5-4.5) 10/27/18 23:33 Magnesium 1.7 MG/DL (1.6-2.3) 10/27/18 23:33 Total Bilirubin 0.4 mg/dl (0.2-1.3) 10/28/18 05:30 AST 47 U/L (14-36) H D 10/28/18 05:30 ALT 30 U/L (9-52) 10/28/18 05:30 Alkaline Phosphatase 122 U/L (38-126) 10/28/18 05:30 Total Protein 5.4 G/DL (6.3-8.2) L 10/28/18 05:30 Albumin 2.4 g/dL (3.5-5.0) L D 10/28/18 05:30 Globulin 2.9 gm/dL (2.2-3.9) 10/28/18 05:30 Albumin/Globulin Ratio 0.8 (1.0-2.1) L 10/28/18 05:30 Procalcitonin 69.33 NG/ML (0.19-0.49) H 10/28/18 05:30 Urine Color Yellow (YELLOW) 10/28/18 00:05 Urine Clarity Slight-cloudy (Clear) 10/28/18 00:05 Urine pH 6.0 (5.0-8.0) 10/28/18 00:05 Ur Specific [place] 1.025 (1.003-1.030) 10/28/18 00:05 Urine Protein 300 mg/dL (NEGATIVE) 10/28/18 00:05 Urine Glucose (UA) Negative mg/dL (NEGATIVE) 10/28/18 00:05 Urine Ketones 80 mg/dL (NEGATIVE) 10/28/18 00:05 Urine Blood Large (NEGATIVE) 10/28/18 00:05 Urine Nitrate Negative (NEGATIVE) 10/28/18 00:05 Urine Bilirubin Small (NEGATIVE) 10/28/18 00:05 Urine Urobilinogen 0.2 mg/dL (0.2-1.0) 10/28/18 00:05 Ur Leukocyte Esterase Small Ra/uL (Negative) 10/28/18 00:05 Urine RBC (Auto) 127 /hpf (0-3) H 10/28/18 00:05 Urine Microscopic WBC 56 /hpf (0-5) H 10/28/18 00:05 Ur Squamous Epith Cells 7 /hpf (0-5) H 10/28/18 00:05 Ur Transition Epith Cell 1 /hpf (0-3) 10/28/18 00:05 Urine Bacteria Rare (<OCC) 10/28/18 00:05 Hyaline Casts >20 /hpf (0-2) H 10/28/18 00:05 Influenza Typ A,B (EIA) Negative for flu a/b (NEGATIVE) 10/28/18 00:12 Grp A Beta Strep Ag Negative (NEGATIVE) 10/28/18 00:12 - Hospital Course Hospital Course: 88 y/o F admitted for sepsis due to suspected HAP and possible UTI after prese nting with fevers and chills. On admission patient had lactic acid elevation, and mild leukocytosis. Patient responded to IV abx. CXR showed poss alveolar infiltrates. UA abnormal but UCx neg. Patient remained afebrile and leukocytosis resolved. Clinically stable, tolerating PO and no diarrhea, SOB or CP. Today she is decided to transfer to TCU to c/w IV abx. Discharge Exam - Head Exam Head Exam: ATRAUMATIC, NORMAL INSPECTION, NORMOCEPHALIC Discharge Plan - Discharge Medications Prescriptions: Azithromycin 500mg/250ML NS [Zithromax 500mg in NS Addvantage] 500 mg IV Q24H 7 Days bag Cefepime IV 2 gm in NS [Maxipime 2gm] 2 gm IVPB Q12 10 Days bag Vancomycin/0.9 % Sod Chloride [Vanco 1 Gram/150 ml-0.9% NaCl] 1 gm IV DAILY 10 Days plast..bag - Follow Up Plan Condition: STABLE Disposition: REHAB FACILITY/REHAB UNIT Additional Instructions: d/c to TCU <MartinezDelia - Last Filed: 10/29/18 17:44> Provider - Provider Date of Admission: 10/28/18 01:09 Attending physician: Lucio Venegas MD Consults: 10/28/18 03:24 Pastoral Care Referral Routine Comment: Physician Instructions: Reason For Exam: new admission 10/28/18 07:15 Wound Care [Nursing Referral for Wound Care] Routine Comment: Physician Instructions: Reason For Exam: sacral redness Hospital Course - Lab Results Lab Results: Micro Results 10/28/18 00:12 Throat Group A Strep Throat Culture - Final NO BETA STREP GROUP A ISOLATED. 10/27/18 07:50 Urine,Catheterized Urine Culture - Final No Growth (<1,000 CFU/ML) 10/27/18 07:50 Blood-Venous Blood Culture - Preliminary NO GROWTH AFTER 24 HOURS 10/27/18 07:50 Blood-Venous Blood Culture - Preliminary NO GROWTH AFTER 24 HOURS Most Recent Lab Values WBC 9.0 K/uL (4.8-10.8) 10/29/18 04:25 RBC 2.98 Mil/uL (3.80-5.20) L 10/29/18 04:25 Hgb 9.7 g/dL (12.0-16.0) L 10/29/18 04:25 Hct 29.5 % (34.0-47.0) L 10/29/18 04:25 MCV 99.1 fl (81.0-99.0) H 10/29/18 04:25 MCH 32.7 pg (27.0-31.0) H 10/29/18 04:25 MCHC 33.0 g/dL (33.0-37.0) 10/29/18 04:25 RDW 14.1 % (11.5-14.5) 10/29/18 04:25 Plt Count 211 K/uL (130-400) 10/29/18 04:25 MPV 8.9 fl (7.2-11.7) 10/29/18 04:25 Neut % (Auto) 81.9 % (50.0-75.0) H 10/29/18 04:25 Lymph % (Auto) 10.6 % (20.0-40.0) L 10/29/18 04:25 Irwin % (Auto) 3.7 % (0.0-10.0) 10/29/18 04:25 Eos % (Auto) 3.3 % (0.0-4.0) 10/29/18 04:25 Baso % (Auto) 0.5 % (0.0-2.0) 10/29/18 04:25 Neut # (Auto) 7.4 K/uL (1.8-7.0) H 10/29/18 04:25 Lymph # (Auto) 1.0 K/uL (1.0-4.3) 10/29/18 04:25 Irwin # (Auto) 0.3 K/uL (0.0-0.8) 10/29/18 04:25 Eos # (Auto) 0.3 K/uL (0.0-0.7) 10/29/18 04:25 Baso # (Auto) 0.0 K/uL (0.0-0.2) 10/29/18 04:25 Neutrophils % (Manual) 88 % (42-75) H 10/28/18 05:30 Band Neutrophils % 3 % (0-2) H 10/28/18 05:30 Lymphocytes % (Manual) 5 % (20-50) L 10/28/18 05:30 Monocytes % (Manual) 3 % (0-10) 10/28/18 05:30 Basophils % (Manual) 1 % (0-2) 10/28/18 05:30 Platelet Estimate Normal (NORMAL) 10/28/18 05:30 Plt Clumps, EDTA Present 10/27/18 23:33 Large Platelets Present 10/28/18 05:30 Hypochromasia (manual) Slight 10/28/18 05:30 Anisocytosis (manual) Slight 10/28/18 05:30 Macrocytosis (manual) Slight 10/28/18 05:30 Ovalocytes Slight 10/28/18 05:30 Sodium 140 mmol/l (132-148) 10/29/18 04:25 Potassium 3.0 MMOL/L (3.6-5.0) L 10/29/18 04:25 Chloride 112 mmol/L (98-107) H 10/29/18 04:25 Carbon Dioxide 23 mmol/L (22-30) 10/29/18 04:25 Anion Gap 8 (10-20) L 10/29/18 04:25 BUN 9 mg/dl (7-17) 10/29/18 04:25 Creatinine 0.5 mg/dl (0.7-1.2) L 10/29/18 04:25 Est GFR ( Amer) > 60 10/29/18 04:25 Est GFR (Non-Af Amer) > 60 10/29/18 04:25 POC Glucose (mg/dL) 119 mg/dL (65-110) H 10/27/18 23:45 Random Glucose 93 mg/dL (65-105) 10/29/18 04:25 Lactic Acid 1.1 MMOL/L (0.7-2.1) 10/28/18 05:30 Calcium 8.2 mg/dL (8.4-10.2) L 10/29/18 04:25 Phosphorus 3.7 mg/dl (2.5-4.5) 10/27/18 23:33 Magnesium 1.7 MG/DL (1.6-2.3) 10/27/18 23:33 Total Bilirubin 0.4 mg/dl (0.2-1.3) 10/28/18 05:30 AST 47 U/L (14-36) H D 10/28/18 05:30 ALT 30 U/L (9-52) 10/28/18 05:30 Alkaline Phosphatase 122 U/L (38-126) 10/28/18 05:30 Total Protein 5.4 G/DL (6.3-8.2) L 10/28/18 05:30 Albumin 2.4 g/dL (3.5-5.0) L D 10/28/18 05:30 Globulin 2.9 gm/dL (2.2-3.9) 10/28/18 05:30 Albumin/Globulin Ratio 0.8 (1.0-2.1) L 10/28/18 05:30 Procalcitonin 69.33 NG/ML (0.19-0.49) H 10/28/18 05:30 Urine Color Yellow (YELLOW) 10/28/18 00:05 Urine Clarity Slight-cloudy (Clear) 10/28/18 00:05 Urine pH 6.0 (5.0-8.0) 10/28/18 00:05 Ur Specific [place] 1.025 (1.003-1.030) 10/28/18 00:05 Urine Protein 300 mg/dL (NEGATIVE) 10/28/18 00:05 Urine Glucose (UA) Negative mg/dL (NEGATIVE) 10/28/18 00:05 Urine Ketones 80 mg/dL (NEGATIVE) 10/28/18 00:05 Urine Blood Large (NEGATIVE) 10/28/18 00:05 Urine Nitrate Negative (NEGATIVE) 10/28/18 00:05 Urine Bilirubin Small (NEGATIVE) 10/28/18 00:05 Urine Urobilinogen 0.2 mg/dL (0.2-1.0) 10/28/18 00:05 Ur Leukocyte Esterase Small Ra/uL (Negative) 10/28/18 00:05 Urine RBC (Auto) 127 /hpf (0-3) H 10/28/18 00:05 Urine Microscopic WBC 56 /hpf (0-5) H 10/28/18 00:05 Ur Squamous Epith Cells 7 /hpf (0-5) H 10/28/18 00:05 Ur Transition Epith Cell 1 /hpf (0-3) 10/28/18 00:05 Urine Bacteria Rare (<OCC) 10/28/18 00:05 Hyaline Casts >20 /hpf (0-2) H 10/28/18 00:05 Influenza Typ A,B (EIA) Negative for flu a/b (NEGATIVE) 10/28/18 00:12 Grp A Beta Strep Ag Negative (NEGATIVE) 10/28/18 00:12 Attending/Attestation - Attestation I have personally seen and examined this patient.: Yes I have fully participated in the care of the patient.: Yes I have reviewed all pertinent clinical information, including history, physical exam and plan: Yes
[2018-10-29 16:30] VITALS: RESP 17
[2018-10-29 19:17] VITALS: BP 117/55; PULSE 76; TEMP 98.1; O2SAT 99
== END 2018-10-29 21:15 ==
LOC: H.ER 23:01 → INTOOBSV 10-28 01:09 → H.ERHOLD 10-28 01:09 → H.TEL 10-28 02:32
PROVIDERS: ADMIT Internal Medicine; ATTEND Internal Medicine
DX: A41.9 Sepsis, unspecified organism (principal); J15.9 Unspecified bacterial pneumonia; D64.9 Anemia, unspecified; E78.00 Pure hypercholesterolemia, unspecified; E87.6 Hypokalemia; I10 Essential (primary) hypertension; J44.0 Chronic obstructive pulmonary disease with (acute) lower respiratory infection; J45.901 Unspecified asthma with (acute) exacerbation; N39.0 Urinary tract infection, site not specified; Y95 Nosocomial condition; Z79.01 Long term (current) use of anticoagulants; Z86.718 Personal history of other venous thrombosis and embolism; Z87.01 Personal history of pneumonia (recurrent); H26.9 Unspecified cataract; M19.90 Unspecified osteoarthritis, unspecified site
CPT/HCPCS: 36415; 71045; 76770; 76857; 80048; 80053; 81003; 82948; 83605; 83735; 84100; 84145; 85025; 86738; 87040; 87070; 87086; 87430; 87804; 93005; 94640; 96361; 96365; 96375; 99285; G0378; J0456; J0692; J1200; J7030; J7050

== ENCOUNTER 2018-10-29 16:15 | Inpatient (IN) | payer OTHER, BC ==
[2018-10-29 21:42] VITALS: BMI 16.6
[2018-10-29] MEDS ORDERED: Albuterol-Ipratrop 3 mg / 0.5 (3 ml) UD INH PRN (22:06)
[2018-10-29] MEDS ORDERED: Azithromycin 500 MG in Sodium Chloride 0.9% 250 ML IVPB SCH (22:30)
[2018-10-29 23:48] VITALS: RESP 20
[2018-10-30] MEDS: Albuterol-Ipratrop 3 mg / 0.5 (3 ml) UD INH SCH ×4 (02:00→19:22)
[2018-10-30] MEDS: Azithromycin 500 MG in Sodium Chloride 0.9% 250 ML IVPB SCH (04:07)
[2018-10-30] MEDS: Artificial Tears Opht Soln OU PRN (04:20)
[2018-10-30 06:59] LABS: BASO # 0.1 K/uL (0.0-0.2); BASO % 1.1 % (0.0-2.0); EOS # 0.4 K/uL (0.0-0.7); EOS % 7.7 % (0.0-4.0); HEMOGLOBIN 9.7 g/dL (12.0-16.0); MEAN CELL VOLUME 98.2 fl (81.0-99.0); MEAN CORPUSCULAR HEMOGLOBIN 32.4 pg (27.0-31.0); MEAN PLATELET VOLUME 8.9 fl (7.2-11.7); MONO # 0.5 K/uL (0.0-0.8); MONO % 8.4 % (0.0-10.0); NEUT # 3.5 K/uL (1.8-7.0); NEUT % 63.8 % (50.0-75.0); NRBC % 0.1 % (0.0-0.0); RBC 2.99 Mil/uL (3.80-5.20); RED CELL DISTRIBUTION WIDTH 14.2 % (11.5-14.5); WHITE BLOOD COUNT 5.5 K/uL (4.8-10.8)
[2018-10-30 07:34] LABS: BLOOD UREA NITROGEN 5 mg/dl (7-17); CALCIUM 8.7 mg/dL (8.4-10.2); GFR NON-AFRICAN AMERICAN > 60
[2018-10-30] MEDS ORDERED: Patient's Own Med (Vancomycin/0.9 % Sod Chloride [Vanco 1 Gram/150 Ml-0.9% Nacl] 1 GM) IV SCH (09:00)
[2018-10-30] MEDS ORDERED: Patient's Own Med (Cefepime Iv 2 Gm In Ns [Maxipime 2gm] 2 GM) IVPB SCH (09:00)
[2018-10-30] MEDS: Cefepime 2 GM in Sodium Chloride 0.9% 100 ML IVPB SCH ×2 (09:43→22:01)
--- NOTE | 2018-10-30 13:33 | CP.PCM.HP ---
<Julia Robles - Last Filed: 10/30/18 14:22> History of Present Illness - History of Present Illness History of Present Illness: 88 y/o F with hx COPD/asthma, HTN, LLE DVT of left popliteal vein (nonocclusive), now admitted to TCU to continue IV abx. She was previously admitted to telemetry unit due to suspected HAP and possible UTI after presenting with fevers and chills. On admission patient had lactic acid elevation, and mild leukocytosis. She was started on cefepime, azithromycin and vancomycin and responded to IV abx. CXR showed possible alveolar infiltrates. UA was abnormal but urine culture was neg. Patient remained afebrile and leukocytosis resolved during hospital stay. She was clinically stable, tolerating PO diet, and did not have diarrhea, SOB or CP. Yesterday she was discharged from med surg and admitted to TCU for IV abx. From chart: PMH: HTN, COPD, asthma, Left DVT PSH: bilateral cataract surgery, left hip fracture reduction Home meds: Norvasc 10mg, Xarelto 10mg, Singulair 10mg, Aricept, Duonebs Allergies: NKDA Social hx: Lives at home with , denies history of smoking, alcohol or drug use. PMD: Dr. Olsen Pt seen today in TCU, no acute events overnight. Tolerating PO diet, no shortness of breath, no longer has chills. Present on Admission - Present on Admission Any Indicators Present on Admission: Yes History of DVT/PE: Yes Past Patient History - Past Medical History & Family History Past Medical History?: Yes - Past Social History Smoking Status: Never Smoked - CARDIAC Hx Atrial Fibrillation: No Hx Cardia Arrhythmia: No Hx Congestive Heart Failure: No Hx Hypercholesterolemia: Yes Hx Hypertension: Yes Hx Pacemaker: No Hx Peripheral Edema: No - PULMONARY Hx Asthma: Yes Hx Bronchitis: No Hx Chronic Obstructive Pulmonary Disease (COPD): Yes Hx Emphysema: No Hx Pneumonia: Yes Hx Pulmonary Embolism: No Hx Sleep Apnea: No - NEUROLOGICAL Hx Alzheimer's Disease: No Hx Dementia: No Hx Migraine: No Hx Multiple Sclerosis: No Hx Parkinson's Disease: No Hx Seizures: No Hx Transient Ischemic Attacks (TIA): No - HEENT Hx HEENT Problems: Yes Hx Cataracts: Yes - RENAL Hx Chronic Kidney Disease: No Hx Kidney Stones: No - ENDOCRINE/METABOLIC Hx Hyperthyroidism: No Hx Hypothyroidism: No - HEMATOLOGICAL/ONCOLOGICAL Hx AIDS: No Hx Anemia: No Hx Human Immunodeficiency Virus (HIV): No Hx Sickle Cell Disease: No - INTEGUMENTARY Hx Dermatological Problems: Yes Other/Comment: Sacral decubitus (healed) - MUSCULOSKELETAL/RHEUMATOLOGICAL Hx Arthritis: Yes Hx Fractures: Yes (left hip) Hx Osteoporosis: No Hx Rheumatoid Arthritis: No - GASTROINTESTINAL Hx Crohn's Disease: No Hx Diverticulitis: No Hx Gall Bladder Disease: No Hx Gastritis: No Hx Pancreatitis: No - GENITOURINARY/GYNECOLOGICAL Hx Sexually Transmitted Disorders: No - PSYCHIATRIC Hx Anxiety: No Hx Bipolar Disorder: No Hx Depression: No Hx Paranoia: No Hx Post Traumatic Stress Disorder: No Hx Schizophrenia: No - SURGICAL HISTORY Hx Appendectomy: No Hx Carotid Endarterectomy: No Hx Cholecystectomy: No Hx Coronary Artery Bypass Graft: No Hx Coronary Stent: No - ANESTHESIA Hx Anesthesia: Yes Hx Anesthesia Reactions: No Hx Malignant Hyperthermia: No Meds Allergies/Adverse Reactions: Allergies Allergy/AdvReac Type Severity Reaction Status Date / Time No Known Allergies Allergy Verified 10/27/18 23:09 Physical Exam - Constitutional Appears: Non-toxic, No Acute Distress - Head Exam Head Exam: NORMAL INSPECTION - Eye Exam Eye Exam: Normal appearance - ENT Exam ENT Exam: Mucous Membranes Moist - Respiratory Exam Respiratory Exam: NORMAL BREATHING PATTERN. absent: Wheezes, Respiratory Distress - Cardiovascular Exam Cardiovascular Exam: REGULAR RHYTHM, +S1, +S2 - GI/Abdominal Exam GI & Abdominal Exam: Normal Bowel Sounds, Soft. absent: Tenderness - Extremities Exam Extremities exam: Positive for: normal inspection. Negative for: calf tendern ess, pedal edema - Neurological Exam Neurological exam: Alert - Psychiatric Exam Psychiatric exam: Normal Affect, Normal Mood - Skin Skin Exam: Dry, Warm Results - Vital Signs Recent Vital Signs: Last Vital Signs Temp 99.1 F 10/30/18 10:00 Pulse 74 10/30/18 10:00 Resp 20 10/30/18 10:00 BP 132/74 10/30/18 10:00 Pulse Ox 99 10/30/18 10:00 - Labs Result Diagrams: 10/30/18 06:08 10/30/18 06:08 Labs: Laboratory Results - last 24 hr 10/30/18 10/30/18 06:08 06:08 WBC 5.5 RBC 2.99 L Hgb 9.7 L Hct 29.4 L MCV 98.2 MCH 32.4 H MCHC 33.0 RDW 14.2 Plt Count 242 MPV 8.9 Neut % (Auto) 63.8 Lymph % (Auto) 19.0 L [place] % (Auto) 8.4 Eos % (Auto) 7.7 H Baso % (Auto) 1.1 Neut # (Auto) 3.5 Lymph # (Auto) 1.0 [place] # (Auto) 0.5 Eos # (Auto) 0.4 Baso # (Auto) 0.1 Sodium 140 Potassium 3.8 Chloride 113 H Carbon Dioxide 25 Anion Gap 6 L BUN 5 L Creatinine 0.5 L Est GFR ( Amer) > 60 Est GFR (Non-Af Amer) > 60 Random Glucose 83 Calcium 8.7 Assessment & Plan - Assessment and Plan (Free Text) Plan: Pneumonia, likely HAP -Continue with antibiotics - cefepime 2 mg Q8h, vancomycin 1 mg Q12h, azithromycin 500mg daily - Duonebs Q4H PRN - Mycoplasma, legionella pending from tele admission Asthma - C/w home med singulair - duonebs Hypertension - Stable - Hold home med norvasc for now due to normotensive state History of Left Lower Ext DVT - c/w med xarelto 10 mg Diet - heart healthy diet - diet supplements Pt on xarelto. <Delia Martinez - Last Filed: 10/30/18 15:50> Results - Vital Signs Recent Vital Signs: Last Vital Signs Temp 99.1 F 10/30/18 10:00 Pulse 74 10/30/18 10:00 Resp 20 10/30/18 10:00 BP 132/74 10/30/18 10:00 Pulse Ox 99 10/30/18 10:00 - Labs Result Diagrams: 10/30/18 06:08 10/30/18 06:08 Labs: Laboratory Results - last 24 hr 10/30/18 10/30/18 06:08 06:08 WBC 5.5 RBC 2.99 L Hgb 9.7 L Hct 29.4 L MCV 98.2 MCH 32.4 H MCHC 33.0 RDW 14.2 Plt Count 242 MPV 8.9 Neut % (Auto) 63.8 Lymph % (Auto) 19.0 L [place] % (Auto) 8.4 Eos % (Auto) 7.7 H Baso % (Auto) 1.1 Neut # (Auto) 3.5 Lymph # (Auto) 1.0 [place] # (Auto) 0.5 Eos # (Auto) 0.4 Baso # (Auto) 0.1 Sodium 140 Potassium 3.8 Chloride 113 H Carbon Dioxide 25 Anion Gap 6 L BUN 5 L Creatinine 0.5 L Est GFR ( Amer) > 60 Est GFR (Non-Af Amer) > 60 Random Glucose 83 Calcium 8.7 Attending/Attestation - Attestation I have personally seen and examined this patient.: Yes I have fully participated in the care of the patient.: Yes I have reviewed all pertinent clinical information: Yes Notes (Text): Bacterial Pneumonia, likely HCAP -Continue with antibiotics - cefepime 2 mg Q12h, vancomycin 1 mg Q24h, azithromycin 500mg daily - Duonebs Q4H PRN Asthma, mild intermittent - C/w home med singulair - duonebs Hypertension - Stable - Hold home med norvasc for now due to normotensive state History of Left Lower Ext DVT - c/w med xarelto 10 mg
[2018-10-30] MEDS ORDERED: Magnesium Hydroxide Susp 30 ml UD PO STA (22:19)
[2018-10-31] MEDS: Albuterol-Ipratrop 3 mg / 0.5 (3 ml) UD INH SCH ×4 (01:00→19:24)
[2018-10-31] MEDS: Azithromycin 500 MG in Sodium Chloride 0.9% 250 ML IVPB SCH (04:31)
[2018-10-31 06:45] LABS: HEMOGLOBIN 9.7 g/dL (12.0-16.0); MEAN CELL VOLUME 98.4 fl (81.0-99.0); MEAN CORPUSCULAR HEMOGLOBIN 32.4 pg (27.0-31.0); RED CELL DISTRIBUTION WIDTH 14.2 % (11.5-14.5); WHITE BLOOD COUNT 4.1 K/uL (4.8-10.8)
[2018-10-31 07:03] LABS: BLOOD UREA NITROGEN 6 mg/dl (7-17); CALCIUM 8.8 mg/dL (8.4-10.2); GFR NON-AFRICAN AMERICAN > 60
[2018-10-31] MEDS: Cefepime 2 GM in Sodium Chloride 0.9% 100 ML IVPB SCH ×2 (08:23→22:48)
[2018-11-01] MEDS: Albuterol-Ipratrop 3 mg / 0.5 (3 ml) UD INH SCH ×4 (01:00→19:31)
[2018-11-01] MEDS: Azithromycin 500 MG in Sodium Chloride 0.9% 250 ML IVPB SCH (06:13)
[2018-11-01] MEDS: Cefepime 2 GM in Sodium Chloride 0.9% 100 ML IVPB SCH ×2 (08:22→21:37)
[2018-11-01] MEDS: Artificial Tears Opht Soln OU PRN (21:38)
[2018-11-02] MEDS: Albuterol-Ipratrop 3 mg / 0.5 (3 ml) UD INH SCH ×4 (01:00→20:03)
[2018-11-02] MEDS: Azithromycin 500 MG in Sodium Chloride 0.9% 250 ML IVPB SCH (05:18)
[2018-11-02] MEDS: Cefepime 2 GM in Sodium Chloride 0.9% 100 ML IVPB SCH ×2 (08:24→21:34)
--- NOTE | 2018-11-02 15:48 | CP.PCM.CON ---
History of Present Illness - History of Present Illness History of Present Illness: Dr Morataya PMR consultation on Kia Massey, born 1930 who has been admitted to [facility] TCU and I am asked to evaluate her left foot pain. Her pain is clearly localized to the left heel. Denies numbness or tingling. PT notes that she is altering her gait to avoid pressure to the area. She has clear point tenderness and pain with stretching of the medial arch. + plantar fasciitis. Will get an x-ray of the left foot and I have already spoken with PT to use modalities ie US and cryo to the area with stretching as well. Past Patient History - Past Medical History & Family History Past Medical History?: Yes - Past Social History Smoking Status: Never Smoked - CARDIAC Hx Atrial Fibrillation: No Hx Cardia Arrhythmia: No Hx Congestive Heart Failure: No Hx Hypercholesterolemia: Yes Hx Hypertension: Yes Hx Pacemaker: No Hx Peripheral Edema: No - PULMONARY Hx Asthma: Yes Hx Bronchitis: No Hx Chronic Obstructive Pulmonary Disease (COPD): Yes Hx Emphysema: No Hx Pneumonia: Yes Hx Pulmonary Embolism: No Hx Sleep Apnea: No - NEUROLOGICAL Hx Alzheimer's Disease: No Hx Dementia: No Hx Migraine: No Hx Multiple Sclerosis: No Hx Parkinson's Disease: No Hx Seizures: No Hx Transient Ischemic Attacks (TIA): No - HEENT Hx HEENT Problems: Yes Hx Cataracts: Yes - RENAL Hx Chronic Kidney Disease: No Hx Kidney Stones: No - ENDOCRINE/METABOLIC Hx Hyperthyroidism: No Hx Hypothyroidism: No - HEMATOLOGICAL/ONCOLOGICAL Hx AIDS: No Hx Anemia: No Hx Human Immunodeficiency Virus (HIV): No Hx Sickle Cell Disease: No - INTEGUMENTARY Hx Dermatological Problems: Yes Other/Comment: Sacral decubitus (healed) - MUSCULOSKELETAL/RHEUMATOLOGICAL Hx Arthritis: Yes Hx Fractures: Yes (left hip) Hx Osteoporosis: No Hx Rheumatoid Arthritis: No - GASTROINTESTINAL Hx Crohn's Disease: No Hx Diverticulitis: No Hx Gall Bladder Disease: No Hx Gastritis: No Hx Pancreatitis: No - GENITOURINARY/GYNECOLOGICAL Hx Sexually Transmitted Disorders: No - PSYCHIATRIC Hx Anxiety: No Hx Bipolar Disorder: No Hx Depression: No Hx Paranoia: No Hx Post Traumatic Stress Disorder: No Hx Schizophrenia: No - SURGICAL HISTORY Hx Appendectomy: No Hx Carotid Endarterectomy: No Hx Cholecystectomy: No Hx Coronary Artery Bypass Graft: No Hx Coronary Stent: No - ANESTHESIA Hx Anesthesia: Yes Hx Anesthesia Reactions: No Hx Malignant Hyperthermia: No Meds Allergies/Adverse Reactions: Allergies Allergy/AdvReac Type Severity Reaction Status Date / Time No Known Allergies Allergy Verified 10/27/18 23:09 - Medications Medications: Current Medications Acetaminophen (Tylenol 325mg Tab) 650 mg PO Q6 PRN PRN Reason: Other Albuterol/Ipratropium (Duoneb 3 Mg/0.5 Mg (3 Ml) Ud) 3 ml INH RQ2 PRN PRN Reason: Shortness of Breath Albuterol/Ipratropium (Duoneb 3 Mg/0.5 Mg (3 Ml) Ud) 3 ml INH RQ6 [facility] Last Admin: 11/02/18 13:21 Dose: Not Given Artificial Tears (Artificial Tears) 2 drop OU Q6 PRN PRN Reason: Dry eyes Last Admin: 11/01/18 21:38 Dose: 2 drop Docusate Sodium (Colace) 100 mg PO BID [facility] Last Admin: 11/02/18 08:21 Dose: 100 mg Donepezil HCl (Aricept) 5 mg PO [facility] Last Admin: 11/01/18 21:37 Dose: 5 mg Cefepime HCl 2 gm/ Sodium (Chloride) 100 mls @ 100 mls/hr IVPB Q12 [facility] Last Admin: 11/02/18 08:24 Dose: 100 mls/hr Azithromycin 500 mg/ Sodium (Chloride) 250 mls @ 250 mls/hr IVPB 0500 [facility] Last Admin: 11/02/18 05:18 Dose: 250 mls/hr Vancomycin HCl 1 gm/ Sodium (Chloride) 250 mls @ 166.667 mls/hr IVPB DAILY@1700 [facility] Last Admin: 11/01/18 17:30 Dose: 166.667 mls/hr Montelukast Sodium (Singulair) 10 mg PO HS [facility] Last Admin: 11/01/18 21:37 Dose: 10 mg Rivaroxaban (Xarelto) 10 mg PO QD5 [facility]; Protocol Last Admin: 11/01/18 17:55 Dose: 10 mg Results - Vital Signs Recent Vital Signs: Last Vital Signs Temp 98.6 F 11/02/18 15:34 Pulse 64 11/02/18 15:34 Resp 20 11/02/18 15:34 BP 132/50 L 11/02/18 15:34 Pulse Ox 96 11/02/18 15:34 - Labs Result Diagrams: 10/31/18 06:15 10/31/18 06:15
[2018-11-03] MEDS: Albuterol-Ipratrop 3 mg / 0.5 (3 ml) UD INH SCH ×4 (01:00→19:44)
[2018-11-03] MEDS: Azithromycin 500 MG in Sodium Chloride 0.9% 250 ML IVPB SCH (05:15)
[2018-11-03] MEDS: Cefepime 2 GM in Sodium Chloride 0.9% 100 ML IVPB SCH ×2 (08:13→21:41)
[2018-11-04] MEDS: Albuterol-Ipratrop 3 mg / 0.5 (3 ml) UD INH SCH ×4 (01:00→19:04)
[2018-11-04] MEDS: Azithromycin 500 MG in Sodium Chloride 0.9% 250 ML IVPB SCH (06:59)
[2018-11-04] MEDS: Cefepime 2 GM in Sodium Chloride 0.9% 100 ML IVPB SCH ×2 (08:27→21:32)
--- NOTE | 2018-11-04 15:42 | CP.PCM.PN ---
Subjective - Date & Time of Evaluation Date of Evaluation: 11/04/18 Time of Evaluation: 13:00 - Subjective Subjective: no AD, N/C, no SOB, no REARDON Objective - Vital Signs/Intake and Output Vital Signs (last 24 hours): Temp Pulse Resp BP Pulse Ox 98.7 F 75 20 111/51 L 97 11/04/18 07:56 11/04/18 07:56 11/04/18 07:56 11/04/18 07:56 11/04/18 07:56 - Medications Medications: Current Medications Acetaminophen (Tylenol 325mg Tab) 650 mg PO Q6 PRN PRN Reason: Other Albuterol/Ipratropium (Duoneb 3 Mg/0.5 Mg (3 Ml) Ud) 3 ml INH RQ2 PRN PRN Reason: Shortness of Breath Albuterol/Ipratropium (Duoneb 3 Mg/0.5 Mg (3 Ml) Ud) 3 ml INH RQ6 [facility] Last Admin: 11/04/18 13:27 Dose: 3 ml Artificial Tears (Artificial Tears) 2 drop OU Q6 PRN PRN Reason: Dry eyes Last Admin: 11/01/18 21:38 Dose: 2 drop Docusate Sodium (Colace) 100 mg PO BID [facility] Last Admin: 11/04/18 08:26 Dose: 100 mg Donepezil HCl (Aricept) 5 mg PO [facility] Last Admin: 11/03/18 21:40 Dose: 5 mg Cefepime HCl 2 gm/ Sodium (Chloride) 100 mls @ 100 mls/hr IVPB Q12 [facility] Last Admin: 11/04/18 08:27 Dose: 100 mls/hr Azithromycin 500 mg/ Sodium (Chloride) 250 mls @ 250 mls/hr IVPB 0500 [facility] Last Admin: 11/04/18 06:59 Dose: 250 mls/hr Vancomycin HCl 1 gm/ Sodium (Chloride) 250 mls @ 166.667 mls/hr IVPB DAILY@1700 [facility] Last Admin: 11/03/18 16:57 Dose: 166.667 mls/hr Lactulose (Enulose) 20 gm PO DAILY PRN PRN Reason: Constipation Montelukast Sodium (Singulair) 10 mg PO HS [facility] Last Admin: 11/03/18 21:40 Dose: 10 mg Rivaroxaban (Xarelto) 10 mg PO QD5 [facility]; Protocol Last Admin: 11/03/18 16:56 Dose: 10 mg - Labs Labs: 10/31/18 06:15 10/31/18 06:15 - Constitutional Appears: No Acute Distress - Head Exam Head Exam: NORMAL INSPECTION - Eye Exam Eye Exam: PERRL - ENT Exam ENT Exam: Normal Exam - Neck Exam Neck Exam: Normal Inspection - Respiratory Exam Respiratory Exam: Decreased Breath Sounds (at bases) - Cardiovascular Exam Cardiovascular Exam: REGULAR RHYTHM - GI/Abdominal Exam GI & Abdominal Exam: Soft, Normal Bowel Sounds - Extremities Exam Extremities Exam: Normal Inspection - Back Exam Back Exam: NORMAL INSPECTION - Neurological Exam Neurological Exam: Alert, CN II-XII Intact, Oriented x3. absent: Motor Sensory Deficit - Psychiatric Exam Psychiatric exam: Normal Affect, Normal Mood - Skin Skin Exam: Warm Assessment and Plan (1) Bacterial pneumonia Status: Resolved (2) COPD with asthma Status: Resolved (3) HTN (hypertension) Status: Acute - Assessment and Plan (Free Text) Plan: continue Chris Gage Xarelto
--- NOTE | 2018-11-04 16:18 | RAD ---
Date of service: 11/02/2018 PROCEDURE: Left Foot Radiographs. HISTORY: left heel pain COMPARISON: None. FINDINGS: BONES: Osteoporosis. Plantar heel spur. Hallux valgus. JOINTS: Normal. SOFT TISSUES: Normal. OTHER FINDINGS: None. IMPRESSION: Osteoporosis. Plantar heel spur. Hallux valgus.
[2018-11-05] MEDS: Albuterol-Ipratrop 3 mg / 0.5 (3 ml) UD INH SCH ×4 (01:11→19:30)
[2018-11-05] MEDS: Azithromycin 500 MG in Sodium Chloride 0.9% 250 ML IVPB SCH (06:08)
[2018-11-05] MEDS: Cefepime 2 GM in Sodium Chloride 0.9% 100 ML IVPB SCH ×2 (08:54→21:06)
--- NOTE | 2018-11-05 16:06 | CP.PCM.PN ---
Subjective - Date & Time of Evaluation Date of Evaluation: 11/05/18 Time of Evaluation: 10:40 - Subjective Subjective: F/U PNA no AD, N/C, no SOB, no cough Objective - Vital Signs/Intake and Output Vital Signs (last 24 hours): Temp Pulse Resp BP Pulse Ox 97.9 F 81 20 113/61 100 11/05/18 08:08 11/05/18 08:08 11/05/18 08:08 11/05/18 08:08 11/05/18 08:08 - Medications Medications: Current Medications Acetaminophen (Tylenol 325mg Tab) 650 mg PO Q6 PRN PRN Reason: Other Albuterol/Ipratropium (Duoneb 3 Mg/0.5 Mg (3 Ml) Ud) 3 ml INH RQ2 PRN PRN Reason: Shortness of Breath Albuterol/Ipratropium (Duoneb 3 Mg/0.5 Mg (3 Ml) Ud) 3 ml INH RQ6 [facility] Last Admin: 11/05/18 13:09 Dose: 3 ml Artificial Tears (Artificial Tears) 2 drop OU Q6 PRN PRN Reason: Dry eyes Last Admin: 11/01/18 21:38 Dose: 2 drop Docusate Sodium (Colace) 100 mg PO BID [facility] Last Admin: 11/05/18 08:54 Dose: Not Given Donepezil HCl (Aricept) 5 mg PO [facility] Last Admin: 11/04/18 21:32 Dose: 5 mg Cefepime HCl 2 gm/ Sodium (Chloride) 100 mls @ 100 mls/hr IVPB Q12 [facility] Last Admin: 11/05/18 08:54 Dose: 100 mls/hr Azithromycin 500 mg/ Sodium (Chloride) 250 mls @ 250 mls/hr IVPB 0500 [facility] Last Admin: 11/05/18 06:08 Dose: 250 mls/hr Vancomycin HCl 1 gm/ Sodium (Chloride) 250 mls @ 166.667 mls/hr IVPB DAILY@1700 [facility] Last Admin: 11/04/18 17:08 Dose: 166.667 mls/hr Lactulose (Enulose) 20 gm PO DAILY PRN PRN Reason: Constipation Last Admin: 11/04/18 19:00 Dose: 20 gm Montelukast Sodium (Singulair) 10 mg PO [facility] Last Admin: 11/04/18 21:32 Dose: 10 mg Rivaroxaban (Xarelto) 10 mg PO QD5 [facility]; Protocol Last Admin: 11/04/18 17:06 Dose: 10 mg - Labs Labs: 10/31/18 06:15 10/31/18 06:15 - Constitutional Appears: No Acute Distress - Head Exam Head Exam: NORMAL INSPECTION - Eye Exam Eye Exam: PERRL - ENT Exam ENT Exam: Normal Exam - Neck Exam Neck Exam: Normal Inspection - Respiratory Exam Respiratory Exam: Decreased Breath Sounds (at bases) - Cardiovascular Exam Cardiovascular Exam: REGULAR RHYTHM - GI/Abdominal Exam GI & Abdominal Exam: Soft, Normal Bowel Sounds - Extremities Exam Extremities Exam: Normal Inspection - Back Exam Back Exam: NORMAL INSPECTION - Neurological Exam Neurological Exam: Alert, CN II-XII Intact, Oriented x3. absent: Motor Sensory Deficit - Psychiatric Exam Psychiatric exam: Normal Affect, Normal Mood - Skin Skin Exam: Warm Assessment and Plan (1) Bacterial pneumonia Status: Acute (2) COPD with asthma Status: Acute (3) HTN (hypertension) Status: Acute - Assessment and Plan (Free Text) Plan: continue Vanco, Zithromax, DuoNeb, Xarelto and rest of Tx
[2018-11-06] MEDS: Albuterol-Ipratrop 3 mg / 0.5 (3 ml) UD INH SCH ×4 (01:17→19:24)
[2018-11-06] MEDS: Azithromycin 500 MG in Sodium Chloride 0.9% 250 ML IVPB SCH (04:51)
[2018-11-06] MEDS: Cefepime 2 GM in Sodium Chloride 0.9% 100 ML IVPB SCH ×2 (08:05→21:06)
--- NOTE | 2018-11-06 14:37 | CP.PCM.PN ---
Subjective - Date & Time of Evaluation Date of Evaluation: 11/06/18 Time of Evaluation: 13:00 - Subjective Subjective: F/U PNA no AD, N/C, no SOB, no cough Objective - Vital Signs/Intake and Output Vital Signs (last 24 hours): Temp Pulse Resp BP Pulse Ox 98.5 F 75 20 130/54 L 96 11/06/18 09:50 11/06/18 09:50 11/06/18 09:50 11/06/18 09:50 11/06/18 09:50 - Medications Medications: Current Medications Acetaminophen (Tylenol 325mg Tab) 650 mg PO Q6 PRN PRN Reason: Other Albuterol/Ipratropium (Duoneb 3 Mg/0.5 Mg (3 Ml) Ud) 3 ml INH RQ2 PRN PRN Reason: Shortness of Breath Albuterol/Ipratropium (Duoneb 3 Mg/0.5 Mg (3 Ml) Ud) 3 ml INH RQ6 [facility] Last Admin: 11/06/18 14:15 Dose: Not Given Artificial Tears (Artificial Tears) 2 drop OU Q6 PRN PRN Reason: Dry eyes Last Admin: 11/01/18 21:38 Dose: 2 drop Docusate Sodium (Colace) 100 mg PO BID [facility] Last Admin: 11/06/18 08:06 Dose: 100 mg Donepezil HCl (Aricept) 5 mg PO HS [facility] Last Admin: 11/05/18 21:07 Dose: 5 mg Cefepime HCl 2 gm/ Sodium (Chloride) 100 mls @ 100 mls/hr IVPB Q12 [facility] Last Admin: 11/06/18 08:05 Dose: 100 mls/hr Azithromycin 500 mg/ Sodium (Chloride) 250 mls @ 250 mls/hr IVPB 0500 [facility] Last Admin: 11/06/18 04:51 Dose: 250 mls/hr Vancomycin HCl 1 gm/ Sodium (Chloride) 250 mls @ 166.667 mls/hr IVPB DAILY@1700 [facility]; Protocol Lactulose (Enulose) 20 gm PO DAILY PRN PRN Reason: Constipation Last Admin: 11/04/18 19:00 Dose: 20 gm Montelukast Sodium (Singulair) 10 mg PO HS [facility] Last Admin: 11/05/18 21:07 Dose: 10 mg Rivaroxaban (Xarelto) 10 mg PO QD5 [facility]; Protocol Last Admin: 11/05/18 16:16 Dose: 10 mg - Labs Labs: 10/31/18 06:15 10/31/18 06:15 - Constitutional Appears: No Acute Distress - Head Exam Head Exam: NORMAL INSPECTION - Eye Exam Eye Exam: PERRL - ENT Exam ENT Exam: Normal Exam - Neck Exam Neck Exam: Normal Inspection - Respiratory Exam Respiratory Exam: Decreased Breath Sounds (at bases) - Cardiovascular Exam Cardiovascular Exam: REGULAR RHYTHM - GI/Abdominal Exam GI & Abdominal Exam: Soft, Normal Bowel Sounds - Extremities Exam Extremities Exam: Normal Inspection - Back Exam Back Exam: NORMAL INSPECTION - Neurological Exam Neurological Exam: Alert, CN II-XII Intact, Oriented x3. absent: Motor Sensory Deficit - Psychiatric Exam Psychiatric exam: Normal Affect, Normal Mood - Skin Skin Exam: Warm - Additional Findings Additional findings: continue Cefepime, Vanco , DuoNeb, Xarelto, DC Zithromax Assessment and Plan (1) Bacterial pneumonia Status: Acute (2) COPD with asthma Status: Acute (3) HTN (hypertension) Status: Acute
[2018-11-07] MEDS: Albuterol-Ipratrop 3 mg / 0.5 (3 ml) UD INH SCH ×4 (03:03→19:25)
[2018-11-07 07:13] LABS: HEMOGLOBIN 9.5 g/dL (12.0-16.0); MEAN CELL VOLUME 97.6 fl (81.0-99.0); MEAN CORPUSCULAR HEMOGLOBIN 32.3 pg (27.0-31.0); MEAN CORPUSCULAR HGB CONC 33.1 g/dL (33.0-37.0); RBC 2.94 Mil/uL (3.80-5.20); WHITE BLOOD COUNT 5.3 K/uL (4.8-10.8)
[2018-11-07 07:30] LABS: BLOOD UREA NITROGEN 6 mg/dl (7-17); CALCIUM 9.5 mg/dL (8.4-10.2); GFR NON-AFRICAN AMERICAN > 60
[2018-11-07] MEDS: Cefepime 2 GM in Sodium Chloride 0.9% 100 ML IVPB SCH ×2 (08:46→21:00)
[2018-11-07] MEDS ORDERED: Potassium Chloride 20 mEq ER Tab PO ONE (10:31)
--- NOTE | 2018-11-07 15:55 | RAD ---
Date of service: 11/07/2018 HISTORY: COMPARISON: 10/27/2018. TECHNIQUE: Chest PA and lateral FINDINGS: LUNGS: Hyperinflation, manifestations of COPD. No active pulmonary disease. PLEURA: No significant pleural effusion identified. No pneumothorax apparent. CARDIOVASCULAR: Atherosclerotic calcifications identified primarily aortic arch. Resolved pulmonary vascular congestion. OSSEOUS STRUCTURES: No significant abnormalities. Severe degenerative changes both shoulders. VISUALIZED UPPER ABDOMEN: Normal. OTHER FINDINGS: None. IMPRESSION: No active disease.
--- NOTE | 2018-11-07 16:16 | CP.PCM.PN ---
Subjective - Date & Time of Evaluation Date of Evaluation: 11/07/18 Time of Evaluation: 11:40 - Subjective Subjective: F/U PNA Objective - Vital Signs/Intake and Output Vital Signs (last 24 hours): Temp Pulse Resp BP Pulse Ox 98.5 F 80 20 105/60 96 11/07/18 15:29 11/07/18 15:29 11/07/18 15:29 11/07/18 15:29 11/07/18 15:29 - Medications Medications: Current Medications Acetaminophen (Tylenol 325mg Tab) 650 mg PO Q6 PRN PRN Reason: Other Albuterol/Ipratropium (Duoneb 3 Mg/0.5 Mg (3 Ml) Ud) 3 ml INH RQ2 PRN PRN Reason: Shortness of Breath Albuterol/Ipratropium (Duoneb 3 Mg/0.5 Mg (3 Ml) Ud) 3 ml INH RQ6 [facility] Last Admin: 11/07/18 13:27 Dose: 3 ml Artificial Tears (Artificial Tears) 2 drop OU Q6 PRN PRN Reason: Dry eyes Last Admin: 11/01/18 21:38 Dose: 2 drop Docusate Sodium (Colace) 100 mg PO BID [facility] Last Admin: 11/07/18 08:46 Dose: 100 mg Donepezil HCl (Aricept) 5 mg PO [facility] Last Admin: 11/06/18 21:06 Dose: 5 mg Cefepime HCl 2 gm/ Sodium (Chloride) 100 mls @ 100 mls/hr IVPB Q12 [facility] Last Admin: 11/07/18 08:46 Dose: 100 mls/hr Vancomycin HCl 1 gm/ Sodium (Chloride) 250 mls @ 166.667 mls/hr IVPB DAILY@1700 [facility]; Protocol Last Admin: 11/06/18 17:00 Dose: 166.667 mls/hr Lactulose (Enulose) 20 gm PO DAILY PRN PRN Reason: Constipation Last Admin: 11/06/18 16:55 Dose: 20 gm Montelukast Sodium (Singulair) 10 mg PO HS [facility] Last Admin: 11/06/18 21:07 Dose: 10 mg Rivaroxaban (Xarelto) 10 mg PO QD5 [facility]; Protocol Last Admin: 11/06/18 16:55 Dose: 10 mg - Labs Labs: 11/07/18 06:20 11/07/18 06:20 - Constitutional Appears: No Acute Distress - Head Exam Head Exam: NORMAL INSPECTION - Eye Exam Eye Exam: PERRL - ENT Exam ENT Exam: Normal Exam - Neck Exam Neck Exam: Normal Inspection - Respiratory Exam Respiratory Exam: Decreased Breath Sounds (at bases) - Cardiovascular Exam Cardiovascular Exam: REGULAR RHYTHM - GI/Abdominal Exam GI & Abdominal Exam: Soft, Normal Bowel Sounds - Extremities Exam Additional comments: L upper arm skin tear, no swelling/drainage. - Back Exam Back Exam: NORMAL INSPECTION - Neurological Exam Neurological Exam: Alert, CN II-XII Intact, Oriented x3. absent: Motor Sensory Deficit - Psychiatric Exam Psychiatric exam: Normal Affect, Normal Mood - Skin Skin Exam: Warm Assessment and Plan (1) Bacterial pneumonia Status: Acute (2) COPD with asthma Status: Acute (3) HTN (hypertension) Status: Acute
[2018-11-07] MEDS: Artificial Tears Opht Soln OU PRN (22:39)
[2018-11-08] MEDS: Albuterol-Ipratrop 3 mg / 0.5 (3 ml) UD INH SCH ×4 (01:00→19:48)
[2018-11-08 07:12] LABS: BLOOD UREA NITROGEN 7 mg/dl (7-17); CALCIUM 9.3 mg/dL (8.4-10.2); GFR NON-AFRICAN AMERICAN > 60
[2018-11-08] MEDS: Cefepime 2 GM in Sodium Chloride 0.9% 100 ML IVPB SCH (08:42)
--- NOTE | 2018-11-08 13:47 | CP.PCM.PN ---
Subjective - Date & Time of Evaluation Date of Evaluation: 11/08/18 Time of Evaluation: 12:20 - Subjective Subjective: F/U PNA no AD, N/C, no cough, no SOB Objective - Vital Signs/Intake and Output Vital Signs (last 24 hours): Temp Pulse Resp BP Pulse Ox 98.9 F 74 20 146/67 97 11/08/18 08:01 11/08/18 08:01 11/08/18 08:01 11/08/18 08:01 11/08/18 08:01 - Medications Medications: Current Medications Acetaminophen (Tylenol 325mg Tab) 650 mg PO Q6 PRN PRN Reason: Other Albuterol/Ipratropium (Duoneb 3 Mg/0.5 Mg (3 Ml) Ud) 3 ml INH RQ2 PRN PRN Reason: Shortness of Breath Albuterol/Ipratropium (Duoneb 3 Mg/0.5 Mg (3 Ml) Ud) 3 ml INH RQ6 [facility] Last Admin: 11/08/18 13:09 Dose: 3 ml Artificial Tears (Artificial Tears) 2 drop OU Q6 PRN PRN Reason: Dry eyes Last Admin: 11/07/18 22:39 Dose: 2 drop Docusate Sodium (Colace) 100 mg PO BID [facility] Last Admin: 11/08/18 08:42 Dose: Not Given Donepezil HCl (Aricept) 5 mg PO HS [facility] Last Admin: 11/07/18 21:01 Dose: 5 mg Cefepime HCl 2 gm/ Sodium (Chloride) 100 mls @ 100 mls/hr IVPB Q12 [facility] Last Admin: 11/08/18 08:42 Dose: 100 mls/hr Vancomycin HCl 1 gm/ Sodium (Chloride) 250 mls @ 166.667 mls/hr IVPB DAILY@1700 [facility]; Protocol Last Admin: 11/07/18 17:18 Dose: 166.667 mls/hr Lactulose (Enulose) 20 gm PO DAILY PRN PRN Reason: Constipation Last Admin: 11/07/18 21:05 Dose: 20 gm Montelukast Sodium (Singulair) 10 mg PO HS [facility] Last Admin: 11/07/18 21:01 Dose: 10 mg Rivaroxaban (Xarelto) 10 mg PO QD5 [facility]; Protocol Last Admin: 11/07/18 17:18 Dose: 10 mg - Labs Labs: 11/07/18 06:20 11/08/18 06:25 - Constitutional Appears: No Acute Distress - Head Exam Head Exam: NORMAL INSPECTION - Eye Exam Eye Exam: PERRL - ENT Exam ENT Exam: Normal Exam - Neck Exam Neck Exam: Normal Inspection - Respiratory Exam Respiratory Exam: Decreased Breath Sounds (at bases) - Cardiovascular Exam Cardiovascular Exam: REGULAR RHYTHM - GI/Abdominal Exam GI & Abdominal Exam: Soft, Normal Bowel Sounds - Extremities Exam Additional comments: LUE skin tear, no swelling/drainage. - Back Exam Back Exam: NORMAL INSPECTION - Neurological Exam Neurological Exam: Alert, CN II-XII Intact, Oriented x3. absent: Motor Sensory Deficit - Psychiatric Exam Psychiatric exam: Normal Affect, Normal Mood - Skin Skin Exam: Warm Assessment and Plan (1) Bacterial pneumonia Status: Resolved (2) COPD with asthma Status: Resolved (3) HTN (hypertension) Status: Acute - Assessment and Plan (Free Text) Plan: continue current Tx, Discharge plan in am
[2018-11-09] MEDS: Albuterol-Ipratrop 3 mg / 0.5 (3 ml) UD INH SCH ×3 (01:53→13:01)
[2018-11-09 08:16] VITALS: BP 135/64; PULSE 77; TEMP 98.5; O2SAT 97
--- NOTE | 2018-11-09 13:21 | CP.PCM.DIS ---
Provider - Provider Date of Admission: 10/29/18 21:42 Attending physician: Richard Olsen MD Consults: 10/30/18 01:41 Case Management Referral Routine Comment: Physician Instructions: Reason For Exam: Reason for Referral: Discharge Planning 10/30/18 01:42 Pastoral Care Referral Routine Comment: Physician Instructions: Reason For Exam: more info on advance directives. 11/02/18 13:19 Physiatry Consult Routine Comment: Consulting Provider: Yung Morataya Consulting Physician: Yung Morataya Reason for Consult: left heel pain impacting ambulation 11/02/18 16:06 Wound Care [Nursing Referral for Wound Care] Routine Comment: Physician Instructions: Reason For Exam: left arm skin tear Diagnosis - Discharge Diagnosis (1) Bacterial pneumonia Status: Resolved (2) COPD with asthma Status: Resolved (3) HTN (hypertension) Status: Acute Hospital Course - Lab Results Lab Results: Most Recent Lab Values WBC 5.3 K/uL (4.8-10.8) 11/07/18 06:20 RBC 2.94 Mil/uL (3.80-5.20) L 11/07/18 06:20 Hgb 9.5 g/dL (12.0-16.0) L 11/07/18 06:20 Hct 28.7 % (34.0-47.0) L 11/07/18 06:20 MCV 97.6 fl (81.0-99.0) 11/07/18 06:20 MCH 32.3 pg (27.0-31.0) H 11/07/18 06:20 MCHC 33.1 g/dL (33.0-37.0) 11/07/18 06:20 RDW 14.0 % (11.5-14.5) 11/07/18 06:20 Plt Count 177 K/uL (130-400) 11/07/18 06:20 MPV 8.9 fl (7.2-11.7) 10/30/18 06:08 Neut % (Auto) 63.8 % (50.0-75.0) 10/30/18 06:08 Lymph % (Auto) 19.0 % (20.0-40.0) L 10/30/18 06:08 [place] % (Auto) 8.4 % (0.0-10.0) 10/30/18 06:08 Eos % (Auto) 7.7 % (0.0-4.0) H 10/30/18 06:08 Baso % (Auto) 1.1 % (0.0-2.0) 10/30/18 06:08 Neut # (Auto) 3.5 K/uL (1.8-7.0) 10/30/18 06:08 Lymph # (Auto) 1.0 K/uL (1.0-4.3) 10/30/18 06:08 [place] # (Auto) 0.5 K/uL (0.0-0.8) 10/30/18 06:08 Eos # (Auto) 0.4 K/uL (0.0-0.7) 10/30/18 06:08 Baso # (Auto) 0.1 K/uL (0.0-0.2) 10/30/18 06:08 Sodium 140 mmol/l (132-148) 11/08/18 06:25 Potassium 3.6 MMOL/L (3.6-5.0) 11/08/18 06:25 Chloride 111 mmol/L (98-107) H 11/08/18 06:25 Carbon Dioxide 25 mmol/L (22-30) 11/08/18 06:25 Anion Gap 8 (10-20) L 11/08/18 06:25 BUN 7 mg/dl (7-17) 11/08/18 06:25 Creatinine 0.5 mg/dl (0.7-1.2) L 11/08/18 06:25 Est GFR ( Amer) > 60 11/08/18 06:25 Est GFR (Non-Af Amer) > 60 11/08/18 06:25 Random Glucose 85 mg/dL (65-105) 11/08/18 06:25 Calcium 9.3 mg/dL (8.4-10.2) 11/08/18 06:25 Vancomycin Trough 10.8 ug/mL (5.0-10.0) H 10/31/18 06:15 Discharge Exam - Head Exam Head Exam: NORMAL INSPECTION Discharge Plan - Follow Up Plan Condition: GOOD Disposition: HOME/ ROUTINE Instructions: Asthma, Adult (DC), Pneumonia, Adult (DC), Preventing Falls, Medicines for Chronic Obstructive Pulmonary Disease (COPD)
== END 2018-11-09 14:10 | disposition home health service (06) | DRG 194 ==
LOC: H.TCU 21:42
PROVIDERS: ADMIT Internal Medicine Pulmonary Disease; ATTEND Internal Medicine Pulmonary Disease
PROC: 3E03329 Introduction of Other Anti-infective into Peripheral Vein, Percutaneous Approach (ICD-10-PCS; principal; 2018-10-30)
PROC: F08Z4FZ Home Management Treatment using Assistive, Adaptive, Supportive or Protective Equipment (ICD-10-PCS; 2018-10-30)
DX: J15.9 Unspecified bacterial pneumonia (principal); J44.0 Chronic obstructive pulmonary disease with (acute) lower respiratory infection; M72.2 Plantar fascial fibromatosis; Z79.01 Long term (current) use of anticoagulants; Z86.718 Personal history of other venous thrombosis and embolism; Z87.01 Personal history of pneumonia (recurrent); H26.9 Unspecified cataract; M19.90 Unspecified osteoarthritis, unspecified site; M79.672 Pain in left foot; E78.00 Pure hypercholesterolemia, unspecified; I10 Essential (primary) hypertension; Z87.81 Personal history of (healed) traumatic fracture

== ENCOUNTER 2019-01-15 22:02 | Emergency (ER) | payer MEDICARE, BC ==
[2019-01-15 22:02] VITALS: BMI 16.6
[2019-01-15 22:07] VITALS: RESP 16; O2SAT 97
[2019-01-15] MEDS ORDERED: Sodium Chloride 0.9% 1,000 ML IV STA (22:31)
--- NOTE | 2019-01-15 22:34 | ED PDOC ---
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 Patient states her body feels "warm" and vomited once at 17:00. Denies fever, headache, dizziness, extremity numbness/weakness, chest pain, shortness of breath, palpitations, abdominal pain, urinary symptoms PMD: Dr. Kraus? Sizer Machine: Dr. Olsen Past Medical History Reviewed: Historical Data, Nursing Documentation, Vital Signs Vital Signs: Last Vital Signs Temp 97.5 F L 01/15/19 22:05 Pulse 82 01/15/19 22:05 Resp 16 01/15/19 22:05 BP 151/76 H 01/15/19 22:05 Pulse Ox 97 01/15/19 22:05 - Medical History PMH: Arthritis, Asthma, COPD, Fractures (left hip), HTN, Hypercholesterolemia, Pneumonia Denies: Alzheimer's Disease, Anemia, Anxiety, Atrial Fibrillation, Bipolar Disorder, Bronchitis, CAD, Cardia Arrhythmia, CHF, Crohn's Disease, Dementia, Depression, Diverticulitis, Emphysema, Gastritis, Gall Bladder Disease, HIV, Hyperthyroidism, Hypothyroidism, Kidney Stones, Migraine, Multiple Sclerosis, Osteoporosis, Pancreatitis, Paranoia, Parkinson's Disease, Peripheral Edema, Post Traumatic Stress Disorder, Pulmonary Embolism, Chronic Kidney Disease, Rheumatoid Arthritis, Schizophrenia, Seizures, Sickle Cell Disease, Sexually Transmitted Disease, Sleep Apnea, TIA - Surgical History Surgical History: Denies: Appendectomy, CABG, Carotid Endarterectomy, Cholecystectomy, Coronary Stent, Pacemaker - Family History Family History: States: Unknown Family Hx - Immunization History Hx Tetanus Toxoid Vaccination: No Hx Influenza Vaccination: No Hx Pneumococcal Vaccination: No - Home Medications Home Medications: Ambulatory Orders Medication Instructions Recorded Montelukast [Singulair] 10 mg PO HS #30 tab 10/18/18 Rivaroxaban [Xarelto] 10 mg PO QD5 #30 tab 10/18/18 Polyethylene Glycol/Polyvinyl 2 drop OU Q6 PRN bottle 10/29/18 [Artificial Tears] Albuterol/Ipratropium [Duoneb 3 3 ml INH BID #0 neb 11/09/18 mg/0.5 mg (3 ml) UD] Donepezil [Aricept] 5 mg PO HS tab 11/09/18 Cephalexin [Keflex] 500 mg PO TID #20 capsule 01/16/19 - Allergies Allergies/Adverse Reactions: Allergies Allergy/AdvReac Type Severity Reaction Status Date / Time No Known Allergies Allergy Verified 01/15/19 22:05 Review of Systems ROS Statement: Except As Marked, All Systems Reviewed And Found Negative Constitutional: Positive for: Weakness Gastrointestinal: Positive for: Vomiting Physical Exam - Reviewed Nursing Documentation Reviewed: Yes Vital Signs Reviewed: Yes - Physical Exam Appears: Positive for: Well, Non-toxic, No Acute Distress Head Exam: Positive for: ATRAUMATIC, NORMAL INSPECTION, NORMOCEPHALIC Skin: Positive for: Normal Color Eye Exam: Positive for: Normal appearance ENT: Positive for: Normal ENT Inspection Cardiovascular/Chest: Positive for: Regular Rate, Rhythm Respiratory: Positive for: Normal Breath Sounds Gastrointestinal/Abdominal: Positive for: Normal Exam Back: Positive for: Normal Inspection Extremity: Positive for: Normal ROM Neurological/Psych: Positive for: Awake, Alert, Oriented (x3) - Laboratory Results Result Diagrams: 01/15/19 23:28 01/15/19 23:28 - ECG ECG: Positive for: Viewed By Me (reviewed by ED attending) ECG Rhythm: Positive for: Sinus Bradycardia O2 Sat by Pulse Oximetry: 97 - Progress ED Course And Treament: -cbc -cmp -lactic acid -blood culture -urinalysis -urine culture -IV NS -cxr -ekg EXAM: CR Chest, 1 View. CLINICAL HISTORY: Weakness COMPARISON: None provided. FINDINGS: LUNGS: There is ill-defined opacity seen in the medial right infrahilar region. These findings could be compatible pneumonic consolidation; however, a pulmonary nodule is not entirely excluded. if the clinical symptomatology does not support pneumonic consolidation; then consideration could be given to CT thorax evaluation for further definition. PLEURAL SPACES: No evidence of pleural effusion or pneumothorax. MEDIASTINUM: Cardiac size and mediastinal contours within normal limits. Atheromatous plaquing is seen within the aortic arch. BONES: No acute osseous abnormality. Advanced degenerative arthritis is seen within both shoulder joints. IMPRESSION: 1. Questionable right infrahilar airspace opacity versus nodule. Consideration could be given to further evaluation with CT thorax. CT SCAN OF THE CHEST WITHOUT IV CONTRAST CLINICAL INDICATION: Weakness. TECHNIQUE: Axial and reformatted sagittal and coronal images of the chest obtained without IV contrast administration. Comparison: 11/07/2018. FINDINGS: Bilateral basilar subsegmental atelectatic pulmonary changes. Normal unenhanced main pulmonary artery and right and left pulmonary arteries. Normal bilateral peripheral pulmonary arteries. Normal thoracic aorta and visualized great vessels. There is no demonstrated aortic aneurysm. Normal heart and pericardium. Normal mediastinum. Normal hilar regions. Normal visualized trachea and thickened bronchi. The remaining lungs are well expanded. Normal remaining pulmonary parenchyma. Normal pleura. Normal chest wall structures. Moderate diffuse spondylosis. Cholelithiasis. Mild diffuse thickening of the gallbladder. Uncomplicated colonic diverticulosis. IMPRESSION: Mild diffuse thickening of the wall of the gallbladder. Cholelithiasis. Bilateral basilar subsegmental atelectatic pulmonary changes. Bronchitis Right upper quadrant ultrasound. Indication: Vomiting, weakness. Technique: Real-time ultrasound images were obtained. Findings: Liver is normal in size measuring 10.3 cm. Nondilated to common bile duct measuring 2.1 mm. Cholelithiasis. Diffuse thickening of the gallbladder measuring 3.9 mm. Negative sonographic Dailey. Nonvisualization of the pancreas. Unremarkable aorta. Unremarkable IVC. Unremarkable right kidney. Impression: Cholelithiasis. Diffuse thickening of the wall of the gallbladder which is probably secondary to underdistention or may represent a chronic finding. No sonographic evidence of acute cholecystitis Patient sleeping on re-eval; upon awakening states she is feeling better. Vitals remain stable Patient educated on findings, discharged with rx Keflex (dose given in ED) Advised follow up PMD within 2-3 days Return precautions given Disposition - Clinical Impression Clinical Impression: Urinary tract infection, Cholelithiasis - Patient ED Disposition Is Patient to be Admitted: No Counseled Patient/Family Regarding: Studies Performed, Diagnosis, Need For Followup, Rx Given - Disposition Disposition: Routine/Home Disposition Time: 03:33 Condition: IMPROVED Prescriptions: Cephalexin [Keflex] 500 mg PO TID #20 capsule Instructions: Gallstones, Urinary Tract Infections in Adults Print Language: ROMANSH
[2019-01-15 23:19] LABS: SQUAMOUS EPITHIAL 8 /hpf (0-5); URINE BACTERIA RARE (<OCC); URINE BILIRUBIN NEGATIVE (NEGATIVE); URINE BLOOD NEGATIVE (NEGATIVE); URINE CLARITY CLOUDY (Clear); URINE COLOR YELLOW (YELLOW); URINE GLUCOSE (UA) NEG (NEGATIVE); URINE HYALINE CAST 0-2 /hpf (0-2); URINE LEUKOCYTE ESTERASE SMALL Leu/uL (Negative); URINE PROTEIN 30 mg/dL (NEGATIVE); URINE UROBILINOGEN 0.2-1.0 mg/dL (0.2-1.0)
[2019-01-15 23:31] LABS: BASO % 1.2 % (0.0-2.0); EOS # 0.1 K/uL (0.0-0.7); EOS % 2.5 % (0.0-4.0); HEMOGLOBIN 12.6 g/dL (12.0-16.0); LYMPH # 1.3 K/uL (1.0-4.3); LYMPH % 37.3 % (20.0-40.0); MEAN CELL VOLUME 96.8 fl (81.0-99.0); MEAN CORPUSCULAR HEMOGLOBIN 31.8 pg (27.0-31.0); MEAN CORPUSCULAR HGB CONC 32.8 g/dL (33.0-37.0); MEAN PLATELET VOLUME 9.2 fl (7.2-11.7); MONO # 0.4 K/uL (0.0-0.8); MONO % 10.2 % (0.0-10.0); NEUT # 1.7 K/uL (1.8-7.0); NEUT % 48.8 % (50.0-75.0); NRBC % 0.1 % (0.0-0.0); RBC 3.95 Mil/uL (3.80-5.20); RED CELL DISTRIBUTION WIDTH 14.5 % (11.5-14.5); WHITE BLOOD COUNT 3.4 K/uL (4.8-10.8)
[2019-01-15 23:43] LABS: ALB/GLOB RATIO 1.1 (1.0-2.1); ALBUMIN 3.8 g/dL (3.5-5.0); ALT/SGPT 19 U/L (9-52); AST/SGOT 30 U/L (14-36); BLOOD UREA NITROGEN 23 mg/dl (7-17); CALCIUM 10.1 mg/dL (8.4-10.2); GFR NON-AFRICAN AMERICAN > 60; LIPASE 80 U/L (23-300)
[2019-01-16 03:42] VITALS: BP 157/74; PULSE 78; TEMP 98.1
--- NOTE | 2019-01-16 08:58 | CARD ---
APPROVED REPORT Date of service: 01/15/2019 EKG Measurement Heart [id number] <Conclusion> Sinus bradycardia Incomplete right bundle branch block Left anterior fascicular block Abnormal ECG
--- NOTE | 2019-01-16 09:56 | US ---
Date of service: 01/16/2019 HISTORY: vomiting COMPARISON: None. TECHNIQUE: Sonographic evaluation of the right upper quadrant of the abdomen. FINDINGS: LIVER: Measures 12.3 cm in length. Normal echogenicity of the liver parenchyma. No mass. No intrahepatic bile duct dilatation. GALLBLADDER: Cholelithiasis. No mural thickening. No pericholecystic fluid. Negative sonographic Dailey sign. COMMON BILE DUCT: Measures 3 mm. No stones. No dilatation. PANCREAS: Unremarkable as visualized. No mass. No ductal dilatation. RIGHT KIDNEY: Measures 9.0 cm in length. Normal echogenicity. No calculus, mass, or hydronephrosis. AORTA: No aneurysmal dilatation. IVC: Unremarkable. OTHER FINDINGS: None . IMPRESSION: Cholelithiasis without sonographic evidence of cholecystitis. Otherwise unremarkable examination. The preliminary findings for this examination were reported by [facility] at 3 a.m. on 01/16/2019.. There is concurrence of this report with the preliminary findings.
--- NOTE | 2019-01-16 13:26 | CT ---
Date of service: 01/16/2019 PROCEDURE: CT Chest without contrast HISTORY: Weakness COMPARISON: None available. TECHNIQUE: Contiguous axial images were obtained through the chest without intravenous contrast enhancement. Sagittal and coronal reconstructions were performed. Radiation dose: Total exam DLP = 169.75 mGy-cm. This CT exam was performed using one or more of the following dose reduction techniques: Automated exposure control, adjustment of the mA and/or kV according to patient size, and/or use of iterative reconstruction technique. FINDINGS: LUNGS: Mild passive/dependent type atelectasis seen in both posterior lower lung merritt. Mild biapical pleural thickening with a tiny associated calcification on the right with adjacent parenchymal scarring. In addition, there are small bleb changes seen in the left lung apex. There is a small approximately 6.1 mm nodule left posterior lung apex with another slightly more inferior and laterally located elliptical shaped nodule which is pleural-based measuring approximately 3.4 mm. A 3rd slightly more inferior and laterally located 4.6 mm nodule There is an approximately 6.9 mm pleural-based nodular density right lateral upper lung field.. Nodular and linear atelectasis/scarring right posterior lung base extending to the pleural surface. Similar changes seen in the left lung base all of these findings are presumed to be postinflammatory however a repeat CT scan in 6 months could be performed to assess stability. Small approximately 6.8 mm calcified granuloma left lateral lung base MEDIASTINUM: Heart size is within range of normal. No significant pericardial effusion. The at ascending thoracic aorta measures approximately 3.85 cm and descending thoracic aorta measures approximately 2.6 cm. Mild aortic atherosclerotic calcification. Pulmonary trunk measures approximately 2.5 cm there are several small nonspecific mediastinal lymph nodes. Evaluation for hilar adenopathy is limited due to the lack of circulating intravenous contrast material. Trachea is midline and patent with no large central endoluminal lesions. PLEURA: No effusion or pneumothorax. BONES: There is minor chronic anterior stature loss of the T5 segment. Chronic anterior wedge compression fracture of the L1 segment with mild retropulsion of the posterior superior corner of this vertebral body. Mild multilevel degenerative spondylosis of the thoracic spine. Significant degenerative osteoarthritis both shoulder girdles UPPER ABDOMEN: Cholelithiasis. OTHER FINDINGS: None. IMPRESSION: There are several of small nodular densities in the upper lobes and right lung base some of which and all presumably representing postinflammatory sequela. Repeat CT scan in 6 months could be performed to assess stability. Small calcified granuloma left lateral lung base. Mild bibasilar atelectasis/scarring changes. Cholelithiasis.. Chronic anterior wedge compression fracture of L1 segment. Degenerative osteoarthritis both shoulder girdles
--- NOTE | 2019-01-16 15:39 | RAD ---
Date of service: 01/15/2019 HISTORY: weakness COMPARISON: 11/07/2018 FINDINGS: LUNGS: No active pulmonary disease. PLEURA: No significant pleural effusion identified, no pneumothorax apparent. CARDIOVASCULAR: No aortic atherosclerotic calcification present. Normal cardiac size. No pulmonary vascular congestion. OSSEOUS STRUCTURES: Severe bilateral glenohumeral osteoarthritis VISUALIZED UPPER ABDOMEN: Normal. OTHER FINDINGS: None. IMPRESSION: No active disease. Severe bilateral glenohumeral osteoarthritis.
== END 2019-01-16 04:29 | disposition home or self-care (01) ==
LOC: H.ER 22:02
DX: R53.1 Weakness (principal); I10 Essential (primary) hypertension; J44.9 Chronic obstructive pulmonary disease, unspecified; N39.0 Urinary tract infection, site not specified; K80.20 Calculus of gallbladder without cholecystitis without obstruction
CPT/HCPCS: 71045; 71250; 76705; 80053; 81003; 83690; 85025; 87040; 87086; 87804; 93005; 96360; 99285; J7030

== ENCOUNTER 2019-01-19 11:45 | Inpatient (IN) | payer MEDICARE, BC ==
[2019-01-19 12:18] VITALS: BMI 14.9
[2019-01-19 13:49] LABS: VENOUS BLOOD GAS BASE EXCESS 3.6 mmol/L (0.0-2.0); VENOUS BLOOD GAS PCO2 57 mmHg (40-60); VENOUS BLOOD GAS PO2 16 mm/Hg (30-55); VENOUS BLOOD PH 7.34 (7.32-7.43)
[2019-01-19 14:01] LABS: EOS % 1.1 % (0.0-4.0); HEMOGLOBIN 12.2 g/dL (12.0-16.0); LYMPH # 0.8 K/uL (1.0-4.3); LYMPH % 23.5 % (20.0-40.0); MEAN CELL VOLUME 96.9 fl (81.0-99.0); MEAN CORPUSCULAR HEMOGLOBIN 32.2 pg (27.0-31.0); MEAN CORPUSCULAR HGB CONC 33.2 g/dL (33.0-37.0); MEAN PLATELET VOLUME 9.4 fl (7.2-11.7); MONO # 0.4 K/uL (0.0-0.8); MONO % 10.5 % (0.0-10.0); NEUT # 2.2 K/uL (1.8-7.0); NEUT % 63.9 % (50.0-75.0); RBC 3.77 Mil/uL (3.80-5.20); RED CELL DISTRIBUTION WIDTH 14.3 % (11.5-14.5); WHITE BLOOD COUNT 3.5 K/uL (4.8-10.8)
[2019-01-19 14:04] LABS: INR 1.1
[2019-01-19 14:07] LABS: PARTIAL THROMBOPLASTIN TIME 37.5 Seconds (25.6-37.1)
[2019-01-19 14:20] LABS: ALB/GLOB RATIO 1.1 (1.0-2.1); ALBUMIN 3.7 g/dL (3.5-5.0); ALT/SGPT 20 U/L (9-52); AST/SGOT 29 U/L (14-36); BLOOD UREA NITROGEN 16 mg/dl (7-17); CALCIUM 10.3 mg/dL (8.4-10.2); GFR NON-AFRICAN AMERICAN > 60
[2019-01-19 14:22] LABS: SQUAMOUS EPITHIAL 1 /hpf (0-5); URINE BACTERIA RARE (<OCC); URINE BILIRUBIN NEGATIVE (NEGATIVE); URINE BLOOD NEGATIVE (NEGATIVE); URINE CLARITY SLIGHTY-CLOUDY (Clear); URINE COLOR YELLOW (YELLOW); URINE GLUCOSE (UA) NEG (NEGATIVE); URINE LEUKOCYTE ESTERASE NEG Leu/uL (Negative); URINE PROTEIN 30 mg/dL (NEGATIVE); URINE UROBILINOGEN 0.2-1.0 mg/dL (0.2-1.0)
[2019-01-19] MEDS ORDERED: AMPicillin 1 GM in Sodium Chloride 0.9% 100 ML IVPB STA (14:33)
--- NOTE | 2019-01-19 14:33 | ED PDOC ---
HPI: Psych/Substance Abuse Time Seen by Provider: 01/19/19 12:48 Chief Complaint (Nursing): Psychiatric Evaluation Chief Complaint (Provider): Head Fullness, Visual Hallucinations History Per: Patient, [employer] ([place] #[id number]) History/Exam Limitations: no limitations Onset/Duration Of Symptoms: Days (x1) Current Symptoms Are (Timing): Still Present Additional Complaint(s): 88 year old female presents to the ED for evaluation of "fullness" in her head since last night described as feeling like something is crawling in her head. She also notes that she is seeing people walking on top of her. Denies ever having these symptoms before. Additionally denies other complaints such as headache, chest pain, and shortness of breath. PMD: Richard Olsen Past Medical History Reviewed: Historical Data, Nursing Documentation, Vital Signs Vital Signs: Last Vital Signs Temp 97.8 F 01/19/19 12:18 Pulse 84 01/19/19 12:18 Resp 18 01/19/19 12:18 BP 129/87 01/19/19 12:18 Pulse Ox 99 01/19/19 12:18 - Medical History PMH: Anxiety, Arthritis, Asthma, COPD, Depression, Fractures (left hip), HTN, Hypercholesterolemia, Pneumonia Denies: Alzheimer's Disease, Anemia, Atrial Fibrillation, Bipolar Disorder, Bronchitis, CAD, Cardia Arrhythmia, CHF, Crohn's Disease, Dementia, Diverticulitis, Emphysema, Gastritis, Gall Bladder Disease, HIV, Hyperthyroidism, Hypothyroidism, Kidney Stones, Migraine, Multiple Sclerosis, O steoporosis, Pancreatitis, Paranoia, Parkinson's Disease, Peripheral Edema, Post Traumatic Stress Disorder, Pulmonary Embolism, Chronic Kidney Disease, Rheumatoid Arthritis, Schizophrenia, Seizures, Sickle Cell Disease, Sexually Transmitted Disease, Sleep Apnea, TIA - Surgical History Surgical History: No Surg Hx Denies: Appendectomy, CABG, Carotid Endarterectomy, Cholecystectomy, Coronary Stent, Pacemaker - Family History Family History: States: Unknown Family Hx - Social History Current smoker - smoking cessation education provided: No Alcohol: None Drugs: Denies - Immunization History Hx Tetanus Toxoid Vaccination: No Hx Influenza Vaccination: No Hx Pneumococcal Vaccination: No - Home Medications Home Medications: Ambulatory Orders Medication Instructions Recorded Montelukast [Singulair] 10 mg PO HS #30 tab 10/18/18 Rivaroxaban [Xarelto] 10 mg PO QD5 #30 tab 10/18/18 Polyethylene Glycol/Polyvinyl 2 drop OU Q6 PRN bottle 10/29/18 [Artificial Tears] Albuterol/Ipratropium [Duoneb 3 3 ml INH BID #0 neb 11/09/18 mg/0.5 mg (3 ml) UD] Donepezil [Aricept] 5 mg PO HS tab 11/09/18 Cephalexin [Keflex] 500 mg PO TID #20 capsule 01/16/19 - Allergies Allergies/Adverse Reactions: Allergies Allergy/AdvReac Type Severity Reaction Status Date / Time No Known Allergies Allergy Verified 01/15/19 22:05 Review of Systems ROS Statement: Except As Marked, All Systems Reviewed And Found Negative Cardiovascular: Negative for: Chest Pain Respiratory: Negative for: Shortness of Breath Neurological: Positive for: Other (fullness in head). Negative for: Headache Psych: Positive for: Other (visual hallucinations) Physical Exam - Reviewed Nursing Documentation Reviewed: Yes Vital Signs Reviewed: Yes - Physical Exam Appears: Positive for: No Acute Distress Head Exam: Positive for: ATRAUMATIC, NORMAL INSPECTION, NORMOCEPHALIC Skin: Positive for: Normal Color, Warm, Dry Eye Exam: Positive for: EOMI, Normal appearance, PERRL ENT: Positive for: Normal ENT Inspection Neck: Positive for: Normal, Painless ROM, Supple Cardiovascular/Chest: Positive for: Regular Rate, Rhythm Respiratory: Positive for: Normal Breath Sounds. Negative for: Respiratory Distress Gastrointestinal/Abdominal: Positive for: Normal Exam, Soft. Negative for: Tenderness Back: Positive for: Normal Inspection Neurological/Psych: Positive for: Awake, Alert, Normal Tone, Symmetric/Intact Strength, Oriented (x3), Mood/Affect (normal). Negative for: Motor/Sensory Deficits - Laboratory Results Result Diagrams: 01/21/19 11:45 01/21/19 11:45 Lab Results: pO2 16 mm/Hg (30-55) L 01/19/19 13:24 VBG pH 7.34 (7.32-7.43) 01/19/19 13:24 VBG pCO2 57 mmHg (40-60) 01/19/19 13:24 VBG HCO3 25.7 mmol/L 01/19/19 13:24 VBG Total CO2 32.5 mmol/L (22-28) H 01/19/19 13:24 VBG O2 Sat (Calc) 20.0 % (40-65) L 01/19/19 13:24 VBG Base Excess 3.6 mmol/L (0.0-2.0) H 01/19/19 13:24 VBG Potassium 4.0 mmol/L (3.6-5.2) 01/19/19 13:24 Sodium 139.0 mmol/L (132-148) 01/19/19 13:24 Chloride 104.0 mmol/L (98-107) 01/19/19 13:24 Glucose 77 mg/dL (65-105) 01/19/19 13:24 Lactate 2.1 mmol/L (0.7-2.1) 01/19/19 13:24 FiO2 21.0 % 01/19/19 13:24 PT 13.0 Seconds (9.8-13.1) 01/19/19 13:48 INR 1.1 01/19/19 13:48 APTT 37.5 Seconds (25.6-37.1) H 01/19/19 13:48 Total Bilirubin 0.5 mg/dl (0.2-1.3) 01/19/19 13:48 AST 29 U/L (14-36) 01/19/19 13:48 ALT 20 U/L (9-52) 01/19/19 13:48 Alkaline Phosphatase 133 U/L (38-126) H 01/19/19 13:48 Total Protein 7.1 G/DL (6.3-8.2) 01/19/19 13:48 Albumin 3.7 g/dL (3.5-5.0) 01/19/19 13:48 Globulin 3.3 gm/dL (2.2-3.9) 01/19/19 13:48 Albumin/Globulin Ratio 1.1 (1.0-2.1) 01/19/19 13:48 - ECG O2 Sat by Pulse Oximetry: 99 (RA) Pulse Ox Interpretation: Normal Medical Decision Making Medical Decision Making: Time: 1313 Impression: altered mental status Initial Plan: --VBG --CT Head without contrast --U-dip --CBC with differential --PTT / PT --Blood culture --Reevaluation Upon review of old records, patient was called yesterday because her urine culture from 01/15/19 showed VRE. 1409 Additional orders: --Urinalysis --Urine culture 1433 CT Head FINDINGS: HEMORRHAGE: No intracranial hemorrhage. BRAIN: Mild diffuse and confluent chronic periventricular white matter ischemic changes are again seen extending slightly into the deep white matter both cerebral hemispheres. Additionally, there also appear to be a few scattered chronic bilateral basal nuclei lacunar type infarcts.. Moderate generalized volume loss. Mild vascular calcifications both carotid siphons and vertebral arteries. VENTRICLES: No obstructive hydrocephalus. CALVARIUM: Calvarium intact. Again noted is a small left parasagittal frontal bony exostosis unchanged. PARANASAL SINUSES: Unremarkable as visualized. No significant inflammatory changes. MASTOID AIR CELLS: There is opacification a few left inferior ethmoid air cells. OTHER FINDINGS: Changes of bilateral cataract surgery again noted IMPRESSION: No acute intracranial hemorrhage. Chronic white matter and basal nuclei ischemic changes. Moderate generalized volume loss. [address] Olsen, and patient is to be admitted for altered mental status with bridge orders placed to facilitate transfer of care. Pretty additionally agrees with starting pt on ampicillin at this time. Scribe Attestation: Documented by Priyanka Lua, acting as a scribe for Bonnie Gaspar MD. Provider Scribe Attestation: All medical record entries made by the Scribe were at my direction and personally dictated by me. I have reviewed the chart and agree that the record accurately reflects my personal performance of the history, physical exam, medical decision making, and the department course for this patient. I have also personally directed, reviewed, and agree with the discharge instructions and disposition. Disposition - Clinical Impression Clinical Impression: Altered mental status, VRE (vancomycin resistant enterococcus) culture positive - Patient ED Disposition Is Patient to be Admitted: Yes - Disposition Disposition Time: 14:33 Condition: STABLE - POA Present On Arrival: None
--- NOTE | 2019-01-19 14:36 | CT ---
Date of service: 01/19/2019 PROCEDURE: CT HEAD WITHOUT CONTRAST. HISTORY: Head fullness COMPARISON: Comparison made with prior CT scan brain 01/28/2018. TECHNIQUE: Axial computed tomography images were obtained through the head/brain without intravenous contrast. Radiation dose: Total exam DLP = 704.23 mGy-cm. This CT exam was performed using one or more of the following dose reduction techniques: Automated exposure control, adjustment of the mA and/or kV according to patient size, and/or use of iterative reconstruction technique. FINDINGS: HEMORRHAGE: No intracranial hemorrhage. BRAIN: Mild diffuse and confluent chronic periventricular white matter ischemic changes are again seen extending slightly into the deep white matter both cerebral hemispheres. Additionally, there also appear to be a few scattered chronic bilateral basal nuclei lacunar type infarcts.. Moderate generalized volume loss. Mild vascular calcifications both carotid siphons and vertebral arteries. VENTRICLES: No obstructive hydrocephalus. CALVARIUM: Calvarium intact. Again noted is a small left parasagittal frontal bony exostosis unchanged. PARANASAL SINUSES: Unremarkable as visualized. No significant inflammatory changes. MASTOID AIR CELLS: There is opacification a few left inferior ethmoid air cells. OTHER FINDINGS: Changes of bilateral cataract surgery again noted IMPRESSION: No acute intracranial hemorrhage. Chronic white matter and basal nuclei ischemic changes. Moderate generalized volume loss.
[2019-01-20] MEDS: Albuterol-Ipratrop 3 mg / 0.5 (3 ml) UD INH SCH ×3 (07:37→19:47)
[2019-01-20] MEDS: AMPicillin 1 GM in Sodium Chloride 0.9% 100 ML IVPB SCH ×2 (08:53→17:07)
--- NOTE | 2019-01-20 10:48 | CP.PCM.CON ---
History of Present Illness - History of Present Illness History of Present Illness: Neurology consult dictated. 88 yr old woman who appears to have delirium, non focal neurological exam. PLan; 1. Seroquel as needed prn 25 mg 2. MRI Brain without emigdio DR. Lu[facility] Past Patient History - Past Medical History & Family History Past Medical History?: Yes - Past Social History Smoking Status: Never Smoked - CARDIAC Hx Cardiac Disorders: Yes (HTN; hyperlipidemia) Hx Hypercholesterolemia: Yes Hx Hypertension: Yes - PULMONARY Hx Respiratory Disorders: Yes (COPD) Hx Chronic Obstructive Pulmonary Disease (COPD): Yes Hx Pneumonia: Yes - NEUROLOGICAL Hx Alzheimer's Disease: No Hx Dementia: No Hx Migraine: No Hx Multiple Sclerosis: No Hx Parkinson's Disease: No Hx Seizures: No Hx Transient Ischemic Attacks (TIA): No - HEENT Hx HEENT Problems: Yes Hx Cataracts: Yes - RENAL Hx Chronic Kidney Disease: No - ENDOCRINE/METABOLIC Hx Hyperthyroidism: No Hx Hypothyroidism: No - HEMATOLOGICAL/ONCOLOGICAL Hx Anemia: No Hx Human Immunodeficiency Virus (HIV): No Hx Sickle Cell Disease: No - INTEGUMENTARY Hx Dermatological Problems: Yes - MUSCULOSKELETAL/RHEUMATOLOGICAL Hx Arthritis: Yes Hx Falls: No Hx Fractures: Yes (left hip) Hx Osteoporosis: No Hx Rheumatoid Arthritis: No - GASTROINTESTINAL Hx Crohn's Disease: No Hx Diverticulitis: No Hx Gall Bladder Disease: No Hx Gastritis: No Hx Pancreatitis: No - GENITOURINARY/GYNECOLOGICAL Hx Sexually Transmitted Disorders: No - PSYCHIATRIC Hx Psychophysiologic Disorder: Yes (anxiety, depression) Hx Substance Use: No - SURGICAL HISTORY Hx Appendectomy: No Hx Carotid Endarterectomy: No Hx Cholecystectomy: No Hx Coronary Artery Bypass Graft: No Hx Coronary Stent: No - ANESTHESIA Hx Anesthesia: Yes Hx Anesthesia Reactions: No Hx Malignant Hyperthermia: No Meds Allergies/Adverse Reactions: Allergies Allergy/AdvReac Type Severity Reaction Status Date / Time No Known Allergies Allergy Verified 01/15/19 22:05 - Medications Medications: Current Medications Albuterol/Ipratropium (Duoneb 3 Mg/0.5 Mg (3 Ml) Ud) 3 ml INH RTID REGINALD Last Admin: 01/20/19 07:37 Dose: 3 ml Donepezil HCl (Aricept) 5 mg PO HS REGINALD Ampicillin 1 gm/ Sodium (Chloride) 100 mls @ 100 mls/hr IVPB Q8 REGINALD; Protocol Last Admin: 01/20/19 08:53 Dose: 100 mls/hr Montelukast Sodium (Singulair) 10 mg PO HS REGINALD Results - Vital Signs Recent Vital Signs: Last Vital Signs Temp 98.1 F 01/20/19 08:19 Pulse 56 L 01/20/19 09:00 Resp 18 01/20/19 08:19 BP 106/57 L 01/20/19 08:19 Pulse Ox 97 01/20/19 08:19 - Labs Result Diagrams: 01/19/19 13:48 01/19/19 13:48 Labs: Laboratory Results - last 24 hr 01/19/19 01/19/19 01/19/19 13:24 13:48 13:48 WBC 3.5 L RBC 3.77 L Hgb 12.2 Hct 36.6 MCV 96.9 MCH 32.2 H MCHC 33.2 RDW 14.3 Plt Count 153 MPV 9.4 Neut % (Auto) 63.9 Lymph % (Auto) 23.5 [place] % (Auto) 10.5 H Eos % (Auto) 1.1 Baso % (Auto) 1.0 Neut # (Auto) 2.2 Lymph # (Auto) 0.8 L [place] # (Auto) 0.4 Eos # (Auto) 0.0 Baso # (Auto) 0.0 PT INR APTT pO2 16 L VBG pH 7.34 VBG pCO2 57 VBG HCO3 25.7 VBG Total CO2 32.5 H VBG O2 Sat (Calc) 20.0 L VBG Base Excess 3.6 H VBG Potassium 4.0 Sodium 139.0 142 Chloride 104.0 104 Glucose 77 Lactate 2.1 FiO2 21.0 Potassium 4.2 Carbon Dioxide 30 Anion Gap 12 BUN 16 Creatinine 0.7 Est GFR ( Amer) > 60 Est GFR (Non-Af Amer) > 60 Random Glucose 88 Calcium 10.3 H Total Bilirubin 0.5 AST 29 ALT 20 Alkaline Phosphatase 133 H Total Protein 7.1 Albumin 3.7 Globulin 3.3 Albumin/Globulin Ratio 1.1 Venous Blood Potassium 4.0 Urine Color Urine Clarity Urine pH Ur Specific [place] Urine Protein Urine Glucose (UA) Urine Ketones Urine Blood Urine Nitrate Urine Bilirubin Urine Urobilinogen Ur Leukocyte Esterase Urine RBC (Auto) Urine Microscopic WBC Ur Squamous Epith Cells Urine Bacteria Hyaline Casts 03/23/19 03/23/19 13:48 14:09 WBC RBC Hgb Hct MCV MCH MCHC RDW Plt Count MPV Neut % (Auto) Lymph % (Auto) [place] % (Auto) Eos % (Auto) Baso % (Auto) Neut # (Auto) Lymph # (Auto) [place] # (Auto) Eos # (Auto) Baso # (Auto) PT 13.0 INR 1.1 APTT 37.5 H pO2 VBG pH VBG pCO2 VBG HCO3 VBG Total CO2 VBG O2 Sat (Calc) VBG Base Excess VBG Potassium Sodium Chloride Glucose Lactate FiO2 Potassium Carbon Dioxide Anion Gap BUN Creatinine Est GFR ( Amer) Est GFR (Non-Af Amer) Random Glucose Calcium Total Bilirubin AST ALT Alkaline Phosphatase Total Protein Albumin Globulin Albumin/Globulin Ratio Venous Blood Potassium Urine Color Yellow Urine Clarity Slighty-cloudy Urine pH 7.0 Ur Specific [place] 1.015 Urine Protein 30 Urine Glucose (UA) Neg Urine Ketones Trace Urine Blood Negative Urine Nitrate Negative Urine Bilirubin Negative Urine Urobilinogen 0.2-1.0 Ur Leukocyte Esterase Neg Urine RBC (Auto) 5 H Urine Microscopic WBC 2 Ur Squamous Epith Cells 1 Urine Bacteria Rare Hyaline Casts 3-5 H
--- NOTE | 2019-01-20 15:49 | CP.PCM.HP ---
History of Present Illness - History of Present Illness History of Present Illness: CC: AMS. 88 y/o F, PMHx: Demntia, HTN, COPD, PNA, ORIF R Hip, DVT Left L/E, , UTI, Coronary Stent, Carotid Endarterectomy, Cholelithiasis. [facility] to have Psychiatric evaluation due to new onset of AMS, on day [employer], associated to hallucinations, likely people walking on top of her, feeling crawling inside her head, insomnia, not in her base line. ER [facility] visit 01-15 Dx UTI U C-S VRE E Faecium Worsening symptoms: Depression, Anxiety,weakness/tired. Aggravated factor: Walking No: Fever, chills, n/v/d, abdominal pain, urinary symptoms, CP, palpitations, SOB, cough, sick contact, recent travel out of [facility]. CT Head: No acute intracranial hemorrhage, few scattered chronic b/l basal nuclear lacunar type infarcts. Chronic periventricular white matter ischemic changes. Present on Admission - Present on Admission Any Indicators Present on Admission: Yes History of DVT/PE: Yes Review of Systems - Review of Systems Systems not reviewed;Unavailable: Acuity of Condition, Altered Mental Status Past Patient History - Past Medical History & Family History Past Medical History?: Yes Pertinent Family History: Unknown - Past Social History Smoking Status: Never Smoked Alcohol: None Drugs: Denies Home Situation {Lives}: With Family - CARDIAC Hx Cardiac Disorders: Yes (HTN; hyperlipidemia) Hx Hypercholesterolemia: Yes Hx Hypertension: Yes - PULMONARY Hx Respiratory Disorders: Yes (COPD) Hx Asthma: Yes Hx Chronic Obstructive Pulmonary Disease (COPD): Yes Hx Pneumonia: Yes - NEUROLOGICAL Hx Alzheimer's Disease: No Hx Dementia: No Hx Migraine: No Hx Multiple Sclerosis: No Hx Parkinson's Disease: No Hx Seizures: No Hx Transient Ischemic Attacks (TIA): No - HEENT Hx HEENT Problems: Yes Hx Cataracts: Yes - RENAL Hx Chronic Kidney Disease: No - ENDOCRINE/METABOLIC Hx Hyperthyroidism: No Hx Hypothyroidism: No - HEMATOLOGICAL/ONCOLOGICAL Hx Anemia: No Hx Human Immunodeficiency Virus (HIV): No Hx Sickle Cell Disease: No - INTEGUMENTARY Hx Dermatological Problems: Yes - MUSCULOSKELETAL/RHEUMATOLOGICAL Hx Arthritis: Yes Hx Falls: No Hx Fractures: Yes (left hip) Hx Osteoporosis: No Hx Rheumatoid Arthritis: No - GASTROINTESTINAL Hx Crohn's Disease: No Hx Diverticulitis: No Hx Gall Bladder Disease: No Hx Gastritis: No Hx Pancreatitis: No - GENITOURINARY/GYNECOLOGICAL Hx Sexually Transmitted Disorders: No - PSYCHIATRIC Hx Psychophysiologic Disorder: Yes (anxiety, depression) Hx Anxiety: Yes Hx Depression: Yes Hx Substance Use: No - SURGICAL HISTORY Hx Appendectomy: No Hx Carotid Endarterectomy: No Hx Cholecystectomy: No Hx Coronary Artery Bypass Graft: No Hx Coronary Stent: No - ANESTHESIA Hx Anesthesia: Yes Hx Anesthesia Reactions: No Hx Malignant Hyperthermia: No Meds Home Medications: Home Medication List Medication Instructions Recorded Confirmed Type Linezolid [Zyvox] 600 mg PO Q12 #10 tab 01/24/19 Rx Allergies/Adverse Reactions: Allergies Allergy/AdvReac Type Severity Reaction Status Date / Time No Known Allergies Allergy Verified 01/15/19 22:05 Physical Exam - Constitutional Appears: Confused, Chronically Ill Additional comments: Cachexia - Head Exam Head Exam: NORMAL INSPECTION - Eye Exam Eye Exam: PERRL - ENT Exam ENT Exam: Normal Exam - Neck Exam Neck exam: Positive for: Normal Inspection - Respiratory Exam Respiratory Exam: Decreased Breath Sounds (b/l) - Cardiovascular Exam Cardiovascular Exam: REGULAR RHYTHM - GI/Abdominal Exam GI & Abdominal Exam: Normal Bowel Sounds, Soft - Extremities Exam Extremities exam: Positive for: normal inspection - Back Exam Back exam: NORMAL INSPECTION - Neurological Exam Additional comments: confused, Ox2, no focal motor.sensory deficit - Psychiatric Exam Psychiatric exam: Depressed - Skin Skin Exam: Warm Results - Vital Signs Recent Vital Signs: Last Vital Signs Temp 98 F 01/20/19 12:22 Pulse 80 01/20/19 12:22 Resp 18 01/20/19 12:22 BP 98/60 L 01/20/19 12:22 Pulse Ox 96 01/20/19 12:22 - Labs Result Diagrams: 01/23/19 05:35 01/21/19 11:45 Assessment & Plan (1) Altered mental status Status: Resolved Priority: High Comment: 2nd to UTI, Delirium, toxic metabolic encephalopathy (2) Delirium Status: Resolved Priority: High (3) 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 PT/OT eval, Neurology consult appreciated, Psychiatry and ID consult. - Date & Time Date: 01/20/19 Time: 14:00
--- NOTE | 2019-01-20 16:10 | CP.PCM.CON ---
History of Present Illness - History of Present Illness History of Present Illness: pt is on telemetry psych called to consult for changes in memory. pt was admitted from home for reported urinary tract infection and changes in mentation. pt reportedly has been started by aricept and namenda in the community. Review of Systems - Psychiatric Additional comments: pt reports seeing shadows at night which reportedly started just before admitted. reports shadow talk to her but pt denies understanding what they are saying reports like when they come. denies command hallucinations. denies recalling if they have ever visited before. denies known psych hx. Past Patient History - Past Medical History & Family History Past Medical History?: Yes - Past Social History Smoking Status: Never Smoked - CARDIAC Hx Cardiac Disorders: Yes (HTN; hyperlipidemia) Hx Hypercholesterolemia: Yes Hx Hypertension: Yes - PULMONARY Hx Respiratory Disorders: Yes (COPD) Hx Chronic Obstructive Pulmonary Disease (COPD): Yes Hx Pneumonia: Yes - NEUROLOGICAL Hx Alzheimer's Disease: No Hx Dementia: No Hx Migraine: No Hx Multiple Sclerosis: No Hx Parkinson's Disease: No Hx Seizures: No Hx Transient Ischemic Attacks (TIA): No - HEENT Hx HEENT Problems: Yes Hx Cataracts: Yes - RENAL Hx Chronic Kidney Disease: No - ENDOCRINE/METABOLIC Hx Hyperthyroidism: No Hx Hypothyroidism: No - HEMATOLOGICAL/ONCOLOGICAL Hx Anemia: No Hx Human Immunodeficiency Virus (HIV): No Hx Sickle Cell Disease: No - INTEGUMENTARY Hx Dermatological Problems: Yes - MUSCULOSKELETAL/RHEUMATOLOGICAL Hx Arthritis: Yes Hx Falls: No Hx Fractures: Yes (left hip) Hx Osteoporosis: No Hx Rheumatoid Arthritis: No - GASTROINTESTINAL Hx Crohn's Disease: No Hx Diverticulitis: No Hx Gall Bladder Disease: No Hx Gastritis: No Hx Pancreatitis: No - GENITOURINARY/GYNECOLOGICAL Hx Sexually Transmitted Disorders: No - PSYCHIATRIC Hx Psychophysiologic Disorder: Yes (anxiety, depression) Hx Substance Use: No - SURGICAL HISTORY Hx Appendectomy: No Hx Carotid Endarterectomy: No Hx Cholecystectomy: No Hx Coronary Artery Bypass Graft: No Hx Coronary Stent: No - ANESTHESIA Hx Anesthesia: Yes Hx Anesthesia Reactions: No Hx Malignant Hyperthermia: No Meds Allergies/Adverse Reactions: Allergies Allergy/AdvReac Type Severity Reaction Status Date / Time No Known Allergies Allergy Verified 01/15/19 22:05 - Medications Medications: Current Medications Albuterol/Ipratropium (Duoneb 3 Mg/0.5 Mg (3 Ml) Ud) 3 ml INH RTID [facility] Last Admin: 01/20/19 13:58 Dose: 3 ml Donepezil HCl (Aricept) 5 mg PO HS [facility] Ampicillin 1 gm/ Sodium (Chloride) 100 mls @ 100 mls/hr IVPB Q8 [facility]; Protocol Last Admin: 01/20/19 08:53 Dose: 100 mls/hr Montelukast Sodium (Singulair) 10 mg PO HS [facility] Physical Exam - Psychiatric Exam Additional comments: laying in hospital bed, alert x person, place and month, aware of birthday, address and husban's name. pt follows simple commands. denies s/i, h/i or current psychosis.i/j appears fair Results - Vital Signs Recent Vital Signs: Last Vital Signs Temp 98.5 F 01/20/19 15:53 Pulse 68 01/20/19 15:53 Resp 20 01/20/19 15:53 BP 113/52 L 01/20/19 15:53 Pulse Ox 96 01/20/19 15:53 - Labs Result Diagrams: 01/19/19 13:48 01/19/19 13:48 Assessment & Plan (1) Mental status alteration Status: Acute (2) Delirium Status: Acute (3) Dementia Assessment and Plan: pt can be continued on current aricept and namenda can be readjusted per clinical status once ?delirium is cleared Status: Chronic (4) Psychosis Assessment and Plan: due to pt's overall health, current treatment for uti, denies current hallucinations, would not recommend standing antipsychotics 2nd potential risk demential and aytpical antispsychotics -can be reassessed per clinical staus psycho can be re consulted per clinical staus Status: Acute
[2019-01-21] MEDS: AMPicillin 1 GM in Sodium Chloride 0.9% 100 ML IVPB SCH ×2 (00:35→08:09)
[2019-01-21] MEDS: Albuterol-Ipratrop 3 mg / 0.5 (3 ml) UD INH SCH ×3 (07:41→18:59)
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
--- NOTE | 2019-01-21 11:08 | CP.PCM.PN ---
Subjective - Date & Time of Evaluation Date of Evaluation: 01/21/19 Time of Evaluation: 08:00 - Subjective Subjective: awake alert afebrile Objective - Vital Signs/Intake and Output Vital Signs (last 24 hours): Temp Pulse Resp BP Pulse Ox 97.7 F 79 20 134/56 L 95 01/21/19 08:29 01/21/19 08:29 01/21/19 08:29 01/21/19 08:29 01/21/19 08:29 - Medications Medications: Current Medications Albuterol/Ipratropium (Duoneb 3 Mg/0.5 Mg (3 Ml) Ud) 3 ml INH RTID [facility] Last Admin: 01/21/19 07:41 Dose: 3 ml Donepezil HCl (Aricept) 5 mg PO HS [facility] Last Admin: 01/20/19 21:46 Dose: 5 mg Linezolid (Zyvox 600mg/300ml D5w) 600 mg in 300 mls @ 300 mls/hr IVPB Q12 [facility]; Protocol Montelukast Sodium (Singulair) 10 mg PO HS [facility] Last Admin: 01/20/19 21:47 Dose: 10 mg Rivaroxaban (Xarelto) 10 mg PO DAILY [facility]; Protocol Last Admin: 01/21/19 08:09 Dose: 10 mg - Labs Labs: 01/19/19 13:48 01/19/19 13:48 PT 13.0 Seconds (9.8-13.1) 01/19/19 13:48 INR 1.1 01/19/19 13:48 APTT 37.5 Seconds (25.6-37.1) H 01/19/19 13:48 - Constitutional Appears: Chronically Ill - Head Exam Head Exam: NORMOCEPHALIC (x) - Eye Exam Eye Exam: absent: Scleral icterus - ENT Exam ENT Exam: Mucous Membranes Dry - Respiratory Exam Respiratory Exam: Decreased Breath Sounds - Cardiovascular Exam Cardiovascular Exam: REGULAR RHYTHM - GI/Abdominal Exam GI & Abdominal Exam: Distended, Soft Assessment and Plan (1) Altered mental status Status: Acute (2) 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
[2019-01-21] MEDS ORDERED: Linezolid 600 mg in D5W 300 ml 600 MG/300 ML BAG IVPB SCH (11:15)
--- NOTE | 2019-01-21 11:46 | CP.PCM.PN ---
Subjective - Date & Time of Evaluation Date of Evaluation: 01/21/19 Time of Evaluation: 11:44 - Subjective Subjective: Neuro Follow-Up: Mrs. Massey was evaluated this morning at bedside. She remains confused but is pleasant, calm, able to answer questions, and engages in neuro exam. She denies any complaints aside from feeling constipated for several days. No h/a, dizziness, visual changes, chest pain, sob, abd pain, n/v/d, dysuria, paresthesias. Objective - Vital Signs/Intake and Output Vital Signs (last 24 hours): Temp Pulse Resp BP Pulse Ox 97.7 F 79 20 134/56 L 95 01/21/19 08:29 01/21/19 08:29 01/21/19 08:29 01/21/19 08:29 01/21/19 08:29 - Medications Medications: Current Medications Albuterol/Ipratropium (Duoneb 3 Mg/0.5 Mg (3 Ml) Ud) 3 ml INH RTID [facility] Last Admin: 01/21/19 07:41 Dose: 3 ml Donepezil HCl (Aricept) 5 mg PO HS [facility] Last Admin: 01/20/19 21:46 Dose: 5 mg Linezolid (Zyvox 600mg/300ml D5w) 600 mg in 300 mls @ 300 mls/hr IVPB Q12 [facility]; Protocol Montelukast Sodium (Singulair) 10 mg PO HS [facility] Last Admin: 01/20/19 21:47 Dose: 10 mg Rivaroxaban (Xarelto) 10 mg PO DAILY [facility]; Protocol Last Admin: 01/21/19 08:09 Dose: 10 mg - Labs Labs: 01/19/19 13:48 01/19/19 13:48 PT 13.0 Seconds (9.8-13.1) 01/19/19 13:48 INR 1.1 01/19/19 13:48 APTT 37.5 Seconds (25.6-37.1) H 01/19/19 13:48 - Constitutional Appears: Non-toxic, No Acute Distress, Confused - Head Exam Head Exam: ATRAUMATIC, NORMAL INSPECTION, NORMOCEPHALIC - Eye Exam Eye Exam: EOMI, Normal appearance, PERRL Pupil Exam: NORMAL ACCOMODATION, PERRL - ENT Exam ENT Exam: Mucous Membranes Moist - Neck Exam Neck Exam: Full ROM, Normal Inspection - Respiratory Exam Respiratory Exam: NORMAL BREATHING PATTERN - GI/Abdominal Exam GI & Abdominal Exam: Soft. absent: Distended, Guarding, Tenderness - Extremities Exam Extremities Exam: Full ROM, Normal Inspection. absent: Calf Tenderness, Pedal Edema - Neurological Exam Neurological Exam: Alert, Altered, Awake, CN II-XII Intact, Reflexes Normal. absent: Oriented x3 Neuro motor strength exam: Left Upper Extremity: 5, Right Upper Extremity: 5, Left Lower Extremity: 5, Right Lower Extremity: 5 Additional comments: Speech clear, fluid Pt is confused; oriented to place but note time or person. Calm, cooperative, pleasant. No focal motor or sensory deficits noted. No tremors or abnormal movements. - Psychiatric Exam Additional comments: pleasantly confused - Skin Skin Exam: Normal Color Assessment and Plan (1) Altered mental status Assessment & Plan: Imaging reviewed: -CT Head (01/19/19): No acute intracranial hemorrhage. Chronic white matter and basal nuclei ischemic changes. Moderate generalized volume loss. -AMS likely 2/2 infectious process vs dementia. Pt seems to be improving; no longer is experiencing hallucinations. -MRI Brain without contrast ordered to r/o acute intracranial involvement---will f/u with results. -Continue current treatment by primary team and consultations; continue IV Abx. -May add Seroquel 25 mg PO HS prn agitation if necessary per Dr. Lujan's recommendations. -Notify neuro team of any acute changes. Kate Smith, SONAM, TEACHER'S AIDE Discussed with Dr. Proctor Status: Acute
[2019-01-21 12:23] LABS: HEMOGLOBIN 10.3 g/dL (12.0-16.0); MEAN CELL VOLUME 96.1 fl (81.0-99.0); MEAN CORPUSCULAR HEMOGLOBIN 31.9 pg (27.0-31.0); MEAN CORPUSCULAR HGB CONC 33.1 g/dL (33.0-37.0); RBC 3.22 Mil/uL (3.80-5.20); RED CELL DISTRIBUTION WIDTH 14.6 % (11.5-14.5); WHITE BLOOD COUNT 3.3 K/uL (4.8-10.8)
[2019-01-21 12:40] LABS: BLOOD UREA NITROGEN 17 mg/dl (7-17); GFR NON-AFRICAN AMERICAN > 60
[2019-01-21] MEDS: Linezolid 600 mg in D5W 300 ml 600 MG/300 ML BAG IVPB SCH ×2 (13:20→21:49)
--- NOTE | 2019-01-21 15:24 | CP.PCM.PN ---
Subjective - Date & Time of Evaluation Date of Evaluation: 01/21/19 Time of Evaluation: 11:40 - Subjective Subjective: F/U AMS. No SOB, no A/D, denied allucinations, c/o of constipation. Objective - Vital Signs/Intake and Output Vital Signs (last 24 hours): Temp Pulse Resp BP Pulse Ox 97.9 F 61 20 109/43 L 97 01/21/19 13:04 01/21/19 13:04 01/21/19 13:04 01/21/19 13:04 01/21/19 13:04 - Medications Medications: Current Medications Albuterol/Ipratropium (Duoneb 3 Mg/0.5 Mg (3 Ml) Ud) 3 ml INH RTID [facility] Last Admin: 01/21/19 13:50 Dose: 3 ml Docusate Sodium (Colace) 100 mg PO BID [facility] Donepezil HCl (Aricept) 5 mg PO HS [facility] Last Admin: 01/20/19 21:46 Dose: 5 mg Linezolid (Zyvox 600mg/300ml D5w) 600 mg in 300 mls @ 300 mls/hr IVPB Q12 [facility]; Protocol Montelukast Sodium (Singulair) 10 mg PO HS [facility] Last Admin: 01/20/19 21:47 Dose: 10 mg Rivaroxaban (Xarelto) 10 mg PO DAILY [facility]; Protocol Last Admin: 01/21/19 08:09 Dose: 10 mg - Labs Labs: 01/21/19 11:45 01/21/19 11:45 PT 13.0 Seconds (9.8-13.1) 01/19/19 13:48 INR 1.1 01/19/19 13:48 APTT 37.5 Seconds (25.6-37.1) H 01/19/19 13:48 - Constitutional Appears: Cachectic, Chronically Ill - Head Exam Head Exam: NORMAL INSPECTION - Eye Exam Eye Exam: PERRL - ENT Exam ENT Exam: Normal Exam - Neck Exam Neck Exam: Normal Inspection - Respiratory Exam Respiratory Exam: Decreased Breath Sounds (b/l) - Cardiovascular Exam Cardiovascular Exam: REGULAR RHYTHM - GI/Abdominal Exam GI & Abdominal Exam: Soft, Normal Bowel Sounds - Extremities Exam Extremities Exam: Normal Inspection - Back Exam Back Exam: NORMAL INSPECTION - Neurological Exam Neurological Exam: Awake Additional comments: Confused, follows commands, no focal motor/sensory deficit. 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
--- NOTE | 2019-01-21 23:16 | CP.PCM.CON ---
History of Present Illness - History of Present Illness History of Present Illness: 88 y/o F, PMHx: Demntia, HTN, COPD, Fx R Hip, DVT L/E, PE, UTI, Hx CABG, Coronary Stent, Carotid Endarterectomy, PPM. 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 Review of Systems - Review of Systems Systems not reviewed;Unavailable: Altered Mental Status All systems: reviewed and no additional remarkable complaints except - Constitutional Constitutional: As Per HPI - EENT Eyes: absent: As Per HPI, Blind Spots, Blurred Vision, Change in Vision, Decreased Night Vision, Diplopia, Discharge, Dry Eye, Exophthalmos, Floaters, Irritation, Itchy Eyes, Loss of Peripheral Vision, Pain, Photophobia, Requires Corrective Lenses, Sees Flashes, Spots in Vision, Tunnel Vision, Other Visual Disturbances, Loss of Vision, Other Ears: absent: As Per HPI, Decreased Hearing, Ear Discharge, Ear Pain, Tinnitus, Abnormal Hearing, Disequilibrium, Dizziness, Other Nose/Mouth/Throat: absent: As Per HPI, Epistaxis, Nasal Congestion, Nasal Discharge, Nasal Obstruction, Nasal Trauma, Nose Pain, Post Nasal Drip, Sinus Pain, Sinus Pressure, Bleeding Gums, Change in Voice, Dental Pain, Dry Mouth, Dysphagia, Halitosis, Hoarsness, Lip Swelling, Mouth Lesions, Mouth Pain, Odynophagia, Sore Throat, Throat Swelling, Tongue Swelling, Facial Pain, Neck Pain, Neck Mass, Other - Cardiovascular Cardiovascular: absent: As Per HPI, Acrocyanosis, Chest Pain, Chest Pain at Rest, Chest Pain with Activity, Claudication, Diaphoresis, Dyspnea, Dyspnea on Exertion, Edema, Irregular Heart Rhythm, Pain Radiating to Arm/Neck/Jaw, Leg Edema, Leg Ulcers, Lightheadedness, Orthopnea, Palpitations, Paroxysmal Noctu rnal Dyspnea, Pedal Edema, Radiating Pain, Rapid Heart Rate, Slow Heart Rate, Syncope, Other - Respiratory Respiratory: absent: As Per HPI, Cough, Dyspnea, Hemoptysis, Dyspnea on Exertion, Wheezing, Snoring, Stridor, Pain on Inspiration, Chest Congestion, Excessive Mucous Production, Change in Mucous Color, Pain with Coughing, Other - Gastrointestinal Gastrointestinal: absent: As Per HPI, Abdominal Pain, Belching, Bloating, Change in Bowel Habits, Change in Stool Character, Coffee Ground Emesis, Constipation, Cramping, Diarrhea, Dyspepsia, Dysphagia, Early Satiety, Excessive Flatus, Fecal Incontinence, Heartburn, Hematemesis, Hematochezia, Loose Stools, Melena, Nausea, Odynophagia, Temesmus, Vomiting, Other - Genitourinary Genitourinary: absent: As Per HPI, Change in Urinary Stream, Difficulty Urinating, Dysuria, Flank Pain, Hematuria, Pyuria, Nocturia, Urinary Incontine nce, Urinary Frequency, Urinary Hesitance, Urinary Urgency, Voiding Freq/Small Amts, Freq UTI, Hx Renal/Bladder Calculi, Hx /Renal Surgery, Bladder Distension, Other - Reproductive: Female Reproductive:Female: absent: As Per HPI, Amenorrhea, Amenorrhea/ Control, Currently Menstual, Cycle <21 Days, Cycle >35 Days, Cycle Variable, Menses 1-7 Days, Menses >/= 8 Days, Menses Variable, Cycle > 4 Weeks Between, No Menses for 6 Months, Heavy Menses, Light Menses, Normal Menses, Spotting Between Cycles, S/P Hysterectomy, Menopausal, Post Menopausal, Premenarche, Abnormal Vaginal Bleeding, Dysmenorrhea, Dyspareunia, Genital Lesions, Genital Pruritis, Pelvic Pain, Prolapse Symptoms, Sexual Dysfunction, Vaginal Discharge, Vaginal Dryness, Vaginal Odor, Vaginal Pruritis, Other - Menstruation Menstruation: absent: As Per HPI, Amenorrhea, Amenorrhea/ Control, Currently Menstual, Cycle <21 Days, Cycle >35 Days, Cycle Variable, Menses 1-7 Days, Menses >/= 8 Days, Menses Variable, Cycle > 4 Weeks Between, No Menses for 6 Months, Heavy Menses, Light Menses, Normal Menses, Spotting Between Cycles, S/P Hysterectomy, Menopausal, Post Menopausal, Premenarche, Abnormal Vaginal Bleeding, Dysmenorrhea, Other - Musculoskeletal Musculoskeletal: absent: As Per HPI, Abnormal Gait, Arthralgias, Atrophy, Back Pain, Deformity, Joint Swelling, Limited Range of Motion, Loss of Height, Muscle Cramps, Muscle Weakness, Myalgias, Neck Pain, Numbness, Radiating Pain into Limb, Stiffness, Tingling, Other - Integumentary Integumentary: absent: As Per HPI, Acne, Alopecia, Bleeding Lesions, Change in Hair, Change in Nails, Change in Pigmentation, Changing Lesions, Dry Skin, Erythema, Furuncle, Hirsutism, Lesions, New Lesions, Non-Healing Lesions, Photosensitivity, Pruritus, Rash, Skin Pain, Skin Ulcer, Sores, Striae, Swelling, Unusual Bruising, Wounds, Jaundice, Other Past Patient History - Past Medical History & Family History Past Medical History?: Yes - Past Social History Smoking Status: Never Smoked Alcohol: None Drugs: Denies Home Situation {Lives}: With Family - CARDIAC Hx Cardiac Disorders: Yes (HTN; hyperlipidemia) Hx Hypercholesterolemia: Yes Hx Hypertension: Yes - PULMONARY Hx Respiratory Disorders: Yes (COPD) Hx Asthma: Yes Hx Chronic Obstructive Pulmonary Disease (COPD): Yes Hx Pneumonia: Yes Hx Pulmonary Embolism: Yes - NEUROLOGICAL Hx Alzheimer's Disease: No Hx Dementia: No Hx Migraine: No Hx Multiple Sclerosis: No Hx Parkinson's Disease: No Hx Seizures: No Hx Transient Ischemic Attacks (TIA): No - HEENT Hx HEENT Problems: Yes Hx Cataracts: Yes - RENAL Hx Chronic Kidney Disease: No - ENDOCRINE/METABOLIC Hx Hyperthyroidism: No Hx Hypothyroidism: No - HEMATOLOGICAL/ONCOLOGICAL Hx Anemia: No Hx Human Immunodeficiency Virus (HIV): No Hx Sickle Cell Disease: No - INTEGUMENTARY Hx Dermatological Problems: Yes - MUSCULOSKELETAL/RHEUMATOLOGICAL Hx Arthritis: Yes Hx Falls: No Hx Fractures: Yes (left hip) Hx Osteoporosis: No Hx Rheumatoid Arthritis: No - GASTROINTESTINAL Hx Crohn's Disease: No Hx Diverticulitis: No Hx Gall Bladder Disease: No Hx Gastritis: No Hx Pancreatitis: No - GENITOURINARY/GYNECOLOGICAL Hx Sexually Transmitted Disorders: No - PSYCHIATRIC Hx Psychophysiologic Disorder: Yes (anxiety, depression) Hx Anxiety: Yes Hx Depression: Yes Hx Substance Use: No - SURGICAL HISTORY Hx Appendectomy: No Hx Carotid Endarterectomy: No Hx Cholecystectomy: No Hx Coronary Artery Bypass Graft: No Hx Coronary Stent: No - ANESTHESIA Hx Anesthesia: Yes Hx Anesthesia Reactions: No Hx Malignant Hyperthermia: No Meds Allergies/Adverse Reactions: Allergies Allergy/AdvReac Type Severity Reaction Status Date / Time No Known Allergies Allergy Verified 01/15/19 22:05 - Medications Medications: Current Medications Albuterol/Ipratropium (Duoneb 3 Mg/0.5 Mg (3 Ml) Ud) 3 ml INH RTID [facility] Last Admin: 01/20/19 19:47 Dose: 3 ml Donepezil HCl (Aricept) 5 mg PO HS [facility] [place] Last Admin: 01/20/19 21:46 Dose: 5 mg Ampicillin 1 gm/ Sodium (Chloride) 100 mls @ 100 mls/hr IVPB Q8 [facility]; Protocol Last Admin: 01/20/19 17:07 Dose: 100 mls/hr Montelukast Sodium (Singulair) [address] [facility] Last Admin: 01/20/19 21:47 Dose: 10 mg Physical Exam - Constitutional Appears: Confused, Cachectic, Chronically Ill - Head Exam Head Exam: ATRAUMATIC, NORMAL INSPECTION, NORMOCEPHALIC - Eye Exam Eye Exam: absent: Scleral icterus Pupil Exam: NORMAL ACCOMODATION - ENT Exam ENT Exam: Mucous Membranes Dry - Neck Exam Neck exam: Positive for: Normal Inspection - Respiratory Exam Respiratory Exam: Decreased Breath Sounds - Cardiovascular Exam Cardiovascular Exam: REGULAR RHYTHM - GI/Abdominal Exam GI & Abdominal Exam: Diminished Bowel Sounds, Soft, Tenderness - Extremities Exam Extremities exam: Positive for: pedal edema - Back Exam Back exam: absent: CVA tenderness (L), CVA tenderness (R) - Neurological Exam Neurological exam: Alert, Altered, CN II-XII Intact - Psychiatric Exam Psychiatric exam: Depressed - Skin Skin Exam: Dry Results - Vital Signs Recent Vital Signs: Last Vital Signs Temp 98.7 F 01/20/19 21:22 Pulse 64 01/20/19 21:22 Resp 20 01/20/19 21:22 BP 104/52 L 01/20/19 21:22 Pulse Ox 97 01/20/19 21:22 - Labs Result Diagrams: 01/21/19 11:45 01/21/19 11:45 Assessment & Plan (1) Altered mental status Status: Acute Priority: High (2) COPD (chronic obstructive pulmonary disease) Status: Acute (3) HTN (hypertension) Status: Acute (4) 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
[2019-01-22] MEDS: Albuterol-Ipratrop 3 mg / 0.5 (3 ml) UD INH SCH ×3 (07:55→19:15)
[2019-01-22] MEDS: Linezolid 600 mg in D5W 300 ml 600 MG/300 ML BAG IVPB SCH ×2 (10:14→21:16)
--- NOTE | 2019-01-22 11:09 | CP.PCM.PN ---
Subjective - Date & Time of Evaluation Date of Evaluation: 01/22/19 Time of Evaluation: 11:07 - Subjective Subjective: Neuro Follow-Up: Mrs. Massey was evaluated this morning at bedside. She is still pleasantly confused; is calm, able to answer questions, and engages in neuro exam. She denies any complaints today and states that she feels good. Denies h/a, dizziness, visual changes, chest pain, sob, abd pain, n/v/d, dysuria, paresthesias. Objective - Vital Signs/Intake and Output Vital Signs (last 24 hours): Temp Pulse Resp BP Pulse Ox 97.6 F 65 20 153/60 H 97 01/22/19 07:52 01/22/19 07:52 01/22/19 07:52 01/22/19 07:52 01/22/19 07:52 - Medications Medications: Current Medications Albuterol/Ipratropium (Duoneb 3 Mg/0.5 Mg (3 Ml) Ud) 3 ml INH RTID [facility] Last Admin: 01/22/19 07:55 Dose: 3 ml Docusate Sodium (Colace) 100 mg PO BID [facility] Last Admin: 01/22/19 10:16 Dose: 100 mg Donepezil HCl (Aricept) 5 mg PO HS [facility] Last Admin: 01/21/19 21:45 Dose: 5 mg Linezolid (Zyvox 600mg/300ml D5w) 600 mg in 300 mls @ 300 mls/hr IVPB Q12 [facility]; Protocol Last Admin: 01/22/19 10:14 Dose: 300 mls/hr Montelukast Sodium (Singulair) 10 mg PO HS [facility] Last Admin: 01/21/19 21:46 Dose: 10 mg Rivaroxaban (Xarelto) 10 mg PO DAILY [facility]; Protocol Last Admin: 01/22/19 10:15 Dose: 10 mg - Labs Labs: 01/21/19 11:45 01/21/19 11:45 PT 13.0 Seconds (9.8-13.1) 01/19/19 13:48 INR 1.1 01/19/19 13:48 APTT 37.5 Seconds (25.6-37.1) H 01/19/19 13:48 - Constitutional Appears: Well, Non-toxic, No Acute Distress - Head Exam Head Exam: ATRAUMATIC, NORMAL INSPECTION, NORMOCEPHALIC - Eye Exam Eye Exam: Normal appearance, PERRL Pupil Exam: NORMAL ACCOMODATION, PERRL - ENT Exam ENT Exam: Mucous Membranes Moist - Neck Exam Neck Exam: Full ROM, Normal Inspection - Respiratory Exam Respiratory Exam: NORMAL BREATHING PATTERN - Extremities Exam Extremities Exam: Full ROM, Normal Inspection. absent: Calf Tenderness, Pedal Edema - Back Exam Back Exam: Full ROM - Neurological Exam Neurological Exam: Abnormal Gait (uses cane ), Alert, Altered, Awake, CN II-XII Intact, Oriented x3, Reflexes Normal Neuro motor strength exam: Left Upper Extremity: 5, Right Upper Extremity: 5, Left Lower Extremity: 5, Right Lower Extremity: 5 Additional comments: Speech clear, fluid Pt is still pleasantly confused; oriented to place but note time or person. Calm, cooperative. No focal motor or sensory deficits noted. No tremors or abnormal movements. - Psychiatric Exam Additional comments: pleasantly confused; calm, cooperative no hallucinations - Skin Skin Exam: Normal Color Assessment and Plan (1) Altered mental status Assessment & Plan: Imaging reviewed: -CT Head (01/19/19): No acute intracranial hemorrhage. Chronic white matter and basal nuclei ischemic changes. Moderate generalized volume loss. -AMS likely 2/2 infectious process, toxic metabolic encephalopathy. -MRI Brain without contrast ordered to r/o acute intracranial involvement and is still pending---will f/u with results. If negative for acute intracranial iss ues, pt may be cleared from neuro standpoint and should continue treatment and management of ongoing infectious processes. We can be reconsulted prn at that point. -May add Seroquel 25 mg PO HS prn agitation if necessary per Dr. Lujan's recommendations. -Notify neuro team of any acute changes. Kate Smith, SONAM, PROJECT ADMIN Discussed with Dr. Proctor Status: Acute
--- NOTE | 2019-01-22 18:14 | CP.PCM.PN ---
Subjective - Date & Time of Evaluation Date of Evaluation: 01/22/19 Time of Evaluation: 11:10 - Subjective Subjective: F/U AMS.Pt doing well, smiling, N/C, denied hallucinations breathing well. Objective - Vital Signs/Intake and Output Vital Signs (last 24 hours): Temp Pulse Resp BP Pulse Ox 98.7 F 79 16 114/51 L 96 01/22/19 16:49 01/22/19 16:49 01/22/19 16:49 01/22/19 16:49 01/22/19 16:49 - Medications Medications: Current Medications Albuterol/Ipratropium (Duoneb 3 Mg/0.5 Mg (3 Ml) Ud) 3 ml INH RTID [facility] Last Admin: 01/22/19 13:25 Dose: 3 ml Docusate Sodium (Colace) 100 mg PO BID [facility] Last Admin: 01/22/19 17:09 Dose: 100 mg Donepezil HCl (Aricept) 5 mg PO HS [facility] Last Admin: 01/21/19 21:45 Dose: 5 mg Linezolid (Zyvox 600mg/300ml D5w) 600 mg in 300 mls @ 300 mls/hr IVPB Q12 [facility]; Protocol Last Admin: 01/22/19 10:14 Dose: 300 mls/hr Montelukast Sodium (Singulair) 10 mg PO HS [facility] Last Admin: 01/21/19 21:46 Dose: 10 mg Rivaroxaban (Xarelto) 10 mg PO DAILY [facility]; Protocol Last Admin: 01/22/19 10:15 Dose: 10 mg - Labs Labs: 01/21/19 11:45 01/21/19 11:45 PT 13.0 Seconds (9.8-13.1) 01/19/19 13:48 INR 1.1 01/19/19 13:48 APTT 37.5 Seconds (25.6-37.1) H 01/19/19 13:48 - Constitutional Appears: No Acute Distress, Cachectic - Head Exam Head Exam: NORMAL INSPECTION - Eye Exam Eye Exam: PERRL - ENT Exam ENT Exam: Normal Exam - Neck Exam Neck Exam: Normal Inspection - Respiratory Exam Respiratory Exam: NORMAL BREATHING PATTERN - Cardiovascular Exam Cardiovascular Exam: REGULAR RHYTHM - GI/Abdominal Exam GI & Abdominal Exam: Soft, Normal Bowel Sounds - Extremities Exam Extremities Exam: Normal Inspection - Back Exam Back Exam: NORMAL INSPECTION - Neurological Exam Neurological Exam: Alert, Oriented x3 Additional comments: No focal motor/sensory deficit. 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
[2019-01-22 20:09] VITALS: RESP 18
[2019-01-23 06:06] LABS: HEMOGLOBIN 11.4 g/dL (12.0-16.0); MEAN CELL VOLUME 95.8 fl (81.0-99.0); MEAN CORPUSCULAR HEMOGLOBIN 32.3 pg (27.0-31.0); MEAN CORPUSCULAR HGB CONC 33.7 g/dL (33.0-37.0); RBC 3.53 Mil/uL (3.80-5.20); RED CELL DISTRIBUTION WIDTH 14.7 % (11.5-14.5); WHITE BLOOD COUNT 4.1 K/uL (4.8-10.8)
[2019-01-23] MEDS: Linezolid 600 mg in D5W 300 ml 600 MG/300 ML BAG IVPB SCH ×2 (08:46→20:21)
[2019-01-23] MEDS: Albuterol-Ipratrop 3 mg / 0.5 (3 ml) UD INH SCH ×3 (09:01→19:22)
--- NOTE | 2019-01-23 11:30 | CP.PCM.PN ---
Subjective - Date & Time of Evaluation Date of Evaluation: 01/23/19 Time of Evaluation: 09:00 - Subjective Subjective: seen on rounds in [facility] Objective - Vital Signs/Intake and Output Vital Signs (last 24 hours): Temp Pulse Resp BP Pulse Ox 97 F L 62 18 150/53 L 94 L 01/23/19 08:14 01/23/19 08:14 01/23/19 08:14 01/23/19 08:52 01/23/19 08:14 - Medications Medications: Current Medications Albuterol/Ipratropium (Duoneb 3 Mg/0.5 Mg (3 Ml) Ud) 3 ml INH RTID [facility] Last Admin: 01/23/19 09:01 Dose: Not Given Docusate Sodium (Colace) 100 mg PO BID [facility] Last Admin: 01/23/19 08:45 Dose: 100 mg Docusate Sodium (Colace) 200 mg PO ONCE ONE Stop: 01/23/19 21:29 Last Admin: 01/22/19 21:58 Dose: 200 mg Donepezil HCl (Aricept) 5 mg PO [facility] Last Admin: 01/22/19 21:16 Dose: 5 mg Linezolid (Zyvox 600mg/300ml D5w) 600 mg in 300 mls @ 300 mls/hr IVPB Q12 [facility]; Protocol Last Admin: 01/23/19 08:46 Dose: 300 mls/hr Montelukast Sodium (Singulair) 10 mg PO [facility] Last Admin: 01/22/19 21:16 Dose: 10 mg Rivaroxaban (Xarelto) 10 mg PO DAILY [facility]; Protocol Last Admin: 01/23/19 08:45 Dose: 10 mg - Labs Labs: 01/23/19 05:35 01/21/19 11:45 PT 13.0 Seconds (9.8-13.1) 01/19/19 13:48 INR 1.1 01/19/19 13:48 APTT 37.5 Seconds (25.6-37.1) H 01/19/19 13:48 - Constitutional Appears: Non-toxic, Cachectic, Chronically Ill - Head Exam Head Exam: NORMOCEPHALIC - Eye Exam Eye Exam: absent: Scleral icterus Pupil Exam: NORMAL ACCOMODATION - ENT Exam ENT Exam: Mucous Membranes Dry - Neck Exam Neck Exam: absent: Lymphadenopathy - Cardiovascular Exam Cardiovascular Exam: REGULAR RHYTHM - GI/Abdominal Exam GI & Abdominal Exam: Distended, Soft - Rectal Exam Rectal Exam: Deferred - Exam Exam: NORMAL INSPECTION Assessment and Plan (1) Altered mental status Status: Resolved (2) 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
--- NOTE | 2019-01-23 14:50 | CP.PCM.PN ---
Subjective - Date & Time of Evaluation Date of Evaluation: 01/23/19 Time of Evaluation: 13:45 - Subjective Subjective: F/U AMS Pt awake, alert, follows commands, ambulating in room. Objective - Vital Signs/Intake and Output Vital Signs (last 24 hours): Temp Pulse Resp BP Pulse Ox 97.8 F 69 18 136/56 L 98 01/23/19 12:00 01/23/19 12:00 01/23/19 12:00 01/23/19 12:00 01/23/19 12:00 - Medications Medications: Current Medications Albuterol/Ipratropium (Duoneb 3 Mg/0.5 Mg (3 Ml) Ud) 3 ml INH RTID [facility] Last Admin: 01/23/19 13:21 Dose: 3 ml Docusate Sodium (Colace) 100 mg PO BID [facility] Last Admin: 01/23/19 08:45 Dose: 100 mg Docusate Sodium (Colace) 200 mg PO ONCE ONE Stop: 01/23/19 21:29 Last Admin: 01/22/19 21:58 Dose: 200 mg Donepezil HCl (Aricept) 5 mg PO HS [facility] Last Admin: 01/22/19 21:16 Dose: 5 mg Linezolid (Zyvox 600mg/300ml D5w) 600 mg in 300 mls @ 300 mls/hr IVPB Q12 [facility]; Protocol Last Admin: 01/23/19 08:46 Dose: 300 mls/hr Montelukast Sodium (Singulair) 10 mg PO [facility] Last Admin: 01/22/19 21:16 Dose: 10 mg Rivaroxaban (Xarelto) 10 mg PO DAILY [facility]; Protocol Last Admin: 01/23/19 08:45 Dose: 10 mg - Labs Labs: 01/23/19 05:35 01/21/19 11:45 PT 13.0 Seconds (9.8-13.1) 01/19/19 13:48 INR 1.1 01/19/19 13:48 APTT 37.5 Seconds (25.6-37.1) H 01/19/19 13:48 - Constitutional Appears: Cachectic, Chronically Ill - Head Exam Head Exam: NORMAL INSPECTION - Eye Exam Eye Exam: PERRL - ENT Exam ENT Exam: Normal Exam - Neck Exam Neck Exam: Normal Inspection - Respiratory Exam Respiratory Exam: NORMAL BREATHING PATTERN - Cardiovascular Exam Cardiovascular Exam: REGULAR RHYTHM - GI/Abdominal Exam GI & Abdominal Exam: Soft, Normal Bowel Sounds - Extremities Exam Extremities Exam: Normal Inspection - Back Exam Back Exam: NORMAL INSPECTION - Neurological Exam Neurological Exam: Alert Additional comments: Ox2, forgetful, no focal motor/sensory deficit. 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
[2019-01-24 08:03] VITALS: BP 124/63; PULSE 69; TEMP 98.7; O2SAT 95
[2019-01-24] MEDS: Albuterol-Ipratrop 3 mg / 0.5 (3 ml) UD INH SCH (08:27)
[2019-01-24] MEDS: Linezolid 600 mg in D5W 300 ml 600 MG/300 ML BAG IVPB SCH (10:45)
--- NOTE | 2019-01-24 12:51 | CP.PCM.DIS ---
Provider - Provider Date of Admission: 01/19/19 14:33 Attending physician: Richard Olsen MD Consults: 01/20/19 02:12 Physician Consult Routine Comment: Consulting Provider: Duarte Lujan Consulting Physician: Duarte Lujan Reason for Consult: AMS 01/20/19 02:19 Physician Consult Routine Comment: Consulting Provider: Russel Mckay Consulting Physician: Russel Mckay Reason for Consult: Hallucinations 01/20/19 06:11 Nursing Referral for Palliative Care Routine Comment: Consulting Provider: Maryam Tran Physician Instructions: Reason For Exam: Recurrent admission 01/20/19 07:02 Nursing Referral for Wound Care Routine Comment: Physician Instructions: Reason For Exam: sacral redness Pastoral Care Referral Routine Comment: Physician Instructions: Reason For Exam: pt request 01/20/19 14:51 Infectious Disease Consult Routine Comment: Consulting Provider: Christian Suarez Consulting Physician: Christian Suarez Reason for Consult: VRE urine Diagnosis - Discharge Diagnosis (1) Altered mental status Status: Resolved Priority: High (2) Delirium Status: Resolved Priority: High (3) 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 Status: Acute (4) Dementia Status: Chronic (5) COPD (chronic obstructive pulmonary disease) Status: Acute (6) HTN (hypertension) Status: Acute (7) History of DVT of lower extremity Status: Chronic Hospital Course - Lab Results Lab Results: Micro Results 01/23/19 14:15 Urine Random Urine Culture - Preliminary Gram Negative Jagdish 01/19/19 13:48 Blood Blood Culture - Preliminary NO GROWTH AFTER 4 DAYS 01/19/19 13:15 Blood Blood Culture - Preliminary NO GROWTH AFTER 4 DAYS 01/19/19 14:09 Urine,Clean Catch Urine Culture - Final Vancomycin Resistant E.faecium Most Recent Lab Values WBC 4.1 K/uL (4.8-10.8) L 01/23/19 05:35 RBC 3.53 Mil/uL (3.80-5.20) L 01/23/19 05:35 Hgb 11.4 g/dL (12.0-16.0) L 01/23/19 05:35 Hct 33.8 % (34.0-47.0) L 01/23/19 05:35 MCV 95.8 fl (81.0-99.0) 01/23/19 05:35 MCH 32.3 pg (27.0-31.0) H 01/23/19 05:35 MCHC 33.7 g/dL (33.0-37.0) 01/23/19 05:35 RDW 14.7 % (11.5-14.5) H 01/23/19 05:35 Plt Count 144 K/uL (130-400) 01/23/19 05:35 MPV 9.4 fl (7.2-11.7) 01/19/19 13:48 Neut % (Auto) 63.9 % (50.0-75.0) 01/19/19 13:48 Lymph % (Auto) 23.5 % (20.0-40.0) 01/19/19 13:48 Graham % (Auto) 10.5 % (0.0-10.0) H 01/19/19 13:48 Eos % (Auto) 1.1 % (0.0-4.0) 01/19/19 13:48 Baso % (Auto) 1.0 % (0.0-2.0) 01/19/19 13:48 Neut # (Auto) 2.2 K/uL (1.8-7.0) 01/19/19 13:48 Lymph # (Auto) 0.8 K/uL (1.0-4.3) L 01/19/19 13:48 Graham # (Auto) 0.4 K/uL (0.0-0.8) 01/19/19 13:48 Eos # (Auto) 0.0 K/uL (0.0-0.7) 01/19/19 13:48 Baso # (Auto) 0.0 K/uL (0.0-0.2) 01/19/19 13:48 PT 13.0 Seconds (9.8-13.1) 01/19/19 13:48 INR 1.1 01/19/19 13:48 APTT 37.5 Seconds (25.6-37.1) H 01/19/19 13:48 pO2 16 mm/Hg (30-55) L 01/19/19 13:24 VBG pH 7.34 (7.32-7.43) 01/19/19 13:24 VBG pCO2 57 mmHg (40-60) 01/19/19 13:24 VBG HCO3 25.7 mmol/L 01/19/19 13:24 VBG Total CO2 32.5 mmol/L (22-28) H 01/19/19 13:24 VBG O2 Sat (Calc) 20.0 % (40-65) L 01/19/19 13:24 VBG Base Excess 3.6 mmol/L (0.0-2.0) H 01/19/19 13:24 VBG Potassium 4.0 mmol/L (3.6-5.2) 01/19/19 13:24 Sodium 139.0 mmol/L (132-148) 01/19/19 13:24 Chloride 104.0 mmol/L (98-107) 01/19/19 13:24 Glucose 77 mg/dL (65-105) 01/19/19 13:24 Lactate 2.1 mmol/L (0.7-2.1) 01/19/19 13:24 FiO2 21.0 % 01/19/19 13:24 Sodium 142 mmol/l (132-148) 01/21/19 11:45 Potassium 3.9 MMOL/L (3.6-5.0) 01/21/19 11:45 Chloride 108 mmol/L (98-107) H 01/21/19 11:45 Carbon Dioxide 29 mmol/L (22-30) 01/21/19 11:45 Anion Gap 9 (10-20) L 01/21/19 11:45 BUN 17 mg/dl (7-17) 01/21/19 11:45 Creatinine 0.7 mg/dl (0.7-1.2) 01/21/19 11:45 Est GFR ( Amer) > 60 01/21/19 11:45 Est GFR (Non-Af Amer) > 60 01/21/19 11:45 Random Glucose 108 mg/dL (65-105) H 01/21/19 11:45 Calcium 9.0 mg/dL (8.4-10.2) 01/21/19 11:45 Total Bilirubin 0.5 mg/dl (0.2-1.3) 01/19/19 13:48 AST 29 U/L (14-36) 01/19/19 13:48 ALT 20 U/L (9-52) 01/19/19 13:48 Alkaline Phosphatase 133 U/L (38-126) H 01/19/19 13:48 Total Protein 7.1 G/DL (6.3-8.2) 01/19/19 13:48 Albumin 3.7 g/dL (3.5-5.0) 01/19/19 13:48 Globulin 3.3 gm/dL (2.2-3.9) 01/19/19 13:48 Albumin/Globulin Ratio 1.1 (1.0-2.1) 01/19/19 13:48 Venous Blood Potassium 4.0 mmol/L (3.6-5.2) 01/19/19 13:24 Urine Color Yellow (YELLOW) 01/19/19 14:09 Urine Clarity Slighty-cloudy (Clear) 01/19/19 14:09 Urine pH 7.0 (5.0-8.0) 01/19/19 14:09 Ur Specific Elmore 1.015 (1.003-1.030) 01/19/19 14:09 Urine Protein 30 mg/dL (NEGATIVE) 01/19/19 14:09 Urine Glucose (UA) Neg mg/dL (NEGATIVE) 01/19/19 14:09 Urine Ketones Trace mg/dL (NEGATIVE) 01/19/19 14:09 Urine Blood Negative (NEGATIVE) 01/19/19 14:09 Urine Nitrate Negative (NEGATIVE) 01/19/19 14:09 Urine Bilirubin Negative (NEGATIVE) 01/19/19 14:09 Urine Urobilinogen 0.2-1.0 mg/dL (0.2-1.0) 01/19/19 14:09 Ur Leukocyte Esterase Neg Ra/uL (Negative) 01/19/19 14:09 Urine RBC (Auto) 5 /hpf (0-3) H 01/19/19 14:09 Urine Microscopic WBC 2 /hpf (0-5) 01/19/19 14:09 Ur Squamous Epith Cells 1 /hpf (0-5) 01/19/19 14:09 Urine Bacteria Rare (<OCC) 01/19/19 14:09 Hyaline Casts 3-5 /hpf (0-2) H 01/19/19 14:09 Discharge Exam - Head Exam Head Exam: NORMOCEPHALIC Discharge Plan - Discharge Medications Prescriptions: Linezolid [Zyvox] 600 mg PO Q12 #10 tab - Follow Up Plan Condition: STABLE Disposition: HOME/ ROUTINE Instructions: Urinary Tract Infection, Adult (DC), Altered Mental Status (DC) Additional Instructions: follow up with in 1 week [facility] visiting nurse [phone] Referrals: Richard Olsen MD [Family Provider] -
--- NOTE | 2019-01-25 12:46 | PQF ---
PROVIDER RESPONSE TEXT: Underweight:BMI 14.9 REVIEWER QUERY TEXT: Clarification of Clinical Diagnostic Findings 2 (two) queries: Please clarify if you are in agreement with the BMI:14.9 as listed in the EMR; if yes please: 1. Add the BMI to your next progress note 2. Include a nutritional diagnosis OR: Disagree OR: Other explanation of clinical findings Listed in the EMR: 5ft 4in 87lb BMI:14.9 The patient's Clinical Indicators include: --- Query created by: Michela Arellano on 01/21/2019 1:36 PM Electronically signed by: Richard Olsen MD 01/25/2019 12:44 PM
--- NOTE | 2019-01-25 12:46 | PQF ---
PROVIDER RESPONSE TEXT: Mild Depression REVIEWER QUERY TEXT: Depression Type Mild versus Persistent versus Not persistent :Anxiety, Depression? ---- Other, please specify H and P: Pt was brought by family to [facility] on 01/19/[facility], to have Psychiatric evaluation due to new onset of AMS, on day [employer], associated to hallucinations, likely people walking on top of her, feeling crawling inside her head, insomnia, not in her base line. - Worsening symptoms: Depression, Anxiety,weakness/tired. 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
== END 2019-01-24 12:43 | disposition home health service (06) | DRG 689 ==
LOC: H.ER 11:45 → H.ERHOLD 14:33 → H.TEL 01-20 01:42
PROVIDERS: ADMIT Internal Medicine Pulmonary Disease; ATTEND Internal Medicine Pulmonary Disease
DX: N39.0 Urinary tract infection, site not specified (principal); G92 Toxic encephalopathy; F05 Delirium due to known physiological condition; Z68.1 Body mass index [BMI] 19.9 or less, adult; B96.1 Klebsiella pneumoniae [K. pneumoniae] as the cause of diseases classified elsewhere; Z16.21 Resistance to vancomycin; F03.90 Unspecified dementia, unspecified severity, without behavioral disturbance, psychotic disturbance, mood disturbance, and anxiety; B95.2 Enterococcus as the cause of diseases classified elsewhere; K59.00 Constipation, unspecified; I10 Essential (primary) hypertension; F32.9 Major depressive disorder, single episode, unspecified; F41.9 Anxiety disorder, unspecified; J44.9 Chronic obstructive pulmonary disease, unspecified; R63.6 Underweight; E78.5 Hyperlipidemia, unspecified; E78.00 Pure hypercholesterolemia, unspecified; M19.90 Unspecified osteoarthritis, unspecified site; Z79.01 Long term (current) use of anticoagulants; Z86.711 Personal history of pulmonary embolism; Z86.718 Personal history of other venous thrombosis and embolism; Z95.1 Presence of aortocoronary bypass graft; Z95.5 Presence of coronary angioplasty implant and graft; Z87.01 Personal history of pneumonia (recurrent)